=== PATIENT | male | born 1940 | race African-American/Black ===

== ENCOUNTER 2018-11-22 17:54 | Inpatient (IN) | payer OTHER ==
[2018-11-22] MEDS ORDERED: LACTATED RINGERS SOLUTION 1000 ML INFUS.BAG IV ONE ×2 (18:37→19:19)
[2018-11-22] MEDS ORDERED: ACETAMINOPHEN 1000 MG/100 ML VIAL (NON FORMULARY) IVPB ONE (18:37)
[2018-11-22] MEDS ORDERED: LACTATED RINGERS SOLUTION 500 ML IV ONE (18:45)
[2018-11-22 19:15] LABS: VENOUS PC02 63.7 mmHg (41-51); VENOUS PO2 40.7 mmHg (30-40)
[2018-11-22] MEDS ORDERED: ACETAMINOPHEN INJECTION 100 ML IVPB ONE (19:17)
[2018-11-22 19:19] LABS: VENOUS PH 7.11 (7.31-7.41)
[2018-11-22 19:31] LABS: BASO % 0.3 % (0-2.0); EOS % 0.3 % (0-4.5); HEMATOCRIT 26.6 % (35.4-49); HEMOGLOBIN 9.1 GM/dL (11.7-16.9); LYMPH % 14.7 % (8-40); MCH 31.3 pg (25.7-33.7); MCHC 34.1 g/dl (32.0-35.9); MEAN CELL VOLUME 91.8 fl (80-96); MEAN PLT VOLUME 8.6 fl (7.5-11.1); MONO % 10.9 % (3.8-10.2); NEUT % 73.8 % (42.8-82.8); PLATELET COUNT 206 K/MM3 (134-434); RDW 13.3 % (11.9-15.9); WHITE BLOOD COUNT 6.7 K/mm3 (4.0-10.0)
[2018-11-22] MEDS ORDERED: ALBUTEROL SO4 2.5/IPRATROPIUM 0.5 INH SOL 3 ML VIAL.NEB. NEB ONE ×3 (19:43→22:01)
--- NOTE | 2018-11-22 19:47 | PDOC ---
Documentation entered by En Horowitz SCRIBE, acting as scribe for Radha Land DO. Radha Land DO: This documentation has been prepared by the Lor baker Xhesika, SCRIBE, under my direction and personally reviewed by me in its entirety. I confirm that the documentation accurately reflects all work, treatment, procedures, and medical decision making performed by me. History of Present Illness - General Chief Complaint: SIRS, Suspected/Possible Stated Complaint: FALL Time Seen by Provider: 11/22/18 18:22 History Source: Patient, Family Exam Limitations: No Limitations - History of Present Illness Initial Comments: 11/22/18 18:54 The patient is an 78 year old male with a significant medical history of HTN, recurrent UTIS, High PSA, presumed Prostate cancer secondary to high PSA, and possible dementia who present to the ED with L paraspinal pain s/p 2 episodes of mechanical falls this morning. As per daughter, the patient has been endorsing back pain for awhile as well as dysuria, urinary retention and fever. As per daughter, the patient has been endorsing worsening mental status for 3 months. The patient is a poor historian and unable to provide history, however, he denies chest pain, shortness of breath, chills, nausea, vomit, diarrhea and constipation. Patient states he did not feel lightheaded before he feel this morning. Allergies: NKA, NKDA Social history: No tobacco use, Occasional alcohol use. PCP: Robert Morejon Past History - Past Medical History Allergies/Adverse Reactions: Allergies Allergy/AdvReac Type Severity Reaction Status Date / Time No Known Allergies Allergy Verified 11/22/18 18:38 Home Medications: Ambulatory Orders Unobtainable 11/22/18 Review of Systems - Review of Systems Able to Perform ROS?: Yes Comments:: 11/22/18 18:55 GENERAL/CONSTITUTIONAL: (+) fever. No chills. No weakness. HEAD, EYES, EARS, NOSE AND THROAT: No change in vision. No ear pain or discharge. No sore throat. CARDIOVASCULAR: No chest pain or shortness of breath. RESPIRATORY: No cough, wheezing, or hemoptysis. GASTROINTESTINAL: No nausea, vomiting, diarrhea or constipation. GENITOURINARY: (+) dysuria. No frequency, or change in urination. MUSCULOSKELETAL: (+) L paraspinal pain. No joint or muscle swelling. No neck or back pain. SKIN: No rash NEUROLOGIC: No headache, vertigo, loss of consciousness, or change in strength/ sensation. ENDOCRINE: No increased thirst. No abnormal weight change. HEMATOLOGIC/LYMPHATIC: No anemia, easy bleeding, or history of blood clots. ALLERGIC/IMMUNOLOGIC: No hives or skin allergy. *Physical Exam - Vital Signs Last Vital Signs Temp Pulse Resp BP Pulse Ox 101.1 F H 91 H 20 134/121 H 100 11/22/18 18:05 11/22/18 18:05 11/22/18 18:05 11/22/18 18:05 11/22/18 18:05 - Physical Exam Comments: 11/22/18 18:55 GENERAL: Awake, alert, and oriented x 2, in no acute distress HEAD: No signs of trauma EYES: PERRLA, EOMI, sclera anicteric, conjunctiva clear ENT: Auricles normal inspection, hearing grossly normal, nares patent, oropharynx clear without exudates. (+) dry mucosa. (+) tongue fasciculations. NECK: Normal ROM, supple, no lymphadenopathy, JVD, or masses LUNGS: Breath sounds equal, clear to auscultation bilaterally. No wheezes, and no crackles HEART: Regular rate and rhythm, normal S1 and S2, no murmurs, rubs or gallops ABDOMEN: Soft, nontender, normoactive bowel sounds. No guarding, no rebound. No masses EXTREMITIES:(+) asterixis. no edema. No clubbing or cyanosis. No cords, erythema, or tenderness NEUROLOGICAL: Cranial nerves II through XII grossly intact. Awake, alert, and oriented x 2 SKIN: Warm, Dry, normal turgor, no rashes or lesions noted. Heart Score/ECG Review - ECG Intrepretation Comment:: 11/22/18 18:53 sinus at 93, nl axis, lvh, t wave inversions lateral leads, no acute st changes ED Treatment Course - LABORATORY CBC & Chemistry Diagram: 11/22/18 19:00 11/22/18 19:00 - RADIOLOGY Radiology Studies Ordered: Category Date Time Status CERVICAL SPINE CT W/O CONTR [CT] Stat CT Scan 11/22/18 18:[address] WITHOUT CONTRAST [CT] Stat CT Scan 11/22/18 18:24 Ordered CHEST - PA [RAD] Stat Radiology 11/22/18 18:37 Ordered PELVIS [RAD] Stat Radiology 11/22/18 18:37 Ordered SPINE-LUMBAR SACRAL [RAD] Stat Radiology 11/22/18 18:37 Ordered Medical Decision Making - Critical Care Time Total Critical Care Time (minutes): 60 Critical Care Statement: The care of this patient involved high complexity decision making to prevent further life threatening deterioration of the patient 's condition and/or to evaluate & treat vital organ system(s) failure or risk of failure. - Medical Decision Making 11/22/18 18:39 a/p: 78yo male with hx of htn presents with 3-4m of worsening ms and then 2 falls in the last 2 days -daughter at the bedside states poss has prostate ca - saw dr. lujan once and never followed up -pt is a poor historian and cannot provide any hx -pt with htn, unsure what med or if he is taking it -pt arrives without focal neuro findings, but confused/delirious -per daughter worsening mental status x 3 months -case [facility]ero [facility] he will resume care in the am, pt with hx of elevated psa and htn, hx of freq uti -requests repeat psa and renal ultrasound, agrees with rest of plan -will send labs, cultures, head and c spine ct, xray of chest and back -will send ua and ucx -will monitor and reassess 11/22/18 19:47 pt with fever severe acidosis - both hypercapnic and metabolic will start nebs pt to ct will need admission 11/22/18 20:06 pt with renal failure hyperkalemia dr. kenny called to update on labs, will consult nephrology/urology will place vilchis catheter renal failure causing acidosis will treat hyperkalemia will place in ICU 11/22/18 20:15 case again discussed with Dr. Kenny who states pt took norvasc 5mg in the past hx of glaucoma will consult urology, nephrology - dr. lujan, dr. ly discussed with ICU resident who will see the patient. 11/22/18 20:[address] Ly - no HD at this time, will repeat labs q4 labs tonight. agrees with mame spence, recommends discussion with urology for nephrostomy tubes 11/22/18 21:[address] Schulte who accepts pt to service under dr. kenny 11/22/18 21:[address] Burnett who recommends MRI brain 11/22/18 21:34 case discussed with urology - dr. springer agrees with IR placing nephrostomy tubes tonight 11/22/18 21:51 attempting to get interventional radiology on the phone for nephrostomy tube placement 11/22/18 22:[address] Larios from IR who place PCN tubes in the AM. *DC/Admit/Observation/Transfer Diagnosis at time of Disposition: Systemic inflammatory response syndrome (SIRS), Hypercapnic acidosis, Metabolic acidemia, Renal failure, Hyperkalemia, Bilateral hydronephrosis - Discharge Dispostion Condition at time of disposition: Guarded Decision to Admit order: Yes - Referrals - Patient Instructions - Post Discharge Activity - Attestations Physician Attestion: 11/22/18 18:52 I, Dr. Radha Land, DO, attest that this document has been prepared under my direction and personally reviewed by me in its entirety. I further attest, that it accurately reflects all work, treatment, procedures and medical decision -making performed by me.
[2018-11-22 19:59] LABS: ALBUMIN 3.8 g/dl (3.4-5.0); BILIRUBIN,TOTAL 0.6 mg/dL (0.2-1); BLOOD UREA NITROGEN 95.4 mg/dL (7-18); CALCIUM 8.8 mg/dL (8.5-10.1); MAGNESIUM 2.1 mg/dL (1.8-2.4); TOT PROT 8.3 g/dl (6.4-8.2)
[2018-11-22 20:02] LABS: CREATININE 9.2 mg/dL (0.55-1.3)
[2018-11-22 20:03] LABS: POTASSIUM 6.2 mmol/L (3.5-5.1)
[2018-11-22] MEDS ORDERED: SODIUM POLYSTYRENE SULFONATE 15 GM/60 ML BOTTLE PO ONE (20:05)
[2018-11-22] MEDS ORDERED: CALCIUM GLUCONATE 10% - 1,000 MG/10 ML VIAL IVPUSH ONE (20:05)
[2018-11-22] MEDS ORDERED: DEXTROSE 50%-WATER - 25 GM/50 ML VIAL IVPUSH ONE (20:05)
[2018-11-22] MEDS ORDERED: INSULIN REGULAR HUMAN 100 UNITS/ML *VIAL IVPUSH ONE (20:05)
[2018-11-22] MEDS ORDERED: PIPERACILLIN/TAZOB 2.25 GM 2.25 GM in DEXTROSE 5%-WATER - 50 ML IVPB ONE (20:13)
[2018-11-22] MEDS ORDERED: VANCOMYCIN 1,000 MG in DEXTROSE 5%-WATER - 250 ML IVPB ONE (20:14)
[2018-11-22 20:18] LABS: INR 1.27 (0.83-1.09)
[2018-11-22 20:21] LABS: ACTIVATED PTT 33.9 SECONDS (25.2-36.5)
[2018-11-22] MEDS ORDERED: SODIUM CHLORIDE 0.9% 1000 ML INFUS.BAG IV ONE (20:24)
[2018-11-22] MEDS ORDERED: SODIUM BICARBONATE 8.4% 50 MEQ/50 ML DISP.SYRIN IVPUSH ONE (20:26)
[2018-11-22] MEDS ORDERED: SODIUM ZIRCONIUM CYCLOSILICATE (LOKELMA) 5 GM PACKET PO SCH (20:30)
[2018-11-22] MEDS ORDERED: ACETAMINOPHEN 650 MG SUPP.RECT PR PRN (21:23)
[2018-11-22] MEDS ORDERED: SODIUM CHLORIDE 1,000 ML IV SCH (21:30)
[2018-11-22] MEDS ORDERED: HEPARIN NA (PORCINE) 5,000 UNITS/ML 1ML VIAL ONE (22:01)
[2018-11-22] MEDS ORDERED: DEXTROSE 50%-WATER - 25 GM/50 ML VIAL ONE (22:01)
[2018-11-22] MEDS ORDERED: PIPERACILLIN/TAZOB 2.25 GM 2.25 GM/50 ML BAG IVPB ONE (22:01)
[2018-11-22] MEDS ORDERED: CALCIUM GLUCONATE 10% - 1,000 MG/10 ML VIAL ONE (22:01)
[2018-11-22] MEDS ORDERED: SODIUM BICARBONATE 8.4% 50 MEQ/50 ML VIAL ONE (22:01)
[2018-11-22] MEDS ORDERED: VANCOMYCIN 1 GRAM (PRE-DOCKED) 1,000 MG/250 ML BAG IVPB ONE (22:02)
[2018-11-22] MEDS ORDERED: INSULIN REGULAR HUMAN 100 UNITS/ML *VIAL ONE (22:42)
--- NOTE | 2018-11-22 22:50 | HP ---
Admitting History and Physical - Primary Care Physician PCP: Robert Kee - Admission Chief Complaint: falls History of Present Illness: 78 year old male with a PMHx HTN, recurrent UTI's, presumed prostate CA with a history of PSA over 200s presents after multiple falls, brought in by daughter. As per daughter, patient has had waxing and waning confusion disorientation, urinary incontinence and multiple falls for about 3 months. Patient is a poor historian, he is alert and oriented to person and place only. Daughter states he has had multiple falls and developed left lower back pain. Today he couldn't get up so he was brought to ED for further evaluation. Patient has a significant history of elevated PSA in the 200s years ago, saw urology, Dr. Buitrago once and did not follow-up. A prostate biopsy was recommended at that time. He was jagdish noted to have an enlarged prostate with a mass at that time. He is hypertensive, was on norvasc years ago and has not been taking any meds for quite some time. Patient denies cp, sob, palpitations, abdominal pain, nausea or vomiting. He also denies fever/chills. He does admit to dysuria at times. PCP: Robert Morejon History Source: Patient, Family Member (daughter) Limitations to Obtaining History: Poor Historian - Past Medical History Cardiovascular: Yes: HTN Renal/: Yes: BPH, Cancer (likely prostate CA) - Past Surgical History Past Surgical History: Yes: None - Smoking History Smoking history: Never smoked - Alcohol/Substance Use Hx Alcohol Use: No - Social History Usual Living Arrangement: Yes: Alone History of Recent Travel: No Home Medications - Allergies Allergies/Adverse Reactions: Allergies Allergy/AdvReac Type Severity Reaction Status Date / Time No Known Allergies Allergy Verified 11/22/18 18:38 - Home Medications Home Medications: Ambulatory Orders Unobtainable 11/22/18 Family Disease History - Family Disease History Family Disease History: Diabetes: Mother, CA: Sister (colon CA) Review of Systems - Review of Systems Constitutional: reports: No Symptoms Eyes: reports: No Symptoms HENT: reports: No Symptoms Neck: reports: No Symptoms Cardiovascular: reports: No Symptoms Respiratory: reports: No Symptoms Gastrointestinal: reports: No Symptoms Genitourinary: reports: Dysuria Breasts: reports: No Symptoms Reported Musculoskeletal: reports: Back Pain (left lower back pain) Integumentary: reports: No Symptoms Neurological: reports: No Symptoms (per patient) Endocrine: reports: No Symptoms Hematology/Lymphatic: reports: No Symptoms Psychiatric: reports: No Symptoms Physical Examination Vital Signs: Vital Signs Temperature 101.1 F H 11/22/18 18:05 Pulse Rate 97 H 11/22/18 21:00 Respiratory Rate 17 11/22/18 21:00 Blood Pressure 163/128 H 11/22/18 21:00 O2 Sat by Pulse Oximetry (%) 100 11/22/18 18:05 Constitutional: Yes: Well Nourished, No Distress, Calm, Other (laying in bed very comfortable) Eyes: Yes: Other (left eye ptosis) HENT: Yes: WNL, Atraumatic, Normocephalic Neck: Yes: WNL, Supple, Trachea Midline Cardiovascular: Yes: WNL, Regular Rate and Rhythm Respiratory: Yes: WNL, Regular, CTA Bilaterally Gastrointestinal: Yes: WNL, Normal Bowel Sounds, Soft, Distention (mild). No: Tenderness, Tenderness, Epigastrium, Tenderness, Rebound Renal/: Yes: Bladder Distention, Berrios Present Musculoskeletal: Yes: Back Pain (left lower back pain mild to deep palpation) Extremities: Yes: WNL Edema: No Peripheral Pulses WNL: Yes Neurological: Yes: Alert, Oriented (to person and place only), Confusion ( periods of confusion), Other (gait was not assessed). No: Aphasia, Asterixis, Dysarthria, Facial Droop, Lethargy, Loss of Sensation, Numbness, Tremors ...Motor Strength: WNL Labs: CBC, BMP 11/22/18 19:00 11/22/18 19:00 Imaging - Results Chest X-ray: Report Reviewed, Image Reviewed Cat Scan: Report Reviewed Ultrasound: Report Reviewed EKG: Report Reviewed Problem List - Problems (1) Sepsis Code(s): A41.9 - SEPSIS, UNSPECIFIED ORGANISM (2) Bilateral hydronephrosis Code(s): N13.30 - UNSPECIFIED HYDRONEPHROSIS (3) Hyperkalemia Code(s): E87.5 - HYPERKALEMIA (4) Metabolic acidemia Code(s): E87.2 - ACIDOSIS (5) Renal failure Code(s): N19 - UNSPECIFIED KIDNEY FAILURE Assessment/Plan 78 year old male presents with 3 month history of AMS, multiple falls found to be in renal failure and sepsis. Assessment: Sepsis Acute Renal Failure Severe B/L hydronephrosis Metabolic encephalopathy Hyperkalemia Obstructive nephropathy Probable Prostate CA HTN Glaucoma Plan: admit to ICU Hyperkalemia treated in ED, given cocktail, check [employer] Q4H Per nephro, no indication for HD at this time Berrios placed, urology consult to reevaluate for prostate CA IR for nephrostomy tube placement, will be done in AM per ED note HTN monitor for now and if continues to be elevated avoid nephrotoxic agents Multiple falls, left lower back pain, no acute pathology on c spine ct Follow up LS, hip/pelvic xrays sepsis, toxic metabolic encephalopathy, hypercapnia pancultured in ED, broad spectrum abx, consult ID, likely urinary source inhaled nebs IV fluids CT head with obstructive hydrocephalus and edema, brain MRI ordered, neurology consulted and aware ID eval Social work consult for possible placement and evaluation of home conditions discussed in length with daughter and patient, all questions answered
[2018-11-22 22:56] LABS: EPI CELLS 2.9 /HPF (0-5/HPF); HYALINE CASTS 1 /lpf (0-8); URINE APPEARANCE CLEAR; URINE BACTERIA 2.7 /hpf (NEGATIVE); URINE BILIRUBIN NEGATIVE (NEGATIVE); URINE COLOR YELLOW; URINE GLUCOSE (UA) NEGATIVE (NEGATIVE); URINE KETONE NEGATIVE (NEGATIVE); URINE LEUK ESTERASE NEGATIVE (NEGATIVE); URINE NITRITE NEGATIVE (NEGATIVE); URINE PROTEIN 2+ (NEGATIVE); URINE RBC 43 /hpf (0-4); URINE UROBILINOGEN 0.2 mg/dL (0.2-1.0); URINE WBC 4 /hpf (0-5)
[2018-11-23] MEDS ORDERED: amLODIPine BESYLATE 5 MG TABLET (FP) PO ONE ×2 (00:26→08:03)
[2018-11-23 00:38] LABS: ALBUMIN 2.9 g/dl (3.4-5.0); BILIRUBIN,TOTAL 0.6 mg/dL (0.2-1); BLOOD UREA NITROGEN 89.4 mg/dL (7-18); CALCIUM 7.8 mg/dL (8.5-10.1); MAGNESIUM 1.7 mg/dL (1.8-2.4); TOT PROT 6.4 g/dl (6.4-8.2)
[2018-11-23] MEDS ORDERED: PNEUMOC 13-VAL CONJ-DIP CRM/PF 0.5 ML DISP.SYRIN IM ONE (00:38)
[2018-11-23 00:42] LABS: CREATININE 8.4 mg/dL (0.55-1.3)
--- NOTE | 2018-11-23 00:46 | CONSULT ---
Consultation: REQUESTING PROVIDER: Dr. Land CONSULT REQUEST: We have been asked to medically evaluate this patient for renal failure and acidosis. HISTORY OF PRESENT ILLNESS: Sp Jo is an 78 year old male with a past medical history of HTN, frequent UTIS, possible prostate CA with high PSAs who presented to the hospital after sustaining a fall and could not get up. Patient has poor compliance with follow up and medications. Patient had been having increased confusion and unsteadiness over the last 3 months with increased amounts of falls, the most recent fall prior to yesterday was on Tuesday. He had been having dysuria, pain on urination, and urinary retention. On this current admission, the patient had fallen over onto his left side and unable to raise himself up. On presentation, the patient was pleasantly confused and only endorsing right sided pain in the parasternal region. Denied any lightheadedness , dizziness, palpitations, visual disturbances prior to fall. He denied fever, chills, chest pain, palpitations, shortness of breath, abd pain, n/v/c/d, dizziness, lightheadedness, weakness, numbness, tingling on presentation. The patient had previously seen by Dr. Cortez for potential prostate malignancy but had not followed up. ED Course notable for: 1) K 6.2 2) BUN/CRE 95/9.2 3) renal/bladder U/S--> mild to moderate bilateral hydronephrosis 4) Head Ct--> obstructive hydrocephalus REVIEW OF SYSTEMS: CONSTITUTIONAL: Absent: fever, chills, diaphoresis, generalized weakness, malaise, loss of appetite, weight change HEENT: photophobia Absent: rhinorrhea, nasal congestion, throat pain, throat swelling, difficulty swallowing, mouth swelling, ear pain, eye pain, visual changes CARDIOVASCULAR: Absent: chest pain, syncope, palpitations, irregular heart rate, lightheadedness , peripheral edema RESPIRATORY: Absent: cough, shortness of breath, dyspnea with exertion, orthopnea, wheezing, stridor, hemoptysis GASTROINTESTINAL: Absent: abdominal pain, abdominal distension, nausea, vomiting, diarrhea, constipation, melena, hematochezia GENITOURINARY: dysuria, retention Absent: frequency, urgency, hesitancy, hematuria, flank pain, genital pain MUSCULOSKELETAL: back pain L side parasternal Absent: myalgia, arthralgia, joint swelling, , neck pain SKIN: Absent: rash, itching, pallor HEMATOLOGIC/IMMUNOLOGIC: Absent: easy bleeding, easy bruising, lymphadenopathy, frequent infections ENDOCRINE: Absent: unexplained weight gain, unexplained weight loss, heat intolerance, cold intolerance NEUROLOGIC: Absent: headache, focal weakness or paresthesias, dizziness, unsteady gait, seizure, mental status changes, bladder or bowel incontinence PSYCHIATRIC: Absent: anxiety, depression, suicidal or homicidal ideation, hallucinations. PHYSICAL EXAMINATION Vital Signs - 24 hr 11/22/18 11/22/18 11/22/18 18:05 18:52 19:20 Temperature 101.1 F H 99.1 F Pulse Rate 91 H 96 H Pulse Rate [ 89 Left Radial] Respiratory 20 17 17 Rate Blood Pressure 134/121 H 173/93 H Blood Pressure 191/98 H [Left Arm] O2 Sat by Pulse 100 Oximetry (%) 11/22/18 11/22/18 21:00 23:23 Temperature 99.1 F Pulse Rate 96 H Pulse Rate [ 97 H Left Radial] Respiratory 17 17 Rate Blood Pressure 175/93 H Blood Pressure 163/128 H [Left Arm] O2 Sat by Pulse Oximetry (%) GENERAL: Awake, alert, and disoriented, no acute distress, asking for food. HEAD: Normal with no signs of trauma. EYES: Pupils equal, round and reactive to light, extraocular movements intact, sclera anicteric, conjunctiva clear. EARS, NOSE, THROAT: Oropharynx clear without exudates. Moist mucous membranes. NECK: Normal range of motion, supple without lymphadenopathy, JVD, or masses. No enlarged thyroid LUNGS: Breath sounds equal, clear to auscultation bilaterally. No wheezes, and no crackles. No accessory muscle use. HEART: Regular rate and rhythm, normal S1 and S2 without murmur, rub or gallop. ABDOMEN: Soft, nontender, not distended, normoactive bowel sounds, no guarding, no rebound, no masses. MUSCULOSKELETAL: Normal range of motion at all joints. No bony deformities or tenderness. No CVA tenderness. UPPER EXTREMITIES: 1+ pulses, warm, well-perfused. No cyanosis. No peripheral edema. LOWER EXTREMITIES: 1+ pulses, warm, well-perfused. No calf tenderness. No peripheral edema. NEUROLOGICAL: Cranial nerves II-XII intact. Normal speech. Muscle strength 5/5 bilaterally upper and lower extremities. No dysmetria. PSYCHIATRIC: Cooperative. Good eye contact. Appropriate mood and affect. SKIN: Warm, dry, normal turgor, no rashes or lesions noted. Laboratory Results - last 24 hr 11/22/18 11/22/18 11/22/18 19:00 19:00 19:00 WBC 6.7 RBC 2.90 L Hgb 9.1 L Hct 26.6 L MCV 91.8 MCH 31.3 MCHC 34.1 RDW 13.3 Plt Count 206 MPV 8.6 Absolute Neuts (auto) 5.0 Neutrophils % 73.8 Lymphocytes % 14.7 Monocytes % 10.9 H Eosinophils % 0.3 Basophils % 0.3 Nucleated RBC % 0 PT with INR INR PTT (Actin FS) VBG pH POC VBG pCO2 POC VBG pO2 VBG HCO3 VBG O2 Sat (Esdras) VBG Base Excess Sodium 129 L Potassium 6.2 H* Chloride 97 L Carbon Dioxide 24 Anion Gap 8 BUN 95.4 H Creatinine 9.2 H* Est GFR (CKD-EPI)AfAm 5.61 Est GFR (CKD-EPI)NonAf 4.84 Random Glucose 97 Lactic Acid Calcium 8.8 Magnesium 2.1 Total Bilirubin 0.6 AST 12 L ALT 13 Alkaline Phosphatase 125 H Ammonia Creatine Kinase 162 Creatine Kinase Index 0.6 CK-MB (CK-2) < 1.0 Troponin I < 0.02 Total Protein 8.3 H Albumin 3.8 Urine Color Urine Appearance Urine pH Ur Specific Downing Urine Protein Urine Glucose (UA) Urine Ketones Urine Blood Urine Nitrite Urine Bilirubin Urine Urobilinogen Ur Leukocyte Esterase Urine WBC (Auto) Urine RBC (Auto) Urine Casts (Auto) U Epithel Cells (Auto) Urine Bacteria (Auto) Blood Type Antibody Screen 11/22/18 11/22/18 11/22/18 19:00 19:00 19:00 WBC RBC Hgb Hct MCV MCH MCHC RDW Plt Count MPV Absolute Neuts (auto) Neutrophils % Lymphocytes % Monocytes % Eosinophils % Basophils % Nucleated RBC % PT with INR 15.00 H INR 1.27 H PTT (Actin FS) 33.9 VBG pH POC VBG pCO2 POC VBG pO2 VBG HCO3 VBG O2 Sat (Esdras) VBG Base Excess Sodium Potassium Chloride Carbon Dioxide Anion Gap BUN Creatinine Est GFR (CKD-EPI)AfAm Est GFR (CKD-EPI)NonAf Random Glucose Lactic Acid 2.1 H Calcium Magnesium Total Bilirubin AST ALT Alkaline Phosphatase Ammonia Creatine Kinase Creatine Kinase Index CK-MB (CK-2) Troponin I Total Protein Albumin Urine Color Urine Appearance Urine pH Ur Specific Downing Urine Protein Urine Glucose (UA) Urine Ketones Urine Blood Urine Nitrite Urine Bilirubin Urine Urobilinogen Ur Leukocyte Esterase Urine WBC (Auto) Urine RBC (Auto) Urine Casts (Auto) U Epithel Cells (Auto) Urine Bacteria (Auto) Blood Type A POSITIVE Antibody Screen Negative 11/22/18 11/22/18 11/22/18 19:00 19:00 22:35 WBC RBC Hgb Hct MCV MCH MCHC RDW Plt Count MPV Absolute Neuts (auto) Neutrophils % Lymphocytes % Monocytes % Eosinophils % Basophils % Nucleated RBC % PT with INR INR PTT (Actin FS) VBG pH 7.11 L* POC VBG pCO2 63.7 H POC VBG pO2 40.7 H VBG HCO3 19.1 L VBG O2 Sat (Esdras) 56.4 L VBG Base Excess -10.1 L Sodium Potassium Chloride Carbon Dioxide Anion Gap BUN Creatinine Est GFR (CKD-EPI)AfAm Est GFR (CKD-EPI)NonAf Random Glucose Lactic Acid Calcium Magnesium Total Bilirubin AST ALT Alkaline Phosphatase Ammonia 26.00 Creatine Kinase Creatine Kinase Index CK-MB (CK-2) Troponin I Total Protein Albumin Urine Color Yellow Urine Appearance Clear Urine pH 8.0 Ur Specific Downing 1.010 Urine Protein 2+ H Urine Glucose (UA) Negative Urine Ketones Negative Urine Blood 2+ H Urine Nitrite Negative Urine Bilirubin Negative Urine Urobilinogen 0.2 Ur Leukocyte Esterase Negative Urine WBC (Auto) 4 Urine RBC (Auto) 43 Urine Casts (Auto) 1 U Epithel Cells (Auto) 2.9 Urine Bacteria (Auto) 2.7 Blood Type Antibody Screen 11/22/18 11/22/18 23:30 23:30 WBC RBC Hgb Hct MCV MCH MCHC RDW Plt Count MPV Absolute Neuts (auto) Neutrophils % Lymphocytes % Monocytes % Eosinophils % Basophils % Nucleated RBC % PT with INR INR PTT (Actin FS) VBG pH POC VBG pCO2 POC VBG pO2 VBG HCO3 VBG O2 Sat (Esdras) VBG Base Excess Sodium 133 L Potassium 5.0 Chloride 99 Carbon Dioxide 23 Anion Gap 11 BUN 89.4 H Creatinine 8.4 H* Est GFR (CKD-EPI)AfAm 6.26 Est GFR (CKD-EPI)NonAf 5.40 Random Glucose 240 H Lactic Acid 1.7 Calcium 7.8 L Magnesium 1.7 L Total Bilirubin 0.6 AST 13 L ALT 11 L Alkaline Phosphatase 101 Ammonia Creatine Kinase Creatine Kinase Index CK-MB (CK-2) Troponin I Total Protein 6.4 Albumin 2.9 L Urine Color Urine Appearance Urine pH Ur Specific Downing Urine Protein Urine Glucose (UA) Urine Ketones Urine Blood Urine Nitrite Urine Bilirubin Urine Urobilinogen Ur Leukocyte Esterase Urine WBC (Auto) Urine RBC (Auto) Urine Casts (Auto) U Epithel Cells (Auto) Urine Bacteria (Auto) Blood Type Antibody Screen CBC, BMP 11/22/18 19:00 11/22/18 23:30 INR, PTT INR 1.27 (0.83-1.09) H 11/22/18 19:00 Active Medications Generic Name Dose Route Start Last Admin Trade Name Freq PRN Reason Stop Dose Admin Acetaminophen 650 mg 11/22/18 21:23 Tylenol Suppository - [place] Q4H PRN FEVER Chlorhexidine Gluconate 1 applic 11/22/18 22:00 Hibiclens For Decolonization - TP HS SINDY Heparin Sodium (Porcine) 5,000 unit 11/22/18 22:00 Heparin - SQ BID SINDY Sodium Chloride 1,000 mls @ 75 mls/hr 11/22/18 21:30 11/23/18 00:44 Normal Saline - IV 75 mls/hr ASDIR SINDY Administration Piperacillin Sod/Tazobactam 50 mls @ 100 mls/hr 11/23/18 23:00 Sod 2.25 gm/ Dextrose IVPB Q8H SINDY Protocol Piperacillin Sod/Tazobactam 50 mls @ 100 mls/hr 11/23/18 07:00 Sod 2.25 gm/ Dextrose IVPB 11/23/18 15:29 Q8H [facility] Protocol Mupirocin 1 applic 11/22/18 22:00 Bactroban Ointment (For Decolonization) - NS 11/27/18 21:59 BID SINDY Pneumococcal 13-Valent Conj Vacc 0.5 ml 11/23/18 00:38 Prevnar 13 Syringe - IM 11/23/18 00:39 .ONCE ONE ASSESSMENT/PLAN: Sp Jo is an 78 year old male with a past medical history of HTN, frequent UTIS, possible prostate CA with high PSAs admitted to the ICU for acute renal failure likely secondary to post-renal obstruction and hyperkalemia likely secondary to renal failure. WOJCIECH from Post-renal obstruction Hyperkalemia HTN Prostate CA Acidosis NEUROLOGIC - disoriented at times likely secondary to uremia vs obstructive hydrocephalus - likely with underlying dementia - CT showing obstructive hydrocephalus with dilated lateral, third, and fourth ventricles - Dr. Burnett consulted, recs appreciated - MRI w/o contrast ordered CARDIOLOGY - previously on Norvasc 5mg, however had not taken it in a long time - BP on arrival 191/98 - restart Norvasc 5mg - continue to monitor BP and HR RESPIRATORY - on cervical spine CT, two lesions noted in L upper lobe - evaluate for possible metastasis from prostate - preliminary read showing pulmonary nodules in bibasilar regions, f/u on official read RENAL - CRE 9.2 on admission, downtrended to 8.4 after vilchis insertion - no previous admissions, baseline uncertain - hyperkalemia 6.2 on admission, calcium gluconate, given insulin w/ D50, NS1L, Duonebs - repeat K 5.0 - continue to trend BMP and treat electrolytes as necessary - Dr. Ly consulted recs appreciated - no emergent need for HD - 1 amp of sodium bicarb given - If potassium rises, may need Lokelma GASTROINTESTINAL - no acute issues GENITOURINARY - vilchis inserted - Dr. Cortez consulted, recs appreciated - enlarged prostate with mass effect on the bladder as noted by imaging promotions assistant , f/u on official read - renal/bladder U/s showing mild to moderate bilateral hydronephrosis, bladder wall thickening - severe bilateral hydronephrosis as noted by imaging promotions assistant, f/u on official read - IR consulted, nephrostomy tubes to be inserted in AM to relieve obstruction INFECTIOUS DISEASE - hx of UTIs - urine cxs and blood cxs sent - one time dose of Vanco given - Zosyn ENDOCRINE - no acute issues HEMATOLOGY - no acute issues MUSCULOSKELETAL - head CT and cervical spine CT show no acute fx - f/u on hip and lumbar spine x-ray PSYCHIATRY - no acute issues F/E/N - Normal saline at 75cc/hr - hyperkalemia resolved, continue to monitor electrolytes and replete as necessary - NPO pending neprhostomy tube placement LINES - R AC inserted 11/22 - L forearm inserted 11/22 PROPHYLAXIS - heparin held prior to procedure CODE - full code DISPO We will continue to follow the patient. Thank you for this consultative opportunity. JOSH DAVIS DO - PGY-1 INTERNAL MEDICINE Problem List - Problems (1) Bilateral hydronephrosis Code(s): N13.30 - UNSPECIFIED HYDRONEPHROSIS (2) Hypercapnic acidosis Code(s): E87.2 - ACIDOSIS (3) Hyperkalemia Code(s): E87.5 - HYPERKALEMIA (4) Metabolic acidemia Code(s): E87.2 - ACIDOSIS (5) Renal failure Code(s): N19 - UNSPECIFIED KIDNEY FAILURE Visit type - Emergency Visit Emergency Visit: Yes ED Registration Date: 11/22/18 Care time: The patient presented to the Emergency Department on the above date and was hospitalized for further evaluation of their emergent condition. - New Patient This patient is new to me today: Yes Date on this admission: 11/23/18 - Critical Care Critical Care patient: Yes Total Critical Care Time (in minutes): 35 Critical Care Statement: The care of this patient involved high complexity decision making to prevent further life threatening deterioration of the patient 's condition and/or to evaluate & treat vital organ system(s) failure or risk of failure.
[2018-11-23] MEDS: CHLORHEXIDINE GLUCONATE 4% CLEANSER FOR DECOLONIZATION TP SCH ×2 (00:50→21:17)
[2018-11-23] MEDS: HEPARIN NA (PORCINE) 5,000 UNITS/ML 1ML VIAL SQ SCH (00:50)
[2018-11-23] MEDS: MUPIROCIN 2% TOPICAL OINTMENT FOR DECOLONIZATION NS SCH ×3 (00:53→21:18)
[2018-11-23 04:29] LABS: CALCIUM 7.8 mg/dL (8.5-10.1); POTASSIUM 5.1 mmol/L (3.5-5.1)
[2018-11-23 04:32] LABS: CREATININE 8.7 mg/dL (0.55-1.3)
[2018-11-23] MEDS ORDERED: PIPERACILLIN/TAZOBACTAM 2.25 GM VIAL IVPB ONE ×4 (06:14→21:41)
[2018-11-23] MEDS ORDERED: DEXTROSE 5%-WATER - 50 ML IVPB ONE ×4 (06:14→21:41)
[2018-11-23] MEDS: PIPERACILLIN/TAZOB 2.25 GM 2.25 GM in DEXTROSE 5%-WATER - 50 ML IVPB SCH ×3 (06:16→18:30)
--- NOTE | 2018-11-23 07:20 | PN ---
Progress Note, Physician Chief Complaint: 78 y.o M was BI by his doughter to the ER due to generalized weakness, falls, increased confusion, new urinary incontinence. In the ER hyperlalemia, ARF, acidosis, Fever 101.1-the patient was admitted to the ICU for further management.. History of Present Illness: Glaucoma HTN. History of elevated PSA 50 in 01/24 and 84 in 04/26. Seen by Dr Cortez and MRI prostate was done which showed suggestive for malignancy prostate mass growing through the capsule and multiple pelvic LN. The patient was scheduled for a biopsy of the prostate, preop eval was done, but the patient decided not to proceed with prostate biopsy, Cognitive impairment - Current Medication List Current Medications: Active Medications Acetaminophen (Tylenol Suppository -) 650 mg [place] Q4H PRN PRN Reason: FEVER Chlorhexidine Gluconate (Hibiclens For Decolonization -) 1 applic TP HS PENDING SALE TO [facility] Last Admin: 11/23/18 00:50 Dose: 1 applic Heparin Sodium (Porcine) (Heparin -) 5,000 unit SQ BID SINDY Last Admin: 11/23/18 00:50 Dose: Not Given Sodium Chloride (Normal Saline -) 1,000 mls @ 75 mls/hr IV ASDIR SINDY Last Admin: 11/23/18 00:44 Dose: 75 mls/hr Piperacillin Sod/Tazobactam (Sod 2.25 gm/ Dextrose) 50 mls @ 100 mls/hr IVPB Q8H PENDING SALE TO [facility]; Protocol Piperacillin Sod/Tazobactam (Sod 2.25 gm/ Dextrose) 50 mls @ 100 mls/hr IVPB Q8H SINDY; Protocol Stop: 11/23/18 15:29 Last Admin: 11/23/18 06:16 Dose: 100 mls/hr Mupirocin (Bactroban Ointment (For Decolonization) -) 1 applic NS BID PENDING SALE TO [facility] Stop: 11/27/18 21:59 Last Admin: 11/23/18 00:53 Dose: Not Given - Objective Vital Signs: Vital Signs Temperature 99 F 11/23/18 04:06 Pulse Rate 91 H 11/23/18 06:00 Respiratory Rate 16 11/23/18 06:00 Blood Pressure 152/79 11/23/18 06:00 O2 Sat by Pulse Oximetry (%) 100 11/22/18 18:05 Constitutional: Yes: Anxious, Mild Distress Eyes: Yes: Conjunctiva Clear, EOM Intact HENT: Yes: Atraumatic, Normocephalic Neck: Yes: Supple, Trachea Midline Cardiovascular: Yes: Regular Rate and Rhythm, S1, S2 Respiratory: Yes: Regular, CTA Bilaterally Gastrointestinal: Yes: Normal Bowel Sounds, Soft. No: Abdomen, Obese, Palpable Mass ...Rectal Exam: Yes: Deferred Genitourinary: Yes: Berrios Present (bloddy urine) Breast(s): Yes: WNL Musculoskeletal: Yes: WNL Extremities: Yes: WNL Edema: No Peripheral Pulses WNL: No Integumentary: Yes: WNL ...Motor Strength: WNL Psychiatric: Yes: Alert, Oriented. No: Agitated, Suicidal Ideation Labs: CBC, BMP 11/22/18 19:00 11/23/18 03:30 INR, PTT INR 1.27 (0.83-1.09) H 11/22/18 19:00 - ....Imaging Chest X-ray: Report Reviewed Ultrasound: Report Reviewed Problem List - Problems (1) Bilateral hydronephrosis Assessment/Plan: Urology consult Probably due to obstruction CT-P Code(s): N13.30 - UNSPECIFIED HYDRONEPHROSIS (2) Hyperkalemia Assessment/Plan: Improved, Elevated K due to acidosis, ARF Code(s): E87.5 - HYPERKALEMIA (3) Metabolic acidemia Code(s): E87.2 - ACIDOSIS (4) Renal failure Code(s): N19 - UNSPECIFIED KIDNEY FAILURE Qualifiers: Renal failure chronicity: acute (5) Sepsis Assessment/Plan: Zosyn IV Blood Cx Urine Cx Code(s): A41.9 - SEPSIS, UNSPECIFIED ORGANISM Qualifiers: Sepsis type: sepsis due to unspecified organism Qualified Code(s): A41.9 - Sepsis, unspecified organism (6) Systemic inflammatory response syndrome (SIRS) Code(s): R65.10 - SIRS OF NON-INFECTIOUS ORIGIN W/O ACUTE ORGAN DYSFUNCTION (7) HTN (hypertension) Code(s): I10 - ESSENTIAL (PRIMARY) HYPERTENSION Qualifiers: Hypertension type: essential hypertension Qualified Code(s): I10 - Essential (primary) hypertension
[2018-11-23 11:57] LABS: EOS % 0.2 % (0-4.5); RBC 2.77 M/mm3 (4.00-5.60); WHITE BLOOD COUNT 5.9 K/mm3 (4.0-10.0)
--- NOTE | 2018-11-23 11:58 | PN ---
Teaching Attending Note Name of Resident: Ivory Salter ATTENDING PHYSICIAN STATEMENT I saw and evaluated the patient. I reviewed the resident's note and discussed the case with the resident. I agree with the resident's findings and plan as documented. SUBJECTIVE: Patient seen and examined in the ICU. Awake and alert, mildly confused. Denies CP or SOB. Getting ready for repeat US to assess for hydronephrosis. Intake & Output 11/20/18 11/21/18 11/22/18 11/23/18 23:59 23:59 23:59 23:59 Intake Total 600 Output Total 1900 Balance -1300 Weight 161 lb 5 oz 161 lb 5 oz Last Vital Signs Temp Pulse Resp BP Pulse Ox 99 F 91 H 16 152/79 100 11/23/18 04:06 11/23/18 06:00 11/23/18 06:00 11/23/18 06:00 11/22/18 18:05 Active Medications Acetaminophen (Tylenol Suppository -) 650 mg HI Q4H PRN PRN Reason: FEVER Chlorhexidine Gluconate (Hibiclens For Decolonization -) 1 applic TP HS SINDY Last Admin: 11/23/18 00:50 Dose: 1 applic Heparin Sodium (Porcine) (Heparin -) 5,000 unit SQ BID SINDY Last Admin: 11/23/18 00:50 Dose: Not Given Sodium Chloride (Normal Saline -) 1,000 mls @ 75 mls/hr IV ASDIR SINDY Last Admin: 11/23/18 00:44 Dose: 75 mls/hr Piperacillin Sod/Tazobactam (Sod 2.25 gm/ Dextrose) 50 mls @ 100 mls/hr IVPB Q8H SINDY; Protocol Piperacillin Sod/Tazobactam (Sod 2.25 gm/ Dextrose) 50 mls @ 100 mls/hr IVPB Q8H SINDY; Protocol Stop: 11/23/18 15:29 Last Admin: 11/23/18 06:16 Dose: 100 mls/hr Mupirocin (Bactroban Ointment (For Decolonization) -) 1 applic NS BID SINDY Stop: 11/27/18 21:59 Last Admin: 11/23/18 00:53 Dose: Not Given GENERAL: Awake, alert, confused, no acute distress HEAD: Normal with no signs of trauma. EYES: Pupils equal, round and reactive to light, extraocular movements intact, sclera anicteric, conjunctiva clear. EARS, NOSE, THROAT: Oropharynx clear without exudates. Dry mucous membranes. NECK: Normal range of motion, supple without lymphadenopathy, JVD, or masses. No enlarged thyroid LUNGS: Breath sounds equal, clear to auscultation bilaterally. No wheezes, and no crackles. No accessory muscle use. HEART: Regular rate and rhythm, normal S1 and S2 without murmur, rub or gallop. ABDOMEN: Soft, nontender, not distended, normoactive bowel sounds, no guarding, no rebound, no masses. MUSCULOSKELETAL: Normal range of motion at all joints. No bony deformities or tenderness. No CVA tenderness. UPPER EXTREMITIES: 1+ pulses, warm, well-perfused. No cyanosis. No peripheral edema. LOWER EXTREMITIES: 1+ pulses, warm, well-perfused. No calf tenderness. No peripheral edema. NEUROLOGICAL: Non-focal, mildly confused PSYCHIATRIC: Cooperative. SKIN: Warm, dry, normal turgor, no rashes or lesions noted. Laboratory Results - last 24 hr 11/22/18 11/22/18 11/22/18 08:30 19:00 19:00 WBC 6.7 RBC 2.90 L Hgb 9.1 L Hct 26.6 L MCV 91.8 MCH 31.3 MCHC 34.1 RDW 13.3 Plt Count 206 MPV 8.6 Absolute Neuts (auto) 5.0 Neutrophils % 73.8 Lymphocytes % 14.7 Monocytes % 10.9 H Eosinophils % 0.3 Basophils % 0.3 Nucleated RBC % 0 PT with INR INR PTT (Actin FS) VBG pH POC VBG pCO2 POC VBG pO2 VBG HCO3 VBG O2 Sat (Esdras) VBG Base Excess Sodium Potassium Chloride Carbon Dioxide Anion Gap BUN Creatinine Est GFR (CKD-EPI)AfAm Est GFR (CKD-EPI)NonAf Random Glucose Lactic Acid Calcium Magnesium Total Bilirubin AST ALT Alkaline Phosphatase Ammonia Creatine Kinase 162 Creatine Kinase Index 0.6 CK-MB (CK-2) < 1.0 Troponin I < 0.02 Total Protein Albumin Urine Color Urine Appearance Urine pH Ur Specific [place] Urine Protein Urine Glucose (UA) Urine Ketones Urine Blood Urine Nitrite Urine Bilirubin Urine Urobilinogen Ur Leukocyte Esterase Urine WBC (Auto) Urine RBC (Auto) Urine Casts (Auto) U Epithel Cells (Auto) Urine Bacteria (Auto) Blood Type A POSITIVE Antibody Screen 11/22/18 11/22/18 11/22/18 19:00 19:00 19:00 WBC RBC Hgb Hct MCV MCH MCHC RDW Plt Count MPV Absolute Neuts (auto) Neutrophils % Lymphocytes % Monocytes % Eosinophils % Basophils % Nucleated RBC % PT with INR 15.00 H INR 1.27 H PTT (Actin FS) 33.9 VBG pH POC VBG pCO2 POC VBG pO2 VBG HCO3 VBG O2 Sat (Esdras) VBG Base Excess Sodium 129 L Potassium 6.2 H* Chloride 97 L Carbon Dioxide 24 Anion Gap 8 BUN 95.4 H Creatinine 9.2 H* Est GFR (CKD-EPI)AfAm 5.61 Est GFR (CKD-EPI)NonAf 4.84 Random Glucose 97 Lactic Acid 2.1 H Calcium 8.8 Magnesium 2.1 Total Bilirubin 0.6 AST 12 L ALT 13 Alkaline Phosphatase 125 H Ammonia Creatine Kinase Creatine Kinase Index CK-MB (CK-2) Troponin I Total Protein 8.3 H Albumin 3.8 Urine Color Urine Appearance Urine pH Ur Specific [place] Urine Protein Urine Glucose (UA) Urine Ketones Urine Blood Urine Nitrite Urine Bilirubin Urine Urobilinogen Ur Leukocyte Esterase Urine WBC (Auto) Urine RBC (Auto) Urine Casts (Auto) U Epithel Cells (Auto) Urine Bacteria (Auto) Blood Type Antibody Screen 11/22/18 11/22/18 11/22/18 19:00 19:00 19:00 WBC RBC Hgb Hct MCV MCH MCHC RDW Plt Count MPV Absolute Neuts (auto) Neutrophils % Lymphocytes % Monocytes % Eosinophils % Basophils % Nucleated RBC % PT with INR INR PTT (Actin FS) VBG pH 7.11 L* POC VBG pCO2 63.7 H POC VBG pO2 40.7 H VBG HCO3 19.1 L VBG O2 Sat (Esdras) 56.4 L VBG Base Excess -10.1 L Sodium Potassium Chloride Carbon Dioxide Anion Gap BUN Creatinine Est GFR (CKD-EPI)AfAm Est GFR (CKD-EPI)NonAf Random Glucose Lactic Acid Calcium Magnesium Total Bilirubin AST ALT Alkaline Phosphatase Ammonia 26.00 Creatine Kinase Creatine Kinase Index CK-MB (CK-2) Troponin I Total Protein Albumin Urine Color Urine Appearance Urine pH Ur Specific [place] Urine Protein Urine Glucose (UA) Urine Ketones Urine Blood Urine Nitrite Urine Bilirubin Urine Urobilinogen Ur Leukocyte Esterase Urine WBC (Auto) Urine RBC (Auto) Urine Casts (Auto) U Epithel Cells (Auto) Urine Bacteria (Auto) Blood Type A POSITIVE Antibody Screen Negative 11/22/18 11/22/18 11/22/18 22:35 23:30 23:30 WBC RBC Hgb Hct MCV MCH MCHC RDW Plt Count MPV Absolute Neuts (auto) Neutrophils % Lymphocytes % Monocytes % Eosinophils % Basophils % Nucleated RBC % PT with INR INR PTT (Actin FS) VBG pH POC VBG pCO2 POC VBG pO2 VBG HCO3 VBG O2 Sat (Esdras) VBG Base Excess Sodium 133 L Potassium 5.0 Chloride 99 Carbon Dioxide 23 Anion Gap 11 BUN 89.4 H Creatinine 8.4 H* Est GFR (CKD-EPI)AfAm 6.26 Est GFR (CKD-EPI)NonAf 5.40 Random Glucose 240 H Lactic Acid 1.7 Calcium 7.8 L Magnesium 1.7 L Total Bilirubin 0.6 AST 13 L ALT 11 L Alkaline Phosphatase 101 Ammonia Creatine Kinase Creatine Kinase Index CK-MB (CK-2) Troponin I Total Protein 6.4 Albumin 2.9 L Urine Color Yellow Urine Appearance Clear Urine pH 8.0 Ur Specific [place] 1.010 Urine Protein 2+ H Urine Glucose (UA) Negative Urine Ketones Negative Urine Blood 2+ H Urine Nitrite Negative Urine Bilirubin Negative Urine Urobilinogen 0.2 Ur Leukocyte Esterase Negative Urine WBC (Auto) 4 Urine RBC (Auto) 43 Urine Casts (Auto) 1 U Epithel Cells (Auto) 2.9 Urine Bacteria (Auto) 2.7 Blood Type Antibody Screen 11/23/18 03:30 WBC RBC Hgb Hct MCV MCH MCHC RDW Plt Count MPV Absolute Neuts (auto) Neutrophils % Lymphocytes % Monocytes % Eosinophils % Basophils % Nucleated RBC % PT with INR INR PTT (Actin FS) VBG pH POC VBG pCO2 POC VBG pO2 VBG HCO3 VBG O2 Sat (Esdras) VBG Base Excess Sodium 134 L Potassium 5.1 Chloride 102 Carbon Dioxide 22 Anion Gap 10 BUN 92.0 H Creatinine 8.7 H* Est GFR (CKD-EPI)AfAm 6.00 Est GFR (CKD-EPI)NonAf 5.18 Random Glucose 121 H Lactic Acid Calcium 7.8 L Magnesium Total Bilirubin AST ALT Alkaline Phosphatase Ammonia Creatine Kinase Creatine Kinase Index CK-MB (CK-2) Troponin I Total Protein Albumin Urine Color Urine Appearance Urine pH Ur Specific [place] Urine Protein Urine Glucose (UA) Urine Ketones Urine Blood Urine Nitrite Urine Bilirubin Urine Urobilinogen Ur Leukocyte Esterase Urine WBC (Auto) Urine RBC (Auto) Urine Casts (Auto) U Epithel Cells (Auto) Urine Bacteria (Auto) Blood Type Antibody Screen Problem List - Problems (1) Bilateral hydronephrosis Code(s): N13.30 - UNSPECIFIED HYDRONEPHROSIS (2) Hypercapnic acidosis Code(s): E87.2 - ACIDOSIS (3) Hyperkalemia Code(s): E87.5 - HYPERKALEMIA (4) Metabolic acidemia Code(s): E87.2 - ACIDOSIS (5) Renal failure Code(s): N19 - UNSPECIFIED KIDNEY FAILURE ASSESSMENT/PLAN: WOJCIECH due to post Renal obstruction Resolving Hyperkalemia HTN UTI R/O Prostate CA Encephalopathy: (?) Toxic metabolic encephalopathy (?) Uremia Obstructive Hydrocephalus (?) NPH Dementia Resolving Acidosis IVF Strict I & O BP control Renal evaluation Repeat US with possible need for Nephrostomy placement Empiric ABX Follow cultures Continued ICU monitoring for tenuous status Dr Olson Critical care time spent in reviewing chart, evaluating patient and formulating plan - 36 minutes.
[2018-11-23 12:05] LABS: BASO % 0.4 % (0-2.0); HEMATOCRIT 25.2 % (35.4-49); HEMOGLOBIN 8.6 GM/dL (11.7-16.9); LYMPH % 13.8 % (8-40); MCH 31.2 pg (25.7-33.7); MCHC 34.2 g/dl (32.0-35.9); MEAN CELL VOLUME 91.1 fl (80-96); MEAN PLT VOLUME 8.4 fl (7.5-11.1); MONO % 10.1 % (3.8-10.2); NEUT % 75.5 % (42.8-82.8); RDW 13.4 % (11.9-15.9)
[2018-11-23 12:06] LABS: PLATELET COUNT 178 K/MM3 (134-434)
[2018-11-23 12:14] LABS: ALBUMIN 3.2 g/dl (3.4-5.0); BILIRUBIN,TOTAL 0.7 mg/dL (0.2-1); BLOOD UREA NITROGEN 85.5 mg/dL (7-18); CALCIUM 8.1 mg/dL (8.5-10.1); MAGNESIUM 1.9 mg/dL (1.8-2.4); PHOSPHOROUS 4.9 mg/dL (2.5-4.9); POTASSIUM 5.6 mmol/L (3.5-5.1); TOT PROT 6.9 g/dl (6.4-8.2)
[2018-11-23 12:18] LABS: CREATININE 8.7 mg/dL (0.55-1.3)
--- NOTE | 2018-11-23 12:52 | CONSULT ---
Consult Consult Specialty:: Nephrology Reason for Consultation:: WOJCIECH - History of Present Illness Chief Complaint: left flang pain and multiple falls History of Present Illness: Pt is an 78 year old male with pmhx of htn, uti, high psa with presumed prostate cancer, and dementia who presents with left flank pain and multiple falls. He is a poor historian. He has had back pain and difficulty urinating for several months. His mental status has also been deteriorating. He was found to be in acute renal failure and I was called to evaluate him. He had hydronephrosis. Berrios was placed and he made about 2 liters of urine overnight. He denies chest pain or shortness of breath. He is awake and asking for food. He denies fevers or chills. - History Source History Provided By: Patient, Family Member - Past Medical History Cardio/Vascular: Yes: HTN Renal/: Yes: BPH, Cancer (likely prostate CA) - Past Surgical History Past Surgical History: Yes: None - Alcohol/Substance Use Hx Alcohol Use: No - Smoking History Smoking history: Never smoked - Social History History of Recent Travel: No Home Medications - Allergies Allergies/Adverse Reactions: Allergies Allergy/AdvReac Type Severity Reaction Status Date / Time No Known Allergies Allergy Verified 11/22/18 18:38 - Home Medications Home Medications: Ambulatory Orders Unobtainable 11/22/18 Family Disease History - Family Disease History Family Disease History: Diabetes: Mother, CA: Sister (colon CA) Review of Systems - Review of Systems Constitutional: reports: Malaise Eyes: reports: No Symptoms HENT: reports: No Symptoms Neck: reports: No Symptoms Cardiovascular: reports: No Symptoms Respiratory: reports: No Symptoms Gastrointestinal: reports: No Symptoms Genitourinary: reports: Dysuria, Flank Pain Musculoskeletal: reports: Back Pain Integumentary: reports: No Symptoms Neurological: reports: No Symptoms Endocrine: reports: No Symptoms Hematology/Lymphatic: reports: No Symptoms Psychiatric: reports: No Symptoms Physical Exam Vital Signs: Vital Signs Temperature 99 F 11/23/18 04:06 Pulse Rate 91 H 11/23/18 06:00 Respiratory Rate 16 11/23/18 06:00 Blood Pressure 152/79 11/23/18 06:00 O2 Sat by Pulse Oximetry (%) 100 11/22/18 18:05 Constitutional: Yes: Calm Eyes: Yes: Conjunctiva Clear HENT: Yes: Atraumatic Neck: Yes: Supple Cardiovascular: Yes: S1, S2 Respiratory: Yes: CTA Bilaterally Gastrointestinal: Yes: Soft Renal/: Yes: Berrios Present, Hematuria Musculoskeletal: Yes: Muscle Weakness Edema: No Integumentary: Yes: WNL Neurological: Yes: Confusion Labs: CBC, BMP 11/23/18 08:30 11/23/18 08:30 Laboratory Tests 11/22/18 11/22/18 11/22/18 19:00 19:00 22:35 WBC 6.7 Hgb 9.1 L Sodium Potassium 6.2 H* Urine Protein 2+ H Urine Blood 2+ H 11/22/18 11/23/18 11/23/18 23:30 03:30 08:30 WBC 5.9 Hgb 8.6 L Sodium 134 L Potassium 5.0 5.1 Urine Protein Urine Blood 11/23/18 08:30 WBC Hgb Sodium 134 L Potassium 5.6 H Urine Protein Urine Blood Imaging - Results Cat Scan: Report Reviewed Ultrasound: Report Reviewed Problem List - Problems (1) WOJCIECH (acute kidney injury) Code(s): N17.9 - ACUTE KIDNEY FAILURE, UNSPECIFIED (2) Urinary obstruction Code(s): N13.9 - OBSTRUCTIVE AND REFLUX UROPATHY, UNSPECIFIED (3) Bilateral hydronephrosis Code(s): N13.30 - UNSPECIFIED HYDRONEPHROSIS (4) HTN (hypertension) Code(s): I10 - ESSENTIAL (PRIMARY) HYPERTENSION Qualifiers: Hypertension type: essential hypertension Qualified Code(s): I10 - Essential (primary) hypertension (5) Hyperkalemia Code(s): E87.5 - HYPERKALEMIA (6) Renal failure Code(s): N19 - UNSPECIFIED KIDNEY FAILURE Qualifiers: Renal failure chronicity: acute Assessment/Plan Current Medications Generic Name Dose Route Start Last Admin Trade Name Freq PRN Reason Stop Dose Admin Acetaminophen 650 mg 11/22/18 21:23 Tylenol Suppository - DE Q4H PRN FEVER Chlorhexidine Gluconate 1 applic 11/22/18 22:00 11/23/18 00:50 Hibiclens For Decolonization - TP 1 applic HS SINDY Administration Heparin Sodium (Porcine) 5,000 unit 11/22/18 22:00 11/23/18 00:50 Heparin - SQ Not Given BID SINDY Sodium Chloride 1,000 mls @ 75 mls/hr 11/22/18 21:30 11/23/18 00:44 Normal Saline - IV 75 mls/hr ASDIR SIDNY Administration Piperacillin Sod/Tazobactam 50 mls @ 100 mls/hr 11/23/18 23:00 Sod 2.25 gm/ Dextrose IVPB Q8H SINDY Protocol Piperacillin Sod/Tazobactam 50 mls @ 100 mls/hr 11/23/18 07:00 11/23/18 06:16 Sod 2.25 gm/ Dextrose IVPB 11/23/18 15:29 100 mls/hr Q8H SINDY Administration Protocol Mupirocin 1 applic 11/22/18 22:00 11/23/18 00:53 Bactroban Ointment (For Decolonization) - NS 11/27/18 21:59 Not Given BID SINDY Impression 1. WOJCIECH 2. hyperkalemia 3. likely prostate cancer 4. dementia 5. htn 6. severe hydronephrosis 7. hematuria Plan - will treat potassium medically - pt is making urine - cont fluids and monitor urine output, monitor for post obstructive diuresis - urology and IR follow up - follow PSA - ct shows bone mets - consider onc eval - will monitor renal function closely - discussed with ICU team - discussed with ER team last night and with unit resident overnight - follow up repeat ultrasound
[2018-11-23] MEDS ORDERED: SODIUM ZIRCONIUM CYCLOSILICATE (LOKELMA) 5 GM PACKET PO SCH (13:00)
[2018-11-23 13:03] LABS: HEMATOCRIT 24.7 % (35.4-49); HEMOGLOBIN 8.5 GM/dL (11.7-16.9); MCH 31.2 pg (25.7-33.7); MCHC 34.2 g/dl (32.0-35.9); MEAN CELL VOLUME 91.2 fl (80-96); MEAN PLT VOLUME 7.8 fl (7.5-11.1); PLATELET COUNT 171 K/MM3 (134-434); RBC 2.71 M/mm3 (4.00-5.60); RDW 13.4 % (11.9-15.9); WHITE BLOOD COUNT 6.1 K/mm3 (4.0-10.0)
[2018-11-23 13:38] LABS: BLOOD UREA NITROGEN 84.2 mg/dL (7-18); CALCIUM 8.3 mg/dL (8.5-10.1); POTASSIUM 5.6 mmol/L (3.5-5.1)
[2018-11-23] MEDS: SODIUM ZIRCONIUM CYCLOSILICATE (LOKELMA) 5 GM PACKET PO SCH (14:00)
--- NOTE | 2018-11-23 14:26 | CONSULT ---
Consultation: CONSULT REQUEST: HEME/ONC HISTORY OF PRESENT ILLNESS: Patient is an 78 yo M, poor historian, with a PMHx of HTN, UTI's, dementia, and presumed Prostate Ca, with high PSA's in the 200's, who presented to the hospital s/p fall. Patient has poor compliance and poor follow up outpatient. Patient is confused and says he does not remember why he fell. It is documented that patient has had increased confusion and unsteadiness over the last 3 months with recurrent falls. Patient also complained of dysuria and urinary retention. Patient was seen by Dr. Cortez previously for potential prostate malignancy but never followed up. Patient denies lightheadedness, dizziness, palpitations, visual disturbances prior to fall. He denied fever, chills, chest pain, palpitations, shortness of breath, abd pain, n/v/c/d, dizziness, lightheadedness, weakness, numbness, hematuria, tingling on presentation. Patient was found to have hyperkalemia of 6.2, Cr. 9.2, BUN 95, mild to moderate hydronephrosis on US and a Head CT that showed obstructive hydrocephalus. CTAP without contrast revealed multiple vertebral bodies w/ diffuse metastatic disease. Lumbar xray: with T12 sclerotic lesion suggesting Mets. Family hx: mother with unknown cancer Social hx: never smoked, doesnt drink REVIEW OF SYSTEMS: CONSTITUTIONAL: Absent: fever, chills, diaphoresis, generalized weakness, malaise, loss of appetite, weight change HEENT: Absent: rhinorrhea, nasal congestion, throat pain, throat swelling, difficulty swallowing, mouth swelling, ear pain, eye pain, visual changes CARDIOVASCULAR: Absent: chest pain, syncope, palpitations, irregular heart rate, lightheadedness , peripheral edema RESPIRATORY: Absent: cough, shortness of breath, dyspnea with exertion, orthopnea, wheezing, stridor, hemoptysis GASTROINTESTINAL: Absent: abdominal pain, abdominal distension, nausea, vomiting, diarrhea, constipation, melena, hematochezia GENITOURINARY: Absent:,hesitancy, hematuria, flank pain, genital pain MUSCULOSKELETAL: Absent: myalgia, arthralgia, joint swelling, back pain, neck pain SKIN: Absent: rash, itching, pallor HEMATOLOGIC/IMMUNOLOGIC: Absent: easy bleeding, easy bruising, lymphadenopathy, frequent infections PHYSICAL EXAMINATION Vital Signs - 24 hr 11/22/18 11/22/18 11/22/18 18:05 18:52 19:20 Temperature 101.1 F H 99.1 F Pulse Rate 91 H 96 H Pulse Rate [ 89 Left Radial] Respiratory 20 17 17 Rate Blood Pressure 134/121 H 173/93 H Blood Pressure 191/98 H [Left Arm] O2 Sat by Pulse 100 Oximetry (%) GENERAL: Confused, a/o x 2 EYES: Pupils equal, round and reactive to light, No lid lag. EARS, NOSE, THROAT: oropharynx clear without exudates. Moist mucous membranes. NECK: supple without lymphadenopathy, JVD, or masses. LUNGS: CTA bl, no wheezing, rales, rhonchi HEART: RRR, no murmurs appreciated ABDOMEN: Soft, nontender, not distended, normoactive bowel sounds, no guarding, no rebound, no masses. No hepatomegaly or splenomegaly. LOWER EXTREMITIES: 2+ pulses, No peripheral edema. NEUROLOGICAL: Cranial nerves II-XII intact. PSYCHIATRIC: Cooperative. SKIN: Warm, dry, normal turgor, no rashes or lesions noted. TESTES: dry blood around vilchis, no palpable masses, no tenderness. +Bright red blood in vilchis bag. Laboratory Results - last 24 hr 11/22/18 11/22/18 11/22/18 08:30 19:00 19:00 WBC 6.7 RBC 2.90 L Hgb 9.1 L Hct 26.6 L MCV 91.8 MCH 31.3 MCHC 34.1 RDW 13.3 Plt Count 206 MPV 8.6 Absolute Neuts (auto) 5.0 Neutrophils % 73.8 Lymphocytes % 14.7 Monocytes % 10.9 H Eosinophils % 0.3 Basophils % 0.3 Nucleated RBC % 0 PT with INR INR PTT (Actin FS) VBG pH POC VBG pCO2 POC VBG pO2 VBG HCO3 VBG O2 Sat (Esdras) VBG Base Excess Sodium Potassium Chloride Carbon Dioxide Anion Gap BUN Creatinine Est GFR (CKD-EPI)AfAm Est GFR (CKD-EPI)NonAf Random Glucose Lactic Acid Calcium Phosphorus Magnesium Total Bilirubin AST ALT Alkaline Phosphatase Ammonia Creatine Kinase 162 Creatine Kinase Index 0.6 CK-MB (CK-2) < 1.0 Troponin I < 0.02 Total Protein Albumin Urine Color Urine Appearance Urine pH Ur Specific [place] Urine Protein Urine Glucose (UA) Urine Ketones Urine Blood Urine Nitrite Urine Bilirubin Urine Urobilinogen Ur Leukocyte Esterase Urine WBC (Auto) Urine RBC (Auto) Urine Casts (Auto) U Epithel Cells (Auto) Urine Bacteria (Auto) Blood Type A POSITIVE Antibody Screen ASSESSMENT/PLAN: #Metastatic Prostate Ca #WOJCIECH #Hydrocephalus #Hyperkalemia -Discuss plan with and Medicine. -Bilateral percutaneous nephrostomies planned. -Tissue diagnosis at time of cystoscopy -will need bone scan in future. Dispo: We will continue to follow the patient. Thank you for this consultative opportunity. Visit type - Emergency Visit Emergency Visit: Yes ED Registration Date: 11/22/18 Care time: The patient presented to the Emergency Department on the above date and was hospitalized for further evaluation of their emergent condition. - New Patient This patient is new to me today: Yes Date on this admission: 11/24/18 - Critical Care Critical Care patient: Yes Total Critical Care Time (in minutes): 35 Critical Care Statement: The care of this patient involved high complexity decision making to prevent further life threatening deterioration of the patient 's condition and/or to evaluate & treat vital organ system(s) failure or risk of failure. ATTENDING PHYSICIAN STATEMENT I saw and evaluated the patient. I reviewed the resident's note and discussed the case with the resident. I agree with the resident's findings and plan as documented. SUBJECTIVE: OBJECTIVE: ASSESSMENT AND PLAN:
--- NOTE | 2018-11-23 15:03 | CON.ID ---
Consult Consult Specialty:: infectious diseases Referred by:: Reason for Consultation:: sepsis,fever,uti - History of Present Illness Chief Complaint: fever,arf,uti History of Present Illness: 78 yo M, poor historian, with a PMHx of HTN, UTI's, dementia, and presumed Prostate Ca, with high PSA's in the 200's, who presented to the hospital s/p fall. Patient has poor compliance and poor follow up outpatient. patient was confused and does not remember why did he fall .Currently patient looks much better all his work up has been out of place .renal on case.patient now has foleys in place and is passing lot of urine denies any other issues patients potassium has been increasing - History Source History Provided By: Patient, Medical Record Limitations to Obtaining History: Poor Historian - Past Medical History Cardio/Vascular: Yes: HTN Renal/: Yes: BPH, Cancer (likely prostate CA) - Past Surgical History Past Surgical History: Yes: None - Alcohol/Substance Use Hx Alcohol Use: No - Smoking History Smoking history: Never smoked - Social History History of Recent Travel: No Home Medications - Allergies Allergies/Adverse Reactions: Allergies Allergy/AdvReac Type Severity Reaction Status Date / Time No Known Allergies Allergy Verified 11/22/18 18:38 - Home Medications Home Medications: Ambulatory Orders Unobtainable 11/22/18 Family Disease History - Family Disease History Family Disease History: Diabetes: Mother, CA: Sister (colon CA) Review of Systems - Review of Systems Constitutional: reports: No Symptoms Eyes: reports: No Symptoms HENT: reports: No Symptoms Neck: reports: No Symptoms Cardiovascular: reports: No Symptoms Respiratory: reports: No Symptoms Gastrointestinal: reports: No Symptoms Genitourinary: reports: No Symptoms Musculoskeletal: reports: No Symptoms Integumentary: reports: No Symptoms Neurological: reports: Change in LOC, Other (fall) Endocrine: reports: No Symptoms Hematology/Lymphatic: reports: No Symptoms Psychiatric: reports: No Symptoms Physical Exam Vital Signs: Vital Signs Temperature 99 F 11/23/18 04:06 Pulse Rate 91 H 11/23/18 06:00 Respiratory Rate 16 11/23/18 06:00 Blood Pressure 152/79 11/23/18 06:00 O2 Sat by Pulse Oximetry (%) 100 11/22/18 18:05 Constitutional: Yes: Well Nourished, No Distress, Calm Cardiovascular: Yes: Regular Rate and Rhythm Respiratory: Yes: Regular, CTA Bilaterally Gastrointestinal: Yes: Normal Bowel Sounds, Soft Renal/: Yes: Berrios Present Musculoskeletal: Yes: WNL Extremities: Yes: WNL Neurological: Yes: Alert, Oriented Psychiatric: Yes: Alert, Oriented Labs: CBC, BMP 11/23/18 12:45 11/23/18 12:45 Imaging - Results Chest X-ray: Report Reviewed, Image Reviewed X-ray: Report Reviewed, Image Reviewed Cat Scan: Report Reviewed, Image Reviewed Assessment/Plan Problem List - Problems (1) Bilateral hydronephrosis Code(s): N13.30 - UNSPECIFIED HYDRONEPHROSIS (2) Hyperkalemia Code(s): E87.5 - HYPERKALEMIA (3) Metabolic acidemia Code(s): E87.2 - ACIDOSIS (4) Renal failure Code(s): N19 - UNSPECIFIED KIDNEY FAILURE Qualifiers: Renal failure chronicity: acute (5) Sepsis Code(s): A41.9 - SEPSIS, UNSPECIFIED ORGANISM Qualifiers: Sepsis type: sepsis due to unspecified organism Qualified Code(s): A41.9 - Sepsis, unspecified organism (6) Systemic inflammatory response syndrome (SIRS) Code(s): R65.10 - SIRS OF NON-INFECTIOUS ORIGIN W/O ACUTE ORGAN DYSFUNCTION (7) HTN (hypertension) Code(s): I10 - ESSENTIAL (PRIMARY) HYPERTENSION Qualifiers: Hypertension type: essential hypertension Qualified Code(s): I10 - Essential (primary) hypertension r/o uti patients picture proibably due to obstruction close watch on potassium plan will start empiric abx work up monitor labs rest as per nephro icu mgmgt cc 40 min
--- NOTE | 2018-11-23 15:07 | CONSULT ---
Consult - text type - Consultation Consultation Note: NEUROSURGERY CONSULTATION Sp Jo is an 78 year old male who has a history of Prostate CA which has not been treated. He presented to the [facility] ER on November 22, 2018 with a history of a fall. By report, he has had 2 recent falls as well as some gait difficulties, although he currently states that the most recent fall happened while he was standing and suddenly fell. He also has had increased confusion and mental state deterioration and urinary incontinence among his other medical concerns. After his recent fall, CT of the head demonstrates significant hydrocephalus. Although his cognitive dysfunction, urinary difficulties and gait problems may well be ascribed to other diagnoses, their concurrent progression in the setting of ventriculomegally disproportionate to his atrophy raises the possibility of Normal Pressure Hydrocephalus. Given his medical comorbidities, CSF diversion with TISSUE REWINDER shunting is not mandatory, however, may represent a potentially important treatment consideration. I discussed the case with the ICU residents and we spoke about the role of CSF withdrawl with Lumbar Puncture to halve the opening pressure as a reasonable attempt to simulate lower CSF pressures to guage potential benefit from shunting. I described this to the patient who agrees. - Will await trial of CSF withdrawl - GI/DVT prophylaxis
--- NOTE | 2018-11-23 15:21 | EKG ---
Test Reason : Blood Pressure : / mmHG Vent. Rate : 093 BPM Atrial Rate : 093 BPM P-R Int : 160 ms QRS Dur : 084 ms QT Int : 344 ms P-R-T Axes : 067 016 093 degrees QTc Int : 427 ms NORMAL SINUS RHYTHM ABNORMAL QRS-T ANGLE, CONSIDER PRIMARY T WAVE ABNORMALITY ABNORMAL ECG NO PREVIOUS ECGS AVAILABLE Confirmed by MURTAZA MONAHAN MD ([id number]) on 11/23/2018 3:21:21 PM Referred By: Confirmed By:MURTAZA MONAHAN MD
[2018-11-23] MEDS ORDERED: SODIUM CHLORIDE 500 ML IV STA (15:24)
--- NOTE | 2018-11-23 15:25 | PN ---
Physical Exam: SUBJECTIVE: Patient seen and examined at bedside. No acute events overnight. Patient found to have bilateral hydronephrosis and hydrocephalus on admission. Patient still hyperkalemic however potassium has come down to 5.1 from 6.7 on admission. OBJECTIVE: Vital Signs Period Temp Pulse Resp BP Sys/Reyez Pulse Ox Last 24 Hr 99 F-101.1 F 89-106 16-20 134-191/76-128 100-100 GENERAL: The patient is awake, alert, somewhat confused. Patient was only oriented to self and location, stated the year was 1999 and could not name the what month or season it was. HEAD: Normal with no signs of trauma. EYES: PERRL, extraocular movements intact, sclera anicteric, conjunctiva clear. L eye ptosis. ENT: Ears normal, nares patent, oropharynx clear without exudates, moist mucous membranes. NECK: Trachea midline, full range of motion, supple. LUNGS: Breath sounds equal, clear to auscultation bilaterally, no wheezes, no crackles, no accessory muscle use. HEART: Regular rate and rhythm, S1, S2 without murmur, rub or gallop. ABDOMEN: Soft, nondistended, mild tenderness to palpation near L kidney. : Vilchis> grossly bloody urine (pink color in bag) EXTREMITIES: 2+ pulses, warm, well-perfused, no edema. NEUROLOGICAL: Cranial nerves II through XII grossly intact. Normal speech, unsteady gait. PSYCH: Normal mood, normal affect. SKIN: Warm, dry, normal turgor, no rashes or lesions noted Laboratory Results - last 24 hr 11/22/18 11/22/18 11/22/18 08:30 19:00 19:00 WBC 6.7 RBC 2.90 L Hgb 9.1 L Hct 26.6 L MCV 91.8 MCH 31.3 MCHC 34.1 RDW 13.3 Plt Count 206 MPV 8.6 Absolute Neuts (auto) 5.0 Neutrophils % 73.8 Lymphocytes % 14.7 Monocytes % 10.9 H Eosinophils % 0.3 Basophils % 0.3 Nucleated RBC % 0 PT with INR INR PTT (Actin FS) VBG pH POC VBG pCO2 POC VBG pO2 VBG HCO3 VBG O2 Sat (Esdras) VBG Base Excess Sodium Potassium Chloride Carbon Dioxide Anion Gap BUN Creatinine Est GFR (CKD-EPI)AfAm Est GFR (CKD-EPI)NonAf Random Glucose Lactic Acid Calcium Phosphorus Magnesium Total Bilirubin AST ALT Alkaline Phosphatase Ammonia Creatine Kinase 162 Creatine Kinase Index 0.6 CK-MB (CK-2) < 1.0 Troponin I < 0.02 Total Protein Albumin Urine Color Urine Appearance Urine pH Ur Specific [place] Urine Protein Urine Glucose (UA) Urine Ketones Urine Blood Urine Nitrite Urine Bilirubin Urine Urobilinogen Ur Leukocyte Esterase Urine WBC (Auto) Urine RBC (Auto) Urine Casts (Auto) U Epithel Cells (Auto) Urine Bacteria (Auto) Blood Type A POSITIVE Antibody Screen 11/22/18 11/22/18 11/22/18 19:00 19:00 19:00 WBC RBC Hgb Hct MCV MCH MCHC RDW Plt Count MPV Absolute Neuts (auto) Neutrophils % Lymphocytes % Monocytes % Eosinophils % Basophils % Nucleated RBC % PT with INR 15.00 H INR 1.27 H PTT (Actin FS) 33.9 VBG pH POC VBG pCO2 POC VBG pO2 VBG HCO3 VBG O2 Sat (Esdras) VBG Base Excess Sodium 129 L Potassium 6.2 H* Chloride 97 L Carbon Dioxide 24 Anion Gap 8 BUN 95.4 H Creatinine 9.2 H* Est GFR (CKD-EPI)AfAm 5.61 Est GFR (CKD-EPI)NonAf 4.84 Random Glucose 97 Lactic Acid 2.1 H Calcium 8.8 Phosphorus Magnesium 2.1 Total Bilirubin 0.6 AST 12 L ALT 13 Alkaline Phosphatase 125 H Ammonia Creatine Kinase Creatine Kinase Index CK-MB (CK-2) Troponin I Total Protein 8.3 H Albumin 3.8 Urine Color Urine Appearance Urine pH Ur Specific [place] Urine Protein Urine Glucose (UA) Urine Ketones Urine Blood Urine Nitrite Urine Bilirubin Urine Urobilinogen Ur Leukocyte Esterase Urine WBC (Auto) Urine RBC (Auto) Urine Casts (Auto) U Epithel Cells (Auto) Urine Bacteria (Auto) Blood Type Antibody Screen 11/22/18 11/22/18 11/22/18 19:00 19:00 19:00 WBC RBC Hgb Hct MCV MCH MCHC RDW Plt Count MPV Absolute Neuts (auto) Neutrophils % Lymphocytes % Monocytes % Eosinophils % Basophils % Nucleated RBC % PT with INR INR PTT (Actin FS) VBG pH 7.11 L* POC VBG pCO2 63.7 H POC VBG pO2 40.7 H VBG HCO3 19.1 L VBG O2 Sat (Esdras) 56.4 L VBG Base Excess -10.1 L Sodium Potassium Chloride Carbon Dioxide Anion Gap BUN Creatinine Est GFR (CKD-EPI)AfAm Est GFR (CKD-EPI)NonAf Random Glucose Lactic Acid Calcium Phosphorus Magnesium Total Bilirubin AST ALT Alkaline Phosphatase Ammonia 26.00 Creatine Kinase Creatine Kinase Index CK-MB (CK-2) Troponin I Total Protein Albumin Urine Color Urine Appearance Urine pH Ur Specific [place] Urine Protein Urine Glucose (UA) Urine Ketones Urine Blood Urine Nitrite Urine Bilirubin Urine Urobilinogen Ur Leukocyte Esterase Urine WBC (Auto) Urine RBC (Auto) Urine Casts (Auto) U Epithel Cells (Auto) Urine Bacteria (Auto) Blood Type A POSITIVE Antibody Screen Negative 11/22/18 11/22/18 11/22/18 22:35 23:30 23:30 WBC RBC Hgb Hct MCV MCH MCHC RDW Plt Count MPV Absolute Neuts (auto) Neutrophils % Lymphocytes % Monocytes % Eosinophils % Basophils % Nucleated RBC % PT with INR INR PTT (Actin FS) VBG pH POC VBG pCO2 POC VBG pO2 VBG HCO3 VBG O2 Sat (Esdras) VBG Base Excess Sodium 133 L Potassium 5.0 Chloride 99 Carbon Dioxide 23 Anion Gap 11 BUN 89.4 H Creatinine 8.4 H* Est GFR (CKD-EPI)AfAm 6.26 Est GFR (CKD-EPI)NonAf 5.40 Random Glucose 240 H Lactic Acid 1.7 Calcium 7.8 L Phosphorus Magnesium 1.7 L Total Bilirubin 0.6 AST 13 L ALT 11 L Alkaline Phosphatase 101 Ammonia Creatine Kinase Creatine Kinase Index CK-MB (CK-2) Troponin I Total Protein 6.4 Albumin 2.9 L Urine Color Yellow Urine Appearance Clear Urine pH 8.0 Ur Specific [place] 1.010 Urine Protein 2+ H Urine Glucose (UA) Negative Urine Ketones Negative Urine Blood 2+ H Urine Nitrite Negative Urine Bilirubin Negative Urine Urobilinogen 0.2 Ur Leukocyte Esterase Negative Urine WBC (Auto) 4 Urine RBC (Auto) 43 Urine Casts (Auto) 1 U Epithel Cells (Auto) 2.9 Urine Bacteria (Auto) 2.7 Blood Type Antibody Screen 11/23/18 11/23/18 11/23/18 03:30 08:30 08:30 WBC 5.9 RBC 2.77 L Hgb 8.6 L Hct 25.2 L MCV 91.1 MCH 31.2 MCHC 34.2 RDW 13.4 Plt Count 178 MPV 8.4 Absolute Neuts (auto) 4.5 Neutrophils % 75.5 Lymphocytes % 13.8 Monocytes % 10.1 Eosinophils % 0.2 Basophils % 0.4 Nucleated RBC % 0 PT with INR INR PTT (Actin FS) VBG pH POC VBG pCO2 POC VBG pO2 VBG HCO3 VBG O2 Sat (Esdras) VBG Base Excess Sodium 134 L 134 L Potassium 5.1 5.6 H Chloride 102 101 Carbon Dioxide 22 26 Anion Gap 10 8 BUN 92.0 H 85.5 H Creatinine 8.7 H* 8.7 H* Est GFR (CKD-EPI)AfAm 6.00 6.00 Est GFR (CKD-EPI)NonAf 5.18 5.18 Random Glucose 121 H 99 Lactic Acid Calcium 7.8 L 8.1 L Phosphorus 4.9 Magnesium 1.9 Total Bilirubin 0.7 AST 17 ALT 13 Alkaline Phosphatase 103 Ammonia Creatine Kinase Creatine Kinase Index CK-MB (CK-2) Troponin I Total Protein 6.9 Albumin 3.2 L Urine Color Urine Appearance Urine pH Ur Specific [place] Urine Protein Urine Glucose (UA) Urine Ketones Urine Blood Urine Nitrite Urine Bilirubin Urine Urobilinogen Ur Leukocyte Esterase Urine WBC (Auto) Urine RBC (Auto) Urine Casts (Auto) U Epithel Cells (Auto) Urine Bacteria (Auto) Blood Type Antibody Screen 11/23/18 11/23/18 12:45 12:45 WBC 6.1 RBC 2.71 L Hgb 8.5 L Hct 24.7 L MCV 91.2 MCH 31.2 MCHC 34.2 RDW 13.4 Plt Count 171 MPV 7.8 Absolute Neuts (auto) Neutrophils % Lymphocytes % Monocytes % Eosinophils % Basophils % Nucleated RBC % PT with INR INR PTT (Actin FS) VBG pH POC VBG pCO2 POC VBG pO2 VBG HCO3 VBG O2 Sat (Esdras) VBG Base Excess Sodium 134 L Potassium 5.6 H Chloride 102 Carbon Dioxide 26 Anion Gap 7 L BUN 84.2 H Creatinine 9.0 H* Est GFR (CKD-EPI)AfAm 5.76 Est GFR (CKD-EPI)NonAf 4.97 Random Glucose 101 Lactic Acid Calcium 8.3 L Phosphorus Magnesium Total Bilirubin AST ALT Alkaline Phosphatase Ammonia Creatine Kinase Creatine Kinase Index CK-MB (CK-2) Troponin I Total Protein Albumin Urine Color Urine Appearance Urine pH Ur Specific [place] Urine Protein Urine Glucose (UA) Urine Ketones Urine Blood Urine Nitrite Urine Bilirubin Urine Urobilinogen Ur Leukocyte Esterase Urine WBC (Auto) Urine RBC (Auto) Urine Casts (Auto) U Epithel Cells (Auto) Urine Bacteria (Auto) Blood Type Antibody Screen Active Medications Generic Name Dose Route Start Last Admin Trade Name Freq PRN Reason Stop Dose Admin Acetaminophen 650 mg 11/22/18 21:23 Tylenol Suppository - ME Q4H PRN FEVER Chlorhexidine Gluconate 1 applic 11/22/18 22:00 11/23/18 00:50 Hibiclens For Decolonization - TP 1 applic HS SINDY Administration Heparin Sodium (Porcine) 5,000 unit 11/22/18 22:00 11/23/18 00:50 Heparin - SQ Not Given BID SINDY Piperacillin Sod/Tazobactam 50 mls @ 100 mls/hr 11/23/18 23:00 Sod 2.25 gm/ Dextrose IVPB Q8H SINDY Protocol Piperacillin Sod/Tazobactam 50 mls @ 100 mls/hr 11/23/18 07:00 11/23/18 06:16 Sod 2.25 gm/ Dextrose IVPB 11/23/18 15:29 100 mls/hr Q8H SINDY Administration Protocol Sodium Chloride 1,000 mls @ 100 mls/hr 11/23/18 13:00 Normal Saline - IV ASDIR SINDY Piperacillin Sod/Tazobactam 50 mls @ 100 mls/hr 11/23/18 18:00 Sod 2.25 gm/ Dextrose IVPB Q8H-IV SINDY Protocol Sodium Chloride 500 mls @ 500 mls/hr 11/23/18 15:24 Normal Saline - IV 11/23/18 16:23 ASDIR STA Mupirocin 1 applic 11/22/18 22:00 11/23/18 10:30 Bactroban Ointment (For Decolonization) - NS 11/27/18 21:59 1 applic BID SINDY Administration Sodium Zirconium Cyclosilicate 10 gm 11/23/18 14:00 Lokelma PO DAILY SINDY ASSESSMENT/PLAN: Sp Jo is an 78 year old male with a past medical history of HTN, frequent UTIS, possible prostate CA with high PSAs admitted to the ICU for acute renal failure likely secondary to post-renal obstruction and hyperkalemia likely secondary to renal failure. On admission he was also found to have mild dimentia, and hydrocephalus. Differential includes normal pressure hydrocephalus. Neuro and Nephrology following. NEUROLOGIC - disoriented at times likely secondary to uremia vs obstructive hydrocephalus - likely with underlying dementia - CT showing obstructive hydrocephalus with dilated lateral, third, and fourth ventricles - Dr. Burnett consulted, recs appreciated - MRI w/o contrast ordered - LP recommended to relieve pressure and to assess whether this improves neurological symptoms (unsteadiness) CARDIOLOGY - previously on Norvasc 5mg, however had not taken it in a long time - BP on arrival 191 - restart Norvasc 5mg - continue to monitor BP and HR RESPIRATORY - on cervical spine CT, two lesions noted in L upper lobe - evaluate for possible metastasis from prostate - preliminary read showing pulmonary nodules in bibasilar regions, f/u on official read RENAL - CRE 9.2 on admission, downtrended to 8.4 after vilchis insertion - no previous admissions, baseline uncertain - hyperkalemia 6.2 on admission, calcium gluconate, given insulin w/ D50, NS1L, Duonebs - K+ 5.1 on 11/24/2018 - continue to trend BMP and treat electrolytes as necessary - Dr. Ly consulted recs appreciated - no emergent need for HD - 1 amp of sodium bicarb given - Will administer Lokelma, per nephrology, as the patient is still hyperkalemic despite intervention as above GASTROINTESTINAL - no acute issues GENITOURINARY - vilchis inserted - Dr. Cortez consulted, recs appreciated - enlarged prostate with mass effect on the bladder as noted by imaging education supervisor , f/u on official read - renal/bladder U/s showing mild to moderate bilateral hydronephrosis, bladder wall thickening - severe bilateral hydronephrosis as noted by imaging education supervisor, f/u on official read - IR consulted - No immediate need to place bilateral nephrostomy tubes at this time as the patient is putting out good urine via his Vilchis (1900mL today) and he is hemodynamically stable. - Will continue to follow creatinine/ urine output. INFECTIOUS DISEASE - hx of UTIs - urine cxs and blood cxs sent - one time dose of Vanco given - Zosyn ENDOCRINE - no acute issues HEMATOLOGY - no acute issues MUSCULOSKELETAL - head CT and cervical spine CT show no acute fx - f/u on hip and lumbar spine x-ray PSYCHIATRY - no acute issues F/E/N -Patient can take fluids PO - continue to monitor electrolytes and replete as necessary - Renal diet LINES - R AC inserted 11/22 - L forearm inserted 11/22 PROPHYLAXIS - heparin CODE - full code DISPO We will continue to follow the patient. Thank you for this consultative opportunity. Visit type - Emergency Visit Emergency Visit: Yes ED Registration Date: 11/22/18 Care time: The patient presented to the Emergency Department on the above date and was hospitalized for further evaluation of their emergent condition. - New Patient This patient is new to me today: Yes Date on this admission: 11/23/18 - Critical Care Critical Care patient: Yes Total Critical Care Time (in minutes): 40 Critical Care Statement: The care of this patient involved high complexity decision making to prevent further life threatening deterioration of the patient 's condition and/or to evaluate & treat vital organ system(s) failure or risk of failure. ATTENDING PHYSICIAN STATEMENT I saw and evaluated the patient. I reviewed the resident's note and discussed the case with the resident. I agree with the resident's findings and plan as documented. SUBJECTIVE: OBJECTIVE: ASSESSMENT AND PLAN:
--- NOTE | 2018-11-23 16:09 | CON.NEURO ---
Consult - Past Medical History Cardio/Vascular: Yes: HTN Renal/: Yes: BPH, Cancer (likely prostate CA) - Past Surgical History Past Surgical History: Yes: None - Alcohol/Substance Use Hx Alcohol Use: No - Smoking History Smoking history: Never smoked - Social History History of Recent Travel: No Home Medications - Allergies Allergies/Adverse Reactions: Allergies Allergy/AdvReac Type Severity Reaction Status Date / Time No Known Allergies Allergy Verified 11/22/18 18:38 - Home Medications Home Medications: Ambulatory Orders Unobtainable 11/22/18 Family Disease History - Family Disease History Family Disease History: Diabetes: Mother, CA: Sister (colon CA) Physical Exam-Neuro Vital Signs: Vital Signs Temperature 99 F 11/23/18 04:06 Pulse Rate 91 H 11/23/18 06:00 Respiratory Rate 16 11/23/18 06:00 Blood Pressure 152/79 11/23/18 06:00 O2 Sat by Pulse Oximetry (%) 100 11/22/18 18:05 Labs: CBC, BMP 11/23/18 12:45 11/23/18 12:45 INR, PTT INR 1.27 (0.83-1.09) H 11/22/18 19:00 Assessment/Plan cc NPH HPI 78 year old male history of htn, prostate cancer. Patient has psa of 200. He came to hospital for falls and found to have large ventricle. Patietn has hydrocephalus, and high K. Patient is being monitored in icu and being treated for hyperkalemia. Patient He was seen by neurosurgery and was suggested to have spinal tap for csf fluid withdrawal and see if his symptoms improved. So far patient has refused. I spent 35 minute doing critical care . PMH , htn, prostate cancer NKDA Sx Lives alone , retired FH,ROS, SH reviewed in chart NEUROLOGICAL EXAMIANTION Alert oriented x 1, no neck stiffness EOMI, pupils reactive, no face asymmetry moving all extremity sensation is intact ct head showed there is large ventricles Assessment/Plan 78 year old male, history of HTN, Prostate cancer, hydrocephalus with hyperkalemia. Patietn is ICU . 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 ct was reported as ? obstructive hydrocephalus Plan: spoke to family at bed side and house staff. Diagnosis and prognosis of disease of NPH was discussed. At this time patient is icu and have other critical issue and family and patient is refusing to get spinal tap. - Suggest to get mri of brain - will continue to follow Thanking you so much Irvin Burnett MD
[2018-11-23] MEDS: SODIUM CHLORIDE 1,000 ML IV SCH (16:21)
[2018-11-23] MEDS ORDERED: PIPERACILLIN/TAZOB 2.25 GM 2.25 GM in DEXTROSE 5%-WATER - 50 ML IVPB SCH (23:00)
[2018-11-24] MEDS: PIPERACILLIN/TAZOB 2.25 GM 2.25 GM in DEXTROSE 5%-WATER - 50 ML IVPB SCH ×3 (01:50→17:14)
[2018-11-24] MEDS ORDERED: LABETALOL HCL 5 MG/1 ML (100MG/20 ML VIAL) IVPUSH ONE (04:47)
[2018-11-24] MEDS ORDERED: LABETALOL HCL 5 MG/1 ML (100MG/20 ML VIAL) ONE (04:52)
[2018-11-24] MEDS ORDERED: HALOPERIDOL LACTATE 5 MG/ML IM ONE (04:56)
[2018-11-24] MEDS ORDERED: HALOPERIDOL LACTATE 5 MG/ML ONE (05:02)
[2018-11-24] MEDS ORDERED: PIPERACILLIN/TAZOBACTAM 2.25 GM VIAL IVPB ONE ×2 (06:47→17:12)
[2018-11-24] MEDS ORDERED: DEXTROSE 5%-WATER - 100 ML IVPB ONE (06:49)
[2018-11-24 08:32] LABS: HEMATOCRIT 26.6 % (35.4-49); HEMOGLOBIN 9.2 GM/dL (11.7-16.9); MCH 31.4 pg (25.7-33.7); MCHC 34.4 g/dl (32.0-35.9); MEAN CELL VOLUME 91.3 fl (80-96); MEAN PLT VOLUME 7.9 fl (7.5-11.1); PLATELET COUNT 199 K/MM3 (134-434); RBC 2.92 M/mm3 (4.00-5.60); RDW 13.2 % (11.9-15.9); WHITE BLOOD COUNT 6.8 K/mm3 (4.0-10.0)
--- NOTE | 2018-11-24 08:42 | PN ---
Progress Note, Physician Chief Complaint: Remains in the ICU, intermittently confused. Daughter at the bedside. Aggressive versus palliative care discussed. History of Present Illness: Glaucoma HTN. History of elevated PSA 50 in 01/24 and 84 in 04/26. Seen by Dr Cortez and MRI prostate was done which showed suggestive for malignancy prostate mass growing through the capsule and multiple pelvic LN. The patient was scheduled for a biopsy of the prostate, preop eval was done, but the patient decided not to proceed with prostate biopsy, Cognitive impairment - Current Medication List Current Medications: Active Medications Acetaminophen (Tylenol Suppository -) 650 mg OR Q4H PRN PRN Reason: FEVER Chlorhexidine Gluconate (Hibiclens For Decolonization -) 1 applic TP HS [facility] [place] Last Admin: 11/23/18 21:17 Dose: 1 applic Heparin Sodium (Porcine) (Heparin -) 5,000 unit SQ BID [facility] [place] Last Admin: 11/23/18 00:50 Dose: Not Given Sodium Chloride (Normal Saline -) 1,000 mls @ 100 mls/hr IV ASDIR SINDY Last Admin: 11/23/18 16:21 Dose: 100 mls/hr Piperacillin Sod/Tazobactam (Sod 2.25 gm/ Dextrose) 50 mls @ 100 mls/hr IVPB Q8H-IV SINDY; Protocol Last Admin: 11/24/18 01:50 Dose: 100 mls/hr Mupirocin (Bactroban Ointment (For Decolonization) -) 1 applic NS BID [facility] [place] Stop: 11/27/18 21:59 Last Admin: 11/23/18 21:18 Dose: 1 applic Sodium Zirconium Cyclosilicate (Lokelma) 10 gm PO DAILY [facility] [place] Last Admin: 11/23/18 14:00 Dose: 10 gm - Objective Vital Signs: Vital Signs Temperature 99.2 F 11/24/18 02:00 Pulse Rate 98 H 11/24/18 04:00 Respiratory Rate 15 11/24/18 04:00 Blood Pressure 172/88 H 11/24/18 04:00 O2 Sat by Pulse Oximetry (%) 100 11/22/18 18:05 Constitutional: Yes: Anxious, Mild Distress Eyes: Yes: Conjunctiva Clear, EOM Intact HENT: Yes: Atraumatic, Normocephalic Neck: Yes: Supple, Trachea Midline Cardiovascular: Yes: Regular Rate and Rhythm, S1, S2 Respiratory: Yes: Regular, CTA Bilaterally Gastrointestinal: Yes: Normal Bowel Sounds, Soft. No: Abdomen, Obese ...Rectal Exam: Yes: Deferred Genitourinary: Yes: Berrios Present. No: Anuria Breast(s): Yes: WNL Musculoskeletal: No: Joint Stiffness, Muscle Pain Extremities: No: Calf Tenderness, Cold, Cyanosis Edema: No Peripheral Pulses WNL: Yes Integumentary: Yes: WNL Neurological: Yes: Alert, Oriented. No: Aphasia, Dysarthria, Seizure ...Motor Strength: WNL Psychiatric: Yes: WNL Labs: CBC, BMP 11/24/18 07:54 INR, PTT INR 1.27 (0.83-1.09) H 11/22/18 19:00 Laboratory Results - last 24 hr 11/22/18 11/23/18 11/23/18 08:30 08:30 08:30 WBC 5.9 RBC 2.77 L Hgb 8.6 L Hct 25.2 L MCV 91.1 MCH 31.2 MCHC 34.2 RDW 13.4 Plt Count 178 MPV 8.4 Absolute Neuts (auto) 4.5 Neutrophils % 75.5 Lymphocytes % 13.8 Monocytes % 10.1 Eosinophils % 0.2 Basophils % 0.4 Nucleated RBC % 0 Sodium 134 L Potassium 5.6 H Chloride 101 Carbon Dioxide 26 Anion Gap 8 BUN 85.5 H Creatinine 8.7 H* Est GFR (CKD-EPI)AfAm 6.00 Est GFR (CKD-EPI)NonAf 5.18 Random Glucose 99 Calcium 8.1 L Phosphorus 4.9 Magnesium 1.9 Total Bilirubin 0.7 AST 17 ALT 13 Alkaline Phosphatase 103 Total Protein 6.9 Albumin 3.2 L Blood Type A POSITIVE 11/23/18 11/23/18 11/24/18 12:45 12:45 07:54 WBC 6.1 6.8 RBC 2.71 L 2.92 L Hgb 8.5 L 9.2 L Hct 24.7 L 26.6 L MCV 91.2 91.3 MCH 31.2 31.4 MCHC 34.2 34.4 RDW 13.4 13.2 Plt Count 171 199 MPV 7.8 7.9 Absolute Neuts (auto) Neutrophils % Lymphocytes % Monocytes % Eosinophils % Basophils % Nucleated RBC % Sodium 134 L Potassium 5.6 H Chloride 102 Carbon Dioxide 26 Anion Gap 7 L BUN 84.2 H Creatinine 9.0 H* Est GFR (CKD-EPI)AfAm 5.76 Est GFR (CKD-EPI)NonAf 4.97 Random Glucose 101 Calcium 8.3 L Phosphorus Magnesium Total Bilirubin AST ALT Alkaline Phosphatase Total Protein Albumin Blood Type Problem List - Problems (1) Bilateral hydronephrosis Assessment/Plan: Patient will need IR to place uretrostomy if pt agrees. Urology consult Code(s): N13.30 - UNSPECIFIED HYDRONEPHROSIS (2) Hyperkalemia Assessment/Plan: Improved, Elevated K due to acidosis, ARF Code(s): E87.5 - HYPERKALEMIA (3) Metabolic acidemia Assessment/Plan: Follow the labs Nephrology. Code(s): E87.2 - ACIDOSIS (4) Renal failure Assessment/Plan: Consider uretrostomy Follow BUN/Creat Code(s): N19 - UNSPECIFIED KIDNEY FAILURE Qualifiers: Renal failure chronicity: acute (5) Sepsis Assessment/Plan: Zosyn IV Blood Cx-neg Urine Cx-neg Code(s): A41.9 - SEPSIS, UNSPECIFIED ORGANISM Qualifiers: Sepsis type: sepsis due to unspecified organism Qualified Code(s): A41.9 - Sepsis, unspecified organism (6) Systemic inflammatory response syndrome (SIRS) Code(s): R65.10 - SIRS OF NON-INFECTIOUS ORIGIN W/O ACUTE ORGAN DYSFUNCTION (7) HTN (hypertension) Assessment/Plan: Amlodipine 10 mg Qd Code(s): I10 - ESSENTIAL (PRIMARY) HYPERTENSION Qualifiers: Hypertension type: essential hypertension Qualified Code(s): I10 - Essential (primary) hypertension (8) Hydrocephalus Assessment/Plan: Neuro consult appreciated. Definitive management is postponed due to patient condition. Code(s): G91.9 - HYDROCEPHALUS, UNSPECIFIED Qualifiers: Hydrocephalus type: unspecified Qualified Code(s): G91.9 - Hydrocephalus, unspecified
[2018-11-24 09:02] LABS: ALBUMIN 3.4 g/dl (3.4-5.0); BILIRUBIN,TOTAL 0.7 mg/dL (0.2-1); BLOOD UREA NITROGEN 89.2 mg/dL (7-18); CALCIUM 8.7 mg/dL (8.5-10.1); MAGNESIUM 1.8 mg/dL (1.8-2.4); PHOSPHOROUS 4.6 mg/dL (2.5-4.9); TOT PROT 7.8 g/dl (6.4-8.2)
[2018-11-24 09:11] LABS: CREATININE 9.1 mg/dL (0.55-1.3)
--- NOTE | 2018-11-24 09:17 | CON.GU ---
Consult Consult Specialty:: Referred by:: ICU Reason for Consultation:: metastatic prostate cancer. bilateral renal obstruction - History of Present Illness Chief Complaint: metastatic prostate cancer. bilateral renal obstruction History of Present Illness: This is an 78 year old male with a history an elevated PSA. MRI in Apr 2018 was highly suspicious of prostate cancer. MRI fusion biopsy was scheduled but patient cancelled and refused. He now presents with renal failure and bilateral hydronephrosis and metastatic prostate cancer. PSA is pending - History Source History Provided By: Patient, Family Member, Medical Record - Past Medical History Cardio/Vascular: Yes: HTN Renal/: Yes: BPH, Cancer (likely prostate CA) - Past Surgical History Past Surgical History: Yes: None - Alcohol/Substance Use Hx Alcohol Use: No - Smoking History Smoking history: Never smoked - Social History History of Recent Travel: No Home Medications - Allergies Allergies/Adverse Reactions: Allergies Allergy/AdvReac Type Severity Reaction Status Date / Time No Known Allergies Allergy Verified 11/22/18 18:38 - Home Medications Home Medications: Ambulatory Orders Unobtainable 11/22/18 Family Disease History - Family Disease History Family Disease History: Diabetes: Mother, CA: Sister (colon CA) Review of Systems - Review of Systems Genitourinary: reports: Frequency Physical Exam- Vital Signs: Vital Signs Temperature 98.7 F 11/24/18 08:00 Pulse Rate 87 11/24/18 08:00 Respiratory Rate 16 11/24/18 08:00 Blood Pressure 168/85 11/24/18 08:00 O2 Sat by Pulse Oximetry (%) 100 11/22/18 18:05 Renal/: No: Bladder Distention, CVA Tenderness - Left, CVA Tenderness - Right Labs: CBC, BMP 11/24/18 07:54 11/24/18 07:54 Imaging - Results Cat Scan: Report Reviewed Problem List - Problems (1) Bilateral hydronephrosis Assessment/Plan: recommend BILATERAL nephrostomies placed urgently. I spoke with IR to confirm the same. This will be the most efficient way to correct his renal failure. Plan for early next week cystoscopy and prostate biopsy. awaiting PSA. Code(s): N13.30 - UNSPECIFIED HYDRONEPHROSIS
[2018-11-24] MEDS ORDERED: PT OWN MED DRAWER 7, Y5N ONE (09:26)
--- NOTE | 2018-11-24 09:32 | PN ---
Progress Note (short form) - Note Progress Note: Patient Seen and examined Consult dictated 78 year old with elevated PSA, presumed prostate ca presents with ARF, hyperkalemia , fever, incontinence, and history of multiple falls. Found to have bilateral hydronephrosis and hydroureter with enlarged prostate and thickened bladder wall. Has RPN lymphadenopathy, pulmonary nodules, blastic mets all compatible with metastatic prostate ca. Has head CT compatible with obstructive hydrocephalus. Plan as discussed with /medicine Bilateral percutaneous nephrostomies Defer LP until improvement in uremia and improvement in presumed thrombocytopathy Tissue diagnosis at time of cystoscopy and attempt at internalization of stents Bone scan in future. Have discussed above with patient and daughter at bedside.
--- NOTE | 2018-11-24 09:33 | PN ---
Teaching Attending Note Name of Resident: Vishal Burt ATTENDING PHYSICIAN STATEMENT I saw and evaluated the patient. I reviewed the resident's note and discussed the case with the resident. I agree with the resident's findings and plan as documented. SUBJECTIVE: See dictated note and progress note for details. OBJECTIVE: ASSESSMENT AND PLAN:
[2018-11-24] MEDS: SODIUM ZIRCONIUM CYCLOSILICATE (LOKELMA) 5 GM PACKET PO SCH (09:36)
[2018-11-24] MEDS: amLODIPine BESYLATE 10 MG TABLET (FP) PO SCH (09:36)
[2018-11-24] MEDS: HEPARIN NA (PORCINE) 5,000 UNITS/ML 1ML VIAL SQ SCH ×2 (09:36→22:30)
[2018-11-24] MEDS: MUPIROCIN 2% TOPICAL OINTMENT FOR DECOLONIZATION NS SCH ×2 (09:44→22:29)
--- NOTE | 2018-11-24 09:54 | PN ---
Progress Note (short form) - Note Progress Note: BUN/Creatinine returned and is still elevated, worse than yesterday. Will need b/l nephrostomy tubes to alleviate obstruction. D/W IR, urology and heme onc. For full progress note, see document by Dr. Salter.
--- NOTE | 2018-11-24 10:24 | CONS ---
DATE OF CONSULTATION: 11/24/2018 HISTORY: This is an 78-year-old male who was brought to the hospital after multiple falls. He was confused and incontinent. He was in acute renal failure. He was febrile to 101.1. He was acidotic. Past history includes the fact that the patient has a history of an elevation of PSA in the past. Biopsy was contemplated, but the patient was lost to follow up. The patient now is found to have on CT scanning bilateral hydronephrosis with enlarged prostate likely the source of his bilateral hydronephrosis with blastic lesions on CT scan of the spine as well as multiple pulmonary nodules. No tissue diagnosis has ever been obtained despite elevation of PSA. SOCIAL HISTORY: The patient is . The patient works for [employer]. He was a nonsmoker, nondrinker. No significant industrial exposures or intoxicants. FAMILY HISTORY: Includes a sister with thyoid cancer and another sister with colon cancer. MEDICINES: Have included Tylenol, Zosyn, heparin, Norvasc. ALLERGIES: No known allergies. PAST MEDICAL HISTORY: No history of OH, diabetes, heart attack, stroke, hepatitis, thyroid disease, gout. History of hypertension. No history of hypercholesterolemia. There is a history of glaucoma and decreased vision in the left eye. REVIEW OF SYSTEMS: The patient has had multiple falls. Denies headaches. CT scanning shows hydrocephalus. Decreased vision left eye. No epistaxis, no dysphagia, no shortness of breath. Febrile on admission. No nausea, vomiting, diarrhea, constipation, dysuria, incontinence. No back pain. Left flank pain. No paresthesias. CURRENT PHYSICAL EXAMINATION: Vital Signs: BP 168/85, pulse 87, respiratory rate 16, afebrile. HEENT: TYRA. EOM intact. Oropharynx unremarkable. Lungs: No nodes, rales at the bases. Cardiac: RSR. Breasts: No gynecomastia. Abdomen: Soft abdomen. No organomegaly. Genitourinary: Testes descended. Uncircumcised male. Extremities: No significant edema. LABORATORY: WBC 6.8, hematocrit 26, platelets 199,000, polys 74. INR 1.27. Chemistries: Sodium 135, K 5.0, chloride 102, CO2 is 23, BUN 89, creatinine 9.1, calcium 8.7, phosphorous 4.6, magnesium 1.8. AST 26, ALT 25, alkaline phosphatase 111, protein 7.8, albumin 3.4. PSA pending. CT imaging: Right base with pulmonary nodules, bilateral severe hydronephrosis and hydroureter. Thick-walled urinary bladder. Retroperitoneal and pelvic lymphadenopathy, enlarged prostate. Pelvic fluid and bony metastasis. Head CT: Probable obstructive hydrocephalus. IMPRESSION: Likely metastatic prostate carcinoma, rule out bladder carcinoma. PLAN: Patient will need stenting. Discussed with about bilateral nephrostomy tubes and thereafter stenting from below. Tissue diagnosis. Subsequent therapy thereafter. Once tissue is obtained, further recommendations. Bone scans need to be obtained in the future. LP to be deferred in view of likely uremic thrombocytopathy. First procedure is bilateral nephrostomy tube, 2nd tissue diagnosis, 3rd bone scan, 4th LP once uremic thrombocytopathy improves. EDGAR RETANA M.D. [id number]
[2018-11-24] MEDS: SODIUM CHLORIDE 1,000 ML IV SCH (11:30)
--- NOTE | 2018-11-24 11:37 | PN ---
Teaching Attending Note Name of Resident: Ivory Salter ATTENDING PHYSICIAN STATEMENT I saw and evaluated the patient. I reviewed the resident's note and discussed the case with the resident. I agree with the resident's findings and plan as documented. SUBJECTIVE: Patient seen and examined in the ICU. Awake and alert, mildly confused. Denies CP or SOB. Getting ready to go to IR for bilateral nephrostomies. Intake & Output 11/21/18 11/22/18 11/23/18 11/24/18 23:59 23:59 23:59 23:59 Intake Total 2330 1380 Output Total 4750 1800 Balance -2420 -420 Weight 161 lb 5 oz 161 lb 5 oz Last Vital Signs Temp Pulse Resp BP Pulse Ox 98.7 F 97 H 18 178/104 H 100 11/24/18 08:00 11/24/18 11:14 11/24/18 11:14 11/24/18 11:14 11/24/18 11:14 Active Medications Acetaminophen (Tylenol Suppository -) 650 mg [place] Q4H PRN PRN Reason: FEVER Amlodipine Besylate (Norvasc -) 10 mg PO DAILY [facility] Last Admin: 11/24/18 09:36 Dose: 10 mg Chlorhexidine Gluconate (Hibiclens For Decolonization -) 1 applic TP HS [facility] Last Admin: 11/23/18 21:17 Dose: 1 applic Heparin Sodium (Porcine) (Heparin -) 5,000 unit SQ BID [facility] Last Admin: 11/24/18 09:36 Dose: 5,000 unit Sodium Chloride (Normal Saline -) 1,000 mls @ 100 mls/hr IV ASDIR [facility] Last Admin: 11/23/18 16:21 Dose: 100 mls/hr Piperacillin Sod/Tazobactam (Sod 2.25 gm/ Dextrose) 50 mls @ 100 mls/hr IVPB Q8H-IV SINDY; Protocol Last Admin: 11/24/18 09:39 Dose: 100 mls/hr Mupirocin (Bactroban Ointment (For Decolonization) -) 1 applic NS BID [facility] Stop: 11/27/18 21:59 Last Admin: 11/24/18 09:44 Dose: 1 applic Sodium Zirconium Cyclosilicate (Lokelma) 10 gm PO DAILY [facility] Last Admin: 11/24/18 09:36 Dose: 10 gm GENERAL: Awake, alert, confused, no acute distress HEAD: Normal with no signs of trauma. EYES: Pupils equal, round and reactive to light, extraocular movements intact, sclera anicteric, conjunctiva clear. EARS, NOSE, THROAT: Oropharynx clear without exudates. Dry mucous membranes. NECK: Normal range of motion, supple without lymphadenopathy, JVD, or masses. No enlarged thyroid LUNGS: Breath sounds equal, clear to auscultation bilaterally. No wheezes, and no crackles. No accessory muscle use. HEART: Regular rate and rhythm, normal S1 and S2 without murmur, rub or gallop. ABDOMEN: Soft, nontender, not distended, normoactive bowel sounds, no guarding, no rebound, no masses. MUSCULOSKELETAL: Normal range of motion at all joints. No bony deformities or tenderness. No CVA tenderness. UPPER EXTREMITIES: 1+ pulses, warm, well-perfused. No cyanosis. No peripheral edema. LOWER EXTREMITIES: 1+ pulses, warm, well-perfused. No calf tenderness. No peripheral edema. NEUROLOGICAL: Non-focal, mildly confused PSYCHIATRIC: Cooperative. SKIN: Warm, dry, normal turgor, no rashes or lesions noted. Laboratory Results - last 24 hr 11/23/18 11/23/18 11/23/18 08:30 08:30 12:45 WBC 5.9 6.1 RBC 2.77 L 2.71 L Hgb 8.6 L 8.5 L Hct 25.2 L 24.7 L MCV 91.1 91.2 MCH 31.2 31.2 MCHC 34.2 34.2 RDW 13.4 13.4 Plt Count 178 171 MPV 8.4 7.8 Absolute Neuts (auto) 4.5 Neutrophils % 75.5 Lymphocytes % 13.8 Monocytes % 10.1 Eosinophils % 0.2 Basophils % 0.4 Nucleated RBC % 0 Sodium 134 L Potassium 5.6 H Chloride 101 Carbon Dioxide 26 Anion Gap 8 BUN 85.5 H Creatinine 8.7 H* Est GFR (CKD-EPI)AfAm 6.00 Est GFR (CKD-EPI)NonAf 5.18 Random Glucose 99 Calcium 8.1 L Phosphorus 4.9 Magnesium 1.9 Total Bilirubin 0.7 AST 17 ALT 13 Alkaline Phosphatase 103 Total Protein 6.9 Albumin 3.2 L 11/23/18 11/24/18 11/24/18 12:45 07:54 07:54 WBC 6.8 RBC 2.92 L Hgb 9.2 L Hct 26.6 L MCV 91.3 MCH 31.4 MCHC 34.4 RDW 13.2 Plt Count 199 MPV 7.9 Absolute Neuts (auto) Neutrophils % Lymphocytes % Monocytes % Eosinophils % Basophils % Nucleated RBC % Sodium 134 L 135 L Potassium 5.6 H 5.0 Chloride 102 102 Carbon Dioxide 26 23 Anion Gap 7 L 10 BUN 84.2 H 89.2 H Creatinine 9.0 H* 9.1 H* Est GFR (CKD-EPI)AfAm 5.76 5.68 Est GFR (CKD-EPI)NonAf 4.97 4.90 Random Glucose 101 96 Calcium 8.3 L 8.7 Phosphorus 4.6 Magnesium 1.8 Total Bilirubin 0.7 AST 26 ALT 25 Alkaline Phosphatase 111 Total Protein 7.8 Albumin 3.4 Problem List - Problems (1) Bilateral hydronephrosis Code(s): N13.30 - UNSPECIFIED HYDRONEPHROSIS (2) Hypercapnic acidosis Code(s): E87.2 - ACIDOSIS (3) Hyperkalemia Code(s): E87.5 - HYPERKALEMIA (4) Metabolic acidemia Code(s): E87.2 - ACIDOSIS (5) Renal failure Code(s): N19 - UNSPECIFIED KIDNEY FAILURE ASSESSMENT/PLAN: WOJCIECH due to post Renal obstruction Resolving Hyperkalemia HTN UTI R/O Prostate CA Encephalopathy: (?) Toxic metabolic encephalopathy (?) Uremia Obstructive Hydrocephalus (?) NPH Dementia Resolving Acidosis For bilateral Nephrostomy placement by IR IVF Strict I & O BP control ABX coverage per ID Follow final cultures Continued ICU monitoring for tenuous status Dr Olson Critical care time spent in reviewing chart, evaluating patient and formulating plan - 36 minutes.
--- NOTE | 2018-11-24 11:47 | PN ---
Physical Exam: SUBJECTIVE: Patient seen and examined at bedside, patient's daughter also present this morning. Patient refused AM labs before daughter arrived, but is more amenable to cooperating with treatment plans when she is around. Labs were re-drawn after her arrival. This morning patient agreed to have the first of two nephrostomy tubes placed. The patient was counseled about his treatment options for the prostate cancer and is still considering whether he would like to pursue a more aggressive treatment plan or instead opt for palliative/ comfort care. OBJECTIVE: Vital Signs Period Temp Pulse Resp BP Sys/Reyez Pulse Ox Last 24 Hr 98.6 F-99.5 F 84-101 14-18 138-178/69-108 100-100 GENERAL: The patient is awake, alert, somewhat confused. Patient was only oriented to self and location, appears to have some understanding of his diagnosis and proposed treatment plans but occasionally has trouble recalling what was discussed. HEAD: Normal with no signs of trauma. EYES: PERRL, extraocular movements intact, sclera anicteric, conjunctiva clear. L eye ptosis. ENT: Ears normal, nares patent, oropharynx clear without exudates, moist mucous membranes. NECK: Trachea midline, full range of motion, supple. LUNGS: Breath sounds equal, clear to auscultation bilaterally, no wheezes, no crackles, no accessory muscle use. HEART: Regular rate and rhythm, S1, S2 without murmur, rub or gallop. ABDOMEN: Soft, nondistended, tenderness to palpation near L kidney. : Vilchis> grossly bloody urine (pink color in bag) EXTREMITIES: 2+ pulses, warm, well-perfused, no edema. NEUROLOGICAL: Cranial nerves II through XII grossly intact. Normal speech. PSYCH: Normal mood, normal affect. SKIN: Warm, dry, normal turgor, no rashes or lesions noted Laboratory Results - last 24 hr 11/23/18 11/23/18 11/23/18 08:30 08:30 12:45 WBC 5.9 6.1 RBC 2.77 L 2.71 L Hgb 8.6 L 8.5 L Hct 25.2 L 24.7 L MCV 91.1 91.2 MCH 31.2 31.2 MCHC 34.2 34.2 RDW 13.4 13.4 Plt Count 178 171 MPV 8.4 7.8 Absolute Neuts (auto) 4.5 Neutrophils % 75.5 Lymphocytes % 13.8 Monocytes % 10.1 Eosinophils % 0.2 Basophils % 0.4 Nucleated RBC % 0 Sodium 134 L Potassium 5.6 H Chloride 101 Carbon Dioxide 26 Anion Gap 8 BUN 85.5 H Creatinine 8.7 H* Est GFR (CKD-EPI)AfAm 6.00 Est GFR (CKD-EPI)NonAf 5.18 Random Glucose 99 Calcium 8.1 L Phosphorus 4.9 Magnesium 1.9 Total Bilirubin 0.7 AST 17 ALT 13 Alkaline Phosphatase 103 Total Protein 6.9 Albumin 3.2 L 11/23/18 11/24/18 11/24/18 12:45 07:54 07:54 WBC 6.8 RBC 2.92 L Hgb 9.2 L Hct 26.6 L MCV 91.3 MCH 31.4 MCHC 34.4 RDW 13.2 Plt Count 199 MPV 7.9 Absolute Neuts (auto) Neutrophils % Lymphocytes % Monocytes % Eosinophils % Basophils % Nucleated RBC % Sodium 134 L 135 L Potassium 5.6 H 5.0 Chloride 102 102 Carbon Dioxide 26 23 Anion Gap 7 L 10 BUN 84.2 H 89.2 H Creatinine 9.0 H* 9.1 H* Est GFR (CKD-EPI)AfAm 5.76 5.68 Est GFR (CKD-EPI)NonAf 4.97 4.90 Random Glucose 101 96 Calcium 8.3 L 8.7 Phosphorus 4.6 Magnesium 1.8 Total Bilirubin 0.7 AST 26 ALT 25 Alkaline Phosphatase 111 Total Protein 7.8 Albumin 3.4 Active Medications Generic Name Dose Route Start Last Admin Trade Name Freq PRN Reason Stop Dose Admin Acetaminophen 650 mg 11/22/18 21:23 Tylenol Suppository - [place] Q4H PRN FEVER Amlodipine Besylate 10 mg 11/24/18 10:00 11/24/18 09:36 Norvasc - PO 10 mg DAILY SINDY Administration Chlorhexidine Gluconate 1 applic 11/22/18 22:00 11/23/18 21:17 Hibiclens For Decolonization - TP 1 applic HS SINDY Administration Heparin Sodium (Porcine) 5,000 unit 11/22/18 22:00 11/24/18 09:36 Heparin - SQ 5,000 unit BID SINDY Administration Sodium Chloride 1,000 mls @ 100 mls/hr 11/23/18 13:00 11/23/18 16:21 Normal Saline - IV 100 mls/hr ASDIR SINDY Administration Piperacillin Sod/Tazobactam 50 mls @ 100 mls/hr 11/23/18 18:00 11/24/18 09:39 Sod 2.25 gm/ Dextrose IVPB 100 mls/hr Q8H-IV SINDY Administration Protocol Mupirocin 1 applic 11/22/18 22:00 11/24/18 09:44 Bactroban Ointment (For Decolonization) - NS 11/27/18 21:59 1 applic BID SINDY Administration Sodium Zirconium Cyclosilicate 10 gm 11/23/18 14:00 11/24/18 09:36 Lokelma PO 10 gm DAILY [facility]Y Administration ASSESSMENT/PLAN: Sp Jo is an 78 year old male with a past medical history of HTN, frequent UTIS, possible prostate CA with high PSAs admitted to the ICU for acute renal failure likely secondary to post-renal obstruction and hyperkalemia likely secondary to renal failure. On admission he was also found to have mild dimentia, and hydrocephalus. Differential includes normal pressure hydrocephalus. Neuro and Nephrology following. NEUROLOGIC - disoriented at times likely secondary to uremia vs obstructive hydrocephalus - likely with underlying dementia - CT showing obstructive hydrocephalus with dilated lateral, third, and fourth ventricles - Dr. Burnett consulted, recs appreciated - MRI w/o contrast ordered - LP recommended to relieve pressure and to assess whether this improves neurological symptoms (unsteadiness) - yesterday patient refused LP and said he wanted to "think about it for a little bit", will continue discussing goals of care with patient and family members and revisit the need for this procedure. CARDIOLOGY - Increased Norvasc to 10mg as patient was still hypertensive on previous dose - continue to monitor BP and HR RESPIRATORY - on cervical spine CT, two lesions noted in L upper lobe - evaluate for possible metastasis from prostate - preliminary read showing pulmonary nodules in bibasilar regions, f/u on official read RENAL - CRE 9.2 on admission, downtrended to 8.4 after vilchis insertion, back up to 9.1 today - recommend bilateral nephrostomy tubes as creatinine is worsening, patient agreed to procedure - will recheck creatinine after tube placement - no previous admissions, baseline uncertain - hyperkalemia 6.2 on admission, calcium gluconate, given insulin w/ D50, NS1L, Duonebs - yesterday received Lokelma as he remained hyperkalemic - today K+ is high normal at 5, will continue to follow - continue to trend BMP and treat electrolytes as necessary - Dr. Ly consulted recs appreciated - no emergent need for HD - 1 amp of sodium bicarb given GASTROINTESTINAL - no acute issues GENITOURINARY - vilchis inserted - Dr. Cortez consulted, recs appreciated - enlarged prostate with mass effect on the bladder as noted by imaging production expediter , f/u on official read - renal/bladder U/s showing mild to moderate bilateral hydronephrosis, bladder wall thickening - severe bilateral hydronephrosis as noted by imaging production expediter, f/u on official read - IR consulted - Placed bilateral nephrostomy tubes today - Will continue to follow creatinine/ urine output. INFECTIOUS DISEASE - hx of UTIs - urine cxs and blood cxs sent - one time dose of Vanco given - Zosyn ENDOCRINE - no acute issues HEMATOLOGY - no acute issues MUSCULOSKELETAL - head CT and cervical spine CT show no acute fx - f/u on hip and lumbar spine x-ray PSYCHIATRY - no acute issues F/E/N -Patient can take fluids PO - continue to monitor electrolytes and replete as necessary - Renal diet LINES - R AC inserted 11/22 - L forearm inserted 11/22 PROPHYLAXIS - heparin CODE - full code DISPO We will continue to follow the patient. Thank you for this consultative opportunity. Visit type - Emergency Visit Emergency Visit: Yes ED Registration Date: 11/22/18 Care time: The patient presented to the Emergency Department on the above date and was hospitalized for further evaluation of their emergent condition. - New Patient This patient is new to me today: No - Critical Care Critical Care patient: Yes Total Critical Care Time (in minutes): 40 Critical Care Statement: The care of this patient involved high complexity decision making to prevent further life threatening deterioration of the patient 's condition and/or to evaluate & treat vital organ system(s) failure or risk of failure. ATTENDING PHYSICIAN STATEMENT I saw and evaluated the patient. I reviewed the resident's note and discussed the case with the resident. I agree with the resident's findings and plan as documented. SUBJECTIVE: OBJECTIVE: ASSESSMENT AND PLAN:
--- NOTE | 2018-11-24 15:31 | PN ---
Progress Note, Physician History of Present Illness: Pt seen and examined at bedside. He was taken for bilateral nephrostomy tubes today. He feels more comfortable than he did yesterday. Daughter is at bedside and care was discussed with her. He denies shortness of breath or chest pain. He has appetite and is asking for food. - Current Medication List Current Medications: Active Medications Acetaminophen (Tylenol Suppository -) 650 mg MO Q4H PRN PRN Reason: FEVER Amlodipine Besylate (Norvasc -) 10 mg PO DAILY [facility] Last Admin: 11/24/18 09:36 Dose: 10 mg Chlorhexidine Gluconate (Hibiclens For Decolonization -) 1 applic TP HS [facility] Last Admin: 11/23/18 21:17 Dose: 1 applic Heparin Sodium (Porcine) (Heparin -) 5,000 unit SQ BID [facility] Last Admin: 11/24/18 09:36 Dose: 5,000 unit Sodium Chloride (Normal Saline -) 1,000 mls @ 100 mls/hr IV ASDIR [facility] Last Admin: 11/23/18 16:21 Dose: 100 mls/hr Piperacillin Sod/Tazobactam (Sod 2.25 gm/ Dextrose) 50 mls @ 100 mls/hr IVPB Q8H-IV SINDY; Protocol Last Admin: 11/24/18 09:39 Dose: 100 mls/hr Mupirocin (Bactroban Ointment (For Decolonization) -) 1 applic NS BID [facility] Stop: 11/27/18 21:59 Last Admin: 11/24/18 09:44 Dose: 1 applic Sodium Zirconium Cyclosilicate (Lokelma) 10 gm PO DAILY [facility] Last Admin: 11/24/18 09:36 Dose: 10 gm - Objective Vital Signs: Vital Signs Temperature 98.7 F 11/24/18 08:00 Pulse Rate 94 H 11/24/18 12:02 Respiratory Rate 15 11/24/18 12:02 Blood Pressure 183/111 H 11/24/18 12:02 O2 Sat by Pulse Oximetry (%) 100 11/24/18 12:02 Constitutional: Yes: Calm Eyes: Yes: Conjunctiva Clear HENT: Yes: Atraumatic Neck: Yes: Supple Cardiovascular: Yes: S1, S2 Respiratory: Yes: CTA Bilaterally Gastrointestinal: Yes: Normal Bowel Sounds, Soft Genitourinary: Yes: Berrios Present, Other (bilateral nephrostomy tubes) Musculoskeletal: Yes: Muscle Weakness Edema: No Integumentary: Yes: WNL Neurological: Yes: Confusion Labs: CBC, BMP 11/24/18 07:54 11/24/18 07:54 INR, PTT INR 1.27 (0.83-1.09) H 11/22/18 19:00 Problem List - Problems (1) WOJCIECH (acute kidney injury) Code(s): N17.9 - ACUTE KIDNEY FAILURE, UNSPECIFIED (2) Urinary obstruction Code(s): N13.9 - OBSTRUCTIVE AND REFLUX UROPATHY, UNSPECIFIED (3) Bilateral hydronephrosis Code(s): N13.30 - UNSPECIFIED HYDRONEPHROSIS (4) HTN (hypertension) Code(s): I10 - ESSENTIAL (PRIMARY) HYPERTENSION Qualifiers: Hypertension type: essential hypertension Qualified Code(s): I10 - Essential (primary) hypertension (5) Hyperkalemia Code(s): E87.5 - HYPERKALEMIA (6) Renal failure Code(s): N19 - UNSPECIFIED KIDNEY FAILURE Qualifiers: Renal failure chronicity: acute Assessment/Plan Current Medications Generic Name Dose Route Start Last Admin Trade Name Freq PRN Reason Stop Dose Admin Acetaminophen 650 mg 11/22/18 21:23 Tylenol Suppository - MO Q4H PRN FEVER Amlodipine Besylate 10 mg 11/24/18 10:00 11/24/18 09:36 Norvasc - PO 10 mg DAILY SINDY Administration Chlorhexidine Gluconate 1 applic 11/22/18 22:00 11/23/18 21:17 Hibiclens For Decolonization - TP 1 applic HS SINDY Administration Heparin Sodium (Porcine) 5,000 unit 11/22/18 22:00 11/24/18 09:36 Heparin - SQ 5,000 unit BID SINDY Administration Sodium Chloride 1,000 mls @ 100 mls/hr 11/23/18 13:00 11/23/18 16:21 Normal Saline - IV 100 mls/hr ASDIR SINDY Administration Piperacillin Sod/Tazobactam 50 mls @ 100 mls/hr 11/23/18 18:00 11/24/18 09:39 Sod 2.25 gm/ Dextrose IVPB 100 mls/hr Q8H-IV SINDY Administration Protocol Mupirocin 1 applic 11/22/18 22:00 11/24/18 09:44 Bactroban Ointment (For Decolonization) - NS 11/27/18 21:59 1 applic BID SINDY Administration Sodium Zirconium Cyclosilicate 10 gm 11/23/18 14:00 11/24/18 09:36 Lokelma PO 10 gm DAILY SINDY Administration Impression 1. WOJCIECH 2. hyperkalemia 3. likely prostate cancer 4. dementia 5. htn 6. severe hydronephrosis 7. hematuria 8. likely bone mets Plan - monitor urine output - monitor for post obstructive diuresis - cont with fluids - discussed case with daughter including possibility of requiring HD - hopefully renal function improved tomorrow, cont to monitor pipeline inspector - discussed possibility of HD if no improvement - follow psa - urology follow up - discussed with ICU - potassium improved
[2018-11-24] MEDS ORDERED: DEXTROSE 5%-WATER - 50 ML IVPB ONE (17:12)
[2018-11-24 19:53] LABS: BLOOD UREA NITROGEN 87.8 mg/dL (7-18); CALCIUM 8.4 mg/dL (8.5-10.1)
[2018-11-24 19:57] LABS: CREATININE 8.7 mg/dL (0.55-1.3)
--- NOTE | 2018-11-24 20:44 | PN ---
Progress Note, Physician History of Present Illness: Pt seen and examined. Events noted. Labs/imaging results reviewed. Pt is s/p b/ l nephrostomy placement, states he feels much more comfortable. Has no specific complaints at this time. Tmax 99.5F - Current Medication List Current Medications: Active Medications Acetaminophen (Tylenol Suppository -) 650 mg SD Q4H PRN PRN Reason: FEVER Amlodipine Besylate (Norvasc -) 10 mg PO DAILY [facility] Last Admin: 11/24/18 09:36 Dose: 10 mg Chlorhexidine Gluconate (Hibiclens For Decolonization -) 1 applic TP HS [facility] Last Admin: 11/23/18 21:17 Dose: 1 applic Heparin Sodium (Porcine) (Heparin -) 5,000 unit SQ BID [facility] Last Admin: 11/24/18 09:36 Dose: 5,000 unit Sodium Chloride (Normal Saline -) 1,000 mls @ 100 mls/hr IV ASDIR [facility] Last Admin: 11/24/18 11:30 Dose: 100 mls/hr Piperacillin Sod/Tazobactam (Sod 2.25 gm/ Dextrose) 50 mls @ 100 mls/hr IVPB Q8H-IV SINDY; Protocol Last Admin: 11/24/18 17:14 Dose: 100 mls/hr Mupirocin (Bactroban Ointment (For Decolonization) -) 1 applic NS BID [facility] Stop: 11/27/18 21:59 Last Admin: 11/24/18 09:44 Dose: 1 applic - Objective Vital Signs: Vital Signs Temperature 98.4 F 11/24/18 18:00 Pulse Rate 94 H 11/24/18 18:00 Respiratory Rate 15 11/24/18 18:00 Blood Pressure 150/84 11/24/18 18:00 O2 Sat by Pulse Oximetry (%) 100 11/24/18 12:02 Constitutional: Yes: No Distress, Calm Cardiovascular: Yes: Regular Rate and Rhythm Respiratory: Yes: Regular Gastrointestinal: Yes: Normal Bowel Sounds, Soft Genitourinary: Yes: Berrios Present, Other (b/l nephrostomy with sanguinous fluid draining) Extremities: Yes: WNL Integumentary: Yes: WNL Neurological: Yes: Alert Labs: CBC, BMP 11/24/18 07:54 11/24/18 18:30 INR, PTT INR 1.27 (0.83-1.09) H 11/22/18 19:00 Microbiology 11/22/18 19:00 Blood - Peripheral Venous Blood Culture - Preliminary NO GROWTH OBTAINED AFTER 48 HOURS, INCUBATION TO CONTINUE FOR 3 DAYS. 11/22/18 16:30 Blood - Peripheral Venous Blood Culture - Preliminary NO GROWTH OBTAINED AFTER 48 HOURS, INCUBATION TO CONTINUE FOR 3 DAYS. 11/22/18 22:35 Urine - Urine Clean Catch Urine Culture - Final NO GROWTH OBTAINED - ....Imaging Cat Scan: Report Reviewed Problem List - Problems (1) WOJCIECH (acute kidney injury) Code(s): N17.9 - ACUTE KIDNEY FAILURE, UNSPECIFIED (2) Bilateral hydronephrosis Code(s): N13.30 - UNSPECIFIED HYDRONEPHROSIS (3) HTN (hypertension) Code(s): I10 - ESSENTIAL (PRIMARY) HYPERTENSION Qualifiers: Hypertension type: essential hypertension Qualified Code(s): I10 - Essential (primary) hypertension (4) Hydrocephalus Code(s): G91.9 - HYDROCEPHALUS, UNSPECIFIED Qualifiers: Hydrocephalus type: unspecified Qualified Code(s): G91.9 - Hydrocephalus, unspecified (5) Hyperkalemia Code(s): E87.5 - HYPERKALEMIA (6) Renal failure Code(s): N19 - UNSPECIFIED KIDNEY FAILURE Qualifiers: Renal failure chronicity: acute (7) Sepsis Code(s): A41.9 - SEPSIS, UNSPECIFIED ORGANISM Qualifiers: Sepsis type: sepsis due to unspecified organism Qualified Code(s): A41.9 - Sepsis, unspecified organism (8) Urinary obstruction Code(s): N13.9 - OBSTRUCTIVE AND REFLUX UROPATHY, UNSPECIFIED Assessment/Plan WOJCIECH Urinary obstruction b/l hydronephrosis s/p nephrostomy r/o UTI/sepsis Presumed prostate CA hydrocephalus -- all events noted/labs/imaging results reviewed --- continue antibiotics empirically for now -- f/u urine culture results pending -- monitor for improvement of renal function -- wbc normal, pt afebrile -- Nephrology//Onc/neurology following continue monitor cc: 40 min
[2018-11-24] MEDS: CHLORHEXIDINE GLUCONATE 4% CLEANSER FOR DECOLONIZATION TP SCH (22:30)
[2018-11-24] MEDS ORDERED: HALOPERIDOL LACTATE 5 MG/ML IM PRN (23:04)
[2018-11-25] MEDS: PIPERACILLIN/TAZOB 2.25 GM 2.25 GM in DEXTROSE 5%-WATER - 50 ML IVPB SCH ×4 (02:00→18:53)
[2018-11-25] MEDS ORDERED: DEXTROSE 5%-WATER - 50 ML IVPB ONE ×3 (03:57→18:45)
[2018-11-25] MEDS ORDERED: PIPERACILLIN/TAZOBACTAM 2.25 GM VIAL IVPB ONE ×3 (03:57→18:44)
--- NOTE | 2018-11-25 09:38 | PN ---
Physical Exam: SUBJECTIVE: Patient seen and examined in ICU POD #1 b/l nephrostomy tubes Encephalopathy as previously described; doesn't appear vastly better than prior admits Cr and BUN slightly improved 97.4F with 90s HR and stable BP No growth on cultures He was agitated overnight and required haldol. ICU plans to XF to floor. Care will be taken to ensure he doesn't interfere with nephrostomy tubes. Neuro checks, psych consult ordered. OBJECTIVE: Vital Signs Period Temp Pulse Resp BP Sys/Reyez Pulse Ox Last 24 Hr 97.2 F-98.4 F 82-98 13-18 139-183/70-111 100-100 GENERAL: The patient is awake, alert, in no acute distress. HEAD: Normal with no signs of trauma. EYES: PERRL, extraocular movements intact, sclera anicteric, conjunctiva clear. No ptosis. ENT: Ears normal, nares patent, oropharynx clear without exudates NECK: Trachea midline, full range of motion, supple. LUNGS: Breath sounds equal, clear to auscultation bilaterally HEART: Regular rate and rhythm, S1, S2 without murmur, rub or gallop. ABDOMEN: Soft, nontender, nondistended, normoactive bowel sounds : s/p b/l nephrostomy no s/s infection EXTREMITIES: 2+ pulses, warm, well-perfused, no edema. NEUROLOGICAL: Cranial nerves II through XII grossly intact. gait not observed. PSYCH: Normal mood, normal affect. SKIN: Warm, dry, normal turgor, no rashes or lesions noted Laboratory Results - last 24 hr 11/24/18 18:30 Sodium 135 L Potassium 5.0 Chloride 102 Carbon Dioxide 20 L Anion Gap 12 BUN 87.8 H Creatinine 8.7 H* Est GFR (CKD-EPI)AfAm 6.00 Est GFR (CKD-EPI)NonAf 5.18 Random Glucose 95 Calcium 8.4 L Active Medications Generic Name Dose Route Start Last Admin Trade Name Freq PRN Reason Stop Dose Admin Acetaminophen 650 mg 11/22/18 21:23 Tylenol Suppository - [place] Q4H PRN FEVER Amlodipine Besylate 10 mg 11/24/18 10:00 11/24/18 09:36 Norvasc - PO 10 mg DAILY SINDY Administration Chlorhexidine Gluconate 1 applic 11/22/18 22:00 11/24/18 22:30 Hibiclens For Decolonization - TP 1 applic HS SINDY Administration Haloperidol 2 mg 11/24/18 23:04 11/25/18 06:00 Haldol Injection (Fast Acting) - IM 2 mg Q4H PRN Administration AGITATION Heparin Sodium (Porcine) 5,000 unit 11/22/18 22:00 11/24/18 22:30 Heparin - SQ 5,000 unit BID SINDY Administration Sodium Chloride 1,000 mls @ 100 mls/hr 11/23/18 13:00 11/24/18 11:30 Normal Saline - IV 100 mls/hr ASDIR SINDY Administration Piperacillin Sod/Tazobactam 50 mls @ 100 mls/hr 11/23/18 18:00 11/25/18 02:00 Sod 2.25 gm/ Dextrose IVPB 100 mls/hr Q8H-IV SINDY Administration Protocol Mupirocin 1 applic 11/22/18 22:00 11/24/18 22:29 Bactroban Ointment (For Decolonization) - NS 11/27/18 21:59 1 applic BID SINDY Administration ASSESSMENT/PLAN: Patient presents with multiple severe medical problems; he remains in the ICU POD#1 s/p b/l nephrostomy tubes. # Obstructive uropathy s/p b/l nephrostomy POD1 # Severe metabolic acidosis 2/2 above # Hyperkalemia, resolving # Likely metastatic prostate CA (RPN, pulmonary nodules, elevates PSA, blastic lesions in bone) # Likely obstructive hydrocephalus # Dementia # Altered mental status # Severe uremia # Hx HTN # Falls at home Continue to monitor for improvement in the renal function which is only slightly better today; nephrology following. Continue NaCl @100 and monitor strict Is and Os. Continue empiric abx per ID; no culture growth to date. Will need oncologic workup when acute issues resolve, as well as will need discussion of the obstructive hydrocephalus (needs MRI and CSF withdrawal trial ; please see nsgy note for discussion of INSTRUCTIONAL FACILITATOR shunt). Due to issues with coagulation discussed with heme 2/2 uremia and non-urgent nature of this, electing to wait for CSF-WD. Will discuss with ICU team when these interventions are being planned. Hemodynamically stable and afebrile today. -AM Labs -Consulting psych -Neuro checks -Transfer to floor Continue to monitor in ICU until on floor, appreciate subspecialist input Consultants: IR, Nephrology, Oncology, ID, Neurology, Neurosurgery, Critical Care Code Status unchanged Visit type - Emergency Visit Emergency Visit: No - New Patient This patient is new to me today: Yes Date on this admission: 12/17/18 - Critical Care Critical Care patient: Yes Total Critical Care Time (in minutes): 30 Critical Care Statement: The care of this patient involved high complexity decision making to prevent further life threatening deterioration of the patient 's condition and/or to evaluate & treat vital organ system(s) failure or risk of failure.
--- NOTE | 2018-11-25 10:04 | PN ---
Physical Exam: SUBJECTIVE: Patient seen and examined at beds side , alert and awake with some confusion , refusing labs and treatment B/l nephrostomy placed yesterday denies any n/v/D /C OBJECTIVE: Vital Signs Period Temp Pulse Resp BP Sys/Reyez Pulse Ox Last 24 Hr 97.2 F-98.4 F 82-98 13-18 139-183/70-111 100-100 GENERAL: The patient is awake, alert,with some confusion HEAD: Normal with no signs of trauma. EYES: PERRL, extraocular movements intact, sclera anicteric, NECK: Trachea midline, full range of motion, supple. LUNGS: Breath sounds equal, clear to auscultation bilaterally, no wheezes, no crackles, no accessory muscle use. HEART: Regular rate and rhythm, S1, S2 without murmur, rub or gallop. ABDOMEN: Soft, nontender, nondistended, normoactive bowel sounds, B/L nepostomy with bloody drainage EXTREMITIES: 2+ pulses, warm, well-perfused, no edema. NEUROLOGICAL: no focal deficit . Normal speech, gait not observed. PSYCH: calm as of now , was agitated over night SKIN: Warm, dry, normal turgor, Laboratory Results - last 24 hr 11/24/18 18:30 Sodium 135 L Potassium 5.0 Chloride 102 Carbon Dioxide 20 L Anion Gap 12 BUN 87.8 H Creatinine 8.7 H* Est GFR (CKD-EPI)AfAm 6.00 Est GFR (CKD-EPI)NonAf 5.18 Random Glucose 95 Calcium 8.4 L Active Medications Generic Name Dose Route Start Last Admin Trade Name Sevenq PRN Reason Stop Dose Admin Acetaminophen 650 mg 11/22/18 21:23 Tylenol Suppository - [place] Q4H PRN FEVER Amlodipine Besylate 10 mg 11/24/18 10:00 11/24/18 09:36 Norvasc - PO 10 mg DAILY SINDY Administration Chlorhexidine Gluconate 1 applic 11/22/18 22:00 11/24/18 22:30 Hibiclens For Decolonization - TP 1 applic HS SINDY Administration Haloperidol 2 mg 11/24/18 23:04 11/25/18 06:00 Haldol Injection (Fast Acting) - IM 2 mg Q4H PRN Administration AGITATION Heparin Sodium (Porcine) 5,000 unit 11/22/18 22:00 11/24/18 22:30 Heparin - SQ 5,000 unit BID SINDY Administration Sodium Chloride 1,000 mls @ 100 mls/hr 11/23/18 13:00 11/24/18 11:30 Normal Saline - IV 100 mls/hr ASDIR SINDY Administration Piperacillin Sod/Tazobactam 50 mls @ 100 mls/hr 11/23/18 18:00 11/25/18 02:00 Sod 2.25 gm/ Dextrose IVPB 100 mls/hr Q8H-IV SINDY Administration Protocol Mupirocin 1 applic 11/22/18 22:00 11/24/18 22:29 Bactroban Ointment (For Decolonization) - NS 11/27/18 21:59 1 applic BID SINDY Administration CBC, BMP 11/24/18 07:54 11/24/18 18:30 ASSESSMENT/PLAN: Sp Jo is an 78 year old male with a past medical history of HTN, frequent UTIS, possible prostate CA with high PSAs admitted to the ICU for acute renal failure likely secondary to post-renal obstruction and hyperkalemia likely secondary to renal failure. On admission he was also found to have mild dimentia, and hydrocephalus. Differential includes normal pressure hydrocephalus. Neuro and Nephrology following. NEUROLOGIC - disoriented at times likely secondary to uremia vs obstructive hydrocephalus - likely with underlying dementia - CT showing obstructive hydrocephalus with dilated lateral, third, and fourth ventricles - Dr. Burnett consulted, recs appreciated - MRI w/o contrast ordered - LP recommended to relieve pressure and to assess whether this improves neurological symptoms (unsteadiness) will hold for now to due to PLt dysfunction CARDIOLOGY - Increased Norvasc to 10mg as patient was still hypertensive on previous dose - continue to monitor BP and HR RESPIRATORY - on cervical spine CT, two lesions noted in L upper lobe - evaluate for possible metastasis from prostate - preliminary read showing pulmonary nodules in bibasilar regions, f/u on official read RENAL - Cr 8.7 today - bilateral nephrostomy tubes in place - no previous admissions, baseline uncertain - hyperkalemia, resoleved cont to monitor BMP Q 12 Hr - Nephrology on Board - no emergent need for HD - 1 amp of sodium bicarb given GASTROINTESTINAL - no acute issues -colace and miralax for constipation GENITOURINARY - vilchis in place - Dr. Cortez consulted, recs appreciated - enlarged prostate with mass effect on the bladder as noted by imaging cheese production supervisor , f/u on official read - renal/bladder U/s showing mild to moderate bilateral hydronephrosis, bladder wall thickening - severe bilateral hydronephrosis as noted by imaging cheese production supervisor, f/u on official read - Placed bilateral nephrostomy tubes 11/24/2018 draining 200 CC on left side and 600 CC on right side - Will continue to follow creatinine/ urine output. INFECTIOUS DISEASE - hx of UTIs - urine cxs and blood cxs sent - one time dose of Vanco given - Zosyn ENDOCRINE - no acute issues HEMATOLOGY - no acute issues MUSCULOSKELETAL - head CT and cervical spine CT show no acute fx - f/u on hip and lumbar spine x-ray PSYCHIATRY - dementia - agitated over night , reusing lab and treatment , psych consult placed F/E/N -Patient can take fluids PO - continue to monitor electrolytes and replete as necessary - Renal diet LINES - R AC inserted 11/22 - L forearm inserted 11/22 PROPHYLAXIS - heparin CODE - full code DISPO -transfer to tele Visit type - Emergency Visit Emergency Visit: Yes ED Registration Date: 11/22/18 Care time: The patient presented to the Emergency Department on the above date and was hospitalized for further evaluation of their emergent condition. - New Patient This patient is new to me today: Yes Date on this admission: 11/25/18 - Critical Care Critical Care patient: Yes Total Critical Care Time (in minutes): 45 Critical Care Statement: The care of this patient involved high complexity decision making to prevent further life threatening deterioration of the patient 's condition and/or to evaluate & treat vital organ system(s) failure or risk of failure. ATTENDING PHYSICIAN STATEMENT I saw and evaluated the patient. I reviewed the resident's note and discussed the case with the resident. I agree with the resident's findings and plan as documented. SUBJECTIVE: OBJECTIVE: ASSESSMENT AND PLAN:
--- NOTE | 2018-11-25 10:34 | PN ---
Progress Note (short form) - Note Progress Note: Renal follow up for WOJCIECH Coverage for Dr. Ly Pt seen and examined in the ICU awake and alert, no acute complaints making urine via nephrostomy and vilchis catheters Vital Signs Temperature 97.4 F L 11/25/18 06:00 Pulse Rate 94 H 11/25/18 08:50 Respiratory Rate 13 11/25/18 08:50 Blood Pressure 139/87 11/25/18 08:50 O2 Sat by Pulse Oximetry (%) 100 11/25/18 08:53 Intake & Output 11/22/18 11/23/18 11/24/18 11/25/18 23:59 23:59 23:59 23:59 Intake Total 2330 2820 550 Output Total 4750 4920 1800 Balance -2420 -2100 -1250 Weight 73.17 kg 73.17 kg 73.028 kg 73.028 kg NAD awake and alert RRR CTA bilateral nephrostomy tubes in place vilchis in place no LE edema CBC, BMP 11/24/18 07:54 11/24/18 18:30 Current Medications Acetaminophen (Tylenol Suppository -) 650 mg DC Q4H PRN PRN Reason: FEVER Amlodipine Besylate (Norvasc -) 10 mg PO DAILY [facility] Last Admin: 11/24/18 09:36 Dose: 10 mg Chlorhexidine Gluconate (Hibiclens For Decolonization -) 1 applic TP HS [facility] Last Admin: 11/24/18 22:30 Dose: 1 applic Haloperidol (Haldol Injection (Fast Acting) -) 2 mg IM Q4H PRN PRN Reason: AGITATION Last Admin: 11/25/18 06:00 Dose: 2 mg Heparin Sodium (Porcine) (Heparin -) 5,000 unit SQ BID [facility] Last Admin: 11/24/18 22:30 Dose: 5,000 unit Sodium Chloride (Normal Saline -) 1,000 mls @ 100 mls/hr IV ASDIR [facility] Last Admin: 11/24/18 11:30 Dose: 100 mls/hr Piperacillin Sod/Tazobactam (Sod 2.25 gm/ Dextrose) 50 mls @ 100 mls/hr IVPB Q8H-IV SINDY; Protocol Last Admin: 11/25/18 02:00 Dose: 100 mls/hr Mupirocin (Bactroban Ointment (For Decolonization) -) 1 applic NS BID SINDY Stop: 11/27/18 21:59 Last Admin: 11/24/18 22:29 Dose: 1 applic Impression 1. WOJCIECH 2. hyperkalemia 3. likely prostate cancer 4. dementia 5. htn 6. severe hydronephrosis 7. hematuria 8. likely bone mets Plan Renal function slightly improved, pt is non-oliguric and making urine via nephrostomy tubes and vilchis Continue isotonic saline for now Monitor BMP Q12h to monitor serum na, k no acute need for dialysis at this time Urology follow up Sandro Tejeda DO
[2018-11-25] MEDS: MUPIROCIN 2% TOPICAL OINTMENT FOR DECOLONIZATION NS SCH (10:49)
[2018-11-25] MEDS: HEPARIN NA (PORCINE) 5,000 UNITS/ML 1ML VIAL SQ SCH ×2 (10:49→22:02)
[2018-11-25] MEDS: amLODIPine BESYLATE 10 MG TABLET (FP) PO SCH ×2 (10:49→14:07)
--- NOTE | 2018-11-25 10:56 | PN ---
Teaching Attending Note Name of Resident: Cristian Jeter ATTENDING PHYSICIAN STATEMENT I saw and evaluated the patient. I reviewed the resident's note and discussed the case with the resident. I agree with the resident's findings and plan as documented. SUBJECTIVE: Patient seen and examined in the ICU. Awake and alert but remains confused. Agitated and refused labs this AM. Denies CP or SOB. Bilateral nephrostomies draining. Intake & Output 11/22/18 11/23/18 11/24/18 11/25/18 23:59 23:59 23:59 23:59 Intake Total 2330 2820 550 Output Total 4750 4920 1800 Balance -9236 -6543 -7130 Weight 161 lb 5 oz 161 lb 5 oz 161 lb 161 lb Last Vital Signs Temp Pulse Resp BP Pulse Ox 97.4 F L 94 H 13 139/87 100 11/25/18 06:00 11/25/18 08:50 11/25/18 08:50 11/25/18 08:50 11/25/18 08:53 Active Medications Acetaminophen (Tylenol Suppository -) 650 mg [place] Q4H PRN PRN Reason: FEVER Amlodipine Besylate (Norvasc -) 10 mg PO DAILY [facility] Last Admin: 11/25/18 10:49 Dose: Not Given Chlorhexidine Gluconate (Hibiclens For Decolonization -) 1 applic TP HS SINDY Last Admin: 11/24/18 22:30 Dose: 1 applic Haloperidol (Haldol Injection (Fast Acting) -) 2 mg IM Q4H PRN PRN Reason: AGITATION Last Admin: 11/25/18 06:00 Dose: 2 mg Heparin Sodium (Porcine) (Heparin -) 5,000 unit SQ BID [facility] Last Admin: 11/25/18 10:49 Dose: Not Given Sodium Chloride (Normal Saline -) 1,000 mls @ 100 mls/hr IV ASDIR [facility] Last Admin: 11/24/18 11:30 Dose: 100 mls/hr Piperacillin Sod/Tazobactam (Sod 2.25 gm/ Dextrose) 50 mls @ 100 mls/hr IVPB Q8H-IV SINDY; Protocol Last Admin: 11/25/18 10:50 Dose: Not Given Mupirocin (Bactroban Ointment (For Decolonization) -) 1 applic NS BID [facility] Stop: 11/27/18 21:59 Last Admin: 11/25/18 10:49 Dose: Not Given GENERAL: Awake, alert, confused, agitated HEAD: Normal with no signs of trauma. EYES: Pupils equal, round and reactive to light, extraocular movements intact, sclera anicteric, conjunctiva clear. EARS, NOSE, THROAT: Oropharynx clear without exudates. Dry mucous membranes. NECK: Normal range of motion, supple without lymphadenopathy, JVD, or masses. No enlarged thyroid LUNGS: Breath sounds equal, clear to auscultation bilaterally. No wheezes, and no crackles. No accessory muscle use. HEART: Regular rate and rhythm, normal S1 and S2 without murmur, rub or gallop. ABDOMEN: Soft, nontender, not distended, normoactive bowel sounds, (+) bilateral draining nephrostomies MUSCULOSKELETAL: Normal range of motion at all joints. No bony deformities or tenderness. No CVA tenderness. UPPER EXTREMITIES: 1+ pulses, warm, well-perfused. No cyanosis. No peripheral edema. LOWER EXTREMITIES: 1+ pulses, warm, well-perfused. No calf tenderness. No peripheral edema. NEUROLOGICAL: Non-focal, mildly confused PSYCHIATRIC: Cooperative. SKIN: Warm, dry, normal turgor, no rashes or lesions noted. Laboratory Results - last 24 hr 11/24/18 18:30 Sodium 135 L Potassium 5.0 Chloride 102 Carbon Dioxide 20 L Anion Gap 12 BUN 87.8 H Creatinine 8.7 H* Est GFR (CKD-EPI)AfAm 6.00 Est GFR (CKD-EPI)NonAf 5.18 Random Glucose 95 Calcium 8.4 L Problem List - Problems (1) Bilateral hydronephrosis Code(s): N13.30 - UNSPECIFIED HYDRONEPHROSIS (2) Hypercapnic acidosis Code(s): E87.2 - ACIDOSIS (3) Hyperkalemia Code(s): E87.5 - HYPERKALEMIA (4) Metabolic acidemia Code(s): E87.2 - ACIDOSIS (5) Renal failure Code(s): N19 - UNSPECIFIED KIDNEY FAILURE ASSESSMENT/PLAN: WOJCIECH due to post Renal obstruction Resolving Hyperkalemia HTN UTI R/O Prostate CA Encephalopathy: (?) Toxic metabolic encephalopathy (?) Uremia Obstructive Hydrocephalus (?) NPH Dementia Resolving Acidosis Monitor Nephrostomy outputs IVF Strict I & O BP control ABX coverage per ID Follow final cultures 4W / 4S monitoring Dr Olson
[2018-11-25] MEDS ORDERED: HALOPERIDOL LACTATE 5 MG/ML IM PRN (11:27)
[2018-11-25] MEDS ORDERED: ACETAMINOPHEN 650 MG SUPP.RECT PR PRN (11:27)
[2018-11-25] MEDS ORDERED: SODIUM CHLORIDE 1,000 ML IV SCH (11:27)
[2018-11-25] MEDS ORDERED: ACETAMINOPHEN 325 MG TABLET (FP) PO ONE (13:52)
[2018-11-25 16:27] LABS: HEMATOCRIT 26.4 % (35.4-49); HEMOGLOBIN 8.9 GM/dL (11.7-16.9); MCH 31.1 pg (25.7-33.7); MCHC 33.9 g/dl (32.0-35.9); MEAN CELL VOLUME 91.9 fl (80-96); MEAN PLT VOLUME 7.7 fl (7.5-11.1); PLATELET COUNT 235 K/MM3 (134-434); RBC 2.87 M/mm3 (4.00-5.60); RDW 13.4 % (11.9-15.9); WHITE BLOOD COUNT 6.3 K/mm3 (4.0-10.0)
[2018-11-25 16:48] LABS: ALBUMIN 3.2 g/dl (3.4-5.0); BILIRUBIN,TOTAL 0.4 mg/dL (0.2-1); BLOOD UREA NITROGEN 80.2 mg/dL (7-18); CALCIUM 8.1 mg/dL (8.5-10.1); MAGNESIUM 1.9 mg/dL (1.8-2.4); PHOSPHOROUS 5.2 mg/dL (2.5-4.9); POTASSIUM 4.5 mmol/L (3.5-5.1); TOT PROT 7.7 g/dl (6.4-8.2)
[2018-11-25 16:51] LABS: CREATININE 8.2 mg/dL (0.55-1.3)
--- NOTE | 2018-11-25 17:01 | PN ---
Progress Note, Physician History of Present Illness: Pt is alert, fully responsive. Fever resolved. No acute distress. States he feels well. - Current Medication List Current Medications: Active Medications Acetaminophen (Tylenol Suppository -) 650 mg [place] Q4H PRN PRN Reason: FEVER Amlodipine Besylate (Norvasc -) 10 mg PO DAILY [facility] Last Admin: 11/25/18 14:07 Dose: 10 mg Haloperidol (Haldol Injection (Fast Acting) -) 2 mg IM Q4H PRN PRN Reason: AGITATION Heparin Sodium (Porcine) (Heparin -) 5,000 unit SQ BID SINDY Sodium Chloride (Normal Saline -) 1,000 mls @ 100 mls/hr IV ASDIR SINDY Last Admin: 11/25/18 12:13 Dose: Not Given Piperacillin Sod/Tazobactam (Sod 2.25 gm/ Dextrose) 50 mls @ 100 mls/hr IVPB Q8H-IV SINDY; Protocol - Objective Vital Signs: Vital Signs Temperature 98.0 F 11/25/18 14:00 Pulse Rate 100 H 11/25/18 14:00 Respiratory Rate 16 11/25/18 14:00 Blood Pressure 135/75 11/25/18 14:00 O2 Sat by Pulse Oximetry (%) 100 11/25/18 08:53 Constitutional: Yes: No Distress, Calm Cardiovascular: Yes: Regular Rate and Rhythm Respiratory: Yes: Regular Gastrointestinal: Yes: Normal Bowel Sounds, Soft Genitourinary: Yes: Other (vilchis/bilateral nephrostomies) Extremities: Yes: WNL Neurological: Yes: Alert Labs: CBC, BMP 11/25/18 16:10 11/25/18 16:10 INR, PTT INR 1.27 (0.83-1.09) H 11/22/18 19:00 Microbiology 11/24/18 11:55 Urine - Urine Nephrostomy Tube Right Urine Culture - Final NO GROWTH OBTAINED 11/24/18 11:45 Urine - Urine Nephrostomy Tube Left Urine Culture - Final NO GROWTH OBTAINED 11/22/18 19:00 Blood - Peripheral Venous Blood Culture - Preliminary NO GROWTH OBTAINED AFTER 48 HOURS, INCUBATION TO CONTINUE FOR 3 DAYS. 11/22/18 16:30 Blood - Peripheral Venous Blood Culture - Preliminary NO GROWTH OBTAINED AFTER 48 HOURS, INCUBATION TO CONTINUE FOR 3 DAYS. 11/22/18 22:35 Urine - Urine Clean Catch Urine Culture - Final NO GROWTH OBTAINED Problem List - Problems (1) WOJCIECH (acute kidney injury) Code(s): N17.9 - ACUTE KIDNEY FAILURE, UNSPECIFIED (2) Bilateral hydronephrosis Code(s): N13.30 - UNSPECIFIED HYDRONEPHROSIS (3) HTN (hypertension) Code(s): I10 - ESSENTIAL (PRIMARY) HYPERTENSION Qualifiers: Hypertension type: essential hypertension Qualified Code(s): I10 - Essential (primary) hypertension (4) Hydrocephalus Code(s): G91.9 - HYDROCEPHALUS, UNSPECIFIED Qualifiers: Hydrocephalus type: unspecified Qualified Code(s): G91.9 - Hydrocephalus, unspecified (5) Hyperkalemia Code(s): E87.5 - HYPERKALEMIA (6) Renal failure Code(s): N19 - UNSPECIFIED KIDNEY FAILURE Qualifiers: Renal failure chronicity: acute (7) Sepsis Code(s): A41.9 - SEPSIS, UNSPECIFIED ORGANISM Qualifiers: Sepsis type: sepsis due to unspecified organism Qualified Code(s): A41.9 - Sepsis, unspecified organism (8) Urinary obstruction Code(s): N13.9 - OBSTRUCTIVE AND REFLUX UROPATHY, UNSPECIFIED Assessment/Plan WOJCIECH Urinary obstruction b/l hydronephrosis s/p nephrostomy Fever AMS Presumed prostate CA/bone mets hydrocephalus AMS -- pt febrile on admission, fevers resolved -- blood and urine cultures from vilchis/nephrostomies no growth -- monitor for improvement of renal function -- wbc normal -- will consider d/c antibiotics tomorrow if remains stable -- Nephrology//Onc/neurology following continue monitor
--- NOTE | 2018-11-25 19:11 | PN ---
Progress Note (short form) - Note Progress Note: Progress Note (short form) - Note Progress Note: Patient Seen and examined. Feeling much better this AM after nephrostomy tube placement. Family member in room. 78 year old gentleman with elevated PSA, presumed prostate ca presents with ARF , hyperkalemia , fever, incontinence, and history of multiple falls. Found to have bilateral hydronephrosis and hydroureter with enlarged prostate and thickened bladder wall. Has RPN lymphadenopathy, pulmonary nodules, blastic mets all compatible with metastatic prostate ca. Has head CT compatible with obstructive hydrocephalus. Plan: 1) Bilateral percutaneous nephrostomies placed. Creatinine slowly improving. Potassium normalized 2) Tissue diagnosis at time of cystoscopy and attempt at internalization of stents 3) Bone scan in future. 4) Defer LP until improvement in uremia and improvement in presumed thrombocytopathy
[2018-11-25 20:48] LABS: BLOOD UREA NITROGEN 79.5 mg/dL (7-18); CALCIUM 8.2 mg/dL (8.5-10.1); POTASSIUM 4.5 mmol/L (3.5-5.1)
[2018-11-26] MEDS: PIPERACILLIN/TAZOB 2.25 GM 2.25 GM in DEXTROSE 5%-WATER - 50 ML IVPB SCH ×3 (01:18→17:20)
[2018-11-26] MEDS: HEPARIN NA (PORCINE) 5,000 UNITS/ML 1ML VIAL SQ SCH ×2 (10:16→22:01)
[2018-11-26] MEDS: amLODIPine BESYLATE 10 MG TABLET (FP) PO SCH (10:18)
--- NOTE | 2018-11-26 11:40 | PN ---
Progress Note, Physician Chief Complaint: no new complaint, stable, refusing abx, IV Hydration, sister at bed side. - Current Medication List Current Medications: Active Medications Acetaminophen (Tylenol Suppository -) 650 mg [place] Q4H PRN PRN Reason: FEVER Amlodipine Besylate (Norvasc -) 10 mg PO DAILY [facility] Last Admin: 11/26/18 10:18 Dose: 10 mg Haloperidol (Haldol Injection (Fast Acting) -) 2 mg IM Q4H PRN PRN Reason: AGITATION Heparin Sodium (Porcine) (Heparin -) 5,000 unit SQ BID [facility] Last Admin: 11/26/18 10:16 Dose: Not Given Sodium Chloride (Normal Saline -) 1,000 mls @ 100 mls/hr IV ASDIR [facility] Last Admin: 11/25/18 12:13 Dose: Not Given Piperacillin Sod/Tazobactam (Sod 2.25 gm/ Dextrose) 50 mls @ 100 mls/hr IVPB Q8H-IV [facility]INDY; Protocol Last Admin: 11/26/18 10:16 Dose: Not Given - Objective Vital Signs: Vital Signs Temperature 98.6 F 11/26/18 05:56 Pulse Rate 95 H 11/26/18 05:56 Respiratory Rate 18 11/26/18 05:56 Blood Pressure 140/88 11/26/18 05:56 O2 Sat by Pulse Oximetry (%) 98 11/25/18 21:00 No new complaints, not in distress HEENT: Mm moist, no anemia NECK: No JVd No Bruit CHEST: CTA B/L CVS: S1S2 R no m/g/r ABD: no distention non tender BS+ EXT: B/L Nephrostomy tube Rt with Hemorrhagic urine No LE Swelling [employer] WORK[employer]; AOX3 non foal Labs: CBC, BMP 11/25/18 16:10 11/25/18 19:45 INR, PTT INR 1.27 (0.83-1.09) H 11/22/18 19:00 Problem List - Problems (1) Bilateral hydronephrosis Assessment/Plan: Due to enlarge prostate most likely CA prostate s/p B/L Nephrostomy f/u recommendation Code(s): N13.30 - UNSPECIFIED HYDRONEPHROSIS (2) WOJCIECH (acute kidney injury) Assessment/Plan: Due to obstructive uropathy slow improvement after Nephrostoy tube F/U renal recommendation. Code(s): N17.9 - ACUTE KIDNEY FAILURE, UNSPECIFIED (3) HTN (hypertension) Code(s): I10 - ESSENTIAL (PRIMARY) HYPERTENSION Qualifiers: Hypertension type: essential hypertension Qualified Code(s): I10 - Essential (primary) hypertension (4) Metabolic acidemia Assessment/Plan: Due to wojciech and dehydration improving Code(s): E87.2 - ACIDOSIS (5) Sepsis Assessment/Plan: On IV abx so far cultures are -ve Code(s): A41.9 - SEPSIS, UNSPECIFIED ORGANISM Qualifiers: Sepsis type: sepsis due to unspecified organism Qualified Code(s): A41.9 - Sepsis, unspecified organism
--- NOTE | 2018-11-26 12:23 | PN ---
Progress Note, Physician History of Present Illness: Pt is alert and responsive. His sister is at bedside states he is at his baseline mental status. He states he is feeling fine and has no complaints but has been refusing meds including antibiotics since yesterday morning. Tmax 99.2 , in no distress. Lt nephrostomy appears to have less urine output than Rt side. - Current Medication List Current Medications: Active Medications Acetaminophen (Tylenol Suppository -) 650 mg [place] Q4H PRN PRN Reason: FEVER Amlodipine Besylate (Norvasc -) 10 mg PO DAILY [facility] Last Admin: 11/26/18 10:18 Dose: 10 mg Haloperidol (Haldol Injection (Fast Acting) -) 2 mg IM Q4H PRN PRN Reason: AGITATION Heparin Sodium (Porcine) (Heparin -) 5,000 unit SQ BID [facility] Last Admin: 11/26/18 10:16 Dose: Not Given Sodium Chloride (Normal Saline -) 1,000 mls @ 100 mls/hr IV ASDIR [facility] Last Admin: 11/25/18 12:13 Dose: Not Given Piperacillin Sod/Tazobactam (Sod 2.25 gm/ Dextrose) 50 mls @ 100 mls/hr IVPB Q8H-IV [facility]INDY; Protocol Last Admin: 11/26/18 10:16 Dose: Not Given - Objective Vital Signs: Vital Signs Temperature 98.6 F 11/26/18 05:56 Pulse Rate 95 H 11/26/18 05:56 Respiratory Rate 18 11/26/18 05:56 Blood Pressure 140/88 11/26/18 05:56 O2 Sat by Pulse Oximetry (%) 98 11/25/18 21:00 Constitutional: Yes: No Distress, Calm Cardiovascular: Yes: Regular Rate and Rhythm Respiratory: Yes: Regular Gastrointestinal: Yes: Normal Bowel Sounds, Soft Genitourinary: Yes: Beriros Present, Other (b/l nephrostomy - semisanguinous urine ) Extremities: Yes: WNL Edema: No Integumentary: Yes: WNL Neurological: Yes: Alert Labs: CBC, BMP 11/25/18 16:10 11/25/18 19:45 INR, PTT INR 1.27 (0.83-1.09) H 11/22/18 19:00 Laboratory Results - last 24 hr 11/22/18 11/25/18 11/25/18 08:30 16:10 16:10 WBC 6.3 RBC 2.87 L Hgb 8.9 L Hct 26.4 L MCV 91.9 MCH 31.1 MCHC 33.9 RDW 13.4 Plt Count 235 MPV 7.7 Sodium 133 L Potassium 4.5 Chloride 98 Carbon Dioxide 22 Anion Gap 13 BUN 80.2 H Creatinine 8.2 H* Est GFR (CKD-EPI)AfAm 6.44 Est GFR (CKD-EPI)NonAf 5.56 Random Glucose 183 H Calcium 8.1 L Phosphorus 5.2 H Magnesium 1.9 Total Bilirubin 0.4 AST 17 ALT 22 Alkaline Phosphatase 103 Total Protein 7.7 Albumin 3.2 L Prostate Specific Ag 272.00 H 11/25/18 19:45 WBC RBC Hgb Hct MCV MCH MCHC RDW Plt Count MPV Sodium 132 L Potassium 4.5 Chloride 97 L Carbon Dioxide 23 Anion Gap 12 BUN 79.5 H Creatinine 8.0 H* Est GFR (CKD-EPI)AfAm 6.64 Est GFR (CKD-EPI)NonAf 5.73 Random Glucose 144 H Calcium 8.2 L Phosphorus Magnesium Total Bilirubin AST ALT Alkaline Phosphatase Total Protein Albumin Prostate Specific Ag Problem List - Problems (1) WOJCIECH (acute kidney injury) Code(s): N17.9 - ACUTE KIDNEY FAILURE, UNSPECIFIED (2) Bilateral hydronephrosis Code(s): N13.30 - UNSPECIFIED HYDRONEPHROSIS (3) HTN (hypertension) Code(s): I10 - ESSENTIAL (PRIMARY) HYPERTENSION Qualifiers: Hypertension type: essential hypertension Qualified Code(s): I10 - Essential (primary) hypertension (4) Hydrocephalus Code(s): G91.9 - HYDROCEPHALUS, UNSPECIFIED Qualifiers: Hydrocephalus type: unspecified Qualified Code(s): G91.9 - Hydrocephalus, unspecified (5) Hyperkalemia Code(s): E87.5 - HYPERKALEMIA (6) Renal failure Code(s): N19 - UNSPECIFIED KIDNEY FAILURE Qualifiers: Renal failure chronicity: acute (7) Sepsis Code(s): A41.9 - SEPSIS, UNSPECIFIED ORGANISM Qualifiers: Sepsis type: sepsis due to unspecified organism Qualified Code(s): A41.9 - Sepsis, unspecified organism (8) Urinary obstruction Code(s): N13.9 - OBSTRUCTIVE AND REFLUX UROPATHY, UNSPECIFIED Assessment/Plan WOJCIECH Urinary obstruction b/l hydronephrosis s/p nephrostomy Fever AMS Presumed prostate CA/bone mets hydrocephalus -- pt febrile on admission, Temp of 99.2F in early am, currently afebrile -- continue to monitor -- pt has been refusing all medications since yesterday -- renal function slowly improving -- wbc normal -- continue current management -- Nephrology//Onc/neurology following continue monitor
--- NOTE | 2018-11-26 13:37 | PN ---
Progress Note (short form) - Note Progress Note: Awake and alert but remains mildly confused. Denies CP or SOB. Bilateral nephrostomies draining. Intake & Output 11/23/18 11/24/18 11/25/18 11/26/18 23:59 23:59 23:59 23:59 Intake Total 2330 2820 1050 Output Total 4750 4920 3025 300 Balance -2420 -2100 -1975 -300 Weight 161 lb 5 oz 161 lb 161 lb 157 lb 3.2 oz Last Vital Signs Temp Pulse Resp BP Pulse Ox 98.6 F 95 H 18 140/88 98 11/26/18 05:56 11/26/18 05:56 11/26/18 05:56 11/26/18 05:56 11/25/18 21:00 Active Medications Acetaminophen (Tylenol Suppository -) 650 mg [place] Q4H PRN PRN Reason: FEVER Amlodipine Besylate (Norvasc -) 10 mg PO DAILY [facility] Last Admin: 11/26/18 10:18 Dose: 10 mg Haloperidol (Haldol Injection (Fast Acting) -) 2 mg IM Q4H PRN PRN Reason: AGITATION Heparin Sodium (Porcine) (Heparin -) 5,000 unit SQ BID [facility] Last Admin: 11/26/18 10:16 Dose: Not Given Sodium Chloride (Normal Saline -) 1,000 mls @ 100 mls/hr IV ASDIR [facility] Last Admin: 11/25/18 12:13 Dose: Not Given Piperacillin Sod/Tazobactam (Sod 2.25 gm/ Dextrose) 50 mls @ 100 mls/hr IVPB Q8H-IV SINDY; Protocol Last Admin: 11/26/18 10:16 Dose: Not Given GENERAL: Awake, alert, confused HEAD: Normal with no signs of trauma. EYES: Pupils equal, round and reactive to light, extraocular movements intact, sclera anicteric, conjunctiva clear. EARS, NOSE, THROAT: Oropharynx clear without exudates. Dry mucous membranes. NECK: Normal range of motion, supple without lymphadenopathy, JVD, or masses. No enlarged thyroid LUNGS: Breath sounds equal, clear to auscultation bilaterally. No wheezes, and no crackles. No accessory muscle use. HEART: Regular rate and rhythm, normal S1 and S2 without murmur, rub or gallop. ABDOMEN: Soft, nontender, not distended, normoactive bowel sounds, (+) bilateral draining nephrostomies MUSCULOSKELETAL: Normal range of motion at all joints. No bony deformities or tenderness. No CVA tenderness. UPPER EXTREMITIES: 1+ pulses, warm, well-perfused. No cyanosis. No peripheral edema. LOWER EXTREMITIES: 1+ pulses, warm, well-perfused. No calf tenderness. No peripheral edema. NEUROLOGICAL: Non-focal, mildly confused PSYCHIATRIC: Cooperative. SKIN: Warm, dry, normal turgor, no rashes or lesions noted. Laboratory Results - last 24 hr 11/22/18 11/25/18 11/25/18 08:30 16:10 16:10 WBC 6.3 RBC 2.87 L Hgb 8.9 L Hct 26.4 L MCV 91.9 MCH 31.1 MCHC 33.9 RDW 13.4 Plt Count 235 MPV 7.7 Sodium 133 L Potassium 4.5 Chloride 98 Carbon Dioxide 22 Anion Gap 13 BUN 80.2 H Creatinine 8.2 H* Est GFR (CKD-EPI)AfAm 6.44 Est GFR (CKD-EPI)NonAf 5.56 Random Glucose 183 H Calcium 8.1 L Phosphorus 5.2 H Magnesium 1.9 Total Bilirubin 0.4 AST 17 ALT 22 Alkaline Phosphatase 103 Total Protein 7.7 Albumin 3.2 L Prostate Specific Ag 272.00 H 11/25/18 19:45 WBC RBC Hgb Hct MCV MCH MCHC RDW Plt Count MPV Sodium 132 L Potassium 4.5 Chloride 97 L Carbon Dioxide 23 Anion Gap 12 BUN 79.5 H Creatinine 8.0 H* Est GFR (CKD-EPI)AfAm 6.64 Est GFR (CKD-EPI)NonAf 5.73 Random Glucose 144 H Calcium 8.2 L Phosphorus Magnesium Total Bilirubin AST ALT Alkaline Phosphatase Total Protein Albumin Prostate Specific Ag Problem List - Problems (1) Bilateral hydronephrosis Code(s): N13.30 - UNSPECIFIED HYDRONEPHROSIS (2) Hypercapnic acidosis Code(s): E87.2 - ACIDOSIS (3) Hyperkalemia Code(s): E87.5 - HYPERKALEMIA (4) Metabolic acidemia Code(s): E87.2 - ACIDOSIS (5) Renal failure Code(s): N19 - UNSPECIFIED KIDNEY FAILURE ASSESSMENT/PLAN: WOJCIECH due to post Renal obstruction Resolving Hyperkalemia HTN UTI R/O Prostate CA Encephalopathy: (?) Toxic metabolic encephalopathy (?) Uremia Obstructive Hydrocephalus (?) NPH Dementia Resolving Acidosis Monitor Nephrostomy outputs IVF Strict I & O BP control ABX coverage per ID Follow final cultures Dr Olson
--- NOTE | 2018-11-26 13:47 | CON.PSY ---
Psychiatry Consult Chief Complaint: 78 Malena old Male with DEmentia and many chronic medical conditions seen for Psych eval for acute agitation. On Haldol PRn . Symptoms: reports: Memory Impairment - Previous Psychiatric Treatment Outpatient: None Inpatient: None - Previous Substance Abuse Treatment Outpatient: None Inpatient: None - Current Medications Current Medications: Active Medications Acetaminophen (Tylenol Suppository -) 650 mg [place] Q4H PRN PRN Reason: FEVER Amlodipine Besylate (Norvasc -) 10 mg PO DAILY [facility] BEDS AT [facility] Last Admin: 11/26/18 10:18 Dose: 10 mg Haloperidol (Haldol Injection (Fast Acting) -) 2 mg IM Q4H PRN PRN Reason: AGITATION Heparin Sodium (Porcine) (Heparin -) 5,000 unit SQ BID [facility] Last Admin: 11/26/18 10:16 Dose: Not Given Sodium Chloride (Normal Saline -) 1,000 mls @ 100 mls/hr IV ASDIR [facility] Last Admin: 11/25/18 12:13 Dose: Not Given Piperacillin Sod/Tazobactam (Sod 2.25 gm/ Dextrose) 50 mls @ 100 mls/hr IVPB Q8H-IV SINDY; Protocol Last Admin: 11/26/18 10:16 Dose: Not Given - Allergies Allergies: Allergies Allergy/AdvReac Type Severity Reaction Status Date / Time No Known Allergies Allergy Verified 11/22/18 18:38 - Current Living Status Usual Living Arrangement: Alone - Current Mental Status Evaluation Appearance: Disheveled Attitude: Cooperative - Affect Affect: Constrictive Appropriateness: Appropriate to Content - Mood Mood: Euthymic - Speech/Language Expressive: Coherent - Psychomotor Activity Psychomotor Activity: Normal - Thought Process Thought Process: Intact - Thought Content Hallucinations: Absent Delusions: Absent - Self Perception Self Perception: No Impairment - Cognition Attention: Alert Orientation: Time Memory, Short Term: 2/3 Memory, Remote with Promptin/3 - Concentration Serial Sevens Intact: No Simple Calculations Intact: No - Abstraction Proverb Interpretation: Intact Judgement: Intact - Insight Insight: Intact - Impulse Control Impulse Control: Minimally Impaired - Suicidal Ideation Suicidal Ideation: No - Homicidal Ideation Homicidal Ideation: No Assessment/Plan 1) No need for standing meds for agitation at this time. 2) use Haldol Prn as ordered.
--- NOTE | 2018-11-26 14:52 | PN ---
Progress Note (short form) - Note Progress Note: Renal follow up for WOJCIECH Coverage for Dr. Ly Pt seen and examined at the bedside awake and alert no acute complaints making urine via vilchis and nephrostomy made about 2L yesterday no sob, cp, abd pain Vital Signs Temperature 98.2 F 11/26/18 10:00 Pulse Rate 90 11/26/18 10:00 Respiratory Rate 18 11/26/18 10:00 Blood Pressure 152/84 11/26/18 10:00 O2 Sat by Pulse Oximetry (%) 98 11/26/18 10:00 Intake & Output 11/23/18 11/24/18 11/25/18 11/26/18 23:59 23:59 23:59 23:59 Intake Total 2330 2820 1050 Output Total 4750 4920 3025 300 Balance -2419 -2099 -1974 Weight 73.17 kg 73.028 kg 73.028 kg 71.305 kg NAD RRR CTA bilateral nephrostomy tubes in place vilchis in place no LE edema CBC, BMP 11/25/18 16:10 11/25/18 19:45 Current Medications Acetaminophen (Tylenol Suppository -) 650 mg [place] Q4H PRN PRN Reason: FEVER Amlodipine Besylate (Norvasc -) 10 mg PO DAILY [facility] Last Admin: 11/26/18 10:18 Dose: 10 mg Haloperidol (Haldol Injection (Fast Acting) -) 2 mg [place] Q4H PRN PRN Reason: AGITATION Heparin Sodium (Porcine) (Heparin -) 5,000 unit SQ BID [facility] Last Admin: 11/26/18 10:16 Dose: Not Given Sodium Chloride (Normal Saline -) 1,000 mls @ 100 mls/hr IV ASDIR [facility] Last Admin: 11/25/18 12:13 Dose: Not Given Piperacillin Sod/Tazobactam (Sod 2.25 gm/ Dextrose) 50 mls @ 100 mls/hr IVPB Q8H-IV [facility]IND[facility]; Protocol Last Admin: 11/26/18 10:16 Dose: Not Given Impression 1. WOJCIECH 2. hyperkalemia 3. likely prostate cancer 4. dementia 5. htn 6. severe hydronephrosis 7. hematuria 8. likely bone mets Plan Renal function with gradual improvement, has good urine output no indication for EXERCISE PHYSIOLOGIST CERTIFIED Continue isotonic saline for now, will decrease rate Trend labs daily Urology follow up Sandro Tejeda DO
--- NOTE | 2018-11-26 17:02 | PN ---
Progress Note (short form) - Note Progress Note: Progress Note (short form) - Note Progress Note: 11/26: Patient Seen and examined. Resting in [place]. No complaints ROS: 14 point elicited and negative. Last Vital Signs Temp Pulse Resp BP Pulse Ox 98.4 F 92 H 16 145/82 98 11/26/18 14:15 11/26/18 14:15 11/26/18 14:15 11/26/18 14:15 11/26/18 10:00 Physical Exam: General: NAD HEENT: Supple neck CVS: S1, S2 Lungs: CTAB Abd: Soft, NT, ND Ext: no edema Integumentary: No overt rash Psych: Alert. Conversant and appropriate Neuro: Moves all extremities 11/25/18 16:10 11/25/18 19:45 Current Medications Generic Name Dose Route Start Last Admin Trade Name Freq PRN Reason Stop Dose Admin Acetaminophen 650 mg 11/25/18 11:27 Tylenol Suppository - DC Q4H PRN FEVER Amlodipine Besylate 10 mg 11/26/18 10:00 11/26/18 10:18 Norvasc - PO 10 mg DAILY SINDY Administration Haloperidol 2 mg 11/25/18 11:27 Haldol Injection (Fast Acting) - IM Q4H PRN AGITATION Heparin Sodium (Porcine) 5,000 unit 11/25/18 22:00 11/26/18 10:16 Heparin - SQ Not Given BID SINDY Piperacillin Sod/Tazobactam 50 mls @ 100 mls/hr 11/25/18 18:00 11/26/18 10:16 Sod 2.25 gm/ Dextrose IVPB Not Given Q8H-IV SINDY Protocol Sodium Chloride 1,000 mls @ 83 mls/hr 11/26/18 14:52 Normal Saline - IV ASDIR [facility] Assessment: 78 year old gentleman with elevated PSA, presumed prostate ca presents with ARF , hyperkalemia , fever, incontinence, and history of multiple falls. Found to have bilateral hydronephrosis and hydroureter with enlarged prostate and thickened bladder wall. Has RPN lymphadenopathy, pulmonary nodules, blastic mets all compatible with metastatic prostate ca. Has head CT compatible with obstructive hydrocephalus. Plan: 1) Bilateral percutaneous nephrostomies placed. Creatinine slowly improving. Potassium normalized 2) Tissue diagnosis at time of cystoscopy and attempt at internalization of stents 3) Bone scan in future. 4) Defer LP until improvement in uremia and improvement in presumed thrombocytopathy
[2018-11-26] MEDS: SODIUM CHLORIDE 1,000 ML IV SCH (17:14)
[2018-11-27] MEDS: PIPERACILLIN/TAZOB 2.25 GM 2.25 GM in DEXTROSE 5%-WATER - 50 ML IVPB SCH ×3 (03:33→17:42)
[2018-11-27 06:59] LABS: BASO % 0.3 % (0-2.0); HEMATOCRIT 27.6 % (35.4-49); HEMOGLOBIN 9.5 GM/dL (11.7-16.9); LYMPH % 23.6 % (8-40); MCH 31.7 pg (25.7-33.7); MCHC 34.6 g/dl (32.0-35.9); MEAN CELL VOLUME 91.5 fl (80-96); MEAN PLT VOLUME 8.1 fl (7.5-11.1); MONO % 8.7 % (3.8-10.2); NEUT % 66.4 % (42.8-82.8); PLATELET COUNT 293 K/MM3 (134-434); RBC 3.01 M/mm3 (4.00-5.60); RDW 13.6 % (11.9-15.9); WHITE BLOOD COUNT 8.1 K/mm3 (4.0-10.0)
[2018-11-27 07:05] LABS: BLOOD UREA NITROGEN 78.4 mg/dL (7-18); CALCIUM 9.2 mg/dL (8.5-10.1); CREATININE 7.3 mg/dL (0.55-1.3); MAGNESIUM 2.2 mg/dL (1.8-2.4); PHOSPHOROUS 4.9 mg/dL (2.5-4.9); POTASSIUM 4.4 mmol/L (3.5-5.1)
--- NOTE | 2018-11-27 08:33 | PN ---
Progress Note (short form) - Note Progress Note: B/L nephrostomy tubes placed. Berrios in place Improvement of creatinine noted. Awake, alert Tolerates PO Vital Signs (72 hours) 11/24/18 11/24/18 11/24/18 09:00 10:00 11:14 Temperature Pulse Rate 98 H 97 H Pulse Rate [ Right Upper Arm ] Respiratory 17 17 18 Rate Respiratory Rate [Right Upper Arm] Blood Pressure 147/86 178/104 H Blood Pressure [Right Upper Arm] O2 Sat by Pulse 100 Oximetry (%) O2 Sat by Pulse Oximetry (%) [ Right Upper Arm ] 11/24/18 11/24/18 11/24/18 11:42 11:52 11:56 Temperature Pulse Rate Pulse Rate [ 84 88 87 Right Upper Arm ] Respiratory Rate Respiratory 14 14 14 Rate [Right Upper Arm] Blood Pressure Blood Pressure 176/108 H 178/110 H 182/102 H [Right Upper Arm] O2 Sat by Pulse Oximetry (%) O2 Sat by Pulse 100 100 100 Oximetry (%) [ Right Upper Arm ] 11/24/18 11/24/18 11/24/18 12:02 12:45 14:00 Temperature 98.3 F Pulse Rate 94 H 86 90 Pulse Rate [ Right Upper Arm ] Respiratory 15 16 15 Rate Respiratory Rate [Right Upper Arm] Blood Pressure 183/111 H 182/91 H 161/84 Blood Pressure [Right Upper Arm] O2 Sat by Pulse 100 Oximetry (%) O2 Sat by Pulse Oximetry (%) [ Right Upper Arm ] 11/24/18 11/24/18 11/24/18 16:00 18:00 20:00 Temperature 98.4 F Pulse Rate 82 94 H 94 H Pulse Rate [ Right Upper Arm ] Respiratory 14 15 15 Rate Respiratory Rate [Right Upper Arm] Blood Pressure 151/88 150/84 149/80 Blood Pressure [Right Upper Arm] O2 Sat by Pulse 100 Oximetry (%) O2 Sat by Pulse Oximetry (%) [ Right Upper Arm ] 11/24/18 11/25/18 11/25/18 22:00 00:00 02:00 Temperature 97.2 F L 97.6 F Pulse Rate 90 98 H 96 H Pulse Rate [ Right Upper Arm ] Respiratory 16 16 14 Rate Respiratory Rate [Right Upper Arm] Blood Pressure 156/96 155/80 166/94 Blood Pressure [Right Upper Arm] O2 Sat by Pulse Oximetry (%) O2 Sat by Pulse Oximetry (%) [ Right Upper Arm ] 11/25/18 11/25/18 11/25/18 04:00 06:00 08:50 Temperature 97.4 F L Pulse Rate 90 98 H 94 H Pulse Rate [ Right Upper Arm ] Respiratory 18 18 13 Rate Respiratory Rate [Right Upper Arm] Blood Pressure 160/70 139/87 Blood Pressure [Right Upper Arm] O2 Sat by Pulse Oximetry (%) O2 Sat by Pulse Oximetry (%) [ Right Upper Arm ] 11/25/18 11/25/18 11/25/18 08:53 12:00 14:00 Temperature 98.0 F Pulse Rate 99 H 100 H Pulse Rate [ Right Upper Arm ] Respiratory 18 16 Rate Respiratory Rate [Right Upper Arm] Blood Pressure 131/77 135/75 Blood Pressure [Right Upper Arm] O2 Sat by Pulse 100 Oximetry (%) O2 Sat by Pulse Oximetry (%) [ Right Upper Arm ] 11/25/18 11/25/18 11/25/18 17:00 20:30 21:00 Temperature 98.7 F Pulse Rate 100 H 102 H Pulse Rate [ Right Upper Arm ] Respiratory 18 18 Rate Respiratory Rate [Right Upper Arm] Blood Pressure 145/92 116/75 Blood Pressure [Right Upper Arm] O2 Sat by Pulse 98 Oximetry (%) O2 Sat by Pulse Oximetry (%) [ Right Upper Arm ] 11/26/18 11/26/18 11/26/18 02:00 05:56 10:00 Temperature 99.2 F 98.6 F 98.2 F Pulse Rate 107 H 95 H 90 Pulse Rate [ Right Upper Arm ] Respiratory 18 18 18 Rate Respiratory Rate [Right Upper Arm] Blood Pressure 145/91 140/88 152/84 Blood Pressure [Right Upper Arm] O2 Sat by Pulse 98 Oximetry (%) O2 Sat by Pulse Oximetry (%) [ Right Upper Arm ] 11/26/18 11/26/18 11/26/18 14:15 21:00 22:00 Temperature 98.4 F 98.1 F Pulse Rate 92 H 102 H Pulse Rate [ Right Upper Arm ] Respiratory 16 20 Rate Respiratory Rate [Right Upper Arm] Blood Pressure 145/82 100/74 Blood Pressure [Right Upper Arm] O2 Sat by Pulse 97 Oximetry (%) O2 Sat by Pulse Oximetry (%) [ Right Upper Arm ] 11/27/18 06:00 Temperature 97.1 F L Pulse Rate 87 Pulse Rate [ Right Upper Arm ] Respiratory 20 Rate Respiratory Rate [Right Upper Arm] Blood Pressure 151/84 Blood Pressure [Right Upper Arm] O2 Sat by Pulse Oximetry (%) O2 Sat by Pulse Oximetry (%) [ Right Upper Arm ] Lungs are Clear Heart S1S2 regular Abdomen soft, NT Ext no CCE Laboratory Results - last 24 hr 11/22/18 11/27/18 11/27/18 08:30 05:25 05:25 WBC 8.1 RBC 3.01 L Hgb 9.5 L Hct 27.6 L MCV 91.5 MCH 31.7 MCHC 34.6 RDW 13.6 Plt Count 293 D MPV 8.1 Absolute Neuts (auto) 5.4 Neutrophils % 66.4 Lymphocytes % 23.6 D Monocytes % 8.7 Eosinophils % 1.0 D Basophils % 0.3 Nucleated RBC % 0 Sodium 133 L Potassium 4.4 Chloride 98 Carbon Dioxide 22 Anion Gap 13 BUN 78.4 H Creatinine 7.3 H Est GFR (CKD-EPI)AfAm 7.42 Est GFR (CKD-EPI)NonAf 6.40 Random Glucose 115 H Calcium 9.2 Phosphorus 4.9 Magnesium 2.2 Prostate Specific Ag 272.00 H Current Active Problems Problem Status Onset WOJCIECH (acute kidney injury) Acute Bilateral hydronephrosis Acute HTN (hypertension) Acute Hydrocephalus Acute Hypercapnic acidosis Acute Hyperkalemia Acute Metabolic acidemia Acute Renal failure Acute Sepsis Acute Systemic inflammatory response syndrome (SIRS) Acute Urinary obstruction Acute Plan D/C Telemetry Continue Nephrostomies management. Confusion-Mild dementia, delirium Seen by Dr Eliot Santa PRN Oncology F/u. Biopsy pelvic LN when stable Problem List - Problems (1) Bilateral hydronephrosis Code(s): N13.30 - UNSPECIFIED HYDRONEPHROSIS (2) Hyperkalemia Code(s): E87.5 - HYPERKALEMIA (3) Metabolic acidemia Code(s): E87.2 - ACIDOSIS (4) Renal failure Code(s): N19 - UNSPECIFIED KIDNEY FAILURE Qualifiers: Renal failure chronicity: acute (5) Sepsis Code(s): A41.9 - SEPSIS, UNSPECIFIED ORGANISM Qualifiers: Sepsis type: sepsis due to unspecified organism Qualified Code(s): A41.9 - Sepsis, unspecified organism (6) Systemic inflammatory response syndrome (SIRS) Code(s): R65.10 - SIRS OF NON-INFECTIOUS ORIGIN W/O ACUTE ORGAN DYSFUNCTION (7) HTN (hypertension) Code(s): I10 - ESSENTIAL (PRIMARY) HYPERTENSION Qualifiers: Hypertension type: essential hypertension Qualified Code(s): I10 - Essential (primary) hypertension (8) Hydrocephalus Code(s): G91.9 - HYDROCEPHALUS, UNSPECIFIED Qualifiers: Hydrocephalus type: unspecified Qualified Code(s): G91.9 - Hydrocephalus, unspecified
[2018-11-27] MEDS ORDERED: PIPERACILLIN/TAZOBACTAM 2.25 GM VIAL IVPB ONE (09:09)
[2018-11-27] MEDS ORDERED: DEXTROSE 5%-WATER - 50 ML IVPB ONE (09:09)
[2018-11-27] MEDS: HEPARIN NA (PORCINE) 5,000 UNITS/ML 1ML VIAL SQ SCH ×2 (09:12→21:49)
[2018-11-27] MEDS: amLODIPine BESYLATE 10 MG TABLET (FP) PO SCH (09:12)
--- NOTE | 2018-11-27 12:24 | PN ---
Progress Note, Physician - Current Medication List Current Medications: Active Medications Acetaminophen (Tylenol Suppository -) 650 mg SD Q4H PRN PRN Reason: FEVER Amlodipine Besylate (Norvasc -) 10 mg PO DAILY [facility] Last Admin: 11/27/18 09:12 Dose: 10 mg Haloperidol (Haldol Injection (Fast Acting) -) 2 mg IM Q4H PRN PRN Reason: AGITATION Heparin Sodium (Porcine) (Heparin -) 5,000 unit SQ BID [facility] Last Admin: 11/27/18 09:12 Dose: 5,000 unit Piperacillin Sod/Tazobactam (Sod 2.25 gm/ Dextrose) 50 mls @ 100 mls/hr IVPB Q8H-IV SINDY; Protocol Last Admin: 11/27/18 09:11 Dose: Not Given Sodium Chloride (Normal Saline -) 1,000 mls @ 83 mls/hr IV ASDIR SINDY Last Admin: 11/26/18 17:14 Dose: Not Given - Objective Vital Signs: Vital Signs Temperature 98.6 F 11/27/18 09:44 Pulse Rate 103 H 11/27/18 09:44 Respiratory Rate 18 11/27/18 09:44 Blood Pressure 136/78 11/27/18 09:44 O2 Sat by Pulse Oximetry (%) 96 11/27/18 09:00 Labs: CBC, BMP 11/27/18 05:25 11/27/18 05:25 INR, PTT INR 1.27 (0.83-1.09) H 11/22/18 19:00
[2018-11-27] MEDS ORDERED: SODIUM PHOSPHATE/NA BIPHOS 133 ML ENEMA RC ONE (13:15)
[2018-11-27] MEDS ORDERED: SODIUM POLYSTYRENE SULFONATE 15 GM/60 ML BOTTLE PO ONE (13:15)
--- NOTE | 2018-11-27 14:20 | PN ---
Progress Note, Physician History of Present Illness: Pt seen and examined at bedside. He is awake and alert. He is making urine. - Current Medication List Current Medications: Active Medications Acetaminophen (Tylenol Suppository -) 650 mg [place] Q4H PRN PRN Reason: FEVER Amlodipine Besylate (Norvasc -) 10 mg PO DAILY [facility] Last Admin: 11/27/18 09:12 Dose: 10 mg Haloperidol (Haldol Injection (Fast Acting) -) 2 mg IM Q4H PRN PRN Reason: AGITATION Heparin Sodium (Porcine) (Heparin -) 5,000 unit SQ BID SINDY Last Admin: 11/27/18 09:12 Dose: 5,000 unit Piperacillin Sod/Tazobactam (Sod 2.25 gm/ Dextrose) 50 mls @ 100 mls/hr IVPB Q8H-IV SINDY; Protocol Last Admin: 11/27/18 09:11 Dose: Not Given Sodium Chloride (Normal Saline -) 1,000 mls @ 83 mls/hr IV ASDIR [facility] Last Admin: 11/26/18 17:14 Dose: Not Given - Objective Vital Signs: Vital Signs Temperature 98.6 F 11/27/18 09:44 Pulse Rate 103 H 11/27/18 09:44 Respiratory Rate 18 11/27/18 09:44 Blood Pressure 136/78 11/27/18 09:44 O2 Sat by Pulse Oximetry (%) 96 11/27/18 09:00 Constitutional: Yes: Calm Eyes: Yes: Conjunctiva Clear HENT: Yes: Atraumatic Cardiovascular: Yes: S1, S2 Respiratory: Yes: CTA Bilaterally Gastrointestinal: Yes: WNL Genitourinary: Yes: Berrios Present, Other (bilateral nephrostomy tubes) Musculoskeletal: Yes: WNL Edema: No Neurological: Yes: Confusion Labs: CBC, BMP 11/27/18 05:25 11/27/18 05:25 INR, PTT INR 1.27 (0.83-1.09) H 11/22/18 19:00 Problem List - Problems (1) WOJCIECH (acute kidney injury) Code(s): N17.9 - ACUTE KIDNEY FAILURE, UNSPECIFIED (2) Urinary obstruction Code(s): N13.9 - OBSTRUCTIVE AND REFLUX UROPATHY, UNSPECIFIED (3) Bilateral hydronephrosis Code(s): N13.30 - UNSPECIFIED HYDRONEPHROSIS (4) HTN (hypertension) Code(s): I10 - ESSENTIAL (PRIMARY) HYPERTENSION Qualifiers: Hypertension type: essential hypertension Qualified Code(s): I10 - Essential (primary) hypertension (5) Hyperkalemia Code(s): E87.5 - HYPERKALEMIA (6) Renal failure Code(s): N19 - UNSPECIFIED KIDNEY FAILURE Qualifiers: Renal failure chronicity: acute Assessment/Plan Current Medications Generic Name Dose Route Start Last Admin Trade Name Freq PRN Reason Stop Dose Admin Acetaminophen 650 mg 11/25/18 11:27 Tylenol Suppository - [place] Q4H PRN FEVER Amlodipine Besylate 10 mg 11/26/18 10:00 11/27/18 09:12 Norvasc - PO 10 mg DAILY SINDY Administration Haloperidol 2 mg 11/25/18 11:27 Haldol Injection (Fast Acting) - IM Q4H PRN AGITATION Heparin Sodium (Porcine) 5,000 unit 11/25/18 22:00 11/27/18 09:12 Heparin - SQ 5,000 unit BID SIDNY Administration Piperacillin Sod/Tazobactam 50 mls @ 100 mls/hr 11/25/18 18:00 11/27/18 09:11 Sod 2.25 gm/ Dextrose IVPB Not Given Q8H-IV [facility] Protocol Sodium Chloride 1,000 mls @ 83 mls/hr 11/26/18 14:52 11/26/18 17:14 Normal Saline - IV Not Given ASDIR [facility] Laboratory Tests 11/22/18 08:30 Prostate Specific Ag 272.00 H Impression 1. WOJCIECH 2. hyperkalemia 3. likely prostate cancer 4. dementia 5. htn 6. severe hydronephrosis 7. hematuria 8. likely bone mets Plan - cont saline - renal function is improving - cont to monitor - urology follow up - psa elevated
[2018-11-27] MEDS: SODIUM CHLORIDE 1,000 ML IV SCH (17:42)
--- NOTE | 2018-11-27 19:50 | PN ---
Progress Note (short form) - Note Progress Note: Patient see and examined Offers no specific complaints S/p bilateral nephrostomy tube. Slow improvement in kidney function Last Vital Signs Temp Pulse Resp BP Pulse Ox 98.7 F 104 H 18 133/74 96 11/27/18 14:00 11/27/18 14:00 11/27/18 14:00 11/27/18 14:00 11/27/18 09:00 HEENT: TYRA, EOM Intact Cor: RSR, No murmurs, No gallops Lungs: Clear to P&A Abd: Soft, Normal bowel sounds, No organomegaly Ext:No significant edema Skin: No rashes, Integument intact Bilateral nephrostomy tubes CBC, BMP 11/27/18 05:25 11/27/18 05:25 Current Medications Generic Name Dose Route Start Last Admin Trade Name Freq PRN Reason Stop Dose Admin Acetaminophen 650 mg 11/25/18 11:27 Tylenol Suppository - DC Q4H PRN FEVER Amlodipine Besylate 10 mg 11/26/18 10:00 11/27/18 09:12 Norvasc - PO 10 mg DAILY SINDY Administration Haloperidol 2 mg 11/25/18 11:27 Haldol Injection (Fast Acting) - IM Q4H PRN AGITATION Heparin Sodium (Porcine) 5,000 unit 11/25/18 22:00 11/27/18 09:12 Heparin - SQ 5,000 unit BID SINDY Administration Piperacillin Sod/Tazobactam 50 mls @ 100 mls/hr 11/25/18 18:00 11/27/18 17:42 Sod 2.25 gm/ Dextrose IVPB Not Given Q8H-IV SINDY Protocol Sodium Chloride 1,000 mls @ 83 mls/hr 11/26/18 14:52 11/27/18 17:42 Normal Saline - IV Not Given ASDIR SINDY Impression: WOJCIECH Likely metastatic prostate ca S/P bilateral nephrostomy tubes Anemia Dementia Plan Cysto with attempt at internalization of stents and tissue procurement.
[2018-11-28] MEDS: PIPERACILLIN/TAZOB 2.25 GM 2.25 GM in DEXTROSE 5%-WATER - 50 ML IVPB SCH ×2 (01:54→10:10)
[2018-11-28 07:04] LABS: BLOOD UREA NITROGEN 76.8 mg/dL (7-18); CALCIUM 8.7 mg/dL (8.5-10.1); CREATININE 6.4 mg/dL (0.55-1.3); POTASSIUM 3.8 mmol/L (3.5-5.1)
[2018-11-28] MEDS ORDERED: PIPERACILLIN/TAZOBACTAM 2.25 GM VIAL IVPB ONE (10:07)
[2018-11-28] MEDS ORDERED: DEXTROSE 5%-WATER - 50 ML IVPB ONE (10:07)
[2018-11-28] MEDS: HEPARIN NA (PORCINE) 5,000 UNITS/ML 1ML VIAL SQ SCH (10:10)
[2018-11-28] MEDS: amLODIPine BESYLATE 10 MG TABLET (FP) PO SCH (10:10)
--- NOTE | 2018-11-28 12:22 | PN ---
Progress Note, Physician History of Present Illness: patient stable no new issues - Current Medication List Current Medications: Active Medications Acetaminophen (Tylenol Suppository -) 650 mg SD Q4H PRN PRN Reason: FEVER Amlodipine Besylate (Norvasc -) 10 mg PO DAILY [facility] Last Admin: 11/28/18 10:10 Dose: 10 mg Haloperidol (Haldol Injection (Fast Acting) -) 2 mg IM Q4H PRN PRN Reason: AGITATION Heparin Sodium (Porcine) (Heparin -) 5,000 unit SQ BID [facility] Last Admin: 11/28/18 10:10 Dose: Not Given Sodium Chloride (Normal Saline -) 1,000 mls @ 83 mls/hr IV ASDIR [facility] Last Admin: 11/27/18 17:42 Dose: Not Given - Objective Vital Signs: Vital Signs Temperature 98.3 F 11/28/18 05:37 Pulse Rate 111 H 11/28/18 05:37 Respiratory Rate 18 11/28/18 05:37 Blood Pressure 129/83 11/28/18 05:37 O2 Sat by Pulse Oximetry (%) 95 11/27/18 21:00 Constitutional: Yes: No Distress, Calm Respiratory: Yes: CTA Bilaterally Gastrointestinal: Yes: Normal Bowel Sounds, Soft Musculoskeletal: Yes: WNL Extremities: Yes: Other Neurological: Yes: Alert, Oriented Psychiatric: Yes: Alert, Oriented Labs: CBC, BMP 11/27/18 05:25 11/28/18 06:23 INR, PTT INR 1.27 (0.83-1.09) H 11/22/18 19:00 Assessment/Plan Problem List - Problems (1) Bilateral hydronephrosis Code(s): N13.30 - UNSPECIFIED HYDRONEPHROSIS (2) Hyperkalemia Code(s): E87.5 - HYPERKALEMIA (3) Metabolic acidemia Code(s): E87.2 - ACIDOSIS (4) Renal failure Code(s): N19 - UNSPECIFIED KIDNEY FAILURE Qualifiers: Renal failure chronicity: acute (5) Sepsis Code(s): A41.9 - SEPSIS, UNSPECIFIED ORGANISM Qualifiers: Sepsis type: sepsis due to unspecified organism Qualified Code(s): A41.9 - Sepsis, unspecified organism (6) Systemic inflammatory response syndrome (SIRS) Code(s): R65.10 - SIRS OF NON-INFECTIOUS ORIGIN W/O ACUTE ORGAN DYSFUNCTION (7) HTN (hypertension) Code(s): I10 - ESSENTIAL (PRIMARY) HYPERTENSION Qualifiers: Hypertension type: essential hypertension Qualified Code(s): I10 - Essential (primary) hypertension r/o uti patients picture proibably due to obstruction close watch on potassium plan all cx reports noted will stop abx and monitor
[2018-11-28] MEDS: SODIUM CHLORIDE 1,000 ML IV SCH ×2 (13:49→19:51)
--- NOTE | 2018-11-28 13:51 | PN ---
Progress Note, Physician History of Present Illness: Pt seen and examined at bedside. He is awake and alert. He agrees to keep the IV in. - Current Medication List Current Medications: Active Medications Acetaminophen (Tylenol Suppository -) 650 mg [place] Q4H PRN PRN Reason: FEVER Amlodipine Besylate (Norvasc -) 10 mg PO DAILY [facility] Last Admin: 11/28/18 10:10 Dose: 10 mg Haloperidol (Haldol Injection (Fast Acting) -) 2 mg IM Q4H PRN PRN Reason: AGITATION Heparin Sodium (Porcine) (Heparin -) 5,000 unit SQ BID [facility] Last Admin: 11/28/18 10:10 Dose: Not Given Sodium Chloride (Normal Saline -) 1,000 mls @ 83 mls/hr IV ASDIR [facility] Last Admin: 11/27/18 17:42 Dose: Not Given - Objective Vital Signs: Vital Signs Temperature 100.2 F H 11/28/18 10:00 Pulse Rate 110 H 11/28/18 10:00 Respiratory Rate 16 11/28/18 10:00 Blood Pressure 123/88 11/28/18 10:00 O2 Sat by Pulse Oximetry (%) 96 11/28/18 09:00 Constitutional: Yes: Calm Eyes: Yes: Conjunctiva Clear HENT: Yes: Atraumatic Neck: Yes: Supple Cardiovascular: Yes: S1, S2 Respiratory: Yes: CTA Bilaterally Gastrointestinal: Yes: Soft Genitourinary: Yes: Berrios Present, Other (bilateral nephrostomy) Musculoskeletal: Yes: WNL Edema: No Integumentary: Yes: WNL Neurological: Yes: Oriented Psychiatric: Yes: Oriented Labs: CBC, BMP 11/27/18 05:25 11/28/18 06:23 INR, PTT INR 1.27 (0.83-1.09) H 11/22/18 19:00 Problem List - Problems (1) WOJCIECH (acute kidney injury) Code(s): N17.9 - ACUTE KIDNEY FAILURE, UNSPECIFIED (2) Urinary obstruction Code(s): N13.9 - OBSTRUCTIVE AND REFLUX UROPATHY, UNSPECIFIED (3) Bilateral hydronephrosis Code(s): N13.30 - UNSPECIFIED HYDRONEPHROSIS (4) HTN (hypertension) Code(s): I10 - ESSENTIAL (PRIMARY) HYPERTENSION Qualifiers: Hypertension type: essential hypertension Qualified Code(s): I10 - Essential (primary) hypertension (5) Hyperkalemia Code(s): E87.5 - HYPERKALEMIA (6) Renal failure Code(s): N19 - UNSPECIFIED KIDNEY FAILURE Qualifiers: Renal failure chronicity: acute Assessment/Plan Current Medications Generic Name Dose Route Start Last Admin Trade Name Freq PRN Reason Stop Dose Admin Acetaminophen 650 mg 11/25/18 11:27 Tylenol Suppository - [place] Q4H PRN FEVER Amlodipine Besylate 10 mg 11/26/18 10:00 11/28/18 10:10 Norvasc - PO 10 mg DAILY [facility]Y Administration Haloperidol 2 mg 11/25/18 11:27 Haldol Injection (Fast Acting) - IM Q4H PRN AGITATION Heparin Sodium (Porcine) 5,000 unit 11/25/18 22:00 11/28/18 10:10 Heparin - SQ Not Given BID SINDY Sodium Chloride 1,000 mls @ 83 mls/hr 11/26/18 14:52 11/27/18 17:42 Normal Saline - IV Not Given ASDIR SINDY Impression 1. WOJCIECH 2. hyperkalemia 3. likely prostate cancer 4. dementia 5. htn 6. severe hydronephrosis 7. hematuria 8. likely bone mets Plan - restart fluids once he has IV placed - renal function is improving - repeat labs in am - urology follow up - psa elevated
--- NOTE | 2018-11-28 14:00 | PN ---
Progress Note, Physician Chief Complaint: Renal function slowly improving. Feels better. History of Present Illness: Glaucoma HTN. History of elevated PSA 50 in 01/24 and 84 in 04/26. Seen by Dr Cortez and MRI prostate was done which showed suggestive for malignancy prostate mass growing through the capsule and multiple pelvic LN. The patient was scheduled for a biopsy of the prostate, preop eval was done, but the patient decided not to proceed with prostate biopsy, Cognitive impairment - Current Medication List Current Medications: Active Medications Acetaminophen (Tylenol Suppository -) 650 mg [place] Q4H PRN PRN Reason: FEVER Amlodipine Besylate (Norvasc -) 10 mg PO DAILY [facility] Last Admin: 11/28/18 10:10 Dose: 10 mg Haloperidol (Haldol Injection (Fast Acting) -) 2 mg IM Q4H PRN PRN Reason: AGITATION Heparin Sodium (Porcine) (Heparin -) 5,000 unit SQ BID [facility] Last Admin: 11/28/18 10:10 Dose: Not Given Sodium Chloride (Normal Saline -) 1,000 mls @ 83 mls/hr IV ASDIR [facility] Last Admin: 11/28/18 13:49 Dose: 83 mls/hr - Objective Vital Signs: Vital Signs Temperature 100.2 F H 11/28/18 10:00 Pulse Rate 110 H 11/28/18 10:00 Respiratory Rate 16 11/28/18 10:00 Blood Pressure 123/88 11/28/18 10:00 O2 Sat by Pulse Oximetry (%) 96 11/28/18 09:00 Constitutional: Yes: No Distress Eyes: Yes: Conjunctiva Clear, EOM Intact HENT: Yes: Atraumatic, Normocephalic Neck: Yes: Supple, Trachea Midline Cardiovascular: Yes: Regular Rate and Rhythm Respiratory: Yes: Regular, CTA Bilaterally Gastrointestinal: Yes: Normal Bowel Sounds, Soft ...Rectal Exam: Yes: Deferred Genitourinary: Yes: Berrios Present, Other (B/L nephrostomies) Breast(s): Yes: WNL Musculoskeletal: Yes: WNL Integumentary: Yes: WNL Neurological: Yes: Alert, Oriented. No: Aphasia ...Motor Strength: WNL Psychiatric: Yes: WNL Labs: CBC, BMP 11/27/18 05:25 11/28/18 06:23 INR, PTT INR 1.27 (0.83-1.09) H 11/22/18 19:00 Current Active Problems Problem Status Onset WOJCIECH (acute kidney injury) Acute Bilateral hydronephrosis Acute HTN (hypertension) Acute Hydrocephalus Acute Hypercapnic acidosis Acute Hyperkalemia Acute Metabolic acidemia Acute Renal failure Acute Sepsis Acute Systemic inflammatory response syndrome (SIRS) Acute Urinary obstruction Acute Laboratory Results - last 24 hr 11/28/18 06:23 Sodium 134 L Potassium 3.8 Chloride 100 Carbon Dioxide 22 Anion Gap 12 BUN 76.8 H Creatinine 6.4 H Est GFR (CKD-EPI)AfAm 8.69 Est GFR (CKD-EPI)NonAf 7.50 Random Glucose 138 H Calcium 8.7 Problem List - Problems (1) Bilateral hydronephrosis Assessment/Plan: Patient S/P IR plecement nephrostomies. Urology consult Code(s): N13.30 - UNSPECIFIED HYDRONEPHROSIS (2) Hyperkalemia Assessment/Plan: Improved, Elevated K due to acidosis, ARF Code(s): E87.5 - HYPERKALEMIA (3) Metabolic acidemia Assessment/Plan: Follow the labs Nephrology. Code(s): E87.2 - ACIDOSIS (4) Renal failure Assessment/Plan: Improving creatinine Follow BUN/Creat Code(s): N19 - UNSPECIFIED KIDNEY FAILURE Qualifiers: Renal failure chronicity: acute (5) Systemic inflammatory response syndrome (SIRS) Code(s): R65.10 - SIRS OF NON-INFECTIOUS ORIGIN W/O ACUTE ORGAN DYSFUNCTION (6) HTN (hypertension) Assessment/Plan: Amlodipine 10 mg Qd Code(s): I10 - ESSENTIAL (PRIMARY) HYPERTENSION Qualifiers: Hypertension type: essential hypertension Qualified Code(s): I10 - Essential (primary) hypertension (7) Hydrocephalus Assessment/Plan: Neuro consult appreciated. Definitive management is postponed due to patient condition. Code(s): G91.9 - HYDROCEPHALUS, UNSPECIFIED Qualifiers: Hydrocephalus type: unspecified Qualified Code(s): G91.9 - Hydrocephalus, unspecified (8) Prostate cancer Assessment/Plan: Will send the patient for IR biopsy of the retroperitoneal LN. D/C Heparin Code(s): C61 - MALIGNANT NEOPLASM OF PROSTATE
--- NOTE | 2018-11-28 17:26 | PN ---
Progress Note (short form) - Note Progress Note: Patient seen and examined Improvement in renal function Left catheter with bloody drainage ; right catheter clear Last Vital Signs Temp Pulse Resp BP Pulse Ox 98.2 F 108 H 18 123/60 96 11/28/18 14:27 11/28/18 14:27 11/28/18 14:27 11/28/18 14:27 11/28/18 09:00 Cor: RSR, No murmurs, No gallops Lungs: Clear to P&A Abd: Soft, Normal bowel sounds, No organomegaly Ext:No significant edema Skin: No rashes, Integument intact bilateral nephrostomy tubes CBC, BMP 11/27/18 05:25 11/28/18 06:23 Current Medications Generic Name Dose Route Start Last Admin Trade Name Freq PRN Reason Stop Dose Admin Acetaminophen 650 mg 11/25/18 11:27 Tylenol Suppository - [place] Q4H PRN FEVER Amlodipine Besylate 10 mg 11/26/18 10:00 11/28/18 10:10 Norvasc - PO 10 mg DAILY SINDY Administration Haloperidol 2 mg 11/25/18 11:27 Haldol Injection (Fast Acting) - IM Q4H PRN AGITATION Sodium Chloride 1,000 mls @ 83 mls/hr 11/26/18 14:52 11/28/18 13:49 Normal Saline - IV 83 mls/hr ASDIR SINDY Administration Impression: Likely metastatic prostate ca Obstructive uropathy -s/p bilateral nephrostomy tubes Anemia WOJCIECH HBP Hydrocephalus Awaiting cysto in future for attempt at internalization of stents and biopsy for tissue.
--- NOTE | 2018-11-28 17:50 | PN ---
Progress Note (short form) - Note Progress Note: patient with brisk UO from R PCN and some from L PCN. However his creatinine remains elevated at 6, implying a large degree of ATN/intrinsic renal disease present. plan for cystoscopy/biopsy later this week. Problem List - Problems (1) Bilateral hydronephrosis Code(s): N13.30 - UNSPECIFIED HYDRONEPHROSIS
[2018-11-29] MEDS: SODIUM CHLORIDE 1,000 ML IV SCH ×3 (03:47→23:31)
[2018-11-29] MEDS ORDERED: SODIUM PHOSPHATE/NA BIPHOS 133 ML ENEMA PR ONE (08:09)
--- NOTE | 2018-11-29 08:15 | PN ---
Progress Note, Physician Chief Complaint: C/o constipation, no bone pain. History of Present Illness: Glaucoma HTN. History of elevated PSA 50 in 01/24 and 84 in 04/26. Seen by Dr Cortez and MRI prostate was done which showed suggestive for malignancy prostate mass growing through the capsule and multiple pelvic LN. The patient was scheduled for a biopsy of the prostate, preop eval was done, but the patient decided not to proceed with prostate biopsy, Cognitive impairment - Current Medication List Current Medications: Active Medications Acetaminophen (Tylenol Suppository -) 650 mg [place] Q4H PRN PRN Reason: FEVER Amlodipine Besylate (Norvasc -) 10 mg PO DAILY [facility] Last Admin: 11/28/18 10:10 Dose: 10 mg Bisacodyl (Dulcolax -) 5 mg PO DAILY PRN PRN Reason: CONSTIPATION Haloperidol (Haldol Injection (Fast Acting) -) 2 mg IM Q4H PRN PRN Reason: AGITATION Sodium Chloride (Normal Saline -) 1,000 mls @ 83 mls/hr IV ASDIR [facility] Last Admin: 11/29/18 03:47 Dose: 83 mls/hr Lactulose (Cephulac (Oral Use)) 20 gm PO Q6H PRN PRN Reason: CONSTIPATION - Objective Vital Signs: Vital Signs Temperature 98.3 F 11/29/18 05:00 Pulse Rate 105 H 11/29/18 05:00 Respiratory Rate 18 11/29/18 05:00 Blood Pressure 141/85 11/29/18 05:00 O2 Sat by Pulse Oximetry (%) 97 11/28/18 21:00 Constitutional: Yes: Calm Eyes: Yes: Conjunctiva Clear, EOM Intact HENT: Yes: Atraumatic, Normocephalic Neck: Yes: Supple, Trachea Midline. No: Tenderness Cardiovascular: Yes: Regular Rate and Rhythm, S1, S2 Respiratory: Yes: Regular, CTA Bilaterally Gastrointestinal: Yes: Normal Bowel Sounds, Soft. No: Palpable Mass, Tenderness , Vomiting ...Rectal Exam: Yes: Deferred Genitourinary: Yes: Other (Left nephrostomy-minimal bloody output More outup right nephrostomy tube.). No: Bladder Distention Extremities: No: Calf Tenderness, Cold, Cyanosis Edema: No Neurological: Yes: Alert, Oriented (X2), Confusion (occasionally). No: Dysarthria, Seizure ...Motor Strength: WNL Psychiatric: Yes: Alert, Oriented (X2). No: Agitated Labs: INR, PTT INR 1.27 (0.83-1.09) H 11/22/18 19:00 Problem List - Problems (1) Bilateral hydronephrosis Assessment/Plan: Patient S/P IR placement nephrostomies. Urology consult-F/U. Cysto planned later this week Code(s): N13.30 - UNSPECIFIED HYDRONEPHROSIS (2) Hyperkalemia Assessment/Plan: Resolved Code(s): E87.5 - HYPERKALEMIA (3) Metabolic acidemia Assessment/Plan: Follow the labs- CO2 22, AG 12 Nephrology f/u. Code(s): E87.2 - ACIDOSIS (4) Renal failure Assessment/Plan: Improving creatinine Follow BUN/Creat Code(s): N19 - UNSPECIFIED KIDNEY FAILURE Qualifiers: Renal failure chronicity: acute (5) HTN (hypertension) Assessment/Plan: Amlodipine 10 mg Qd Code(s): I10 - ESSENTIAL (PRIMARY) HYPERTENSION Qualifiers: Hypertension type: essential hypertension Qualified Code(s): I10 - Essential (primary) hypertension (6) Hydrocephalus Assessment/Plan: Neuro consult appreciated. Definitive management is postponed due to patient condition. Code(s): G91.9 - HYDROCEPHALUS, UNSPECIFIED Qualifiers: Hydrocephalus type: unspecified Qualified Code(s): G91.9 - Hydrocephalus, unspecified (7) Prostate cancer Assessment/Plan: Planned IR biopsy of the retroperitoneal LN. Discussed with daughter Ann Jo Code(s): C61 - MALIGNANT NEOPLASM OF PROSTATE (8) Constipation by delayed colonic transit Assessment/Plan: PO Lactulose, Fleets, Dulcolax Code(s): K59.01 - SLOW TRANSIT CONSTIPATION
[2018-11-29 08:48] LABS: ALBUMIN 2.8 g/dl (3.4-5.0); BILIRUBIN,TOTAL 0.5 mg/dL (0.2-1); BLOOD UREA NITROGEN 66.8 mg/dL (7-18); CALCIUM 8.4 mg/dL (8.5-10.1); CREATININE 5.4 mg/dL (0.55-1.3); POTASSIUM 3.8 mmol/L (3.5-5.1)
--- NOTE | 2018-11-29 09:44 | PN ---
Progress Note, Physician History of Present Illness: stable for biopsy today - Current Medication List Current Medications: Active Medications Acetaminophen (Tylenol Suppository -) 650 mg [place] Q4H PRN PRN Reason: FEVER Amlodipine Besylate (Norvasc -) 10 mg PO DAILY [facility] [place] Last Admin: 11/28/18 10:10 Dose: 10 mg Bisacodyl (Dulcolax -) 5 mg PO DAILY PRN PRN Reason: CONSTIPATION Haloperidol (Haldol Injection (Fast Acting) -) 2 mg IM Q4H PRN PRN Reason: AGITATION Sodium Chloride (Normal Saline -) 1,000 mls @ 83 mls/hr IV ASDIR [facility] Last Admin: 11/29/18 03:47 Dose: 83 mls/hr Lactulose (Cephulac (Oral Use)) 20 gm PO Q6H PRN PRN Reason: CONSTIPATION - Objective Vital Signs: Vital Signs Temperature 98.3 F 11/29/18 05:00 Pulse Rate 105 H 11/29/18 05:00 Respiratory Rate 18 11/29/18 05:00 Blood Pressure 141/85 11/29/18 05:00 O2 Sat by Pulse Oximetry (%) 97 11/28/18 21:00 Constitutional: Yes: No Distress, Calm Cardiovascular: Yes: S1, S2 Respiratory: Yes: Regular, CTA Bilaterally Gastrointestinal: Yes: Normal Bowel Sounds, Soft Musculoskeletal: Yes: WNL Extremities: Yes: WNL Neurological: Yes: Alert Psychiatric: Yes: Alert Labs: CBC, BMP 11/29/18 07:26 INR, PTT INR 1.27 (0.83-1.09) H 11/22/18 19:00 Assessment/Plan Problem List - Problems (1) Bilateral hydronephrosis Code(s): N13.30 - UNSPECIFIED HYDRONEPHROSIS (2) Hyperkalemia Code(s): E87.5 - HYPERKALEMIA (3) Metabolic acidemia Code(s): E87.2 - ACIDOSIS (4) Renal failure Code(s): N19 - UNSPECIFIED KIDNEY FAILURE Qualifiers: Renal failure chronicity: acute (5) Sepsis Code(s): A41.9 - SEPSIS, UNSPECIFIED ORGANISM Qualifiers: Sepsis type: sepsis due to unspecified organism Qualified Code(s): A41.9 - Sepsis, unspecified organism (6) Systemic inflammatory response syndrome (SIRS) Code(s): R65.10 - SIRS OF NON-INFECTIOUS ORIGIN W/O ACUTE ORGAN DYSFUNCTION (7) HTN (hypertension) Code(s): I10 - ESSENTIAL (PRIMARY) HYPERTENSION Qualifiers: Hypertension type: essential hypertension Qualified Code(s): I10 - Essential (primary) hypertension r/o uti patients picture proibably due to obstruction close watch on potassium plan all cx reports noted for biopsy today
[2018-11-29 09:45] LABS: BASO % 0.8 % (0-2.0); EOS % 2.1 % (0-4.5); HEMATOCRIT 24.3 % (35.4-49); HEMOGLOBIN 8.4 GM/dL (11.7-16.9); LYMPH % 16.5 % (8-40); MCH 31.7 pg (25.7-33.7); MCHC 34.5 g/dl (32.0-35.9); MEAN CELL VOLUME 91.8 fl (80-96); MEAN PLT VOLUME 7.7 fl (7.5-11.1); MONO % 9.9 % (3.8-10.2); NEUT % 70.7 % (42.8-82.8); PLATELET COUNT 308 K/MM3 (134-434); RBC 2.65 M/mm3 (4.00-5.60); WHITE BLOOD COUNT 6.1 K/mm3 (4.0-10.0)
[2018-11-29] MEDS: amLODIPine BESYLATE 10 MG TABLET (FP) PO SCH (11:04)
[2018-11-29] MEDS: BISACODYL 5 MG TABLET.DR (FP) PO PRN (11:04)
--- NOTE | 2018-11-29 13:13 | PN ---
Progress Note, Physician History of Present Illness: Pt seen and examined at bedside. He appears comfortable. - Current Medication List Current Medications: Active Medications Acetaminophen (Tylenol Suppository -) 650 mg [place] Q4H PRN PRN Reason: FEVER Amlodipine Besylate (Norvasc -) 10 mg PO DAILY [facility] Last Admin: 11/29/18 11:04 Dose: 10 mg Bisacodyl (Dulcolax -) 5 mg PO DAILY PRN PRN Reason: CONSTIPATION Last Admin: 11/29/18 11:04 Dose: 5 mg Haloperidol (Haldol Injection (Fast Acting) -) 2 mg IM Q4H PRN PRN Reason: AGITATION Sodium Chloride (Normal Saline -) 1,000 mls @ 83 mls/hr IV ASDIR [facility] Last Admin: 11/29/18 03:47 Dose: 83 mls/hr Lactulose (Cephulac (Oral Use)) 20 gm PO Q6H PRN PRN Reason: CONSTIPATION - Objective Vital Signs: Vital Signs Temperature 98.3 F 11/29/18 05:00 Pulse Rate 105 H 11/29/18 05:00 Respiratory Rate 18 11/29/18 05:00 Blood Pressure 141/85 11/29/18 05:00 O2 Sat by Pulse Oximetry (%) 97 11/28/18 21:00 Constitutional: Yes: Calm Eyes: Yes: Conjunctiva Clear HENT: Yes: Atraumatic Neck: Yes: Supple Cardiovascular: Yes: S1, S2 Respiratory: Yes: CTA Bilaterally Gastrointestinal: Yes: Soft Genitourinary: Yes: Berrios Present, Other (bilateral nephrostomy tubes) Musculoskeletal: Yes: WNL Edema: No Neurological: Yes: Oriented Psychiatric: Yes: Oriented Labs: CBC, BMP 11/29/18 07:26 11/29/18 07:26 INR, PTT INR 1.27 (0.83-1.09) H 11/22/18 19:00 Problem List - Problems (1) WOJCIECH (acute kidney injury) Code(s): N17.9 - ACUTE KIDNEY FAILURE, UNSPECIFIED (2) Urinary obstruction Code(s): N13.9 - OBSTRUCTIVE AND REFLUX UROPATHY, UNSPECIFIED (3) Bilateral hydronephrosis Code(s): N13.30 - UNSPECIFIED HYDRONEPHROSIS (4) HTN (hypertension) Code(s): I10 - ESSENTIAL (PRIMARY) HYPERTENSION Qualifiers: Hypertension type: essential hypertension Qualified Code(s): I10 - Essential (primary) hypertension (5) Hyperkalemia Code(s): E87.5 - HYPERKALEMIA (6) Renal failure Code(s): N19 - UNSPECIFIED KIDNEY FAILURE Qualifiers: Renal failure chronicity: acute Assessment/Plan Current Medications Generic Name Dose Route Start Last Admin Trade Name Freq PRN Reason Stop Dose Admin Acetaminophen 650 mg 11/25/18 11:27 Tylenol Suppository - [place] Q4H PRN FEVER Amlodipine Besylate 10 mg 11/26/18 10:00 11/29/18 11:04 Norvasc - PO 10 mg DAILY SINDY Administration Bisacodyl 5 mg 11/29/18 08:08 11/29/18 11:04 Dulcolax - PO 5 mg DAILY PRN Administration CONSTIPATION Haloperidol 2 mg 11/25/18 11:27 Haldol Injection (Fast Acting) - IM Q4H PRN AGITATION Sodium Chloride 1,000 mls @ 83 mls/hr 11/26/18 14:52 11/29/18 03:47 Normal Saline - IV 83 mls/hr ASDIR SINDY Administration Lactulose 20 gm 11/29/18 08:08 Cephulac (Oral Use) PO Q6H PRN CONSTIPATION Impression 1. WOJCIECH 2. hyperkalemia 3. likely prostate cancer 4. dementia 5. htn 6. severe hydronephrosis 7. hematuria 8. likely bone mets Plan - cont fluids - renal function improving - discussed with family - repeat labs in am - urology follow up - psa elevated
[2018-11-29] MEDS ORDERED: ACETAMINOPHEN 325 MG TABLET (FP) ONE (16:52)
[2018-11-29] MEDS: LACTULOSE 20 GM/30 ML UDC (FOR ORAL USE ONLY) PO PRN (16:58)
[2018-11-29] MEDS: ACETAMINOPHEN 325 MG TABLET (FP) PO PRN (17:04)
--- NOTE | 2018-11-29 18:06 | PN ---
Progress Note (short form) - Note Progress Note: Patient seen and examined Offers no specific complaints S/P retroperitoneal node biopsy Tolerated well Last Vital Signs Temp Pulse Resp BP Pulse Ox 98.2 F 107 H 17 136/91 97 11/29/18 09:00 11/29/18 14:12 11/29/18 14:12 11/29/18 14:12 11/29/18 14:12 Cor: RSR, No murmurs, No gallops Lungs: Clear to P&A Abd: Soft, Normal bowel sounds, No organomegaly Ext:No significant edema Skin: No rashes, Integument intact CBC, BMP 11/29/18 07:26 11/29/18 07:26 Current Medications Generic Name Dose Route Start Last Admin Trade Name Freq PRN Reason Stop Dose Admin Acetaminophen 650 mg 11/25/18 11:27 Tylenol Suppository - [place] Q4H PRN FEVER Acetaminophen 650 mg 11/29/18 16:57 11/29/18 17:04 Tylenol - PO 650 mg Q6H PRN Administration PAIN Amlodipine Besylate 10 mg 11/26/18 10:00 11/29/18 11:04 Norvasc - PO 10 mg DAILY SINDY Administration Bisacodyl 5 mg 11/29/18 08:08 11/29/18 11:04 Dulcolax - PO 5 mg DAILY PRN Administration CONSTIPATION Haloperidol 2 mg 11/25/18 11:27 Haldol Injection (Fast Acting) - IM Q4H PRN AGITATION Sodium Chloride 1,000 mls @ 83 mls/hr 11/26/18 14:52 11/29/18 17:05 Normal Saline - IV Not Given ASDIR SINDY Lactulose 20 gm 11/29/18 08:08 11/29/18 16:58 Cephulac (Oral Use) PO 20 gm Q6H PRN Administration CONSTIPATION Impression: S/P retroperitoneal node biopsy Likely metastatic prostate ca Obstructive uropathy WOJCIECH Anemia Await results of RPN biopsy Discussed with Dr. Kee-- conservative approach to hydrocephalus
[2018-11-30 07:59] LABS: BASO % 0.7 % (0-2.0); EOS % 1.5 % (0-4.5); HEMATOCRIT 23.3 % (35.4-49); LYMPH % 13.6 % (8-40); MCH 31.5 pg (25.7-33.7); MCHC 34.3 g/dl (32.0-35.9); MEAN CELL VOLUME 91.8 fl (80-96); MEAN PLT VOLUME 7.5 fl (7.5-11.1); MONO % 9.2 % (3.8-10.2); PLATELET COUNT 320 K/MM3 (134-434); RBC 2.54 M/mm3 (4.00-5.60); RDW 12.9 % (11.9-15.9); WHITE BLOOD COUNT 6.7 K/mm3 (4.0-10.0)
[2018-11-30 08:30] LABS: ALBUMIN 2.7 g/dl (3.4-5.0); BILIRUBIN,TOTAL 0.6 mg/dL (0.2-1); BLOOD UREA NITROGEN 60.5 mg/dL (7-18); CALCIUM 8.4 mg/dL (8.5-10.1); CREATININE 4.9 mg/dL (0.55-1.3); POTASSIUM 3.8 mmol/L (3.5-5.1)
--- NOTE | 2018-11-30 08:34 | PN ---
Progress Note, Physician History of Present Illness: stable no new issues - Current Medication List Current Medications: Active Medications Acetaminophen (Tylenol Suppository -) 650 mg [place] Q4H PRN PRN Reason: FEVER Acetaminophen (Tylenol -) 650 mg PO Q6H PRN PRN Reason: PAIN Last Admin: 11/29/18 17:04 Dose: 650 mg Amlodipine Besylate (Norvasc -) 10 mg PO DAILY SINDY Last Admin: 11/29/18 11:04 Dose: 10 mg Bisacodyl (Dulcolax -) 5 mg PO DAILY PRN PRN Reason: CONSTIPATION Last Admin: 11/29/18 11:04 Dose: 5 mg Haloperidol (Haldol Injection (Fast Acting) -) 2 mg IM Q4H PRN PRN Reason: AGITATION Sodium Chloride (Normal Saline -) 1,000 mls @ 83 mls/hr IV ASDIR SINDY Last Admin: 11/29/18 23:31 Dose: 83 mls/hr Lactulose (Cephulac (Oral Use)) 20 gm PO Q6H PRN PRN Reason: CONSTIPATION Last Admin: 11/29/18 16:58 Dose: 20 gm - Objective Vital Signs: Vital Signs Temperature 98.6 F 11/30/18 06:00 Pulse Rate 93 H 11/30/18 06:00 Respiratory Rate 18 11/30/18 06:00 Blood Pressure 137/63 11/30/18 06:00 O2 Sat by Pulse Oximetry (%) 98 11/29/18 21:00 Constitutional: Yes: No Distress, Calm Cardiovascular: Yes: S1, S2 Respiratory: Yes: Regular, CTA Bilaterally Gastrointestinal: Yes: Normal Bowel Sounds, Soft Musculoskeletal: Yes: WNL Extremities: Yes: WNL Neurological: Yes: Alert, Oriented Psychiatric: Yes: Alert, Oriented Labs: CBC, BMP 11/30/18 06:56 INR, PTT INR 1.27 (0.83-1.09) H 11/22/18 19:00 Assessment/Plan Problem List - Problems (1) Bilateral hydronephrosis Code(s): N13.30 - UNSPECIFIED HYDRONEPHROSIS (2) Hyperkalemia Code(s): E87.5 - HYPERKALEMIA (3) Metabolic acidemia Code(s): E87.2 - ACIDOSIS (4) Renal failure Code(s): N19 - UNSPECIFIED KIDNEY FAILURE Qualifiers: Renal failure chronicity: acute (5) Sepsis Code(s): A41.9 - SEPSIS, UNSPECIFIED ORGANISM Qualifiers: Sepsis type: sepsis due to unspecified organism Qualified Code(s): A41.9 - Sepsis, unspecified organism (6) Systemic inflammatory response syndrome (SIRS) Code(s): R65.10 - SIRS OF NON-INFECTIOUS ORIGIN W/O ACUTE ORGAN DYSFUNCTION (7) HTN (hypertension) Code(s): I10 - ESSENTIAL (PRIMARY) HYPERTENSION Qualifiers: Hypertension type: essential hypertension Qualified Code(s): I10 - Essential (primary) hypertension r/o uti plan all cx reports noted s/p biopsy continue current mgmt rest as per the team
--- NOTE | 2018-11-30 08:45 | PN ---
Progress Note, Physician Chief Complaint: Underwent CT guided retroperitoneal LN biopsy by IR yesterday. Results are pending Creatinine improving . Still constipated History of Present Illness: Glaucoma HTN. History of elevated PSA 50 in 01/24 and 84 in 04/26. Seen by Dr Cortez and MRI prostate was done which showed suggestive for malignancy prostate mass growing through the capsule and multiple pelvic LN. The patient was scheduled for a biopsy of the prostate, preop eval was done, but the patient decided not to proceed with prostate biopsy, Cognitive impairment - Current Medication List Current Medications: Active Medications Acetaminophen (Tylenol Suppository -) 650 mg [place] Q4H PRN PRN Reason: FEVER Acetaminophen (Tylenol -) 650 mg PO Q6H PRN PRN Reason: PAIN Last Admin: 11/29/18 17:04 Dose: 650 mg Amlodipine Besylate (Norvasc -) 10 mg PO DAILY [facility] Last Admin: 11/29/18 11:04 Dose: 10 mg Bisacodyl (Dulcolax -) 5 mg PO DAILY PRN PRN Reason: CONSTIPATION Last Admin: 11/29/18 11:04 Dose: 5 mg Haloperidol (Haldol Injection (Fast Acting) -) 2 mg IM Q4H PRN PRN Reason: AGITATION Sodium Chloride (Normal Saline -) 1,000 mls @ 83 mls/hr IV ASDIR [facility] Last Admin: 11/29/18 23:31 Dose: 83 mls/hr Lactulose (Cephulac (Oral Use)) 20 gm PO Q6H PRN PRN Reason: CONSTIPATION Last Admin: 11/29/18 16:58 Dose: 20 gm - Objective Vital Signs: Vital Signs Temperature 98.6 F 11/30/18 06:00 Pulse Rate 93 H 11/30/18 06:00 Respiratory Rate 18 11/30/18 06:00 Blood Pressure 137/63 11/30/18 06:00 O2 Sat by Pulse Oximetry (%) 98 11/29/18 21:00 Constitutional: Yes: Calm, Mild Distress Eyes: Yes: Conjunctiva Clear, EOM Intact HENT: Yes: Atraumatic, Normocephalic Neck: Yes: Supple, Trachea Midline Cardiovascular: Yes: Regular Rate and Rhythm, S1, S2. No: Tachycardia, JVD Respiratory: Yes: Regular, CTA Bilaterally Gastrointestinal: Yes: Normal Bowel Sounds, Soft. No: Abdomen, Obese, Ascites ...Rectal Exam: Yes: Deferred Genitourinary: Yes: Other (Nephrostomies). No: Anuria Breast(s): Yes: WNL Musculoskeletal: Yes: WNL Extremities: No: Amputation, Calf Tenderness, Cyanosis Edema: No Peripheral Pulses WNL: No Wound/Incision: Yes: Clean/Dry Neurological: Yes: Alert, Oriented (X2) ...Motor Strength: WNL Psychiatric: Yes: Alert, Oriented (x1-2) Labs: CBC, BMP 11/30/18 06:56 INR, PTT INR 1.27 (0.83-1.09) H 11/22/18 19:00 Problem List - Problems (1) Bilateral hydronephrosis Assessment/Plan: Patient S/P IR placement nephrostomies. Urology consult-F/U. Cysto planned later this week Code(s): N13.30 - UNSPECIFIED HYDRONEPHROSIS (2) Renal failure Assessment/Plan: Improving creatinine Follow BUN/Creat Code(s): N19 - UNSPECIFIED KIDNEY FAILURE Qualifiers: Renal failure chronicity: acute (3) HTN (hypertension) Assessment/Plan: Amlodipine 10 mg Qd Code(s): I10 - ESSENTIAL (PRIMARY) HYPERTENSION Qualifiers: Hypertension type: essential hypertension Qualified Code(s): I10 - Essential (primary) hypertension (4) Hydrocephalus Assessment/Plan: Neuro consult appreciated. Definitive management is postponed due to patient condition. Code(s): G91.9 - HYDROCEPHALUS, UNSPECIFIED Qualifiers: Hydrocephalus type: unspecified Qualified Code(s): G91.9 - Hydrocephalus, unspecified (5) Prostate cancer Assessment/Plan: Awaiting IR biopsy of the retroperitoneal LN. After biopsy results - consider endocrinology/ chemo treatment for prostate CA Code(s): C61 - MALIGNANT NEOPLASM OF PROSTATE (6) Constipation by delayed colonic transit Assessment/Plan: PO Lactulose, Fleets, Dulcolax Code(s): K59.01 - SLOW TRANSIT CONSTIPATION
[2018-11-30] MEDS: BISACODYL 5 MG TABLET.DR (FP) PO PRN (10:09)
[2018-11-30] MEDS: amLODIPine BESYLATE 10 MG TABLET (FP) PO SCH (10:09)
[2018-11-30] MEDS: SODIUM CHLORIDE 1,000 ML IV SCH ×2 (12:58→22:24)
--- NOTE | 2018-11-30 15:41 | PN ---
Progress Note, Physician History of Present Illness: Pt seen and examined at bedside. He is awake and alert. He denies shortness of breath. - Current Medication List Current Medications: Active Medications Acetaminophen (Tylenol Suppository -) 650 mg [place] Q4H PRN PRN Reason: FEVER Acetaminophen (Tylenol -) 650 mg PO Q6H PRN PRN Reason: PAIN Last Admin: 11/29/18 17:04 Dose: 650 mg Amlodipine Besylate (Norvasc -) 10 mg PO DAILY [facility] Last Admin: 11/30/18 10:09 Dose: 10 mg Bisacodyl (Dulcolax -) 5 mg PO DAILY PRN PRN Reason: CONSTIPATION Last Admin: 11/30/18 10:09 Dose: 5 mg Haloperidol (Haldol Injection (Fast Acting) -) 2 mg IM Q4H PRN PRN Reason: AGITATION Sodium Chloride (Normal Saline -) 1,000 mls @ 83 mls/hr IV ASDIR [facility] Last Admin: 11/30/18 12:58 Dose: 83 mls/hr Lactulose (Cephulac (Oral Use)) 20 gm PO Q6H PRN PRN Reason: CONSTIPATION Last Admin: 11/29/18 16:58 Dose: 20 gm - Objective Vital Signs: Vital Signs Temperature 98.9 F 11/30/18 14:40 Pulse Rate 98 H 11/30/18 14:40 Respiratory Rate 20 11/30/18 14:40 Blood Pressure 147/83 11/30/18 14:40 O2 Sat by Pulse Oximetry (%) 98 11/30/18 09:00 Constitutional: Yes: Calm Eyes: Yes: Conjunctiva Clear HENT: Yes: Atraumatic Neck: Yes: Supple Cardiovascular: Yes: S1, S2 Respiratory: Yes: CTA Bilaterally Gastrointestinal: Yes: Soft Genitourinary: Yes: Berrios Present, Other (bilateral nephrostomy tubes) Extremities: Yes: WNL Edema: No Integumentary: Yes: WNL Neurological: Yes: Oriented Psychiatric: Yes: Oriented Labs: CBC, BMP 11/30/18 06:56 11/30/18 06:56 INR, PTT INR 1.27 (0.83-1.09) H 11/22/18 19:00 Problem List - Problems (1) WOJCIECH (acute kidney injury) Code(s): N17.9 - ACUTE KIDNEY FAILURE, UNSPECIFIED (2) Urinary obstruction Code(s): N13.9 - OBSTRUCTIVE AND REFLUX UROPATHY, UNSPECIFIED (3) Bilateral hydronephrosis Code(s): N13.30 - UNSPECIFIED HYDRONEPHROSIS (4) HTN (hypertension) Code(s): I10 - ESSENTIAL (PRIMARY) HYPERTENSION Qualifiers: Hypertension type: essential hypertension Qualified Code(s): I10 - Essential (primary) hypertension (5) Hyperkalemia Code(s): E87.5 - HYPERKALEMIA (6) Renal failure Code(s): N19 - UNSPECIFIED KIDNEY FAILURE Qualifiers: Renal failure chronicity: acute Assessment/Plan Current Medications Generic Name Dose Route Start Last Admin Trade Name Freq PRN Reason Stop Dose Admin Acetaminophen 650 mg 11/25/18 11:27 Tylenol Suppository - [place] Q4H PRN FEVER Acetaminophen 650 mg 11/29/18 16:57 11/29/18 17:04 Tylenol - PO 650 mg Q6H PRN Administration PAIN Amlodipine Besylate 10 mg 11/26/18 10:00 11/30/18 10:09 Norvasc - PO 10 mg DAILY SINDY Administration Bisacodyl 5 mg 11/29/18 08:08 11/30/18 10:09 Dulcolax - PO 5 mg DAILY PRN Administration CONSTIPATION Haloperidol 2 mg 11/25/18 11:27 Haldol Injection (Fast Acting) - IM Q4H PRN AGITATION Sodium Chloride 1,000 mls @ 83 mls/hr 11/26/18 14:52 11/30/18 12:58 Normal Saline - IV 83 mls/hr ASDIR SINDY Administration Lactulose 20 gm 11/29/18 08:08 11/29/18 16:58 Cephulac (Oral Use) PO 20 gm Q6H PRN Administration CONSTIPATION Impression 1. WOJCIECH 2. hyperkalemia 3. likely prostate cancer 4. dementia 5. htn 6. severe hydronephrosis 7. hematuria 8. likely bone mets Plan - cont with fluids - repeat labs in am - renal function is improving - discussed with family - repeat labs in am - urology follow up
--- NOTE | 2018-11-30 18:25 | PN ---
Progress Note (short form) - Note Progress Note: Patient seen and examined No complaints Last Vital Signs Temp Pulse Resp BP Pulse Ox 98.9 F 98 H 20 147/83 98 11/30/18 14:40 11/30/18 14:40 11/30/18 14:40 11/30/18 14:40 11/30/18 09:00 Cor: RSR, No murmurs, No gallops Lungs: Clear to P&A Abd: Soft, Normal bowel sounds, No organomegaly Ext:No significant edema Skin: No rashes, Integument intact Bilateral nephrostomy tube drainage CBC, BMP 11/30/18 06:56 11/30/18 06:56 Current Medications Generic Name Dose Route Start Last Admin Trade Name Freq PRN Reason Stop Dose Admin Acetaminophen 650 mg 11/25/18 11:27 Tylenol Suppository - [place] Q4H PRN FEVER Acetaminophen 650 mg 11/29/18 16:57 11/29/18 17:04 Tylenol - PO 650 mg Q6H PRN Administration PAIN Amlodipine Besylate 10 mg 11/26/18 10:00 11/30/18 10:09 Norvasc - PO 10 mg DAILY SINDY Administration Bisacodyl 5 mg 11/29/18 08:08 11/30/18 10:09 Dulcolax - PO 5 mg DAILY PRN Administration CONSTIPATION Haloperidol 2 mg 11/25/18 11:27 Haldol Injection (Fast Acting) - IM Q4H PRN AGITATION Sodium Chloride 1,000 mls @ 83 mls/hr 11/26/18 14:52 11/30/18 12:58 Normal Saline - IV 83 mls/hr ASDIR SINDY Administration Lactulose 20 gm 11/29/18 08:08 11/29/18 16:58 Cephulac (Oral Use) PO 20 gm Q6H PRN Administration CONSTIPATION Impression: Likely metastatic prostate Obstructive Uropathy WOJCIECH s/p bilateral nephrostomy tubes Anemia Plan: Continue to monitor lytes,CBC Transfuse for further fall in HB Await prostate biopsy.
--- NOTE | 2018-12-01 09:13 | PN ---
Progress Note, Physician History of Present Illness: stable no new issues - Current Medication List Current Medications: Active Medications Acetaminophen (Tylenol Suppository -) 650 mg [place] Q4H PRN PRN Reason: FEVER Acetaminophen (Tylenol -) 650 mg PO Q6H PRN PRN Reason: PAIN Last Admin: 11/29/18 17:04 Dose: 650 mg Amlodipine Besylate (Norvasc -) 10 mg PO DAILY SINDY Last Admin: 11/30/18 10:09 Dose: 10 mg Bisacodyl (Dulcolax -) 5 mg PO DAILY PRN PRN Reason: CONSTIPATION Last Admin: 11/30/18 10:09 Dose: 5 mg Haloperidol (Haldol Injection (Fast Acting) -) 2 mg IM Q4H PRN PRN Reason: AGITATION Sodium Chloride (Normal Saline -) 1,000 mls @ 83 mls/hr IV ASDIR SINDY Last Admin: 11/30/18 22:24 Dose: 83 mls/hr Lactulose (Cephulac (Oral Use)) 20 gm PO Q6H PRN PRN Reason: CONSTIPATION Last Admin: 11/29/18 16:58 Dose: 20 gm - Objective Vital Signs: Vital Signs Temperature 98.7 F 12/01/18 06:00 Pulse Rate 97 H 12/01/18 06:00 Respiratory Rate 20 12/01/18 06:00 Blood Pressure 127/59 L 12/01/18 06:00 O2 Sat by Pulse Oximetry (%) 98 11/30/18 09:00 Constitutional: Yes: No Distress, Calm Cardiovascular: Yes: S1, S2 Respiratory: Yes: Regular, CTA Bilaterally Gastrointestinal: Yes: Normal Bowel Sounds, Soft Genitourinary: Yes: Other (b/l nephrostomy tube) Musculoskeletal: Yes: WNL Extremities: Yes: WNL Neurological: Yes: Alert, Oriented Psychiatric: Yes: Alert, Oriented Labs: CBC, BMP 11/30/18 06:56 INR, PTT INR 1.27 (0.83-1.09) H 11/22/18 19:00 Assessment/Plan Problem List - Problems (1) Bilateral hydronephrosis Code(s): N13.30 - UNSPECIFIED HYDRONEPHROSIS (2) Hyperkalemia Code(s): E87.5 - HYPERKALEMIA (3) Metabolic acidemia Code(s): E87.2 - ACIDOSIS (4) Renal failure Code(s): N19 - UNSPECIFIED KIDNEY FAILURE Qualifiers: Renal failure chronicity: acute (5) Sepsis Code(s): A41.9 - SEPSIS, UNSPECIFIED ORGANISM Qualifiers: Sepsis type: sepsis due to unspecified organism Qualified Code(s): A41.9 - Sepsis, unspecified organism (6) Systemic inflammatory response syndrome (SIRS) Code(s): R65.10 - SIRS OF NON-INFECTIOUS ORIGIN W/O ACUTE ORGAN DYSFUNCTION (7) HTN (hypertension) Code(s): I10 - ESSENTIAL (PRIMARY) HYPERTENSION Qualifiers: Hypertension type: essential hypertension Qualified Code(s): I10 - Essential (primary) hypertension r/o uti plan all cx reports noted s/p biopsy continue current mgmt rest as per the team
--- NOTE | 2018-12-01 09:38 | PN ---
Progress Note, Physician Chief Complaint: Sitting in a chair, feels better. Left nephrostomy bloody urine Right-clear urinary output History of Present Illness: Glaucoma HTN. History of elevated PSA 50 in 01/24 and 84 in 04/26. Seen by Dr Cortez and MRI prostate was done which showed suggestive for malignancy prostate mass growing through the capsule and multiple pelvic LN. The patient was scheduled for a biopsy of the prostate, preop eval was done, but the patient decided not to proceed with prostate biopsy, Cognitive impairment - Current Medication List Current Medications: Active Medications Acetaminophen (Tylenol Suppository -) 650 mg [place] Q4H PRN PRN Reason: FEVER Acetaminophen (Tylenol -) 650 mg PO Q6H PRN PRN Reason: PAIN Last Admin: 11/29/18 17:04 Dose: 650 mg Amlodipine Besylate (Norvasc -) 10 mg PO DAILY [facility] Last Admin: 11/30/18 10:09 Dose: 10 mg Bisacodyl (Dulcolax -) 5 mg PO DAILY PRN PRN Reason: CONSTIPATION Last Admin: 11/30/18 10:09 Dose: 5 mg Haloperidol (Haldol Injection (Fast Acting) -) 2 mg IM Q4H PRN PRN Reason: AGITATION Sodium Chloride (Normal Saline -) 1,000 mls @ 83 mls/hr IV ASDIR [facility] Last Admin: 11/30/18 22:24 Dose: 83 mls/hr Lactulose (Cephulac (Oral Use)) 20 gm PO Q6H PRN PRN Reason: CONSTIPATION Last Admin: 11/29/18 16:58 Dose: 20 gm - Objective Vital Signs: Vital Signs Temperature 98.7 F 12/01/18 06:00 Pulse Rate 97 H 12/01/18 06:00 Respiratory Rate 20 12/01/18 06:00 Blood Pressure 127/59 L 12/01/18 06:00 O2 Sat by Pulse Oximetry (%) 98 11/30/18 09:00 Constitutional: Yes: No Distress Eyes: Yes: Conjunctiva Clear, EOM Intact HENT: Yes: Atraumatic, Normocephalic Neck: Yes: Supple, Trachea Midline Cardiovascular: Yes: Regular Rate and Rhythm Respiratory: Yes: Regular, CTA Bilaterally Gastrointestinal: Yes: Normal Bowel Sounds, Soft ...Rectal Exam: Yes: Deferred Genitourinary: Yes: Berrios Present, Other (Nephrostomies). No: Anuria Breast(s): Yes: WNL Musculoskeletal: Yes: WNL Extremities: Yes: WNL Peripheral Pulses WNL: No Neurological: Yes: Alert, Oriented. No: Aphasia, Seizure ...Motor Strength: WNL Labs: CBC, BMP 11/30/18 06:56 INR, PTT INR 1.27 (0.83-1.09) H 11/22/18 19:00 Problem List - Problems (1) Bilateral hydronephrosis Assessment/Plan: Patient S/P IR placement nephrostomies. Urology consult-F/U. Cysto planned later this week Code(s): N13.30 - UNSPECIFIED HYDRONEPHROSIS (2) Renal failure Assessment/Plan: Improving creatinine Follow BUN/Creat Code(s): N19 - UNSPECIFIED KIDNEY FAILURE Qualifiers: Renal failure chronicity: acute (3) HTN (hypertension) Assessment/Plan: Amlodipine 10 mg Qd Code(s): I10 - ESSENTIAL (PRIMARY) HYPERTENSION Qualifiers: Hypertension type: essential hypertension Qualified Code(s): I10 - Essential (primary) hypertension (4) Hydrocephalus Assessment/Plan: Neuro consult appreciated. Definitive management is postponed due to patient condition. Code(s): G91.9 - HYDROCEPHALUS, UNSPECIFIED Qualifiers: Hydrocephalus type: unspecified Qualified Code(s): G91.9 - Hydrocephalus, unspecified (5) Prostate cancer Assessment/Plan: Awaiting IR biopsy of the retroperitoneal LN. After biopsy results - consider endocrinology/ chemo treatment for prostate CA Code(s): C61 - MALIGNANT NEOPLASM OF PROSTATE (6) Constipation by delayed colonic transit Assessment/Plan: PO Lactulose, Fleets, Dulcolax Code(s): K59.01 - SLOW TRANSIT CONSTIPATION
[2018-12-01 10:11] LABS: ALBUMIN 2.9 g/dl (3.4-5.0); BILIRUBIN,TOTAL 0.5 mg/dL (0.2-1); BLOOD UREA NITROGEN 55.3 mg/dL (7-18); CALCIUM 8.5 mg/dL (8.5-10.1); CREATININE 4.2 mg/dL (0.55-1.3); POTASSIUM 4.1 mmol/L (3.5-5.1); TOT PROT 7.3 g/dl (6.4-8.2)
[2018-12-01] MEDS: amLODIPine BESYLATE 10 MG TABLET (FP) PO SCH (10:32)
[2018-12-01] MEDS: SODIUM CHLORIDE 1,000 ML IV SCH (14:09)
--- NOTE | 2018-12-01 16:26 | PN ---
Progress Note, Physician History of Present Illness: Pt seen and examined at bedside. He is awake and alert. He denies shortness of breath. - Current Medication List Current Medications: Active Medications Acetaminophen (Tylenol Suppository -) 650 mg [place] Q4H PRN PRN Reason: FEVER Acetaminophen (Tylenol -) 650 mg PO Q6H PRN PRN Reason: PAIN Last Admin: 11/29/18 17:04 Dose: 650 mg Amlodipine Besylate (Norvasc -) 10 mg PO DAILY [facility] Last Admin: 12/01/18 10:32 Dose: 10 mg Bisacodyl (Dulcolax -) 5 mg PO DAILY PRN PRN Reason: CONSTIPATION Last Admin: 11/30/18 10:09 Dose: 5 mg Haloperidol (Haldol Injection (Fast Acting) -) 2 mg IM Q4H PRN PRN Reason: AGITATION Sodium Chloride (Normal Saline -) 1,000 mls @ 83 mls/hr IV ASDIR [facility] Last Admin: 12/01/18 14:09 Dose: 83 mls/hr Lactulose (Cephulac (Oral Use)) 20 gm PO Q6H PRN PRN Reason: CONSTIPATION Last Admin: 11/29/18 16:58 Dose: 20 gm - Objective Vital Signs: Vital Signs Temperature 98.1 F 12/01/18 13:57 Pulse Rate 99 H 12/01/18 13:57 Respiratory Rate 20 12/01/18 13:57 Blood Pressure 130/81 12/01/18 13:57 O2 Sat by Pulse Oximetry (%) 98 12/01/18 09:00 Constitutional: Yes: Calm Eyes: Yes: Conjunctiva Clear HENT: Yes: Atraumatic Neck: Yes: Supple Cardiovascular: Yes: S1, S2 Respiratory: Yes: CTA Bilaterally Gastrointestinal: Yes: Soft Genitourinary: Yes: Berrios Present, Other (bilateral nephrostomy) Musculoskeletal: Yes: WNL Edema: No Neurological: Yes: Oriented Psychiatric: Yes: Oriented Labs: CBC, BMP 11/30/18 06:56 12/01/18 07:38 INR, PTT INR 1.27 (0.83-1.09) H 11/22/18 19:00 Problem List - Problems (1) WOJCIECH (acute kidney injury) Code(s): N17.9 - ACUTE KIDNEY FAILURE, UNSPECIFIED (2) Urinary obstruction Code(s): N13.9 - OBSTRUCTIVE AND REFLUX UROPATHY, UNSPECIFIED (3) Bilateral hydronephrosis Code(s): N13.30 - UNSPECIFIED HYDRONEPHROSIS (4) HTN (hypertension) Code(s): I10 - ESSENTIAL (PRIMARY) HYPERTENSION Qualifiers: Hypertension type: essential hypertension Qualified Code(s): I10 - Essential (primary) hypertension (5) Hyperkalemia Code(s): E87.5 - HYPERKALEMIA (6) Renal failure Code(s): N19 - UNSPECIFIED KIDNEY FAILURE Qualifiers: Renal failure chronicity: acute Assessment/Plan Current Medications Generic Name Dose Route Start Last Admin Trade Name Freq PRN Reason Stop Dose Admin Acetaminophen 650 mg 11/25/18 11:27 Tylenol Suppository - [place] Q4H PRN FEVER Acetaminophen 650 mg 11/29/18 16:57 11/29/18 17:04 Tylenol - PO 650 mg Q6H PRN Administration PAIN Amlodipine Besylate 10 mg 11/26/18 10:00 12/01/18 10:32 Norvasc - PO 10 mg DAILY SINDY Administration Bisacodyl 5 mg 11/29/18 08:08 11/30/18 10:09 Dulcolax - PO 5 mg DAILY PRN Administration CONSTIPATION Haloperidol 2 mg 11/25/18 11:27 Haldol Injection (Fast Acting) - IM Q4H PRN AGITATION Sodium Chloride 1,000 mls @ 83 mls/hr 11/26/18 14:52 12/01/18 14:09 Normal Saline - IV 83 mls/hr ASDIR SINDY Administration Lactulose 20 gm 11/29/18 08:08 11/29/18 16:58 Cephulac (Oral Use) PO 20 gm Q6H PRN Administration CONSTIPATION Impression 1. WOJCIECH 2. hyperkalemia 3. likely prostate cancer 4. dementia 5. htn 6. severe hydronephrosis 7. hematuria 8. likely bone mets Plan - renal function is improving - repeat labs in am - monitor lytes - discussed with medical team - urology follow up
[2018-12-02] MEDS: SODIUM CHLORIDE 1,000 ML IV SCH ×2 (04:38→19:31)
[2018-12-02 07:28] LABS: BASO % 0.5 % (0-2.0); EOS % 1.4 % (0-4.5); HEMATOCRIT 22.1 % (35.4-49); HEMOGLOBIN 7.7 GM/dL (11.7-16.9); LYMPH % 14.6 % (8-40); MCH 32.1 pg (25.7-33.7); MEAN CELL VOLUME 91.7 fl (80-96); MEAN PLT VOLUME 7.2 fl (7.5-11.1); MONO % 9.8 % (3.8-10.2); NEUT % 73.7 % (42.8-82.8); PLATELET COUNT 327 K/MM3 (134-434); RBC 2.41 M/mm3 (4.00-5.60); RDW 12.9 % (11.9-15.9)
[2018-12-02 07:41] LABS: ALBUMIN 2.8 g/dl (3.4-5.0); BILIRUBIN,TOTAL 0.3 mg/dL (0.2-1); BLOOD UREA NITROGEN 53.9 mg/dL (7-18); CALCIUM 8.4 mg/dL (8.5-10.1); POTASSIUM 4.6 mmol/L (3.5-5.1)
[2018-12-02] MEDS: amLODIPine BESYLATE 10 MG TABLET (FP) PO SCH (10:14)
--- NOTE | 2018-12-02 10:37 | PN ---
Progress Note, Physician Chief Complaint: low back pain Sitting in a chair, feels well Left nephrostomy bloody urine - scant Right-clear urinary output History of Present Illness: [facility] coverage for Dr. Kee Patient is a 78 year old male with a significant past medical history of hypertension, recurrent UTIs, presumed prostate CA with a history of PSA over 200s presents after multiple falls and admitted to [facility] on 11/22/2018. Patient was reported to be confused with urinary incontinence and multiple falls at home. he fell at home, could not get up and was bought into the ED for further evaluation. Per ED report/admission note, patient has been non compliant with follow up and hypertensive medications at home. Patient was found to have hyperkalemia of 6.2, Cr. 9.2, BUN 95, mild to moderate hydronephrosis on US and a Head CT that showed obstructive hydrocephalus. CTAP without contrast revealed multiple vertebral bodies w/ diffuse metastatic disease. Lumbar xray: with T12 sclerotic lesion suggesting mets. On 11/24/2018 patient underwent bilateral nephrostomy placement for bilateral hydronephrosis. - Current Medication List Current Medications: Active Medications Acetaminophen (Tylenol Suppository -) 650 mg [place] Q4H PRN PRN Reason: FEVER Acetaminophen (Tylenol -) 650 mg PO Q6H PRN PRN Reason: PAIN Last Admin: 11/29/18 17:04 Dose: 650 mg Amlodipine Besylate (Norvasc -) 10 mg PO DAILY [facility] Last Admin: 12/02/18 10:14 Dose: 10 mg Bisacodyl (Dulcolax -) 5 mg PO DAILY PRN PRN Reason: CONSTIPATION Last Admin: 11/30/18 10:09 Dose: 5 mg Haloperidol (Haldol Injection (Fast Acting) -) 2 mg IM Q4H PRN PRN Reason: AGITATION Sodium Chloride (Normal Saline -) 1,000 mls @ 70 mls/hr IV ASDIR SINDY Last Admin: 12/02/18 04:38 Dose: 70 mls/hr Lactulose (Cephulac (Oral Use)) 20 gm PO Q6H PRN PRN Reason: CONSTIPATION Last Admin: 11/29/18 16:58 Dose: 20 gm - Objective Vital Signs: Vital Signs Temperature 100 F H 12/02/18 10:00 Pulse Rate 98 H 12/02/18 10:00 Respiratory Rate 20 12/02/18 10:00 Blood Pressure 123/77 12/02/18 10:00 O2 Sat by Pulse Oximetry (%) 96 12/02/18 09:00 Constitutional: Yes: No Distress, Calm Eyes: Yes: WNL HENT: Yes: WNL, Atraumatic Neck: Yes: WNL Cardiovascular: Yes: Regular Rate and Rhythm Respiratory: Yes: WNL, Regular, CTA Bilaterally Gastrointestinal: Yes: WNL, Soft ...Rectal Exam: Yes: Deferred Genitourinary: Yes: WNL Musculoskeletal: Yes: WNL Extremities: Yes: WNL Edema: Yes Edema: LLE: Trace, RLE: Trace Integumentary: Yes: WNL Wound/Incision: Yes: Clean/Dry, Dressing Dry and Intact Neurological: Yes: WNL, Alert, Oriented Psychiatric: Yes: Alert, Oriented Labs: CBC, BMP 12/02/18 05:30 12/02/18 05:30 INR, PTT INR 1.27 (0.83-1.09) H 11/22/18 19:00 Problem List - Problems (1) WOJCIECH (acute kidney injury) Assessment/Plan: Improving creatinine Follow BUN/Creat s/p bilateral nephrostomy tubes placed 11/24/18 monitor intake and output Code(s): N17.9 - ACUTE KIDNEY FAILURE, UNSPECIFIED (2) Bilateral hydronephrosis Assessment/Plan: Patient is s/p IR placement of bliaeral nephrostomy tubes 11/24/18 Urology consulted and following. Cysto planned Code(s): N13.30 - UNSPECIFIED HYDRONEPHROSIS (3) HTN (hypertension) Assessment/Plan: controlled on amlodopine Code(s): I10 - ESSENTIAL (PRIMARY) HYPERTENSION Qualifiers: Hypertension type: essential hypertension Qualified Code(s): I10 - Essential (primary) hypertension (4) Hydrocephalus Assessment/Plan: Neuro consulted monitor mental status Code(s): G91.9 - HYDROCEPHALUS, UNSPECIFIED Qualifiers: Hydrocephalus type: unspecified Qualified Code(s): G91.9 - Hydrocephalus, unspecified (5) Prostate cancer Assessment/Plan: Awaiting IR biopsy of the retroperitoneal LN. Code(s): C61 - MALIGNANT NEOPLASM OF PROSTATE (6) Renal failure Code(s): N19 - UNSPECIFIED KIDNEY FAILURE Qualifiers: Renal failure chronicity: acute (7) Constipation by delayed colonic transit Assessment/Plan: on PO Lactulose, Dulce Maria, Dulcolax Code(s): K59.01 - SLOW TRANSIT CONSTIPATION (8) Prophylactic measure Assessment/Plan: FEN tolerating PO monitor electrolytes low salt diet prophy no a/c 2/2 to hematuria on left nephrostomy OOB to chair SCDs physical therapy full code Code(s): Z29.9 - ENCOUNTER FOR PROPHYLACTIC MEASURES, UNSPECIFIED Visit type - Emergency Visit Emergency Visit: Yes ED Registration Date: 11/22/18 Care time: The patient presented to the Emergency Department on the above date and was hospitalized for further evaluation of their emergent condition. - New Patient This patient is new to me today: Yes Date on this admission: 12/02/18 - Critical Care Critical Care patient: No - Discharge Referral Referred to [facility] Med P.C.: No
[2018-12-02] MEDS: ACETAMINOPHEN 325 MG TABLET (FP) PO PRN (12:35)
[2018-12-02] MEDS: LIDOCAINE 5% TOPICAL PATCH TP SCH (12:37)
--- NOTE | 2018-12-02 12:48 | PN ---
Progress Note, Physician - Current Medication List Current Medications: Active Medications Acetaminophen (Tylenol Suppository -) 650 mg [place] Q4H PRN PRN Reason: FEVER Acetaminophen (Tylenol -) 650 mg PO Q6H PRN PRN Reason: PAIN Last Admin: 12/02/18 12:35 Dose: 650 mg Amlodipine Besylate (Norvasc -) 10 mg PO DAILY [facility] Last Admin: 12/02/18 10:14 Dose: 10 mg Bisacodyl (Dulcolax -) 5 mg PO DAILY PRN PRN Reason: CONSTIPATION Last Admin: 11/30/18 10:09 Dose: 5 mg Haloperidol (Haldol Injection (Fast Acting) -) 2 mg IM Q4H PRN PRN Reason: AGITATION Sodium Chloride (Normal Saline -) 1,000 mls @ 70 mls/hr IV ASDIR [facility] Last Admin: 12/02/18 04:38 Dose: 70 mls/hr Lactulose (Cephulac (Oral Use)) 20 gm PO Q6H PRN PRN Reason: CONSTIPATION Last Admin: 11/29/18 16:58 Dose: 20 gm Lidocaine (Lidoderm Patch -) 1 patch TP DAILY [facility] Last Admin: 12/02/18 12:37 Dose: 1 patch Miscellaneous (Lidoderm Patch Removal) 1 each MC DAILY@2200 [facility] - Objective Vital Signs: Vital Signs Temperature 100 F H 12/02/18 10:00 Pulse Rate 98 H 12/02/18 10:00 Respiratory Rate 20 12/02/18 10:00 Blood Pressure 123/77 12/02/18 10:00 O2 Sat by Pulse Oximetry (%) 96 12/02/18 09:00 Labs: CBC, BMP 12/02/18 05:30 12/02/18 05:30 INR, PTT INR 1.27 (0.83-1.09) H 11/22/18 19:00
--- NOTE | 2018-12-02 15:06 | PN ---
Progress Note, Physician History of Present Illness: Pt seen and examined at bedside. He is awake and appears comfortable. - Current Medication List Current Medications: Active Medications Acetaminophen (Tylenol Suppository -) 650 mg [place] Q4H PRN PRN Reason: FEVER Acetaminophen (Tylenol -) 650 mg PO Q6H PRN PRN Reason: PAIN Last Admin: 12/02/18 12:35 Dose: 650 mg Amlodipine Besylate (Norvasc -) 10 mg PO DAILY [facility] Last Admin: 12/02/18 10:14 Dose: 10 mg Bisacodyl (Dulcolax -) 5 mg PO DAILY PRN PRN Reason: CONSTIPATION Last Admin: 11/30/18 10:09 Dose: 5 mg Haloperidol (Haldol Injection (Fast Acting) -) 2 mg IM Q4H PRN PRN Reason: AGITATION Sodium Chloride (Normal Saline -) 1,000 mls @ 70 mls/hr IV ASDIR [facility] Last Admin: 12/02/18 04:38 Dose: 70 mls/hr Lactulose (Cephulac (Oral Use)) 20 gm PO Q6H PRN PRN Reason: CONSTIPATION Last Admin: 11/29/18 16:58 Dose: 20 gm Lidocaine (Lidoderm Patch -) 1 patch TP DAILY [facility] Last Admin: 12/02/18 12:37 Dose: 1 patch Miscellaneous (Lidoderm Patch Removal) 1 each MC DAILY@2200 [facility] - Objective Vital Signs: Vital Signs Temperature 98.1 F 12/02/18 13:54 Pulse Rate 93 H 12/02/18 13:54 Respiratory Rate 20 12/02/18 13:54 Blood Pressure 116/66 12/02/18 13:54 O2 Sat by Pulse Oximetry (%) 96 12/02/18 09:00 Constitutional: Yes: Calm Eyes: Yes: Conjunctiva Clear HENT: Yes: Atraumatic Neck: Yes: Supple Cardiovascular: Yes: S1, S2 Respiratory: Yes: CTA Bilaterally Gastrointestinal: Yes: Normal Bowel Sounds, Soft Genitourinary: Yes: Berrios Present, Other (bilateral nephrostomy tubes) Extremities: Yes: WNL Edema: No Neurological: Yes: Oriented Psychiatric: Yes: Oriented Labs: CBC, BMP 12/02/18 05:30 12/02/18 05:30 INR, PTT INR 1.27 (0.83-1.09) H 11/22/18 19:00 Problem List - Problems (1) WOJCIECH (acute kidney injury) Code(s): N17.9 - ACUTE KIDNEY FAILURE, UNSPECIFIED (2) Urinary obstruction Code(s): N13.9 - OBSTRUCTIVE AND REFLUX UROPATHY, UNSPECIFIED (3) Bilateral hydronephrosis Code(s): N13.30 - UNSPECIFIED HYDRONEPHROSIS (4) HTN (hypertension) Code(s): I10 - ESSENTIAL (PRIMARY) HYPERTENSION Qualifiers: Hypertension type: essential hypertension Qualified Code(s): I10 - Essential (primary) hypertension (5) Hyperkalemia Code(s): E87.5 - HYPERKALEMIA (6) Renal failure Code(s): N19 - UNSPECIFIED KIDNEY FAILURE Qualifiers: Renal failure chronicity: acute Assessment/Plan Current Medications Generic Name Dose Route Start Last Admin Trade Name Freq PRN Reason Stop Dose Admin Acetaminophen 650 mg 11/25/18 11:27 Tylenol Suppository - [place] Q4H PRN FEVER Acetaminophen 650 mg 11/29/18 16:57 12/02/18 12:35 Tylenol - PO 650 mg Q6H PRN Administration PAIN Amlodipine Besylate 10 mg 11/26/18 10:00 12/02/18 10:14 Norvasc - PO 10 mg DAILY SINDY Administration Bisacodyl 5 mg 11/29/18 08:08 11/30/18 10:09 Dulcolax - PO 5 mg DAILY PRN Administration CONSTIPATION Haloperidol 2 mg 11/25/18 11:27 Haldol Injection (Fast Acting) - IM Q4H PRN AGITATION Sodium Chloride 1,000 mls @ 70 mls/hr 12/01/18 16:26 12/02/18 04:38 Normal Saline - IV 70 mls/hr ASDIR SINDY Administration Lactulose 20 gm 11/29/18 08:08 11/29/18 16:58 Cephulac (Oral Use) PO 20 gm Q6H PRN Administration CONSTIPATION Lidocaine 1 patch 12/02/18 11:00 12/02/18 12:37 Lidoderm Patch - TP 1 patch DAILY SINDY Administration Miscellaneous 1 each 12/02/18 22:00 Lidoderm Patch Removal MC DAILY@2200 SINDY Impression 1. WOJCIECH 2. hyperkalemia 3. likely prostate cancer 4. dementia 5. htn 6. severe hydronephrosis 7. hematuria 8. likely bone mets Plan - cont to monitor renal function - nephrostomy tube care - urology follow up - cont fluids - discussed with family
[2018-12-02 16:10] LABS: BASO % 0.7 % (0-2.0); EOS % 2.1 % (0-4.5); HEMATOCRIT 19.7 % (35.4-49); LYMPH % 16.1 % (8-40); MCH 31.6 pg (25.7-33.7); MCHC 34.5 g/dl (32.0-35.9); MEAN CELL VOLUME 91.7 fl (80-96); MEAN PLT VOLUME 6.7 fl (7.5-11.1); MONO % 10.4 % (3.8-10.2); NEUT % 70.7 % (42.8-82.8); PLATELET COUNT 263 K/MM3 (134-434); RBC 2.15 M/mm3 (4.00-5.60); RDW 13.2 % (11.9-15.9)
[2018-12-02 16:21] LABS: HEMOGLOBIN 6.8 GM/dL (11.7-16.9)
[2018-12-02] MEDS: LIDOCAINE PATCH REMOVAL MC SCH (22:51)
[2018-12-03 08:58] LABS: BASO % 0.5 % (0-2.0); EOS % 1.8 % (0-4.5); HEMOGLOBIN 8.7 GM/dL (11.7-16.9); MCH 31.4 pg (25.7-33.7); MCHC 34.7 g/dl (32.0-35.9); MEAN CELL VOLUME 90.4 fl (80-96); MEAN PLT VOLUME 6.7 fl (7.5-11.1); MONO % 9.9 % (3.8-10.2); NEUT % 71.8 % (42.8-82.8); PLATELET COUNT 298 K/MM3 (134-434); RBC 2.76 M/mm3 (4.00-5.60); RDW 13.7 % (11.9-15.9); WHITE BLOOD COUNT 6.1 K/mm3 (4.0-10.0)
[2018-12-03 09:23] LABS: ALBUMIN 2.8 g/dl (3.4-5.0); BILIRUBIN,TOTAL 0.8 mg/dL (0.2-1); BLOOD UREA NITROGEN 46.8 mg/dL (7-18); CALCIUM 8.4 mg/dL (8.5-10.1); CREATININE 3.6 mg/dL (0.55-1.3); MAGNESIUM 1.8 mg/dL (1.8-2.4); TOT PROT 6.9 g/dl (6.4-8.2)
[2018-12-03] MEDS: amLODIPine BESYLATE 10 MG TABLET (FP) PO SCH (09:40)
[2018-12-03] MEDS: LIDOCAINE 5% TOPICAL PATCH TP SCH (09:41)
--- NOTE | 2018-12-03 10:26 | PN ---
Progress Note (short form) - Note Progress Note: creatinine is improving. the majority of the urine output is coming from one nephrostomy tube. discussed with patient recommended cystoscopy, attempt of retrograde ureteral stent placements and prostate biopsy on 12/04/18. He is refusing. He has been refusing prostate biopsy and intervention over the last year despite explanation as to why this important Problem List - Problems (1) Bilateral hydronephrosis Code(s): N13.30 - UNSPECIFIED HYDRONEPHROSIS
--- NOTE | 2018-12-03 10:32 | PN ---
Progress Note, Physician - Current Medication List Current Medications: Active Medications Acetaminophen (Tylenol Suppository -) 650 mg [place] Q4H PRN PRN Reason: FEVER Acetaminophen (Tylenol -) 650 mg PO Q6H PRN PRN Reason: PAIN Last Admin: 12/02/18 12:35 Dose: 650 mg Amlodipine Besylate (Norvasc -) 10 mg PO DAILY [facility] Last Admin: 12/03/18 09:40 Dose: 10 mg Bisacodyl (Dulcolax -) 5 mg PO DAILY PRN PRN Reason: CONSTIPATION Last Admin: 11/30/18 10:09 Dose: 5 mg Haloperidol (Haldol Injection (Fast Acting) -) 2 mg IM Q4H PRN PRN Reason: AGITATION Sodium Chloride (Normal Saline -) 1,000 mls @ 70 mls/hr IV ASDIR [facility] Last Admin: 12/02/18 19:31 Dose: Not Given Lactulose (Cephulac (Oral Use)) 20 gm PO Q6H PRN PRN Reason: CONSTIPATION Last Admin: 11/29/18 16:58 Dose: 20 gm Lidocaine (Lidoderm Patch -) 1 patch TP DAILY [facility] Last Admin: 12/03/18 09:41 Dose: Not Given Miscellaneous (Lidoderm Patch Removal) 1 each [facility] DAILY@2200 [facility] Last Admin: 12/02/18 22:51 Dose: 1 each - Objective Vital Signs: Vital Signs Temperature 98.9 F 12/03/18 06:13 Pulse Rate 96 H 12/03/18 06:13 Respiratory Rate 18 12/03/18 06:13 Blood Pressure 138/78 12/03/18 06:13 O2 Sat by Pulse Oximetry (%) 96 12/02/18 21:00 Labs: CBC, BMP 12/03/18 08:51 12/03/18 08:51 INR, PTT INR 1.27 (0.83-1.09) H 11/22/18 19:00
--- NOTE | 2018-12-03 14:34 | PN ---
Progress Note, Physician History of Present Illness: Pt seen and examined at bedside. he is awake and alert. he denies shortness of breath. - Current Medication List Current Medications: Active Medications Acetaminophen (Tylenol Suppository -) 650 mg ID Q4H PRN PRN Reason: FEVER Acetaminophen (Tylenol -) 650 mg PO Q6H PRN PRN Reason: PAIN Last Admin: 12/02/18 12:35 Dose: 650 mg Amlodipine Besylate (Norvasc -) 10 mg PO DAILY [facility] Last Admin: 12/03/18 09:40 Dose: 10 mg Bisacodyl (Dulcolax -) 5 mg PO DAILY PRN PRN Reason: CONSTIPATION Last Admin: 11/30/18 10:09 Dose: 5 mg Haloperidol (Haldol Injection (Fast Acting) -) 2 mg IM Q4H PRN PRN Reason: AGITATION Sodium Chloride (Normal Saline -) 1,000 mls @ 70 mls/hr IV ASDIR [facility] Last Admin: 12/02/18 19:31 Dose: Not Given Lactulose (Cephulac (Oral Use)) 20 gm PO Q6H PRN PRN Reason: CONSTIPATION Last Admin: 11/29/18 16:58 Dose: 20 gm Lidocaine (Lidoderm Patch -) 1 patch TP DAILY [facility] Last Admin: 12/03/18 09:41 Dose: Not Given Miscellaneous (Lidoderm Patch Removal) 1 each MC DAILY@2200 [facility] Last Admin: 12/02/18 22:51 Dose: 1 each - Objective Vital Signs: Vital Signs Temperature 97.4 F L 12/03/18 13:17 Pulse Rate 100 H 12/03/18 13:17 Respiratory Rate 20 12/03/18 13:17 Blood Pressure 107/66 12/03/18 13:17 O2 Sat by Pulse Oximetry (%) 98 12/03/18 09:00 Constitutional: Yes: Calm Eyes: Yes: Conjunctiva Clear HENT: Yes: Atraumatic Neck: Yes: Supple Cardiovascular: Yes: S1, S2 Respiratory: Yes: CTA Bilaterally Gastrointestinal: Yes: Soft Genitourinary: Yes: Berrios Present, Other (bilateranal nephrostomy tubes) Musculoskeletal: Yes: WNL Edema: No Neurological: Yes: Oriented Psychiatric: Yes: Oriented Labs: CBC, BMP 12/03/18 08:51 12/03/18 08:51 INR, PTT INR 1.27 (0.83-1.09) H 11/22/18 19:00 Problem List - Problems (1) WOJCIECH (acute kidney injury) Code(s): N17.9 - ACUTE KIDNEY FAILURE, UNSPECIFIED (2) Urinary obstruction Code(s): N13.9 - OBSTRUCTIVE AND REFLUX UROPATHY, UNSPECIFIED (3) Bilateral hydronephrosis Code(s): N13.30 - UNSPECIFIED HYDRONEPHROSIS (4) HTN (hypertension) Code(s): I10 - ESSENTIAL (PRIMARY) HYPERTENSION Qualifiers: Hypertension type: essential hypertension Qualified Code(s): I10 - Essential (primary) hypertension (5) Hyperkalemia Code(s): E87.5 - HYPERKALEMIA (6) Renal failure Code(s): N19 - UNSPECIFIED KIDNEY FAILURE Qualifiers: Renal failure chronicity: acute Assessment/Plan Current Medications Generic Name Dose Route Start Last Admin Trade Name Freq PRN Reason Stop Dose Admin Acetaminophen 650 mg 11/25/18 11:27 Tylenol Suppository - ID Q4H PRN FEVER Acetaminophen 650 mg 11/29/18 16:57 12/02/18 12:35 Tylenol - PO 650 mg Q6H PRN Administration PAIN Amlodipine Besylate 10 mg 11/26/18 10:00 12/03/18 09:40 Norvasc - PO 10 mg DAILY SINDY Administration Bisacodyl 5 mg 11/29/18 08:08 11/30/18 10:09 Dulcolax - PO 5 mg DAILY PRN Administration CONSTIPATION Haloperidol 2 mg 11/25/18 11:27 Haldol Injection (Fast Acting) - IM Q4H PRN AGITATION Sodium Chloride 1,000 mls @ 70 mls/hr 12/01/18 16:26 12/02/18 19:31 Normal Saline - IV Not Given ASDIR SINDY Lactulose 20 gm 11/29/18 08:08 11/29/18 16:58 Cephulac (Oral Use) PO 20 gm Q6H PRN Administration CONSTIPATION Lidocaine 1 patch 12/02/18 11:00 12/03/18 09:41 Lidoderm Patch - TP Not Given DAILY SINDY Miscellaneous 1 each 12/02/18 22:00 12/02/18 22:51 Lidoderm Patch Removal MC 1 each DAILY@2200 SINDY Administration Impression 1. WOJCIECH 2. hyperkalemia 3. likely prostate cancer 4. dementia 5. htn 6. severe hydronephrosis 7. hematuria 8. likely bone mets Plan - renal function is improving - urology follow up for nephrostomy tube leak - cont fluids - prostate cancer workup in progress
--- NOTE | 2018-12-03 14:47 | PN ---
Progress Note, Physician Chief Complaint: Sitting in a chair, feels ok. wants to speak to his PCP before deciding on nephrostomy tube exchange or any other urological workup. Left nephrostomy bloody urine - scant amt Right-clear urinary output, however tube is leaking around port. bilateral tubes to be changed by IR tomorrow. patient is s/p 1 unit of PRBC on 12/02/2018 History of Present Illness: [facility] coverage for Dr. Kee Patient is a 78 year old male with a significant past medical history of hypertension, recurrent UTIs, presumed prostate CA with a history of PSA over 200s presents after multiple falls and admitted to [facility] on 11/22/2018. Patient was reported to be confused with urinary incontinence and multiple falls at home. he fell at home, could not get up and was bought into the ED for further evaluation. Per ED report/admission note, patient has been non compliant with follow up and hypertensive medications at home. Patient was found to have hyperkalemia of 6.2, Cr. 9.2, BUN 95, mild to moderate hydronephrosis on US and a Head CT that showed obstructive hydrocephalus. CTAP without contrast revealed multiple vertebral bodies w/ diffuse metastatic disease. Lumbar xray: with T12 sclerotic lesion suggesting mets. On 11/24/2018 patient underwent bilateral nephrostomy placement for bilateral hydronephrosis. On 12/02/2018 is s/p 1 unit of prbc for anemia with appropriate response - Current Medication List Current Medications: Active Medications Acetaminophen (Tylenol Suppository -) 650 mg PA Q4H PRN PRN Reason: FEVER Acetaminophen (Tylenol -) 650 mg PO Q6H PRN PRN Reason: PAIN Last Admin: 12/02/18 12:35 Dose: 650 mg Amlodipine Besylate (Norvasc -) 10 mg PO DAILY [facility] Last Admin: 12/03/18 09:40 Dose: 10 mg Bisacodyl (Dulcolax -) 5 mg PO DAILY PRN PRN Reason: CONSTIPATION Last Admin: 11/30/18 10:09 Dose: 5 mg Haloperidol (Haldol Injection (Fast Acting) -) 2 mg IM Q4H PRN PRN Reason: AGITATION Sodium Chloride (Normal Saline -) 1,000 mls @ 70 mls/hr IV ASDIR [facility] Last Admin: 12/02/18 19:31 Dose: Not Given Lactulose (Cephulac (Oral Use)) 20 gm PO Q6H PRN PRN Reason: CONSTIPATION Last Admin: 11/29/18 16:58 Dose: 20 gm Lidocaine (Lidoderm Patch -) 1 patch TP DAILY [facility] Last Admin: 12/03/18 09:41 Dose: Not Given Miscellaneous (Lidoderm Patch Removal) 1 each MC DAILY@2200 [facility] Last Admin: 12/02/18 22:51 Dose: 1 each - Objective Vital Signs: Vital Signs Temperature 97.4 F L 12/03/18 13:17 Pulse Rate 100 H 12/03/18 13:17 Respiratory Rate 20 12/03/18 13:17 Blood Pressure 107/66 12/03/18 13:17 O2 Sat by Pulse Oximetry (%) 98 12/03/18 09:00 Constitutional: Yes: Well Nourished, Calm Eyes: Yes: WNL HENT: Yes: WNL, Atraumatic Neck: Yes: WNL, Supple Cardiovascular: Yes: WNL, Regular Rate and Rhythm Respiratory: Yes: WNL Gastrointestinal: Yes: WNL, Normal Bowel Sounds ...Rectal Exam: Yes: WNL Genitourinary: Yes: WNL Musculoskeletal: Yes: WNL Extremities: Yes: WNL Wound/Incision: Yes: Other (left nephrostomy insertion site with scant amt of blood.) Neurological: Yes: Alert, Oriented ...Motor Strength: WNL Psychiatric: Yes: Alert, Oriented Labs: CBC, BMP 12/03/18 08:51 12/03/18 08:51 INR, PTT INR 1.27 (0.83-1.09) H 11/22/18 19:00 Problem List - Problems (1) WOJCIECH (acute kidney injury) Assessment/Plan: Improving creatinine Follow BUN/Creat s/p bilateral nephrostomy tubes placed 11/24/18, right nephrostomy tube draining , but leaking on port site. RN to clamp it. left nephrostomy tube with scant amt of bleeding, but no urine output. Bilateral neprhrostomy tubed to be changed tomorrow by IR (as ordered by urologist). monitor intake and output Code(s): N17.9 - ACUTE KIDNEY FAILURE, UNSPECIFIED (2) Bilateral hydronephrosis Assessment/Plan: Patient is s/p IR placement of bilateral nephrostomy tubes 11/24/18 Urology consulted and following. Cysto planned, however pt refusing at this time Code(s): N13.30 - UNSPECIFIED HYDRONEPHROSIS (3) HTN (hypertension) Assessment/Plan: controlled on amlodopine Code(s): I10 - ESSENTIAL (PRIMARY) HYPERTENSION Qualifiers: Hypertension type: essential hypertension Qualified Code(s): I10 - Essential (primary) hypertension (4) Hydrocephalus Assessment/Plan: Neuro consulted monitor mental status Code(s): G91.9 - HYDROCEPHALUS, UNSPECIFIED Qualifiers: Hydrocephalus type: unspecified Qualified Code(s): G91.9 - Hydrocephalus, unspecified (5) Prostate cancer Assessment/Plan: Awaiting IR biopsy of the retroperitoneal LN. Code(s): C61 - MALIGNANT NEOPLASM OF PROSTATE (6) Renal failure Assessment/Plan: monitor creatinine with daily labs. renal following. Code(s): N19 - UNSPECIFIED KIDNEY FAILURE Qualifiers: Renal failure chronicity: acute (7) Constipation by delayed colonic transit Assessment/Plan: on PO Lactulose, Fleets, Dulcolax Code(s): K59.01 - SLOW TRANSIT CONSTIPATION (8) Anemia Assessment/Plan: s/p 1 unit of prbc on 12/02/2018. hmg/hct stable. Code(s): D64.9 - ANEMIA, UNSPECIFIED (9) Prophylactic measure Assessment/Plan: FEN tolerating PO monitor electrolytes low salt diet prophy no a/c 2/2 to hematuria on left nephrostomy OOB to chair SCDs physical therapy full code Code(s): Z29.9 - ENCOUNTER FOR PROPHYLACTIC MEASURES, UNSPECIFIED Visit type - Emergency Visit Emergency Visit: Yes ED Registration Date: 11/22/18 Care time: The patient presented to the Emergency Department on the above date and was hospitalized for further evaluation of their emergent condition. - New Patient This patient is new to me today: No - Critical Care Critical Care patient: No - Discharge Referral Referred to [facility] Med P.C.: No
[2018-12-03] MEDS: SODIUM CHLORIDE 1,000 ML IV SCH (21:01)
[2018-12-03] MEDS: LIDOCAINE PATCH REMOVAL MC SCH (21:01)
--- NOTE | 2018-12-04 06:49 | PN ---
Progress Note, Physician Chief Complaint: Refused again cystoscopy. Right nephrostomy tube is leaking. For IR today PRBC Tx done Creat 3.6 History of Present Illness: Glaucoma HTN. History of elevated PSA 50 in 01/24 and 84 in 04/26. Seen by Dr Cortez and MRI prostate was done which showed suggestive for malignancy prostate mass growing through the capsule and multiple pelvic LN. The patient was scheduled for a biopsy of the prostate, preop eval was done, but the patient decided not to proceed with prostate biopsy, Cognitive impairment - Current Medication List Current Medications: Active Medications Acetaminophen (Tylenol Suppository -) 650 mg MD Q4H PRN PRN Reason: FEVER Acetaminophen (Tylenol -) 650 mg PO Q6H PRN PRN Reason: PAIN Last Admin: 12/02/18 12:35 Dose: 650 mg Amlodipine Besylate (Norvasc -) 10 mg PO DAILY [facility] Last Admin: 12/03/18 09:40 Dose: 10 mg Bisacodyl (Dulcolax -) 5 mg PO DAILY PRN PRN Reason: CONSTIPATION Last Admin: 11/30/18 10:09 Dose: 5 mg Haloperidol (Haldol Injection (Fast Acting) -) 2 mg IM Q4H PRN PRN Reason: AGITATION Sodium Chloride (Normal Saline -) 1,000 mls @ 70 mls/hr IV ASDIR [facility] Last Admin: 12/03/18 21:01 Dose: 70 mls/hr Lactulose (Cephulac (Oral Use)) 20 gm PO Q6H PRN PRN Reason: CONSTIPATION Last Admin: 11/29/18 16:58 Dose: 20 gm Lidocaine (Lidoderm Patch -) 1 patch TP DAILY [facility] Last Admin: 12/03/18 09:41 Dose: Not Given Miscellaneous (Lidoderm Patch Removal) 1 each MC DAILY@2200 [facility] Last Admin: 12/03/18 21:01 Dose: 1 each - Objective Vital Signs: Vital Signs Temperature 98.8 F 12/04/18 05:00 Pulse Rate 94 H 12/04/18 05:00 Respiratory Rate 20 12/04/18 05:00 Blood Pressure 136/79 12/04/18 05:00 O2 Sat by Pulse Oximetry (%) 96 12/03/18 21:00 Constitutional: Yes: No Distress, Calm Eyes: Yes: Conjunctiva Clear, EOM Intact HENT: Yes: Atraumatic, Normocephalic Neck: Yes: Supple, Trachea Midline Cardiovascular: Yes: Regular Rate and Rhythm Respiratory: Yes: Regular, CTA Bilaterally Gastrointestinal: Yes: Normal Bowel Sounds ...Rectal Exam: Yes: Deferred Genitourinary: Yes: Berrios Present, Other (B/L nephrostomies.) Musculoskeletal: Yes: WNL Extremities: Yes: WNL Edema: No Integumentary: Yes: WNL Neurological: Yes: Alert. No: Aphasia, Seizure ...Motor Strength: WNL Psychiatric: Yes: WNL Labs: CBC, BMP 12/03/18 08:51 12/03/18 08:51 INR, PTT INR 1.27 (0.83-1.09) H 11/22/18 19:00 Problem List - Problems (1) Bilateral hydronephrosis Assessment/Plan: Replacement of IR placement nephrostomies. Urology consult-appreciated. Patient refused cystoscopy Code(s): N13.30 - UNSPECIFIED HYDRONEPHROSIS (2) Renal failure Assessment/Plan: Improving creatinine- now 3.6 Follow BUN/Creat Code(s): N19 - UNSPECIFIED KIDNEY FAILURE Qualifiers: Renal failure chronicity: acute (3) HTN (hypertension) Assessment/Plan: Amlodipine 10 mg Qd Code(s): I10 - ESSENTIAL (PRIMARY) HYPERTENSION Qualifiers: Hypertension type: essential hypertension Qualified Code(s): I10 - Essential (primary) hypertension (4) Hydrocephalus Assessment/Plan: Neuro consult appreciated. Definitive management is postponed due to patient condition. Code(s): G91.9 - HYDROCEPHALUS, UNSPECIFIED Qualifiers: Hydrocephalus type: unspecified Qualified Code(s): G91.9 - Hydrocephalus, unspecified (5) Prostate cancer Assessment/Plan: Awaiting IR biopsy of the retroperitoneal LN. After biopsy results - consider endocrinology/ chemo treatment for prostate CA Code(s): C61 - MALIGNANT NEOPLASM OF PROSTATE (6) Constipation by delayed colonic transit Assessment/Plan: PO Lactulose, Fleets, Dulcolax-PRN Now had BM Code(s): K59.01 - SLOW TRANSIT CONSTIPATION
[2018-12-04 08:10] LABS: BLOOD UREA NITROGEN 49.6 mg/dL (7-18); CALCIUM 8.9 mg/dL (8.5-10.1); CREATININE 3.6 mg/dL (0.55-1.3); POTASSIUM 4.7 mmol/L (3.5-5.1)
--- NOTE | 2018-12-04 09:15 | PN ---
Progress Note, Physician History of Present Illness: stable for ir today' refused cystoscopy - Current Medication List Current Medications: Active Medications Acetaminophen (Tylenol Suppository -) 650 mg [place] Q4H PRN PRN Reason: FEVER Acetaminophen (Tylenol -) 650 mg PO Q6H PRN PRN Reason: PAIN Last Admin: 12/02/18 12:35 Dose: 650 mg Amlodipine Besylate (Norvasc -) 10 mg PO DAILY [facility] Last Admin: 12/03/18 09:40 Dose: 10 mg Bisacodyl (Dulcolax -) 5 mg PO DAILY PRN PRN Reason: CONSTIPATION Last Admin: 11/30/18 10:09 Dose: 5 mg Haloperidol (Haldol Injection (Fast Acting) -) 2 mg IM Q4H PRN PRN Reason: AGITATION Sodium Chloride (Normal Saline -) 1,000 mls @ 70 mls/hr IV ASDIR [facility] Last Admin: 12/03/18 21:01 Dose: 70 mls/hr Lactulose (Cephulac (Oral Use)) 20 gm PO Q6H PRN PRN Reason: CONSTIPATION Last Admin: 11/29/18 16:58 Dose: 20 gm Lidocaine (Lidoderm Patch -) 1 patch TP DAILY [facility] Last Admin: 12/03/18 09:41 Dose: Not Given Miscellaneous (Lidoderm Patch Removal) 1 each MC DAILY@2200 [facility] Last Admin: 12/03/18 21:01 Dose: 1 each - Objective Vital Signs: Vital Signs Temperature 98.3 F 12/04/18 08:38 Pulse Rate 87 12/04/18 08:38 Respiratory Rate 16 12/04/18 08:38 Blood Pressure 153/84 12/04/18 08:38 O2 Sat by Pulse Oximetry (%) 96 12/03/18 21:00 Constitutional: Yes: No Distress, Calm Cardiovascular: Yes: S1, S2 Respiratory: Yes: Regular, CTA Bilaterally Gastrointestinal: Yes: Normal Bowel Sounds, Soft Genitourinary: Yes: Other (nephrostomy tubes in place) Musculoskeletal: Yes: WNL Extremities: Yes: WNL Neurological: Yes: Alert, Oriented Psychiatric: Yes: Alert, Oriented Labs: CBC, BMP 12/03/18 08:51 12/04/18 07:15 INR, PTT INR 1.27 (0.83-1.09) H 11/22/18 19:00 Assessment/Plan Problem List - Problems (1) Bilateral hydronephrosis Code(s): N13.30 - UNSPECIFIED HYDRONEPHROSIS (2) Hyperkalemia Code(s): E87.5 - HYPERKALEMIA (3) Metabolic acidemia Code(s): E87.2 - ACIDOSIS (4) Renal failure Code(s): N19 - UNSPECIFIED KIDNEY FAILURE Qualifiers: Renal failure chronicity: acute (5) Sepsis Code(s): A41.9 - SEPSIS, UNSPECIFIED ORGANISM Qualifiers: Sepsis type: sepsis due to unspecified organism Qualified Code(s): A41.9 - Sepsis, unspecified organism (6) Systemic inflammatory response syndrome (SIRS) Code(s): R65.10 - SIRS OF NON-INFECTIOUS ORIGIN W/O ACUTE ORGAN DYSFUNCTION (7) HTN (hypertension) Code(s): I10 - ESSENTIAL (PRIMARY) HYPERTENSION Qualifiers: Hypertension type: essential hypertension Qualified Code(s): I10 - Essential (primary) hypertension r/o uti plan for Ir today continue current mgmt
[2018-12-04] MEDS: amLODIPine BESYLATE 10 MG TABLET (FP) PO SCH (09:25)
[2018-12-04] MEDS: LIDOCAINE 5% TOPICAL PATCH TP SCH (09:25)
[2018-12-04 11:05] LABS: BASO % 0.7 % (0-2.0); HEMATOCRIT 25.4 % (35.4-49); HEMOGLOBIN 8.9 GM/dL (11.7-16.9); LYMPH % 18.7 % (8-40); MCH 31.5 pg (25.7-33.7); MCHC 34.9 g/dl (32.0-35.9); MEAN CELL VOLUME 90.2 fl (80-96); MEAN PLT VOLUME 6.9 fl (7.5-11.1); MONO % 8.5 % (3.8-10.2); NEUT % 70.1 % (42.8-82.8); PLATELET COUNT 386 K/MM3 (134-434); RBC 2.81 M/mm3 (4.00-5.60); RDW 13.6 % (11.9-15.9)
[2018-12-04 11:16] LABS: INR 1.28 (0.83-1.09); PROTHROMBIN TIME (PATIENT) 15.2 SEC (9.7-13.0)
[2018-12-04 11:35] LABS: BILIRUBIN,TOTAL 0.5 mg/dL (0.2-1); BLOOD UREA NITROGEN 49.5 mg/dL (7-18); CALCIUM 9.2 mg/dL (8.5-10.1); CREATININE 3.6 mg/dL (0.55-1.3); MAGNESIUM 2.3 mg/dL (1.8-2.4); TOT PROT 7.7 g/dl (6.4-8.2)
--- NOTE | 2018-12-04 15:39 | PN ---
Progress Note, Physician History of Present Illness: Pt seen and examined at bedside. He is awake and alert. He denies shortness of breath. - Current Medication List Current Medications: Active Medications Acetaminophen (Tylenol Suppository -) 650 mg DC Q4H PRN PRN Reason: FEVER Acetaminophen (Tylenol -) 650 mg PO Q6H PRN PRN Reason: PAIN Last Admin: 12/02/18 12:35 Dose: 650 mg Amlodipine Besylate (Norvasc -) 10 mg PO DAILY [facility] Last Admin: 12/04/18 09:25 Dose: 10 mg Bisacodyl (Dulcolax -) 5 mg PO DAILY PRN PRN Reason: CONSTIPATION Last Admin: 11/30/18 10:09 Dose: 5 mg Haloperidol (Haldol Injection (Fast Acting) -) 2 mg IM Q4H PRN PRN Reason: AGITATION Sodium Chloride (Normal Saline -) 1,000 mls @ 70 mls/hr IV ASDIR [facility] Last Admin: 12/03/18 21:01 Dose: 70 mls/hr Lactulose (Cephulac (Oral Use)) 20 gm PO Q6H PRN PRN Reason: CONSTIPATION Last Admin: 11/29/18 16:58 Dose: 20 gm Lidocaine (Lidoderm Patch -) 1 patch TP DAILY [facility] Last Admin: 12/04/18 09:25 Dose: 1 patch Miscellaneous (Lidoderm Patch Removal) 1 each MC DAILY@2200 [facility] Last Admin: 12/03/18 21:01 Dose: 1 each - Objective Vital Signs: Vital Signs Temperature 98.8 F 12/04/18 14:43 Pulse Rate 90 12/04/18 14:43 Respiratory Rate 20 12/04/18 14:43 Blood Pressure 121/89 12/04/18 14:43 O2 Sat by Pulse Oximetry (%) 96 12/03/18 21:00 Constitutional: Yes: Calm Eyes: Yes: Conjunctiva Clear HENT: Yes: Atraumatic Neck: Yes: Supple Cardiovascular: Yes: S1, S2 Respiratory: Yes: CTA Bilaterally Genitourinary: Yes: Berrios Present, Other (bilateral nephrostomy) Extremities: Yes: WNL Edema: No Neurological: Yes: Oriented Psychiatric: Yes: Oriented Labs: CBC, BMP 12/04/18 10:42 12/04/18 10:42 INR, PTT INR 1.28 (0.83-1.09) H 12/04/18 10:42 Problem List - Problems (1) WOJCIECH (acute kidney injury) Code(s): N17.9 - ACUTE KIDNEY FAILURE, UNSPECIFIED (2) Urinary obstruction Code(s): N13.9 - OBSTRUCTIVE AND REFLUX UROPATHY, UNSPECIFIED (3) Bilateral hydronephrosis Code(s): N13.30 - UNSPECIFIED HYDRONEPHROSIS (4) HTN (hypertension) Code(s): I10 - ESSENTIAL (PRIMARY) HYPERTENSION Qualifiers: Hypertension type: essential hypertension Qualified Code(s): I10 - Essential (primary) hypertension (5) Hyperkalemia Code(s): E87.5 - HYPERKALEMIA (6) Renal failure Code(s): N19 - UNSPECIFIED KIDNEY FAILURE Qualifiers: Renal failure chronicity: acute Assessment/Plan Current Medications Generic Name Dose Route Start Last Admin Trade Name Freq PRN Reason Stop Dose Admin Acetaminophen 650 mg 11/25/18 11:27 Tylenol Suppository - DC Q4H PRN FEVER Acetaminophen 650 mg 11/29/18 16:57 12/02/18 12:35 Tylenol - PO 650 mg Q6H PRN Administration PAIN Amlodipine Besylate 10 mg 11/26/18 10:00 12/04/18 09:25 Norvasc - PO 10 mg DAILY SINDY Administration Bisacodyl 5 mg 11/29/18 08:08 11/30/18 10:09 Dulcolax - PO 5 mg DAILY PRN Administration CONSTIPATION Haloperidol 2 mg 11/25/18 11:27 Haldol Injection (Fast Acting) - IM Q4H PRN AGITATION Sodium Chloride 1,000 mls @ 70 mls/hr 12/01/18 16:26 12/03/18 21:01 Normal Saline - IV 70 mls/hr ASDIR SINDY Administration Lactulose 20 gm 11/29/18 08:08 11/29/18 16:58 Cephulac (Oral Use) PO 20 gm Q6H PRN Administration CONSTIPATION Lidocaine 1 patch 12/02/18 11:00 12/04/18 09:25 Lidoderm Patch - TP 1 patch DAILY SINDY Administration Miscellaneous 1 each 12/02/18 22:00 12/03/18 21:01 Lidoderm Patch Removal MC 1 each DAILY@2200 SINDY Administration Impression 1. WOJCIECH 2. hyperkalemia 3. likely prostate cancer 4. dementia 5. htn 6. severe hydronephrosis 7. hematuria 8. likely bone mets Plan - nephrostomy tubes repaired - cont to monitor renal function - urology follow up - discussed with family - prostate cancer workup in progress
--- NOTE | 2018-12-04 16:20 | PATH ---
Surgical Pathology Report Patient Name: DANIEL WRIGHT Med. Rec. #: [id number] /Age/Gender: 1940 (Age: 78) / M Account: [id number] Location: [facility] MED/SURG Taken: 11/29/2018 Received: 11/29/2018 Reported: 12/04/2018 Physicians: Byron Irizarry M.D. Specimen(s) Received PERIAORTIC LYMPH NODE Clinical History 78-year-old male with pelvic adenopathy, enlarged prostate gland, thickened bladder Final Diagnosis PERIAORTIC LYMPH NODE, CORE BIOPSY: ADENOCARCINOMA, MODERATELY DIFFERENTIATED, CONSISTENT WITH PROSTATE ORIGIN. SEE COMMENT. Comment: Immunohistochemical stains performed and interpreted at [facility] show the tumor is negative for CK7 and CK20. P63 shows patchy staining. Additional immunohistochemical stains performed at [place], [place] ([id number]) and interpreted at [facility] show the tumor is positive for AE1/3, PSA, PSAP, and NKX3.1; while negative for JEFFERY-3. This immunophenotype is consistent with prostate origin. Suggest clinical and radiologic correlation. Findings discussed with Dr. Castillo. Positive and negative controls (internal if applicable) show appropriate results. Electronically Signed Praveena Sierra M.D. Gross Description Received in formalin labeled "periaortic lymph node" are 6 lowery-yellow, cylindrical portions of soft tissue ranging from 0.8-1.2 cm in length and averaging 0.1 cm in diameter. The specimens are submitted in toto in one cassette. 11/29/201811/29/2018
[2018-12-04] MEDS: SODIUM CHLORIDE 1,000 ML IV SCH (17:25)
--- NOTE | 2018-12-04 18:18 | PN ---
Progress Note (short form) - Note Progress Note: Patient seen and examined Sitting comfortably in bed Nephrostomy tube draining blood tinged urine Last Vital Signs Temp Pulse Resp BP Pulse Ox 98.8 F 90 20 121/89 96 12/04/18 14:43 12/04/18 14:43 12/04/18 14:43 12/04/18 14:43 12/03/18 21:00 Lungs - clear Cor - RSR Abd- distended Ext- no significant edema CBC, BMP 12/04/18 10:42 12/04/18 10:42 Current Medications Generic Name Dose Route Start Last Admin Trade Name Freq PRN Reason Stop Dose Admin Acetaminophen 650 mg 11/25/18 11:27 Tylenol Suppository - [place] Q4H PRN FEVER Acetaminophen 650 mg 11/29/18 16:57 12/02/18 12:35 Tylenol - PO 650 mg Q6H PRN Administration PAIN Amlodipine Besylate 10 mg 11/26/18 10:00 12/04/18 09:25 Norvasc - PO 10 mg DAILY SINDY Administration Bisacodyl 5 mg 11/29/18 08:08 11/30/18 10:09 Dulcolax - PO 5 mg DAILY PRN Administration CONSTIPATION Haloperidol 2 mg 11/25/18 11:27 Haldol Injection (Fast Acting) - IM Q4H PRN AGITATION Sodium Chloride 1,000 mls @ 70 mls/hr 12/01/18 16:26 12/04/18 17:25 Normal Saline - IV 70 mls/hr ASDIR SINDY Administration Lactulose 20 gm 11/29/18 08:08 11/29/18 16:58 Cephulac (Oral Use) PO 20 gm Q6H PRN Administration CONSTIPATION Lidocaine 1 patch 12/02/18 11:00 12/04/18 09:25 Lidoderm Patch - TP 1 patch DAILY [facility] Administration Miscellaneous 1 each 12/02/18 22:00 12/03/18 21:01 Lidoderm Patch Removal MC 1 each DAILY@2200 SINDY Administration Impression: Obstructive uropathy S/P Bilateral nephrostomy tubes S/P I.R. directed biopsy of retroperitoneal node - Positive for adenoca consistent with prostate origin Plan: Begin casodex Lupron upon discharge.
[2018-12-04] MEDS: BICALUTAMIDE 50 MG TABLET (FP) PO SCH (20:10)
[2018-12-04] MEDS: LIDOCAINE PATCH REMOVAL MC SCH (21:05)
[2018-12-05] MEDS ORDERED: PT OWN MED DRAWER 7, Y5N ONE (08:18)
[2018-12-05] MEDS: SODIUM CHLORIDE 1,000 ML IV SCH ×3 (08:50→22:31)
[2018-12-05] MEDS: LIDOCAINE 5% TOPICAL PATCH TP SCH (09:42)
[2018-12-05] MEDS: BICALUTAMIDE 50 MG TABLET (FP) PO SCH (09:42)
[2018-12-05] MEDS: amLODIPine BESYLATE 10 MG TABLET (FP) PO SCH (09:42)
[2018-12-05 10:24] LABS: BASO % 0.6 % (0-2.0); EOS % 2.1 % (0-4.5); HEMATOCRIT 25.6 % (35.4-49); HEMOGLOBIN 8.8 GM/dL (11.7-16.9); LYMPH % 20.6 % (8-40); MCHC 34.2 g/dl (32.0-35.9); MEAN CELL VOLUME 90.4 fl (80-96); MEAN PLT VOLUME 6.9 fl (7.5-11.1); MONO % 7.4 % (3.8-10.2); NEUT % 69.3 % (42.8-82.8); PLATELET COUNT 356 K/MM3 (134-434); RBC 2.83 M/mm3 (4.00-5.60); RDW 13.5 % (11.9-15.9); WHITE BLOOD COUNT 6.1 K/mm3 (4.0-10.0)
[2018-12-05 10:56] LABS: ALBUMIN 2.9 g/dl (3.4-5.0); BILIRUBIN,TOTAL 0.4 mg/dL (0.2-1); BLOOD UREA NITROGEN 52.1 mg/dL (7-18); CALCIUM 8.8 mg/dL (8.5-10.1); CREATININE 3.7 mg/dL (0.55-1.3); MAGNESIUM 2.1 mg/dL (1.8-2.4); POTASSIUM 4.8 mmol/L (3.5-5.1); TOT PROT 7.4 g/dl (6.4-8.2)
--- NOTE | 2018-12-05 11:25 | PN ---
Progress Note, Physician History of Present Illness: stable no new issues - Current Medication List Current Medications: Active Medications Acetaminophen (Tylenol Suppository -) 650 mg [place] Q4H PRN PRN Reason: FEVER Acetaminophen (Tylenol -) 650 mg PO Q6H PRN PRN Reason: PAIN Last Admin: 12/02/18 12:35 Dose: 650 mg Amlodipine Besylate (Norvasc -) 10 mg PO DAILY [facility] Last Admin: 12/05/18 09:42 Dose: 10 mg Bicalutamide (Casodex -) 50 mg PO DAILY [facility] Last Admin: 12/05/18 09:42 Dose: 50 mg Bisacodyl (Dulcolax -) 5 mg PO DAILY PRN PRN Reason: CONSTIPATION Last Admin: 11/30/18 10:09 Dose: 5 mg Haloperidol (Haldol Injection (Fast Acting) -) 2 mg IM Q4H PRN PRN Reason: AGITATION Sodium Chloride (Normal Saline -) 1,000 mls @ 70 mls/hr IV ASDIR [facility] Last Admin: 12/05/18 08:50 Dose: 70 mls/hr Lactulose (Cephulac (Oral Use)) 20 gm PO Q6H PRN PRN Reason: CONSTIPATION Last Admin: 11/29/18 16:58 Dose: 20 gm Lidocaine (Lidoderm Patch -) 1 patch TP DAILY [facility] Last Admin: 12/05/18 09:42 Dose: 1 patch Miscellaneous (Lidoderm Patch Removal) 1 each MC DAILY@2200 [facility] Last Admin: 12/04/18 21:05 Dose: 1 each - Objective Vital Signs: Vital Signs Temperature 98.3 F 12/05/18 10:00 Pulse Rate 83 12/05/18 10:00 Respiratory Rate 20 12/05/18 10:00 Blood Pressure 144/90 12/05/18 10:00 O2 Sat by Pulse Oximetry (%) 100 12/05/18 09:00 Constitutional: Yes: No Distress, Calm Cardiovascular: Yes: S1, S2 Respiratory: Yes: Regular, CTA Bilaterally Gastrointestinal: Yes: Normal Bowel Sounds, Soft Genitourinary: Yes: Other (nephrostomy tube in place) Musculoskeletal: Yes: WNL Extremities: Yes: WNL Neurological: Yes: Alert Psychiatric: Yes: Alert Labs: CBC, BMP 12/05/18 09:30 INR, PTT INR 1.28 (0.83-1.09) H 12/04/18 10:42 Assessment/Plan Problem List - Problems (1) Bilateral hydronephrosis Code(s): N13.30 - UNSPECIFIED HYDRONEPHROSIS (2) Hyperkalemia Code(s): E87.5 - HYPERKALEMIA (3) Metabolic acidemia Code(s): E87.2 - ACIDOSIS (4) Renal failure Code(s): N19 - UNSPECIFIED KIDNEY FAILURE Qualifiers: Renal failure chronicity: acute (5) Sepsis Code(s): A41.9 - SEPSIS, UNSPECIFIED ORGANISM Qualifiers: Sepsis type: sepsis due to unspecified organism Qualified Code(s): A41.9 - Sepsis, unspecified organism (6) Systemic inflammatory response syndrome (SIRS) Code(s): R65.10 - SIRS OF NON-INFECTIOUS ORIGIN W/O ACUTE ORGAN DYSFUNCTION (7) HTN (hypertension) Code(s): I10 - ESSENTIAL (PRIMARY) HYPERTENSION Qualifiers: Hypertension type: essential hypertension Qualified Code(s): I10 - Essential (primary) hypertension r/o uti plan as per the team continue current mgmt
--- NOTE | 2018-12-05 13:11 | PN ---
Progress Note (short form) - Note Progress Note: Pathology report is c/w adenoca-prostate cancer. Dr Castillo f/u appreciated. Pt was started on Casadex PO. Lupron upon D/C. Potentionally Abiraterone (Zytiga) with prednisone Vital Signs (72 hours) 12/02/18 12/02/18 12/02/18 13:54 17:29 21:00 Temperature 98.1 F 98.3 F Pulse Rate 93 H 88 Respiratory 20 18 20 Rate Blood Pressure 116/66 127/68 O2 Sat by Pulse 96 Oximetry (%) 12/02/18 12/02/18 12/03/18 22:54 23:20 01:22 Temperature 99.2 F 99.9 F H 98.5 F Pulse Rate 90 87 95 H Respiratory 16 20 18 Rate Blood Pressure 140/74 137/78 140/79 O2 Sat by Pulse Oximetry (%) 12/03/18 12/03/18 12/03/18 06:13 09:00 13:17 Temperature 98.9 F 97.4 F L Pulse Rate 96 H 100 H Respiratory 18 20 Rate Blood Pressure 138/78 107/66 O2 Sat by Pulse 98 Oximetry (%) 12/03/18 12/03/18 12/04/18 17:02 21:00 01:00 Temperature 99.4 F 97.7 F Pulse Rate 96 H 98 H 64 Respiratory 18 20 20 Rate Blood Pressure 126/79 122/61 144/80 O2 Sat by Pulse 96 Oximetry (%) 12/04/18 12/04/18 12/04/18 05:00 08:38 14:43 Temperature 98.8 F 98.3 F 98.8 F Pulse Rate 94 H 87 90 Respiratory 20 16 20 Rate Blood Pressure 136/79 153/84 121/89 O2 Sat by Pulse Oximetry (%) 12/04/18 12/04/18 12/04/18 18:00 21:00 22:00 Temperature 98.2 F 98.9 F Pulse Rate 101 H 89 Respiratory 18 18 18 Rate Blood Pressure 95/51 L 116/89 O2 Sat by Pulse Oximetry (%) 12/05/18 12/05/18 12/05/18 01:25 06:00 09:00 Temperature 98 F 98.4 F Pulse Rate 90 83 Respiratory 18 18 Rate Blood Pressure 120/82 139/79 O2 Sat by Pulse 100 Oximetry (%) 12/05/18 10:00 Temperature 98.3 F Pulse Rate 83 Respiratory 20 Rate Blood Pressure 144/90 O2 Sat by Pulse Oximetry (%) Awake, alert Neck supple Lungs are Clear Heart S1S2 regular Abdomen soft, NT Posterior nephrostomies Berrios cath Current Active Problems Problem Status Onset WOJCIECH (acute kidney injury) Acute Anemia Acute Bilateral hydronephrosis Acute Constipation by delayed colonic transit Acute HTN (hypertension) Acute Hydrocephalus Acute Hypercapnic acidosis Acute Prophylactic measure Acute Prostate cancer Acute Renal failure Acute Urinary obstruction Acute Plan SNF F/U with Dr Castillo as outpt. Problem List - Problems (1) Bilateral hydronephrosis Code(s): N13.30 - UNSPECIFIED HYDRONEPHROSIS (2) Renal failure Code(s): N19 - UNSPECIFIED KIDNEY FAILURE Qualifiers: Renal failure chronicity: acute (3) HTN (hypertension) Code(s): I10 - ESSENTIAL (PRIMARY) HYPERTENSION Qualifiers: Hypertension type: essential hypertension Qualified Code(s): I10 - Essential (primary) hypertension (4) Hydrocephalus Code(s): G91.9 - HYDROCEPHALUS, UNSPECIFIED Qualifiers: Hydrocephalus type: unspecified Qualified Code(s): G91.9 - Hydrocephalus, unspecified (5) Prostate cancer Code(s): C61 - MALIGNANT NEOPLASM OF PROSTATE (6) Constipation by delayed colonic transit Code(s): K59.01 - SLOW TRANSIT CONSTIPATION
--- NOTE | 2018-12-05 13:22 | DS ---
Physical Examination Vital Signs: Vital Signs Temperature 98.3 F 12/05/18 10:00 Pulse Rate 83 12/05/18 10:00 Respiratory Rate 20 12/05/18 10:00 Blood Pressure 144/90 12/05/18 10:00 O2 Sat by Pulse Oximetry (%) 100 12/05/18 09:00 Constitutional: Yes: No Distress, Anxious Eyes: Yes: Conjunctiva Clear, EOM Intact HENT: Yes: Atraumatic, Normocephalic Neck: Yes: Supple, Trachea Midline Cardiovascular: Yes: Regular Rate and Rhythm Respiratory: Yes: Regular, CTA Bilaterally Gastrointestinal: Yes: Normal Bowel Sounds, Soft ...Rectal Exam: Yes: Deferred Renal/: Yes: Berrios Present, Other (nephrostomies.) Extremities: No: Calf Tenderness, Cold Edema: No Peripheral Pulses WNL: Yes Labs: CBC, BMP 12/05/18 09:30 12/05/18 09:30 Discharge Summary Reason For Visit: Acute renal failure, methastatic prostate cancer Current Active Problems WOJCIECH (acute kidney injury) (Acute) Anemia (Acute) Bilateral hydronephrosis (Acute) Constipation by delayed colonic transit (Acute) HTN (hypertension) (Acute) Hydrocephalus (Acute) Hypercapnic acidosis (Acute) Prophylactic measure (Acute) Prostate cancer (Acute) Renal failure (Acute) Urinary obstruction (Acute) Condition: Guarded - Instructions Referrals: Robert Kee MD [Primary Care Provider] - Disposition: [facility]FWAY FACILITY - Home Medications Comprehensive Discharge Medication List: Ambulatory Orders Acetaminophen [Tylenol .Regular Strength -] 650 mg PO Q6H PRN tablet 12/05/18 Amlodipine Besylate [Norvasc -] 10 mg PO DAILY tablet 12/05/18 Bicalutamide [Casodex -] 50 mg PO DAILY tablet 12/05/18 Bisacodyl [Bisacodyl -] 5 mg PO DAILY PRN tablet. 12/05/18 Lactulose (Oral Use) [Cephulac -] 20 gm PO Q6H PRN udc 12/05/18 Leuprolide Acetate [Lupron Depot] 22.5 mg IM ONCE #1 dis 12/05/18 Lidocaine Patch Removal [Lidoderm Patch Removal] 1 each MC DAILY@2200 each
--- NOTE | 2018-12-05 15:20 | PN ---
Progress Note, Physician History of Present Illness: Pt seen and examined at bedside. He is awake and appears comfortable. - Current Medication List Current Medications: Active Medications Acetaminophen (Tylenol Suppository -) 650 mg NM Q4H PRN PRN Reason: FEVER Acetaminophen (Tylenol -) 650 mg PO Q6H PRN PRN Reason: PAIN Last Admin: 12/02/18 12:35 Dose: 650 mg Amlodipine Besylate (Norvasc -) 10 mg PO DAILY [facility] Last Admin: 12/05/18 09:42 Dose: 10 mg Bicalutamide (Casodex -) 50 mg PO DAILY [facility] Last Admin: 12/05/18 09:42 Dose: 50 mg Bisacodyl (Dulcolax -) 5 mg PO DAILY PRN PRN Reason: CONSTIPATION Last Admin: 11/30/18 10:09 Dose: 5 mg Haloperidol (Haldol Injection (Fast Acting) -) 2 mg IM Q4H PRN PRN Reason: AGITATION Sodium Chloride (Normal Saline -) 1,000 mls @ 70 mls/hr IV ASDIR [facility] Last Admin: 12/05/18 08:50 Dose: 70 mls/hr Lactulose (Cephulac (Oral Use)) 20 gm PO Q6H PRN PRN Reason: CONSTIPATION Last Admin: 11/29/18 16:58 Dose: 20 gm Lidocaine (Lidoderm Patch -) 1 patch TP DAILY [facility] Last Admin: 12/05/18 09:42 Dose: 1 patch Miscellaneous (Lidoderm Patch Removal) 1 each MC DAILY@2200 [facility] Last Admin: 12/04/18 21:05 Dose: 1 each - Objective Vital Signs: Vital Signs Temperature 98.3 F 12/05/18 14:45 Pulse Rate 92 H 12/05/18 14:45 Respiratory Rate 20 12/05/18 14:45 Blood Pressure 115/63 12/05/18 14:45 O2 Sat by Pulse Oximetry (%) 100 12/05/18 09:00 Constitutional: Yes: Calm Eyes: Yes: Conjunctiva Clear Cardiovascular: Yes: S1, S2 Respiratory: Yes: CTA Bilaterally Gastrointestinal: Yes: Soft Genitourinary: Yes: Berrios Present, Other (bilateral nephrostomy tubes) Musculoskeletal: Yes: WNL Edema: No Neurological: Yes: Oriented Psychiatric: Yes: Oriented Labs: CBC, BMP 12/05/18 09:30 12/05/18 09:30 INR, PTT INR 1.28 (0.83-1.09) H 12/04/18 10:42 Problem List - Problems (1) WOJCIECH (acute kidney injury) Code(s): N17.9 - ACUTE KIDNEY FAILURE, UNSPECIFIED (2) Urinary obstruction Code(s): N13.9 - OBSTRUCTIVE AND REFLUX UROPATHY, UNSPECIFIED (3) Bilateral hydronephrosis Code(s): N13.30 - UNSPECIFIED HYDRONEPHROSIS (4) HTN (hypertension) Code(s): I10 - ESSENTIAL (PRIMARY) HYPERTENSION Qualifiers: Hypertension type: essential hypertension Qualified Code(s): I10 - Essential (primary) hypertension (5) Hyperkalemia Code(s): E87.5 - HYPERKALEMIA (6) Renal failure Code(s): N19 - UNSPECIFIED KIDNEY FAILURE Qualifiers: Renal failure chronicity: acute Assessment/Plan Current Medications Generic Name Dose Route Start Last Admin Trade Name Freq PRN Reason Stop Dose Admin Acetaminophen 650 mg 11/25/18 11:27 Tylenol Suppository - NM Q4H PRN FEVER Acetaminophen 650 mg 11/29/18 16:57 12/02/18 12:35 Tylenol - PO 650 mg Q6H PRN Administration PAIN Amlodipine Besylate 10 mg 11/26/18 10:00 12/05/18 09:42 Norvasc - PO 10 mg DAILY SINDY Administration Bicalutamide 50 mg 12/04/18 18:30 12/05/18 09:42 Casodex - PO 50 mg DAILY SINDY Administration Bisacodyl 5 mg 11/29/18 08:08 11/30/18 10:09 Dulcolax - PO 5 mg DAILY PRN Administration CONSTIPATION Haloperidol 2 mg 11/25/18 11:27 Haldol Injection (Fast Acting) - IM Q4H PRN AGITATION Sodium Chloride 1,000 mls @ 70 mls/hr 12/01/18 16:26 12/05/18 08:50 Normal Saline - IV 70 mls/hr ASDIR SINDY Administration Lactulose 20 gm 11/29/18 08:08 11/29/18 16:58 Cephulac (Oral Use) PO 20 gm Q6H PRN Administration CONSTIPATION Lidocaine 1 patch 12/02/18 11:00 12/05/18 09:42 Lidoderm Patch - TP 1 patch DAILY SINDY Administration Miscellaneous 1 each 12/02/18 22:00 12/04/18 21:05 Lidoderm Patch Removal MC 1 each DAILY@2200 SINDY Administration Impression 1. WOJCIECH 2. hyperkalemia 3. likely prostate cancer 4. dementia 5. htn 6. severe hydronephrosis 7. hematuria 8. likely bone mets Plan - cont to monitor renal function - will need outpt follow up - oncology and urology follow up needed - avoid nsaids - avoid nephrotoxins - prostate cancer workup in progress
[2018-12-05 15:45] VITALS: BMI 24.1
--- NOTE | 2018-12-05 17:21 | PN ---
Progress Note (short form) - Note Progress Note: Patient seen and examined No complaints Clear urine via right nephrostomy Bloody urine via left nephrostomy Last Vital Signs Temp Pulse Resp BP Pulse Ox 98.3 F 92 H 20 115/63 100 12/05/18 14:45 12/05/18 14:45 12/05/18 14:45 12/05/18 14:45 12/05/18 09:00 Cor: RSR, No murmurs, No gallops Lungs: Clear to P&A Abd: Soft, Normal bowel sounds, No organomegaly Ext:No significant edema Skin: No rashes, Integument intact bilateral nephrostomy tubes CBC, BMP 12/05/18 09:30 12/05/18 09:30 Current Medications Generic Name Dose Route Start Last Admin Trade Name Freq PRN Reason Stop Dose Admin Acetaminophen 650 mg 11/25/18 11:27 Tylenol Suppository - [place] Q4H PRN FEVER Acetaminophen 650 mg 11/29/18 16:57 12/02/18 12:35 Tylenol - PO 650 mg Q6H PRN Administration PAIN Amlodipine Besylate 10 mg 11/26/18 10:00 12/05/18 09:42 Norvasc - PO 10 mg DAILY SINDY Administration Bicalutamide 50 mg 12/04/18 18:30 12/05/18 09:42 Casodex - PO 50 mg DAILY SINDY Administration Bisacodyl 5 mg 11/29/18 08:08 11/30/18 10:09 Dulcolax - PO 5 mg DAILY PRN Administration CONSTIPATION Haloperidol 2 mg 11/25/18 11:27 Haldol Injection (Fast Acting) - IM Q4H PRN AGITATION Sodium Chloride 1,000 mls @ 70 mls/hr 12/01/18 16:26 12/05/18 16:31 Normal Saline - IV Not Given ASDIR SINDY Lactulose 20 gm 11/29/18 08:08 11/29/18 16:58 Cephulac (Oral Use) PO 20 gm Q6H PRN Administration CONSTIPATION Lidocaine 1 patch 12/02/18 11:00 12/05/18 09:42 Lidoderm Patch - TP 1 patch DAILY SINDY Administration Miscellaneous 1 each 12/02/18 22:00 12/04/18 21:05 Lidoderm Patch Removal MC 1 each DAILY@2200 SINDY Administration Impression: Metastatic prostate ca Obstructive uropathy S/P bilateral nephrostomy tubes WOJCIECH Anemia Hematuria Begun on casodex Hopefully lupron upon discharge check Hct Monitoring chemistries
[2018-12-05] MEDS: LIDOCAINE PATCH REMOVAL MC SCH (21:52)
[2018-12-06] MEDS: ACETAMINOPHEN 325 MG TABLET (FP) PO PRN ×2 (05:42→21:43)
--- NOTE | 2018-12-06 08:39 | PN ---
Progress Note (short form) - Note Progress Note: Awake, alert Spoke to daughter. Vital Signs - 24 hr 12/05/18 12/05/18 12/05/18 09:00 10:00 14:45 Temperature 98.3 F 98.3 F Pulse Rate 83 92 H Respiratory 20 20 Rate Blood Pressure 144/90 115/63 O2 Sat by Pulse 100 Oximetry (%) 12/05/18 12/05/18 12/05/18 18:00 21:00 22:00 Temperature 99.3 F 98.9 F Pulse Rate 95 H 89 Respiratory 20 19 Rate Blood Pressure 128/92 122/76 O2 Sat by Pulse 99 Oximetry (%) 12/06/18 12/06/18 02:00 06:00 Temperature 98.6 F 98.7 F Pulse Rate 85 93 H Respiratory 19 18 Rate Blood Pressure 125/77 111/67 O2 Sat by Pulse Oximetry (%) Laboratory Results - last 24 hr 12/02/18 12/05/18 12/05/18 16:50 09:30 09:30 WBC 6.1 RBC 2.83 L Hgb 8.8 L Hct 25.6 L MCV 90.4 MCH 31.0 MCHC 34.2 RDW 13.5 Plt Count 356 MPV 6.9 L Absolute Neuts (auto) 4.2 Neutrophils % 69.3 Lymphocytes % 20.6 Monocytes % 7.4 Eosinophils % 2.1 Basophils % 0.6 Nucleated RBC % 0 Sodium 134 L Potassium 4.8 Chloride 103 Carbon Dioxide 22 Anion Gap 9 BUN 52.1 H Creatinine 3.7 H Est GFR (CKD-EPI)AfAm 16.86 Est GFR (CKD-EPI)NonAf 14.55 Random Glucose 98 Calcium 8.8 Magnesium 2.1 Total Bilirubin 0.4 AST 14 L ALT 21 Alkaline Phosphatase 120 H Total Protein 7.4 Albumin 2.9 L Blood Type A POSITIVE Antibody Screen Negative Crossmatch See Detail Lungs Clear Heart s1S2 regular Abdomen soft, NT Ext-no CCE Berrios, nephrostomies in place Current Active Problems Problem Status Onset WOJCIECH (acute kidney injury) Acute Anemia Acute Bilateral hydronephrosis Acute Constipation by delayed colonic transit Acute HTN (hypertension) Acute Hydrocephalus Acute Hypercapnic acidosis Acute Prophylactic measure Acute Prostate cancer Acute Renal failure Acute Urinary obstruction Acute PLAN [facility]PR[facility]/Casadex SNF rehab Consider oncology f/u as outpt and urology f/u Problem List - Problems (1) Bilateral hydronephrosis Code(s): N13.30 - UNSPECIFIED HYDRONEPHROSIS (2) Renal failure Code(s): N19 - UNSPECIFIED KIDNEY FAILURE Qualifiers: Renal failure chronicity: acute (3) HTN (hypertension) Code(s): I10 - ESSENTIAL (PRIMARY) HYPERTENSION Qualifiers: Hypertension type: essential hypertension Qualified Code(s): I10 - Essential (primary) hypertension (4) Hydrocephalus Code(s): G91.9 - HYDROCEPHALUS, UNSPECIFIED Qualifiers: Hydrocephalus type: unspecified Qualified Code(s): G91.9 - Hydrocephalus, unspecified (5) Prostate cancer Code(s): C61 - MALIGNANT NEOPLASM OF PROSTATE (6) Constipation by delayed colonic transit Code(s): K59.01 - SLOW TRANSIT CONSTIPATION
[2018-12-06] MEDS: amLODIPine BESYLATE 10 MG TABLET (FP) PO SCH (09:30)
[2018-12-06] MEDS: LIDOCAINE 5% TOPICAL PATCH TP SCH (09:30)
[2018-12-06] MEDS: BICALUTAMIDE 50 MG TABLET (FP) PO SCH (09:30)
--- NOTE | 2018-12-06 10:39 | PN ---
Progress Note, Physician History of Present Illness: stable no new issues - Current Medication List Current Medications: Active Medications Acetaminophen (Tylenol Suppository -) 650 mg [place] Q4H PRN PRN Reason: FEVER Acetaminophen (Tylenol -) 650 mg PO Q6H PRN PRN Reason: PAIN Last Admin: 12/06/18 05:42 Dose: 650 mg Amlodipine Besylate (Norvasc -) 10 mg PO DAILY [facility] Last Admin: 12/06/18 09:30 Dose: 10 mg Bicalutamide (Casodex -) 50 mg PO DAILY [facility] Last Admin: 12/06/18 09:30 Dose: 50 mg Bisacodyl (Dulcolax -) 5 mg PO DAILY PRN PRN Reason: CONSTIPATION Last Admin: 11/30/18 10:09 Dose: 5 mg Haloperidol (Haldol Injection (Fast Acting) -) 2 mg IM Q4H PRN PRN Reason: AGITATION Sodium Chloride (Normal Saline -) 1,000 mls @ 70 mls/hr IV ASDIR [facility] Last Admin: 12/05/18 22:31 Dose: 70 mls/hr Lactulose (Cephulac (Oral Use)) 20 gm PO Q6H PRN PRN Reason: CONSTIPATION Last Admin: 11/29/18 16:58 Dose: 20 gm Lidocaine (Lidoderm Patch -) 1 patch TP DAILY [facility] Last Admin: 12/06/18 09:30 Dose: 1 patch Miscellaneous (Lidoderm Patch Removal) 1 each MC DAILY@2200 [facility] Last Admin: 12/05/18 21:52 Dose: 1 each - Objective Vital Signs: Vital Signs Temperature 98.5 F 12/06/18 09:33 Pulse Rate 98 H 12/06/18 09:33 Respiratory Rate 18 12/06/18 09:33 Blood Pressure 125/48 L 12/06/18 09:33 O2 Sat by Pulse Oximetry (%) 99 12/05/18 21:00 Constitutional: Yes: No Distress, Calm Respiratory: Yes: Regular, CTA Bilaterally Gastrointestinal: Yes: Normal Bowel Sounds, Soft Genitourinary: Yes: Other (nephrostomy tube) Musculoskeletal: Yes: WNL Extremities: Yes: WNL Neurological: Yes: Alert Psychiatric: Yes: Alert Labs: CBC, BMP 12/05/18 09:30 12/05/18 09:30 INR, PTT INR 1.28 (0.83-1.09) H 12/04/18 10:42 Assessment/Plan Problem List - Problems (1) Bilateral hydronephrosis Code(s): N13.30 - UNSPECIFIED HYDRONEPHROSIS (2) Hyperkalemia Code(s): E87.5 - HYPERKALEMIA (3) Metabolic acidemia Code(s): E87.2 - ACIDOSIS (4) Renal failure Code(s): N19 - UNSPECIFIED KIDNEY FAILURE Qualifiers: Renal failure chronicity: acute (5) Sepsis Code(s): A41.9 - SEPSIS, UNSPECIFIED ORGANISM Qualifiers: Sepsis type: sepsis due to unspecified organism Qualified Code(s): A41.9 - Sepsis, unspecified organism (6) Systemic inflammatory response syndrome (SIRS) Code(s): R65.10 - SIRS OF NON-INFECTIOUS ORIGIN W/O ACUTE ORGAN DYSFUNCTION (7) HTN (hypertension) Code(s): I10 - ESSENTIAL (PRIMARY) HYPERTENSION Qualifiers: Hypertension type: essential hypertension Qualified Code(s): I10 - Essential (primary) hypertension r/o uti plan as per the team continue current mgmt
--- NOTE | 2018-12-06 12:42 | PN ---
Progress Note, Physician History of Present Illness: Pt seen and examined at bedside. Daughters at bedside and care was discussed with them. - Current Medication List Current Medications: Active Medications Acetaminophen (Tylenol Suppository -) 650 mg [place] Q4H PRN PRN Reason: FEVER Acetaminophen (Tylenol -) 650 mg PO Q6H PRN PRN Reason: PAIN Last Admin: 12/06/18 05:42 Dose: 650 mg Amlodipine Besylate (Norvasc -) 10 mg PO DAILY [facility] Last Admin: 12/06/18 09:30 Dose: 10 mg Bicalutamide (Casodex -) 50 mg PO DAILY [facility] Last Admin: 12/06/18 09:30 Dose: 50 mg Bisacodyl (Dulcolax -) 5 mg PO DAILY PRN PRN Reason: CONSTIPATION Last Admin: 11/30/18 10:09 Dose: 5 mg Haloperidol (Haldol Injection (Fast Acting) -) 2 mg IM Q4H PRN PRN Reason: AGITATION Sodium Chloride (Normal Saline -) 1,000 mls @ 70 mls/hr IV ASDIR [facility] Last Admin: 12/05/18 22:31 Dose: 70 mls/hr Lactulose (Cephulac (Oral Use)) 20 gm PO Q6H PRN PRN Reason: CONSTIPATION Last Admin: 11/29/18 16:58 Dose: 20 gm Lidocaine (Lidoderm Patch -) 1 patch TP DAILY [facility] Last Admin: 12/06/18 09:30 Dose: 1 patch Miscellaneous (Lidoderm Patch Removal) 1 each MC DAILY@2200 [facility] Last Admin: 12/05/18 21:52 Dose: 1 each - Objective Vital Signs: Vital Signs Temperature 98.5 F 12/06/18 09:33 Pulse Rate 98 H 12/06/18 09:33 Respiratory Rate 18 12/06/18 09:33 Blood Pressure 125/48 L 12/06/18 09:33 O2 Sat by Pulse Oximetry (%) 99 12/05/18 21:00 Constitutional: Yes: Calm Eyes: Yes: Conjunctiva Clear HENT: Yes: Atraumatic Neck: Yes: Supple Cardiovascular: Yes: S1, S2 Gastrointestinal: Yes: Soft Genitourinary: Yes: Berrios Present, Other (bilateral nephrostomy tubes) Musculoskeletal: Yes: WNL Edema: No Neurological: Yes: Oriented Psychiatric: Yes: Oriented Labs: CBC, BMP 12/05/18 09:30 12/05/18 09:30 INR, PTT INR 1.28 (0.83-1.09) H 12/04/18 10:42 Problem List - Problems (1) WOJCIECH (acute kidney injury) Code(s): N17.9 - ACUTE KIDNEY FAILURE, UNSPECIFIED (2) Urinary obstruction Code(s): N13.9 - OBSTRUCTIVE AND REFLUX UROPATHY, UNSPECIFIED (3) Bilateral hydronephrosis Code(s): N13.30 - UNSPECIFIED HYDRONEPHROSIS (4) HTN (hypertension) Code(s): I10 - ESSENTIAL (PRIMARY) HYPERTENSION Qualifiers: Hypertension type: essential hypertension Qualified Code(s): I10 - Essential (primary) hypertension (5) Hyperkalemia Code(s): E87.5 - HYPERKALEMIA (6) Renal failure Code(s): N19 - UNSPECIFIED KIDNEY FAILURE Qualifiers: Renal failure chronicity: acute Assessment/Plan Current Medications Generic Name Dose Route Start Last Admin Trade Name Freq PRN Reason Stop Dose Admin Acetaminophen 650 mg 11/25/18 11:27 Tylenol Suppository - MD Q4H PRN FEVER Acetaminophen 650 mg 11/29/18 16:57 12/06/18 05:42 Tylenol - PO 650 mg Q6H PRN Administration PAIN Amlodipine Besylate 10 mg 11/26/18 10:00 12/06/18 09:30 Norvasc - PO 10 mg DAILY SINDY Administration Bicalutamide 50 mg 12/04/18 18:30 12/06/18 09:30 Casodex - PO 50 mg DAILY SINDY Administration Bisacodyl 5 mg 11/29/18 08:08 11/30/18 10:09 Dulcolax - PO 5 mg DAILY PRN Administration CONSTIPATION Haloperidol 2 mg 11/25/18 11:27 Haldol Injection (Fast Acting) - IM Q4H PRN AGITATION Sodium Chloride 1,000 mls @ 70 mls/hr 12/01/18 16:26 12/05/18 22:31 Normal Saline - IV 70 mls/hr ASDIR SINDY Administration Lactulose 20 gm 11/29/18 08:08 11/29/18 16:58 Cephulac (Oral Use) PO 20 gm Q6H PRN Administration CONSTIPATION Lidocaine 1 patch 12/02/18 11:00 12/06/18 09:30 Lidoderm Patch - TP 1 patch DAILY SINDY Administration Miscellaneous 1 each 12/02/18 22:00 12/05/18 21:52 Lidoderm Patch Removal MC 1 each DAILY@2200 SINDY Administration Impression 1. WOJCIECH 2. hyperkalemia 3. likely prostate cancer 4. dementia 5. htn 6. severe hydronephrosis 7. hematuria 8. 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
[2018-12-06] MEDS: SODIUM CHLORIDE 1,000 ML IV SCH (16:11)
--- NOTE | 2018-12-06 17:24 | PN ---
Progress Note (short form) - Note Progress Note: Patient seen and examined Remains confused Bilateral blood tinged nephrostmy drainage. Continuing on casodex Last Vital Signs Temp Pulse Resp BP Pulse Ox 98.7 F 100 H 18 131/54 L 99 12/06/18 15:19 12/06/18 15:19 12/06/18 15:19 12/06/18 15:19 12/06/18 09:00 Lungs clear Cor-RSR Ext- negative edema,calf tenderness Bilateral nephrostomy CBC, BMP 12/05/18 09:30 12/05/18 09:30 Current Medications Generic Name Dose Route Start Last Admin Trade Name Freq PRN Reason Stop Dose Admin Acetaminophen 650 mg 11/25/18 11:27 Tylenol Suppository - MD Q4H PRN FEVER Acetaminophen 650 mg 11/29/18 16:57 12/06/18 05:42 Tylenol - PO 650 mg Q6H PRN Administration PAIN Amlodipine Besylate 10 mg 11/26/18 10:00 12/06/18 09:30 Norvasc - PO 10 mg DAILY SINDY Administration Bicalutamide 50 mg 12/04/18 18:30 12/06/18 09:30 Casodex - PO 50 mg DAILY SINDY Administration Bisacodyl 5 mg 11/29/18 08:08 11/30/18 10:09 Dulcolax - PO 5 mg DAILY PRN Administration CONSTIPATION Haloperidol 2 mg 11/25/18 11:27 Haldol Injection (Fast Acting) - IM Q4H PRN AGITATION Sodium Chloride 1,000 mls @ 70 mls/hr 12/01/18 16:26 12/06/18 16:11 Normal Saline - IV 70 mls/hr ASDIR SINDY Administration Lactulose 20 gm 11/29/18 08:08 11/29/18 16:58 Cephulac (Oral Use) PO 20 gm Q6H PRN Administration CONSTIPATION Lidocaine 1 patch 12/02/18 11:00 12/06/18 09:30 Lidoderm Patch - TP 1 patch DAILY SINDY Administration Miscellaneous 1 each 12/02/18 22:00 12/05/18 21:52 Lidoderm Patch Removal MC 1 each DAILY@2200 SINDY Administration Impression: Metastatic prostate ca Anti- androgen therapy Anemia Obstructive uropathy Creatinine flat at 3.6-3.7 x 4 days Bilateral nephrostomy tubes Plan Lupron as outpatient Continue casodex or change to more potent anti- androgen as outpatient.
[2018-12-06] MEDS: LIDOCAINE PATCH REMOVAL MC SCH (21:44)
[2018-12-07] MEDS: SODIUM CHLORIDE 1,000 ML IV SCH (02:15)
--- NOTE | 2018-12-07 08:46 | PN ---
Progress Note (short form) - Note Progress Note: No nbew complaints, VSS Vital Signs Temp 99.0 F 12/07/18 06:00 Pulse 84 12/07/18 06:00 Resp 17 12/07/18 06:00 BP 126/74 12/07/18 06:00 Pulse Ox 99 12/06/18 21:00 Intake & Output 12/06/18 12/06/18 12/07/18 11:59 23:59 11:59 Intake Total 840 840 Output Total 1000 2250 650 Balance -160 -2250 190 Intake: IV 840 840 Normal Saline - 1,000 ml 840 840 @ 70 mls/hr IV ASDIR SINDY Rx#:[id number] Output: Urine 1000 2250 650 Berrios 100 120 Left Nephrostomy 280 150 Right Nephrostomy 900 1850 500 Other: Voiding Method Indwelling Catheter Indwelling Catheter Bowel Movement No Lungs are clear Heart S1S2 regular Abdomen soft, NT Ext-no CCE 2 nephrostomies, Berrios Current Medications Generic Name Dose Route Start Last Admin Trade Name Freq PRN Reason Stop Dose Admin Acetaminophen 650 mg 11/25/18 11:27 Tylenol Suppository - [place] Q4H PRN FEVER Acetaminophen 650 mg 11/29/18 16:57 12/06/18 21:43 Tylenol - PO 650 mg Q6H PRN Administration PAIN Amlodipine Besylate 10 mg 11/26/18 10:00 12/06/18 09:30 Norvasc - PO 10 mg DAILY SINDY Administration Bicalutamide 50 mg 12/04/18 18:30 12/06/18 09:30 Casodex - PO 50 mg DAILY SINDY Administration Bisacodyl 5 mg 11/29/18 08:08 11/30/18 10:09 Dulcolax - PO 5 mg DAILY PRN Administration CONSTIPATION Haloperidol 2 mg 11/25/18 11:27 Haldol Injection (Fast Acting) - IM Q4H PRN AGITATION Sodium Chloride 1,000 mls @ 70 mls/hr 12/01/18 16:26 12/07/18 02:15 Normal Saline - IV 70 mls/hr ASDIR SINDY Administration Lactulose 20 gm 11/29/18 08:08 11/29/18 16:58 Cephulac (Oral Use) PO 20 gm Q6H PRN Administration CONSTIPATION Lidocaine 1 patch 12/02/18 11:00 12/06/18 09:30 Lidoderm Patch - TP 1 patch DAILY SINDY Administration Miscellaneous 1 each 12/02/18 22:00 12/06/18 21:44 Lidoderm Patch Removal MC 1 each DAILY@2200 SINDY Administration Current Active Problems Problem Status Onset WOJCIECH (acute kidney injury) Acute Anemia Acute Bilateral hydronephrosis Acute Constipation by delayed colonic transit Acute HTN (hypertension) Acute Hydrocephalus Acute Hypercapnic acidosis Acute Prophylactic measure Acute Prostate cancer Acute Renal failure Acute Urinary obstruction Acute Plan Casadex, Lupron to allow possible shrinking of the tumor and another attempt for cystoscopy if patient agrees. Discussed with daughter Problem List - Problems (1) Bilateral hydronephrosis Code(s): N13.30 - UNSPECIFIED HYDRONEPHROSIS (2) Renal failure Code(s): N19 - UNSPECIFIED KIDNEY FAILURE Qualifiers: Renal failure chronicity: acute (3) HTN (hypertension) Code(s): I10 - ESSENTIAL (PRIMARY) HYPERTENSION Qualifiers: Hypertension type: essential hypertension Qualified Code(s): I10 - Essential (primary) hypertension (4) Hydrocephalus Code(s): G91.9 - HYDROCEPHALUS, UNSPECIFIED Qualifiers: Hydrocephalus type: unspecified Qualified Code(s): G91.9 - Hydrocephalus, unspecified (5) Prostate cancer Code(s): C61 - MALIGNANT NEOPLASM OF PROSTATE (6) Constipation by delayed colonic transit Code(s): K59.01 - SLOW TRANSIT CONSTIPATION
[2018-12-07] MEDS ORDERED: PT OWN MED DRAWER 7, Y5N ONE ×2 (09:18→11:01)
[2018-12-07] MEDS: LIDOCAINE 5% TOPICAL PATCH TP SCH (09:27)
[2018-12-07] MEDS: amLODIPine BESYLATE 10 MG TABLET (FP) PO SCH (09:27)
--- NOTE | 2018-12-07 10:50 | PN ---
Progress Note, Physician History of Present Illness: stable no new issues - Current Medication List Current Medications: Active Medications Acetaminophen (Tylenol Suppository -) 650 mg SD Q4H PRN PRN Reason: FEVER Acetaminophen (Tylenol -) 650 mg PO Q6H PRN PRN Reason: PAIN Last Admin: 12/06/18 21:43 Dose: 650 mg Amlodipine Besylate (Norvasc -) 10 mg PO DAILY [facility] Last Admin: 12/07/18 09:27 Dose: 10 mg Bicalutamide (Casodex -) 50 mg PO DAILY [facility] Last Admin: 12/06/18 09:30 Dose: 50 mg Bisacodyl (Dulcolax -) 5 mg PO DAILY PRN PRN Reason: CONSTIPATION Last Admin: 11/30/18 10:09 Dose: 5 mg Haloperidol (Haldol Injection (Fast Acting) -) 2 mg IM Q4H PRN PRN Reason: AGITATION Sodium Chloride (Normal Saline -) 1,000 mls @ 70 mls/hr IV ASDIR [facility] Last Admin: 12/07/18 02:15 Dose: 70 mls/hr Lactulose (Cephulac (Oral Use)) 20 gm PO Q6H PRN PRN Reason: CONSTIPATION Last Admin: 11/29/18 16:58 Dose: 20 gm Lidocaine (Lidoderm Patch -) 1 patch TP DAILY [facility] Last Admin: 12/07/18 09:27 Dose: 1 patch Miscellaneous (Lidoderm Patch Removal) 1 each MC DAILY@2200 [facility] Last Admin: 12/06/18 21:44 Dose: 1 each - Objective Vital Signs: Vital Signs Temperature 99.0 F 12/07/18 06:00 Pulse Rate 84 12/07/18 06:00 Respiratory Rate 17 12/07/18 06:00 Blood Pressure 126/74 12/07/18 06:00 O2 Sat by Pulse Oximetry (%) 99 12/06/18 21:00 Constitutional: Yes: No Distress, Calm Cardiovascular: Yes: S1, S2 Respiratory: Yes: Regular, CTA Bilaterally Gastrointestinal: Yes: Normal Bowel Sounds, Soft Genitourinary: Yes: Other (b/l nephrostomy tubes) Musculoskeletal: Yes: WNL Extremities: Yes: WNL Neurological: Yes: Alert Psychiatric: Yes: Alert Labs: CBC, BMP 12/05/18 09:30 12/05/18 09:30 INR, PTT INR 1.28 (0.83-1.09) H 12/04/18 10:42 Assessment/Plan Problem List - Problems (1) Bilateral hydronephrosis Code(s): N13.30 - UNSPECIFIED HYDRONEPHROSIS (2) Hyperkalemia Code(s): E87.5 - HYPERKALEMIA (3) Metabolic acidemia Code(s): E87.2 - ACIDOSIS (4) Renal failure Code(s): N19 - UNSPECIFIED KIDNEY FAILURE Qualifiers: Renal failure chronicity: acute (5) Sepsis Code(s): A41.9 - SEPSIS, UNSPECIFIED ORGANISM Qualifiers: Sepsis type: sepsis due to unspecified organism Qualified Code(s): A41.9 - Sepsis, unspecified organism (6) Systemic inflammatory response syndrome (SIRS) Code(s): R65.10 - SIRS OF NON-INFECTIOUS ORIGIN W/O ACUTE ORGAN DYSFUNCTION (7) HTN (hypertension) Code(s): I10 - ESSENTIAL (PRIMARY) HYPERTENSION Qualifiers: Hypertension type: essential hypertension Qualified Code(s): I10 - Essential (primary) hypertension r/o uti plan as per the team continue current mgmt
[2018-12-07] MEDS: BICALUTAMIDE 50 MG TABLET (FP) PO SCH (14:53)
--- NOTE | 2018-12-07 16:43 | PN ---
Progress Note, Physician History of Present Illness: Pt seen and examined at bedside. He is awake and appears comfortable. - Current Medication List Current Medications: Active Medications Acetaminophen (Tylenol Suppository -) 650 mg [place] Q4H PRN PRN Reason: FEVER Acetaminophen (Tylenol -) 650 mg PO Q6H PRN PRN Reason: PAIN Last Admin: 12/06/18 21:43 Dose: 650 mg Amlodipine Besylate (Norvasc -) 10 mg PO DAILY [facility] Last Admin: 12/07/18 09:27 Dose: 10 mg Bicalutamide (Casodex -) 50 mg PO DAILY [facility] Last Admin: 12/07/18 14:53 Dose: 50 mg Bisacodyl (Dulcolax -) 5 mg PO DAILY PRN PRN Reason: CONSTIPATION Last Admin: 11/30/18 10:09 Dose: 5 mg Haloperidol (Haldol Injection (Fast Acting) -) 2 mg IM Q4H PRN PRN Reason: AGITATION Sodium Chloride (Normal Saline -) 1,000 mls @ 70 mls/hr IV ASDIR [facility] Last Admin: 12/07/18 02:15 Dose: 70 mls/hr Lactulose (Cephulac (Oral Use)) 20 gm PO Q6H PRN PRN Reason: CONSTIPATION Last Admin: 11/29/18 16:58 Dose: 20 gm Lidocaine (Lidoderm Patch -) 1 patch TP DAILY [facility] Last Admin: 12/07/18 09:27 Dose: 1 patch Miscellaneous (Lidoderm Patch Removal) 1 each MC DAILY@2200 [facility] Last Admin: 12/06/18 21:44 Dose: 1 each - Objective Vital Signs: Vital Signs Temperature 98.8 F 12/07/18 14:02 Pulse Rate 92 H 12/07/18 14:02 Respiratory Rate 18 12/07/18 14:02 Blood Pressure 108/72 12/07/18 14:02 O2 Sat by Pulse Oximetry (%) 99 12/07/18 09:00 Constitutional: Yes: Calm Eyes: Yes: Conjunctiva Clear HENT: Yes: Atraumatic Neck: Yes: Supple Cardiovascular: Yes: S1, S2 Respiratory: Yes: CTA Bilaterally Gastrointestinal: Yes: Normal Bowel Sounds, Soft Genitourinary: Yes: Berrios Present, Other (bilateral nephrostomy tubes) Musculoskeletal: Yes: WNL Extremities: Yes: WNL Edema: No Integumentary: Yes: WNL Neurological: Yes: Oriented Psychiatric: Yes: Oriented Labs: CBC, BMP 12/05/18 09:30 12/05/18 09:30 INR, PTT INR 1.28 (0.83-1.09) H 12/04/18 10:42 Problem List - Problems (1) WOJCIECH (acute kidney injury) Code(s): N17.9 - ACUTE KIDNEY FAILURE, UNSPECIFIED (2) Urinary obstruction Code(s): N13.9 - OBSTRUCTIVE AND REFLUX UROPATHY, UNSPECIFIED (3) Bilateral hydronephrosis Code(s): N13.30 - UNSPECIFIED HYDRONEPHROSIS (4) HTN (hypertension) Code(s): I10 - ESSENTIAL (PRIMARY) HYPERTENSION Qualifiers: Hypertension type: essential hypertension Qualified Code(s): I10 - Essential (primary) hypertension (5) Hyperkalemia Code(s): E87.5 - HYPERKALEMIA (6) Renal failure Code(s): N19 - UNSPECIFIED KIDNEY FAILURE Qualifiers: Renal failure chronicity: acute Assessment/Plan Current Medications Generic Name Dose Route Start Last Admin Trade Name Freq PRN Reason Stop Dose Admin Acetaminophen 650 mg 11/25/18 11:27 Tylenol Suppository - [place] Q4H PRN FEVER Acetaminophen 650 mg 11/29/18 16:57 12/06/18 21:43 Tylenol - PO 650 mg Q6H PRN Administration PAIN Amlodipine Besylate 10 mg 11/26/18 10:00 12/07/18 09:27 Norvasc - PO 10 mg DAILY SINDY Administration Bicalutamide 50 mg 12/04/18 18:30 12/07/18 14:53 Casodex - PO 50 mg DAILY SINDY Administration Bisacodyl 5 mg 11/29/18 08:08 11/30/18 10:09 Dulcolax - PO 5 mg DAILY PRN Administration CONSTIPATION Haloperidol 2 mg 11/25/18 11:27 Haldol Injection (Fast Acting) - IM Q4H PRN AGITATION Sodium Chloride 1,000 mls @ 70 mls/hr 12/01/18 16:26 12/07/18 02:15 Normal Saline - IV 70 mls/hr ASDIR SINDY Administration Lactulose 20 gm 11/29/18 08:08 11/29/18 16:58 Cephulac (Oral Use) PO 20 gm Q6H PRN Administration CONSTIPATION Lidocaine 1 patch 12/02/18 11:00 12/07/18 09:27 Lidoderm Patch - TP 1 patch DAILY SINDY Administration Miscellaneous 1 each 12/02/18 22:00 12/06/18 21:44 Lidoderm Patch Removal MC 1 each DAILY@2200 SINDY Administration Impression 1. WOJCIECH 2. hyperkalemia 3. likely prostate cancer 4. dementia 5. htn 6. severe hydronephrosis 7. hematuria 8. likely bone mets Plan - check bmp - IR follow up - monitor urine output - avoid nsaids - avoid nephrotoxins
[2018-12-07] MEDS: LIDOCAINE PATCH REMOVAL MC SCH (21:51)
[2018-12-08 07:39] LABS: ALBUMIN 3.2 g/dl (3.4-5.0); BILIRUBIN,TOTAL 0.3 mg/dL (0.2-1); BLOOD UREA NITROGEN 50.5 mg/dL (7-18); CALCIUM 8.8 mg/dL (8.5-10.1); CREATININE 3.4 mg/dL (0.55-1.3); POTASSIUM 4.8 mmol/L (3.5-5.1); TOT PROT 7.7 g/dl (6.4-8.2)
--- NOTE | 2018-12-08 09:43 | PN ---
Progress Note, Physician - Current Medication List Current Medications: Active Medications Acetaminophen (Tylenol Suppository -) 650 mg [place] Q4H PRN PRN Reason: FEVER Acetaminophen (Tylenol -) 650 mg PO Q6H PRN PRN Reason: PAIN Last Admin: 12/06/18 21:43 Dose: 650 mg Amlodipine Besylate (Norvasc -) 10 mg PO DAILY [facility] Last Admin: 12/07/18 09:27 Dose: 10 mg Bicalutamide (Casodex -) 50 mg PO DAILY [facility] Last Admin: 12/07/18 14:53 Dose: 50 mg Bisacodyl (Dulcolax -) 5 mg PO DAILY PRN PRN Reason: CONSTIPATION Last Admin: 11/30/18 10:09 Dose: 5 mg Haloperidol (Haldol Injection (Fast Acting) -) 2 mg IM Q4H PRN PRN Reason: AGITATION Lactulose (Cephulac (Oral Use)) 20 gm PO Q6H PRN PRN Reason: CONSTIPATION Last Admin: 11/29/18 16:58 Dose: 20 gm Lidocaine (Lidoderm Patch -) 1 patch TP DAILY [facility] Last Admin: 12/07/18 09:27 Dose: 1 patch Miscellaneous (Lidoderm Patch Removal) 1 each MC DAILY@2200 [facility] Last Admin: 12/07/18 21:51 Dose: 1 each - Objective Vital Signs: Vital Signs Temperature 97.7 F 12/08/18 06:00 Pulse Rate 99 H 12/08/18 06:00 Respiratory Rate 18 12/08/18 06:00 Blood Pressure 129/80 12/08/18 06:00 O2 Sat by Pulse Oximetry (%) 99 12/07/18 21:00 Labs: CBC, BMP 12/05/18 09:30 12/08/18 06:50 INR, PTT INR 1.28 (0.83-1.09) H 12/04/18 10:42
--- NOTE | 2018-12-08 09:49 | PN ---
Progress Note (short form) - Note Progress Note: No new complaints. Tolerates PO well, no pain. Vital Signs - 24 hr 12/07/18 12/07/18 12/07/18 10:00 14:02 18:00 Temperature 98 F 98.8 F 99.3 F Pulse Rate 90 92 H 94 H Respiratory 18 18 18 Rate Blood Pressure 122/72 108/72 126/51 L O2 Sat by Pulse Oximetry (%) 12/07/18 12/07/18 12/08/18 21:00 22:00 02:00 Temperature 98.6 F 99.0 F Pulse Rate 91 H 88 Respiratory 18 18 18 Rate Blood Pressure 121/70 122/68 O2 Sat by Pulse 99 Oximetry (%) 12/08/18 06:00 Temperature 97.7 F Pulse Rate 99 H Respiratory 18 Rate Blood Pressure 129/80 O2 Sat by Pulse Oximetry (%) Awaiting Lupron injection prior to SNF. Cysto can be done as outpt if he agrees, the patient is not agreeing yet. Lungs clear Heart S1S2 regular abdomen soft, NT Ext-no CCE Laboratory Results - last 24 hr 12/08/18 06:50 Sodium 135 L Potassium 4.8 Chloride 105 Carbon Dioxide 19 L Anion Gap 11 BUN 50.5 H Creatinine 3.4 H Est GFR (CKD-EPI)AfAm 18.68 Est GFR (CKD-EPI)NonAf 16.12 Random Glucose 91 Calcium 8.8 Total Bilirubin 0.3 AST 13 L ALT 19 Alkaline Phosphatase 160 H Total Protein 7.7 Albumin 3.2 L Current Active Problems Problem Status Onset WOJCICEH (acute kidney injury) Acute Anemia Acute Bilateral hydronephrosis Acute Constipation by delayed colonic transit Acute HTN (hypertension) Acute Hydrocephalus Acute Hypercapnic acidosis Acute Prophylactic measure Acute Prostate cancer Acute Renal failure Acute Urinary obstruction Acute Plan SNF after Lupron, continue Casadex. Oncology f/u as outpt. Urology f/u as outpatient. Continue close f/u on BMP-Lytes and BUN/Creat. Readmition is likely due to severity and progressive nature of patient's disease Problem List - Problems (1) Bilateral hydronephrosis Code(s): N13.30 - UNSPECIFIED HYDRONEPHROSIS (2) Renal failure Code(s): N19 - UNSPECIFIED KIDNEY FAILURE Qualifiers: Renal failure chronicity: acute (3) HTN (hypertension) Code(s): I10 - ESSENTIAL (PRIMARY) HYPERTENSION Qualifiers: Hypertension type: essential hypertension Qualified Code(s): I10 - Essential (primary) hypertension (4) Hydrocephalus Code(s): G91.9 - HYDROCEPHALUS, UNSPECIFIED Qualifiers: Hydrocephalus type: unspecified Qualified Code(s): G91.9 - Hydrocephalus, unspecified (5) Prostate cancer Code(s): C61 - MALIGNANT NEOPLASM OF PROSTATE (6) Constipation by delayed colonic transit Code(s): K59.01 - SLOW TRANSIT CONSTIPATION
--- NOTE | 2018-12-08 15:20 | PN ---
Progress Note, Physician History of Present Illness: Pt seen and examined at bedside. He had stents placed. He denies shortness of breath. - Current Medication List Current Medications: Active Medications Acetaminophen (Tylenol Suppository -) 650 mg [place] Q4H PRN PRN Reason: FEVER Acetaminophen (Tylenol -) 650 mg PO Q6H PRN PRN Reason: PAIN Last Admin: 12/06/18 21:43 Dose: 650 mg Amlodipine Besylate (Norvasc -) 10 mg PO DAILY [facility] Last Admin: 12/07/18 09:27 Dose: 10 mg Bicalutamide (Casodex -) 50 mg PO DAILY [facility] Last Admin: 12/07/18 14:53 Dose: 50 mg Bisacodyl (Dulcolax -) 5 mg PO DAILY PRN PRN Reason: CONSTIPATION Last Admin: 11/30/18 10:09 Dose: 5 mg Haloperidol (Haldol Injection (Fast Acting) -) 2 mg IM Q4H PRN PRN Reason: AGITATION Lactulose (Cephulac (Oral Use)) 20 gm PO Q6H PRN PRN Reason: CONSTIPATION Last Admin: 11/29/18 16:58 Dose: 20 gm Lidocaine (Lidoderm Patch -) 1 patch TP DAILY [facility] Last Admin: 12/07/18 09:27 Dose: 1 patch Miscellaneous (Lidoderm Patch Removal) 1 each MC DAILY@2200 [facility] Last Admin: 12/07/18 21:51 Dose: 1 each - Objective Vital Signs: Vital Signs Temperature 97.6 F 12/08/18 14:00 Pulse Rate 74 12/08/18 14:00 Respiratory Rate 18 12/08/18 14:00 Blood Pressure 128/72 12/08/18 14:00 O2 Sat by Pulse Oximetry (%) 100 12/08/18 13:11 Constitutional: Yes: Calm Eyes: Yes: Conjunctiva Clear HENT: Yes: Atraumatic Neck: Yes: Supple Cardiovascular: Yes: S1, S2 Respiratory: Yes: CTA Bilaterally Gastrointestinal: Yes: Soft Genitourinary: Yes: Berrios Present, Other (bilateral nephrostomy tubes) Musculoskeletal: Yes: WNL Edema: No Integumentary: Yes: WNL Neurological: Yes: Oriented Labs: CBC, BMP 12/05/18 09:30 12/08/18 06:50 INR, PTT INR 1.28 (0.83-1.09) H 12/04/18 10:42 Problem List - Problems (1) WOJCIECH (acute kidney injury) Code(s): N17.9 - ACUTE KIDNEY FAILURE, UNSPECIFIED (2) Urinary obstruction Code(s): N13.9 - OBSTRUCTIVE AND REFLUX UROPATHY, UNSPECIFIED (3) Bilateral hydronephrosis Code(s): N13.30 - UNSPECIFIED HYDRONEPHROSIS (4) HTN (hypertension) Code(s): I10 - ESSENTIAL (PRIMARY) HYPERTENSION Qualifiers: Hypertension type: essential hypertension Qualified Code(s): I10 - Essential (primary) hypertension (5) Hyperkalemia Code(s): E87.5 - HYPERKALEMIA (6) Renal failure Code(s): N19 - UNSPECIFIED KIDNEY FAILURE Qualifiers: Renal failure chronicity: acute Assessment/Plan Current Medications Generic Name Dose Route Start Last Admin Trade Name Freq PRN Reason Stop Dose Admin Acetaminophen 650 mg 11/25/18 11:27 Tylenol Suppository - [place] Q4H PRN FEVER Acetaminophen 650 mg 11/29/18 16:57 12/06/18 21:43 Tylenol - PO 650 mg Q6H PRN Administration PAIN Amlodipine Besylate 10 mg 11/26/18 10:00 12/07/18 09:27 Norvasc - PO 10 mg DAILY SINDY Administration Bicalutamide 50 mg 12/04/18 18:30 12/07/18 14:53 Casodex - PO 50 mg DAILY SINDY Administration Bisacodyl 5 mg 11/29/18 08:08 11/30/18 10:09 Dulcolax - PO 5 mg DAILY PRN Administration CONSTIPATION Haloperidol 2 mg 11/25/18 11:27 Haldol Injection (Fast Acting) - IM Q4H PRN AGITATION Lactulose 20 gm 11/29/18 08:08 11/29/18 16:58 Cephulac (Oral Use) PO 20 gm Q6H PRN Administration CONSTIPATION Lidocaine 1 patch 12/02/18 11:00 12/07/18 09:27 Lidoderm Patch - TP 1 patch DAILY SINDY Administration Miscellaneous 1 each 12/02/18 22:00 12/07/18 21:51 Lidoderm Patch Removal MC 1 each DAILY@2200 SINDY Administration Impression 1. WOJCIECH 2. hyperkalemia 3. likely prostate cancer 4. dementia 5. htn 6. severe hydronephrosis 7. hematuria 8. likely bone mets Plan - renal function stabilizing - monitor urine ouput - follow up - avoid nsaids - avoid nephrotoxins - will follow PRN, thank you
[2018-12-08] MEDS ORDERED: PT OWN MED DRAWER 7, Y5N ONE (15:22)
[2018-12-08] MEDS: LIDOCAINE 5% TOPICAL PATCH TP SCH ×2 (15:39→20:46)
[2018-12-08] MEDS: BICALUTAMIDE 50 MG TABLET (FP) PO SCH (15:39)
[2018-12-08] MEDS: amLODIPine BESYLATE 10 MG TABLET (FP) PO SCH (15:39)
--- NOTE | 2018-12-08 19:14 | PN ---
Progress Note (short form) - Note Progress Note: Patient seen and examined Denies any complaints Last Vital Signs Temp Pulse Resp BP Pulse Ox 98.6 F 89 18 117/82 100 12/08/18 21:05 12/08/18 21:05 12/08/18 21:05 12/08/18 21:05 12/08/18 13:11 Cor: RSR, No murmurs, No gallops Lungs: Clear to P&A Abd: Soft, Normal bowel sounds, No organomegaly Ext:No significant edema Labs/Meds reviewed A/P 78 y/o patient with metastatic prostate cancer/ obstructive uropathy/b/l nephrostomies On casodex To consider lupron
[2018-12-08] MEDS: LIDOCAINE PATCH REMOVAL MC SCH (21:04)
[2018-12-09 09:13] LABS: BASO % 0.5 % (0-2.0); EOS % 1.6 % (0-4.5); HEMATOCRIT 23.6 % (35.4-49); HEMOGLOBIN 8.3 GM/dL (11.7-16.9); MCH 31.6 pg (25.7-33.7); MCHC 35.2 g/dl (32.0-35.9); MEAN CELL VOLUME 89.9 fl (80-96); MEAN PLT VOLUME 6.9 fl (7.5-11.1); MONO % 6.7 % (3.8-10.2); NEUT % 74.2 % (42.8-82.8); PLATELET COUNT 381 K/MM3 (134-434); RBC 2.62 M/mm3 (4.00-5.60); RDW 13.2 % (11.9-15.9); WHITE BLOOD COUNT 6.2 K/mm3 (4.0-10.0)
[2018-12-09] MEDS: BICALUTAMIDE 50 MG TABLET (FP) PO SCH (09:17)
[2018-12-09] MEDS: LIDOCAINE 5% TOPICAL PATCH TP SCH (09:17)
[2018-12-09] MEDS: amLODIPine BESYLATE 10 MG TABLET (FP) PO SCH (09:18)
[2018-12-09 09:21] LABS: ALBUMIN 3.1 g/dl (3.4-5.0); BILIRUBIN,TOTAL 0.4 mg/dL (0.2-1); BLOOD UREA NITROGEN 47.6 mg/dL (7-18); CREATININE 3.5 mg/dL (0.55-1.3); POTASSIUM 4.7 mmol/L (3.5-5.1); TOT PROT 7.4 g/dl (6.4-8.2)
[2018-12-09] MEDS: BISACODYL 5 MG TABLET.DR (FP) PO PRN (14:03)
[2018-12-09] MEDS ORDERED: ONDANSETRON 4 MG/2 ML VIAL IVPUSH ONE (15:00)
[2018-12-09] MEDS ORDERED: SODIUM CHLORIDE 1,000 ML IV SCH (15:15)
--- NOTE | 2018-12-09 15:22 | RAPID ---
Physical Examination Vital Signs: Vital Signs Temperature 97.7 F 12/09/18 14:40 Pulse Rate 92 H 12/09/18 14:40 Respiratory Rate 18 12/09/18 14:40 Blood Pressure 105/55 L 12/09/18 14:40 O2 Sat by Pulse Oximetry (%) 96 12/09/18 09:00 Labs: CBC, BMP 12/09/18 08:20 12/09/18 08:20 Rapid Response - Rapid Response Assessment: Rapid response was called. team responded immediately. The aid reported that pt was unresponsive to name and vomiting. On exam, pt was alert and oriented in no acute distress. Pt complained of dizziness and 3x non bilious vomiting. pt denies CP, SOB, headache, visual abnormalities, numbness or tingling. Pt did not fall, no LOC. Vitals: BP 142/73, HR 85, RR 18, O2 99%. PE: Gen: WDWN, NAD Cardio: +S1S2 no mrg Lungs: CTA B/L no wrr Abdomen: + BS, NTND. B/L nephrostomy bag w/ scant blood Extremities: no edema, capillary refill 4 sec Plan: -Stat CBC -1 L NS @ 125mls/hr -fall precautions -Dr. Cortez is notified and aware and states that bleeding is common 1/2 days post nephrostomy tube placement -will transfuse if necessary
[2018-12-09 16:19] LABS: BASO % 0.4 % (0-2.0); EOS % 1.5 % (0-4.5); HEMATOCRIT 24.9 % (35.4-49); HEMOGLOBIN 8.4 GM/dL (11.7-16.9); LYMPH % 21.3 % (8-40); MCH 30.7 pg (25.7-33.7); MCHC 33.8 g/dl (32.0-35.9); MEAN CELL VOLUME 90.6 fl (80-96); MONO % 6.8 % (3.8-10.2); PLATELET COUNT 457 K/MM3 (134-434); RBC 2.75 M/mm3 (4.00-5.60); RDW 13.4 % (11.9-15.9)
--- NOTE | 2018-12-09 16:26 | PN ---
Progress Note, Physician History of Present Illness: Pt seen and examined. Events noted. Rapid response called earlier after pt noted to have 3 episodes of vomiting/ and c/o dizziness. Currently patient states he feels better, denies nausea or further vomiting. Remains afebrile, without cough/SOB. Vitals currently stable. - Current Medication List Current Medications: Active Medications Acetaminophen (Tylenol Suppository -) 650 mg NV Q4H PRN PRN Reason: FEVER Acetaminophen (Tylenol -) 650 mg PO Q6H PRN PRN Reason: PAIN Last Admin: 12/06/18 21:43 Dose: 650 mg Amlodipine Besylate (Norvasc -) 10 mg PO DAILY [facility] Last Admin: 12/09/18 09:18 Dose: 10 mg Bicalutamide (Casodex -) 50 mg PO DAILY [facility] Last Admin: 12/09/18 09:17 Dose: 50 mg Bisacodyl (Dulcolax -) 5 mg PO DAILY PRN PRN Reason: CONSTIPATION Last Admin: 12/09/18 14:03 Dose: 5 mg Haloperidol (Haldol Injection (Fast Acting) -) 2 mg IM Q4H PRN PRN Reason: AGITATION Sodium Chloride (Normal Saline -) 1,000 mls @ 125 mls/hr IV ASDIR [facility] Stop: 12/09/18 23:14 Last Admin: 12/09/18 15:27 Dose: 125 mls/hr Lactulose (Cephulac (Oral Use)) 20 gm PO Q6H PRN PRN Reason: CONSTIPATION Last Admin: 11/29/18 16:58 Dose: 20 gm Lidocaine (Lidoderm Patch -) 1 patch TP DAILY [facility] Last Admin: 12/09/18 09:17 Dose: 1 patch Miscellaneous (Lidoderm Patch Removal) 1 each MC DAILY@2200 [facility] Last Admin: 12/08/18 21:04 Dose: Not Given - Objective Vital Signs: Vital Signs Temperature 97.7 F 12/09/18 14:40 Pulse Rate 92 H 12/09/18 14:40 Respiratory Rate 18 12/09/18 14:40 Blood Pressure 105/55 L 12/09/18 14:40 O2 Sat by Pulse Oximetry (%) 96 12/09/18 09:00 Constitutional: Yes: No Distress, Calm Cardiovascular: Yes: Regular Rate and Rhythm Respiratory: Yes: CTA Bilaterally Gastrointestinal: Yes: Normal Bowel Sounds, Soft Genitourinary: Yes: Other (b/l nephrostomy, bloody drainage) Extremities: Yes: WNL Integumentary: Yes: WNL Neurological: Yes: Alert Labs: CBC, BMP 12/09/18 14:10 12/09/18 08:20 INR, PTT INR 1.28 (0.83-1.09) H 12/04/18 10:42 Microbiology 11/22/18 19:00 Blood - Peripheral Venous Blood Culture - Final NO GROWTH AFTER 5 DAYS INCUBATION 11/22/18 16:30 Blood - Peripheral Venous Blood Culture - Final NO GROWTH AFTER 5 DAYS INCUBATION 11/24/18 11:55 Urine - Urine Nephrostomy Tube Right Urine Culture - Final NO GROWTH OBTAINED 11/24/18 11:45 Urine - Urine Nephrostomy Tube Left Urine Culture - Final NO GROWTH OBTAINED 11/22/18 22:35 Urine - Urine Clean Catch Urine Culture - Final NO GROWTH OBTAINED Problem List - Problems (1) WOJCIECH (acute kidney injury) Code(s): N17.9 - ACUTE KIDNEY FAILURE, UNSPECIFIED (2) Bilateral hydronephrosis Code(s): N13.30 - UNSPECIFIED HYDRONEPHROSIS (3) HTN (hypertension) Code(s): I10 - ESSENTIAL (PRIMARY) HYPERTENSION Qualifiers: Hypertension type: essential hypertension Qualified Code(s): I10 - Essential (primary) hypertension (4) Hydrocephalus Code(s): G91.9 - HYDROCEPHALUS, UNSPECIFIED Qualifiers: Hydrocephalus type: unspecified Qualified Code(s): G91.9 - Hydrocephalus, unspecified (5) Hyperkalemia Code(s): E87.5 - HYPERKALEMIA (6) Renal failure Code(s): N19 - UNSPECIFIED KIDNEY FAILURE Qualifiers: Renal failure chronicity: acute (7) Sepsis Code(s): A41.9 - SEPSIS, UNSPECIFIED ORGANISM Qualifiers: Sepsis type: sepsis due to unspecified organism Qualified Code(s): A41.9 - Sepsis, unspecified organism (8) Urinary obstruction Code(s): N13.9 - OBSTRUCTIVE AND REFLUX UROPATHY, UNSPECIFIED Assessment/Plan WOJCIECH Urinary obstruction b/l hydronephrosis s/p nephrostomy Metastatic Prostate CA -- s/p vomiting episodes, currently appears stable, evaluated by hospitalist -- continue monitor off of antibiotics -- Nephrology//Onc following
[2018-12-09] MEDS: LACTULOSE 20 GM/30 ML UDC (FOR ORAL USE ONLY) PO PRN (17:00)
[2018-12-09] MEDS: LIDOCAINE PATCH REMOVAL MC SCH (21:54)
--- NOTE | 2018-12-10 00:06 | PN ---
Physical Exam: SUBJECTIVE: Patient seen and examined. Pt laying in bed with no signs or symptoms of discomfort. Denies cp, shob, fever, chills, n/v/d OBJECTIVE: Vital Signs Period Temp Pulse Resp BP Sys/Reyez Pulse Ox Last 24 Hr 97.4 F-98.6 F 76-94 18-18 105-139/55-82 96 Constitutional: Yes: Calm Eyes: Yes: Conjunctiva Clear HENT: Yes: Atraumatic Neck: Yes: Supple Cardiovascular: Yes: S1, S2 Respiratory: Yes: CTA Bilaterally Gastrointestinal: Yes: Soft Genitourinary: Yes: Berrios Present, Other (bilateral nephrostomy tubes) apx 75ml Sanguinous fluid in right bag, darker sanguinous fluid in left bag Musculoskeletal: Yes: WNL Edema: No Integumentary: Yes: WNL Neurological: Yes: Oriented Laboratory Results - last 24 hr 12/09/18 12/09/18 12/09/18 08:20 08:20 14:10 WBC 6.2 8.0 RBC 2.62 L 2.75 L Hgb 8.3 L 8.4 L Hct 23.6 L 24.9 L MCV 89.9 90.6 MCH 31.6 30.7 MCHC 35.2 33.8 RDW 13.2 13.4 Plt Count 381 457 H MPV 6.9 L 7.0 L Absolute Neuts (auto) 4.6 5.6 Neutrophils % 74.2 70.0 Lymphocytes % 17.0 21.3 D Monocytes % 6.7 6.8 Eosinophils % 1.6 1.5 Basophils % 0.5 0.4 Nucleated RBC % 0 0 Sodium 132 L Potassium 4.7 Chloride 102 Carbon Dioxide 20 L Anion Gap 10 BUN 47.6 H Creatinine 3.5 H Est GFR (CKD-EPI)AfAm 18.04 Est GFR (CKD-EPI)NonAf 15.56 POC Glucometer Random Glucose 119 H Calcium 9.0 Magnesium 2.0 Total Bilirubin 0.4 AST 14 L ALT 20 Alkaline Phosphatase 161 H Total Protein 7.4 Albumin 3.1 L 12/09/18 15:02 WBC RBC Hgb Hct MCV MCH MCHC RDW Plt Count MPV Absolute Neuts (auto) Neutrophils % Lymphocytes % Monocytes % Eosinophils % Basophils % Nucleated RBC % Sodium Potassium Chloride Carbon Dioxide Anion Gap BUN Creatinine Est GFR (CKD-EPI)AfAm Est GFR (CKD-EPI)NonAf POC Glucometer 142 Random Glucose Calcium Magnesium Total Bilirubin AST ALT Alkaline Phosphatase Total Protein Albumin Active Medications Generic Name Dose Route Start Last Admin Trade Name Marciano PRN Reason Stop Dose Admin Acetaminophen 650 mg 11/25/18 11:27 Tylenol Suppository - [place] Q4H PRN FEVER Acetaminophen 650 mg 11/29/18 16:57 12/06/18 21:43 Tylenol - PO 650 mg Q6H PRN Administration PAIN Amlodipine Besylate 10 mg 11/26/18 10:00 12/09/18 09:18 Norvasc - PO 10 mg DAILY [facility]Y Administration Bicalutamide 50 mg 12/04/18 18:30 12/09/18 09:17 Casodex - PO 50 mg DAILY [facility]INDY Administration Bisacodyl 5 mg 11/29/18 08:08 12/09/18 14:03 Dulcolax - PO 5 mg DAILY PRN Administration CONSTIPATION Haloperidol 2 mg 11/25/18 11:27 Haldol Injection (Fast Acting) - IM Q4H PRN AGITATION Lactulose 20 gm 11/29/18 08:08 12/09/18 17:00 Cephulac (Oral Use) PO 20 gm Q6H PRN Administration CONSTIPATION Lidocaine 1 patch 12/02/18 11:00 12/09/18 09:17 Lidoderm Patch - TP 1 patch DAILY SINDY Administration Miscellaneous 1 each 12/02/18 22:00 12/09/18 21:54 Lidoderm Patch Removal MC Not Given DAILY@2200 [facility] ASSESSMENT/PLAN: Problem List Bilateral hydronephrosis Renal failure HTN (hypertension) Hydrocephalus Prostate cancer Constipation by delayed colonic transit Plan -avoid nsaids -Monitor U/O, Berrios in place -SNF after Lupron, continue Casadex. -Oncology f/u as outpt. -Urology f/u as outpatient. -Continue close f/u on BMP-Lytes and BUN/Creat. -Readmition is likely due to severity and progressive nature of patient's disease
--- NOTE | 2018-12-10 07:52 | PN ---
Physical Exam: SUBJECTIVE: Patient seen and examined. Patient getting sponge bath. States he feels better and denies any discomfort or distress. Complaints about the food. OBJECTIVE: Vital Signs Period Temp Pulse Resp BP Sys/Reyez Pulse Ox Last 24 Hr 97.4 F-98.6 F 76-94 18-18 105-139/55-82 96 Constitutional: Yes: No Distress, Calm Cardiovascular: Yes: Regular Rate and Rhythm Respiratory: Yes: Regular Gastrointestinal: Yes: Normal Bowel Sounds, Soft Genitourinary: Yes: Hematuria, Other (b/l nephrostomy, Lt bloody , Rt clear) Integumentary: Yes: WNL Neurological: Yes: Alert Labs: Laboratory Results - last 24 hr 12/09/18 12/09/18 12/09/18 08:20 08:20 14:10 WBC 6.2 8.0 RBC 2.62 L 2.75 L Hgb 8.3 L 8.4 L Hct 23.6 L 24.9 L MCV 89.9 90.6 MCH 31.6 30.7 MCHC 35.2 33.8 RDW 13.2 13.4 Plt Count 381 457 H MPV 6.9 L 7.0 L Absolute Neuts (auto) 4.6 5.6 Neutrophils % 74.2 70.0 Lymphocytes % 17.0 21.3 D Monocytes % 6.7 6.8 Eosinophils % 1.6 1.5 Basophils % 0.5 0.4 Nucleated RBC % 0 0 Sodium 132 L Potassium 4.7 Chloride 102 Carbon Dioxide 20 L Anion Gap 10 BUN 47.6 H Creatinine 3.5 H Est GFR (CKD-EPI)AfAm 18.04 Est GFR (CKD-EPI)NonAf 15.56 POC Glucometer Random Glucose 119 H Calcium 9.0 Magnesium 2.0 Total Bilirubin 0.4 AST 14 L ALT 20 Alkaline Phosphatase 161 H Total Protein 7.4 Albumin 3.1 L 12/09/18 15:02 WBC RBC Hgb Hct MCV MCH MCHC RDW Plt Count MPV Absolute Neuts (auto) Neutrophils % Lymphocytes % Monocytes % Eosinophils % Basophils % Nucleated RBC % Sodium Potassium Chloride Carbon Dioxide Anion Gap BUN Creatinine Est GFR (CKD-EPI)AfAm Est GFR (CKD-EPI)NonAf POC Glucometer 142 Random Glucose Calcium Magnesium Total Bilirubin AST ALT Alkaline Phosphatase Total Protein Albumin Active Medications Generic Name Dose Route Start Last Admin Trade Name Freq PRN Reason Stop Dose Admin Acetaminophen 650 mg 11/25/18 11:27 Tylenol Suppository - [place] Q4H PRN FEVER Acetaminophen 650 mg 11/29/18 16:57 12/06/18 21:43 Tylenol - PO 650 mg Q6H PRN Administration PAIN Amlodipine Besylate 10 mg 11/26/18 10:00 12/09/18 09:18 Norvasc - PO 10 mg DAILY [facility]Y Administration Bicalutamide 50 mg 12/04/18 18:30 12/09/18 09:17 Casodex - PO 50 mg DAILY [facility] Administration Bisacodyl 5 mg 11/29/18 08:08 12/09/18 14:03 Dulcolax - PO 5 mg DAILY PRN Administration CONSTIPATION Haloperidol 2 mg 11/25/18 11:27 Haldol Injection (Fast Acting) - IM Q4H PRN AGITATION Lactulose 20 gm 11/29/18 08:08 12/09/18 17:00 Cephulac (Oral Use) PO 20 gm Q6H PRN Administration CONSTIPATION Lidocaine 1 patch 12/02/18 11:00 12/09/18 09:17 Lidoderm Patch - TP 1 patch DAILY [facility]Y Administration Miscellaneous 1 each 12/02/18 22:00 12/09/18 21:54 Lidoderm Patch Removal MC Not Given DAILY@2200 [facility] ASSESSMENT/PLAN: Problem List Bilateral hydronephrosis Renal failure HTN (hypertension) Hydrocephalus Prostate cancer Constipation by delayed colonic transit Plan -avoid nsaids -Monitor U/O, Berrios in place -Sanguineous urine output -SNF after Lupron, continue Casadex. -Oncology f/u as outpt. -Urology f/u as outpatient. -Continue close f/u on BMP-Lytes and BUN/Creat. -Tap water enema -Nephrostomy Tubes in place Bilateral- dressings clean dry and intact. Left Bag 125ml sanguineous fluid, Right Bag 125ml Serous Fluid - Visit type - Emergency Visit Emergency Visit: Yes ED Registration Date: 11/22/18 Care time: The patient presented to the Emergency Department on the above date and was hospitalized for further evaluation of their emergent condition. - New Patient This patient is new to me today: Yes Date on this admission: 12/11/18 - Critical Care Critical Care patient: No
[2018-12-10 08:55] LABS: BASO % 0.5 % (0-2.0); EOS % 1.5 % (0-4.5); HEMATOCRIT 22.6 % (35.4-49); LYMPH % 20.9 % (8-40); MCHC 35.5 g/dl (32.0-35.9); MONO % 8.6 % (3.8-10.2); NEUT % 68.5 % (42.8-82.8); PLATELET COUNT 370 K/MM3 (134-434); RBC 2.51 M/mm3 (4.00-5.60); RDW 13.1 % (11.9-15.9); WHITE BLOOD COUNT 5.6 K/mm3 (4.0-10.0)
[2018-12-10 09:05] LABS: BILIRUBIN,TOTAL 0.4 mg/dL (0.2-1); BLOOD UREA NITROGEN 47.5 mg/dL (7-18); CALCIUM 8.7 mg/dL (8.5-10.1); CREATININE 3.4 mg/dL (0.55-1.3); MAGNESIUM 2.1 mg/dL (1.8-2.4); POTASSIUM 5.2 mmol/L (3.5-5.1); TOT PROT 7.2 g/dl (6.4-8.2)
[2018-12-10] MEDS: BISACODYL 5 MG TABLET.DR (FP) PO PRN (11:42)
[2018-12-10] MEDS: amLODIPine BESYLATE 10 MG TABLET (FP) PO SCH (11:43)
[2018-12-10] MEDS: LACTULOSE 20 GM/30 ML UDC (FOR ORAL USE ONLY) PO PRN (11:43)
[2018-12-10] MEDS ORDERED: PT OWN MED DRAWER 7, Y5N ONE (11:44)
[2018-12-10] MEDS: BICALUTAMIDE 50 MG TABLET (FP) PO SCH (11:45)
[2018-12-10] MEDS: LIDOCAINE 5% TOPICAL PATCH TP SCH (11:45)
--- NOTE | 2018-12-10 16:23 | PN ---
Progress Note, Physician History of Present Illness: Pt alert, afebrile. States he feels better. No recent vomiting episodes. No specific complaints. - Current Medication List Current Medications: Active Medications Acetaminophen (Tylenol Suppository -) 650 mg SC Q4H PRN PRN Reason: FEVER Acetaminophen (Tylenol -) 650 mg PO Q6H PRN PRN Reason: PAIN Last Admin: 12/06/18 21:43 Dose: 650 mg Amlodipine Besylate (Norvasc -) 10 mg PO DAILY [facility] Last Admin: 12/10/18 11:43 Dose: 10 mg Bicalutamide (Casodex -) 50 mg PO DAILY [facility] Last Admin: 12/10/18 11:45 Dose: 50 mg Bisacodyl (Dulcolax -) 5 mg PO DAILY PRN PRN Reason: CONSTIPATION Last Admin: 12/10/18 11:42 Dose: 5 mg Haloperidol (Haldol Injection (Fast Acting) -) 2 mg IM Q4H PRN PRN Reason: AGITATION Lactulose (Cephulac (Oral Use)) 20 gm PO Q6H PRN PRN Reason: CONSTIPATION Last Admin: 12/10/18 11:43 Dose: 20 gm Lidocaine (Lidoderm Patch -) 1 patch TP DAILY [facility] Last Admin: 12/10/18 11:45 Dose: Not Given Miscellaneous (Lidoderm Patch Removal) 1 each MC DAILY@2200 [facility] Last Admin: 12/09/18 21:54 Dose: Not Given - Objective Vital Signs: Vital Signs Temperature 98.2 F 12/10/18 15:01 Pulse Rate 89 12/10/18 15:01 Respiratory Rate 18 12/10/18 15:01 Blood Pressure 103/73 12/10/18 15:01 O2 Sat by Pulse Oximetry (%) 96 12/10/18 09:00 Constitutional: Yes: No Distress, Calm Cardiovascular: Yes: Regular Rate and Rhythm Respiratory: Yes: Regular Gastrointestinal: Yes: Normal Bowel Sounds, Soft Genitourinary: Yes: Hematuria, Other (b/l nephrostomy, Lt with bloody urine, Rt clear) Integumentary: Yes: WNL Neurological: Yes: Alert Labs: CBC, BMP 12/10/18 08:00 12/10/18 08:00 INR, PTT INR 1.28 (0.83-1.09) H 12/04/18 10:42 Laboratory Tests 11/22/18 11/22/18 11/22/18 08:30 08:30 19:00 WBC RBC Hgb Hct MCV MCH MCHC RDW Plt Count MPV Absolute Neuts (auto) Neutrophils % Lymphocytes % Monocytes % Eosinophils % Basophils % Nucleated RBC % PT with INR INR PTT (Actin FS) VBG pH POC VBG pCO2 POC VBG pO2 VBG HCO3 VBG O2 Sat (Esdras) VBG Base Excess Sodium Potassium Chloride Carbon Dioxide Anion Gap BUN Creatinine Est GFR (CKD-EPI)AfAm Est GFR (CKD-EPI)NonAf POC Glucometer Random Glucose Lactic Acid Calcium Phosphorus Magnesium Total Bilirubin AST ALT Alkaline Phosphatase Ammonia Creatine Kinase 162 Creatine Kinase Index 0.6 CK-MB (CK-2) < 1.0 Troponin I < 0.02 Total Protein Albumin Prostate Specific Ag 272.00 H Urine Color Urine Appearance Urine pH Ur Specific [place] Urine Protein Urine Glucose (UA) Urine Ketones Urine Blood Urine Nitrite Urine Bilirubin Urine Urobilinogen Ur Leukocyte Esterase Urine WBC (Auto) Urine RBC (Auto) Urine Casts (Auto) U Epithel Cells (Auto) Urine Bacteria (Auto) Blood Type A POSITIVE Antibody Screen Crossmatch 11/22/18 11/22/18 11/22/18 19:00 19:00 19:00 WBC 6.7 RBC 2.90 L Hgb 9.1 L Hct 26.6 L MCV 91.8 MCH 31.3 MCHC 34.1 RDW 13.3 Plt Count 206 MPV 8.6 Absolute Neuts (auto) 5.0 Neutrophils % 73.8 Lymphocytes % 14.7 Monocytes % 10.9 H Eosinophils % 0.3 Basophils % 0.3 Nucleated RBC % 0 PT with INR INR PTT (Actin FS) VBG pH POC VBG pCO2 POC VBG pO2 VBG HCO3 VBG O2 Sat (Esdras) VBG Base Excess Sodium 129 L Potassium 6.2 H* Chloride 97 L Carbon Dioxide 24 Anion Gap 8 BUN 95.4 H Creatinine 9.2 H* Est GFR (CKD-EPI)AfAm 5.61 Est GFR (CKD-EPI)NonAf 4.84 POC Glucometer Random Glucose 97 Lactic Acid 2.1 H Calcium 8.8 Phosphorus Magnesium 2.1 Total Bilirubin 0.6 AST 12 L ALT 13 Alkaline Phosphatase 125 H Ammonia Creatine Kinase Creatine Kinase Index CK-MB (CK-2) Troponin I Total Protein 8.3 H Albumin 3.8 Prostate Specific Ag Urine Color Urine Appearance Urine pH Ur Specific [place] Urine Protein Urine Glucose (UA) Urine Ketones Urine Blood Urine Nitrite Urine Bilirubin Urine Urobilinogen Ur Leukocyte Esterase Urine WBC (Auto) Urine RBC (Auto) Urine Casts (Auto) U Epithel Cells (Auto) Urine Bacteria (Auto) Blood Type Antibody Screen Crossmatch 11/22/18 11/22/18 11/22/18 19:00 19:00 19:00 WBC RBC Hgb Hct MCV MCH MCHC RDW Plt Count MPV Absolute Neuts (auto) Neutrophils % Lymphocytes % Monocytes % Eosinophils % Basophils % Nucleated RBC % PT with INR 15.00 H INR 1.27 H PTT (Actin FS) 33.9 VBG pH 7.11 L* POC VBG pCO2 63.7 H POC VBG pO2 40.7 H VBG HCO3 19.1 L VBG O2 Sat (Esdras) 56.4 L VBG Base Excess -10.1 L Sodium Potassium Chloride Carbon Dioxide Anion Gap BUN Creatinine Est GFR (CKD-EPI)AfAm Est GFR (CKD-EPI)NonAf POC Glucometer Random Glucose Lactic Acid Calcium Phosphorus Magnesium Total Bilirubin AST ALT Alkaline Phosphatase Ammonia Creatine Kinase Creatine Kinase Index CK-MB (CK-2) Troponin I Total Protein Albumin Prostate Specific Ag Urine Color Urine Appearance Urine pH Ur Specific [place] Urine Protein Urine Glucose (UA) Urine Ketones Urine Blood Urine Nitrite Urine Bilirubin Urine Urobilinogen Ur Leukocyte Esterase Urine WBC (Auto) Urine RBC (Auto) Urine Casts (Auto) U Epithel Cells (Auto) Urine Bacteria (Auto) Blood Type A POSITIVE Antibody Screen Negative Crossmatch 11/22/18 11/22/18 11/22/18 19:00 22:35 23:30 WBC RBC Hgb Hct MCV MCH MCHC RDW Plt Count MPV Absolute Neuts (auto) Neutrophils % Lymphocytes % Monocytes % Eosinophils % Basophils % Nucleated RBC % PT with INR INR PTT (Actin FS) VBG pH POC VBG pCO2 POC VBG pO2 VBG HCO3 VBG O2 Sat (Esdras) VBG Base Excess Sodium Potassium Chloride Carbon Dioxide Anion Gap BUN Creatinine Est GFR (CKD-EPI)AfAm Est GFR (CKD-EPI)NonAf POC Glucometer Random Glucose Lactic Acid 1.7 Calcium Phosphorus Magnesium Total Bilirubin AST ALT Alkaline Phosphatase Ammonia 26.00 Creatine Kinase Creatine Kinase Index CK-MB (CK-2) Troponin I Total Protein Albumin Prostate Specific Ag Urine Color Yellow Urine Appearance Clear Urine pH 8.0 Ur Specific [place] 1.010 Urine Protein 2+ H Urine Glucose (UA) Negative Urine Ketones Negative Urine Blood 2+ H Urine Nitrite Negative Urine Bilirubin Negative Urine Urobilinogen 0.2 Ur Leukocyte Esterase Negative Urine WBC (Auto) 4 Urine RBC (Auto) 43 Urine Casts (Auto) 1 U Epithel Cells (Auto) 2.9 Urine Bacteria (Auto) 2.7 Blood Type Antibody Screen Crossmatch 11/22/18 11/23/18 11/23/18 23:30 03:30 08:30 WBC 5.9 RBC 2.77 L Hgb 8.6 L Hct 25.2 L MCV 91.1 MCH 31.2 MCHC 34.2 RDW 13.4 Plt Count 178 MPV 8.4 Absolute Neuts (auto) 4.5 Neutrophils % 75.5 Lymphocytes % 13.8 Monocytes % 10.1 Eosinophils % 0.2 Basophils % 0.4 Nucleated RBC % 0 PT with INR INR PTT (Actin FS) VBG pH POC VBG pCO2 POC VBG pO2 VBG HCO3 VBG O2 Sat (Esdras) VBG Base Excess Sodium 133 L 134 L Potassium 5.0 5.1 Chloride 99 102 Carbon Dioxide 23 22 Anion Gap 11 10 BUN 89.4 H 92.0 H Creatinine 8.4 H* 8.7 H* Est GFR (CKD-EPI)AfAm 6.26 6.00 Est GFR (CKD-EPI)NonAf 5.40 5.18 POC Glucometer Random Glucose 240 H 121 H Lactic Acid Calcium 7.8 L 7.8 L Phosphorus Magnesium 1.7 L Total Bilirubin 0.6 AST 13 L ALT 11 L Alkaline Phosphatase 101 Ammonia Creatine Kinase Creatine Kinase Index CK-MB (CK-2) Troponin I Total Protein 6.4 Albumin 2.9 L Prostate Specific Ag Urine Color Urine Appearance Urine pH Ur Specific [place] Urine Protein Urine Glucose (UA) Urine Ketones Urine Blood Urine Nitrite Urine Bilirubin Urine Urobilinogen Ur Leukocyte Esterase Urine WBC (Auto) Urine RBC (Auto) Urine Casts (Auto) U Epithel Cells (Auto) Urine Bacteria (Auto) Blood Type Antibody Screen Crossmatch 11/23/18 11/23/18 11/23/18 08:30 12:45 12:45 WBC 6.1 RBC 2.71 L Hgb 8.5 L Hct 24.7 L MCV 91.2 MCH 31.2 MCHC 34.2 RDW 13.4 Plt Count 171 MPV 7.8 Absolute Neuts (auto) Neutrophils % Lymphocytes % Monocytes % Eosinophils % Basophils % Nucleated RBC % PT with INR INR PTT (Actin FS) VBG pH POC VBG pCO2 POC VBG pO2 VBG HCO3 VBG O2 Sat (Esdras) VBG Base Excess Sodium 134 L 134 L Potassium 5.6 H 5.6 H Chloride 101 102 Carbon Dioxide 26 26 Anion Gap 8 7 L BUN 85.5 H 84.2 H Creatinine 8.7 H* 9.0 H* Est GFR (CKD-EPI)AfAm 6.00 5.76 Est GFR (CKD-EPI)NonAf 5.18 4.97 POC Glucometer Random Glucose 99 101 Lactic Acid Calcium 8.1 L 8.3 L Phosphorus 4.9 Magnesium 1.9 Total Bilirubin 0.7 AST 17 ALT 13 Alkaline Phosphatase 103 Ammonia Creatine Kinase Creatine Kinase Index CK-MB (CK-2) Troponin I Total Protein 6.9 Albumin 3.2 L Prostate Specific Ag Urine Color Urine Appearance Urine pH Ur Specific [place] Urine Protein Urine Glucose (UA) Urine Ketones Urine Blood Urine Nitrite Urine Bilirubin Urine Urobilinogen Ur Leukocyte Esterase Urine WBC (Auto) Urine RBC (Auto) Urine Casts (Auto) U Epithel Cells (Auto) Urine Bacteria (Auto) Blood Type Antibody Screen Crossmatch 11/24/18 11/24/18 11/24/18 07:54 07:54 18:30 WBC 6.8 RBC 2.92 L Hgb 9.2 L Hct 26.6 L MCV 91.3 MCH 31.4 MCHC 34.4 RDW 13.2 Plt Count 199 MPV 7.9 Absolute Neuts (auto) Neutrophils % Lymphocytes % Monocytes % Eosinophils % Basophils % Nucleated RBC % PT with INR INR PTT (Actin FS) VBG pH POC VBG pCO2 POC VBG pO2 VBG HCO3 VBG O2 Sat (Esdras) VBG Base Excess Sodium 135 L 135 L Potassium 5.0 5.0 Chloride 102 102 Carbon Dioxide 23 20 L Anion Gap 10 12 BUN 89.2 H 87.8 H Creatinine 9.1 H* 8.7 H* Est GFR (CKD-EPI)AfAm 5.68 6.00 Est GFR (CKD-EPI)NonAf 4.90 5.18 POC Glucometer Random Glucose 96 95 Lactic Acid Calcium 8.7 8.4 L Phosphorus 4.6 Magnesium 1.8 Total Bilirubin 0.7 AST 26 ALT 25 Alkaline Phosphatase 111 Ammonia Creatine Kinase Creatine Kinase Index CK-MB (CK-2) Troponin I Total Protein 7.8 Albumin 3.4 Prostate Specific Ag Urine Color Urine Appearance Urine pH Ur Specific [place] Urine Protein Urine Glucose (UA) Urine Ketones Urine Blood Urine Nitrite Urine Bilirubin Urine Urobilinogen Ur Leukocyte Esterase Urine WBC (Auto) Urine RBC (Auto) Urine Casts (Auto) U Epithel Cells (Auto) Urine Bacteria (Auto) Blood Type Antibody Screen Crossmatch 11/25/18 11/25/18 11/25/18 16:10 16:10 19:45 WBC 6.3 RBC 2.87 L Hgb 8.9 L Hct 26.4 L MCV 91.9 MCH 31.1 MCHC 33.9 RDW 13.4 Plt Count 235 MPV 7.7 Absolute Neuts (auto) Neutrophils % Lymphocytes % Monocytes % Eosinophils % Basophils % Nucleated RBC % PT with INR INR PTT (Actin FS) VBG pH POC VBG pCO2 POC VBG pO2 VBG HCO3 VBG O2 Sat (Esdras) VBG Base Excess Sodium 133 L 132 L Potassium 4.5 4.5 Chloride 98 97 L Carbon Dioxide 22 23 Anion Gap 13 12 BUN 80.2 H 79.5 H Creatinine 8.2 H* 8.0 H* Est GFR (CKD-EPI)AfAm 6.44 6.64 Est GFR (CKD-EPI)NonAf 5.56 5.73 POC Glucometer Random Glucose 183 H 144 H Lactic Acid Calcium 8.1 L 8.2 L Phosphorus 5.2 H Magnesium 1.9 Total Bilirubin 0.4 AST 17 ALT 22 Alkaline Phosphatase 103 Ammonia Creatine Kinase Creatine Kinase Index CK-MB (CK-2) Troponin I Total Protein 7.7 Albumin 3.2 L Prostate Specific Ag Urine Color Urine Appearance Urine pH Ur Specific [place] Urine Protein Urine Glucose (UA) Urine Ketones Urine Blood Urine Nitrite Urine Bilirubin Urine Urobilinogen Ur Leukocyte Esterase Urine WBC (Auto) Urine RBC (Auto) Urine Casts (Auto) U Epithel Cells (Auto) Urine Bacteria (Auto) Blood Type Antibody Screen Crossmatch 11/27/18 11/27/18 11/28/18 05:25 05:25 06:23 WBC 8.1 RBC 3.01 L Hgb 9.5 L Hct 27.6 L MCV 91.5 MCH 31.7 MCHC 34.6 RDW 13.6 Plt Count 293 D MPV 8.1 Absolute Neuts (auto) 5.4 Neutrophils % 66.4 Lymphocytes % 23.6 D Monocytes % 8.7 Eosinophils % 1.0 D Basophils % 0.3 Nucleated RBC % 0 PT with INR INR PTT (Actin FS) VBG pH POC VBG pCO2 POC VBG pO2 VBG HCO3 VBG O2 Sat (Esdras) VBG Base Excess Sodium 133 L 134 L Potassium 4.4 3.8 Chloride 98 100 Carbon Dioxide 22 22 Anion Gap 13 12 BUN 78.4 H 76.8 H Creatinine 7.3 H 6.4 H Est GFR (CKD-EPI)AfAm 7.42 8.69 Est GFR (CKD-EPI)NonAf 6.40 7.50 POC Glucometer Random Glucose 115 H 138 H Lactic Acid Calcium 9.2 8.7 Phosphorus 4.9 Magnesium 2.2 Total Bilirubin AST ALT Alkaline Phosphatase Ammonia Creatine Kinase Creatine Kinase Index CK-MB (CK-2) Troponin I Total Protein Albumin Prostate Specific Ag Urine Color Urine Appearance Urine pH Ur Specific [place] Urine Protein Urine Glucose (UA) Urine Ketones Urine Blood Urine Nitrite Urine Bilirubin Urine Urobilinogen Ur Leukocyte Esterase Urine WBC (Auto) Urine RBC (Auto) Urine Casts (Auto) U Epithel Cells (Auto) Urine Bacteria (Auto) Blood Type Antibody Screen Crossmatch 11/29/18 11/29/18 11/30/18 07:26 07:26 06:56 WBC 6.1 6.7 RBC 2.65 L 2.54 L Hgb 8.4 L 8.0 L Hct 24.3 L 23.3 L MCV 91.8 91.8 MCH 31.7 31.5 MCHC 34.5 34.3 RDW 13.0 12.9 Plt Count 308 320 MPV 7.7 7.5 Absolute Neuts (auto) 4.3 5.0 Neutrophils % 70.7 75.0 Lymphocytes % 16.5 D 13.6 Monocytes % 9.9 9.2 Eosinophils % 2.1 D 1.5 Basophils % 0.8 0.7 Nucleated RBC % 0 0 PT with INR INR PTT (Actin FS) VBG pH POC VBG pCO2 POC VBG pO2 VBG HCO3 VBG O2 Sat (Esdras) VBG Base Excess Sodium 137 Potassium 3.8 Chloride 103 Carbon Dioxide 24 Anion Gap 10 BUN 66.8 H Creatinine 5.4 H Est GFR (CKD-EPI)AfAm 10.68 Est GFR (CKD-EPI)NonAf 9.21 POC Glucometer Random Glucose 95 Lactic Acid Calcium 8.4 L Phosphorus Magnesium Total Bilirubin 0.5 AST 16 ALT 21 Alkaline Phosphatase 92 Ammonia Creatine Kinase Creatine Kinase Index CK-MB (CK-2) Troponin I Total Protein 7.0 Albumin 2.8 L Prostate Specific Ag Urine Color Urine Appearance Urine pH Ur Specific [place] Urine Protein Urine Glucose (UA) Urine Ketones Urine Blood Urine Nitrite Urine Bilirubin Urine Urobilinogen Ur Leukocyte Esterase Urine WBC (Auto) Urine RBC (Auto) Urine Casts (Auto) U Epithel Cells (Auto) Urine Bacteria (Auto) Blood Type Antibody Screen Crossmatch 11/30/18 12/01/18 12/02/18 06:56 07:38 05:30 WBC 8.0 RBC 2.41 L Hgb 7.7 L Hct 22.1 L MCV 91.7 MCH 32.1 MCHC 35.0 RDW 12.9 Plt Count 327 MPV 7.2 L Absolute Neuts (auto) 5.9 Neutrophils % 73.7 Lymphocytes % 14.6 Monocytes % 9.8 Eosinophils % 1.4 Basophils % 0.5 Nucleated RBC % 0 PT with INR INR PTT (Actin FS) VBG pH POC VBG pCO2 POC VBG pO2 VBG HCO3 VBG O2 Sat (Esdras) VBG Base Excess Sodium 136 136 Potassium 3.8 4.1 Chloride 104 106 Carbon Dioxide 22 20 L Anion Gap 10 11 BUN 60.5 H 55.3 H Creatinine 4.9 H 4.2 H Est GFR (CKD-EPI)AfAm 12.01 14.47 Est GFR (CKD-EPI)NonAf 10.36 12.48 POC Glucometer Random Glucose 89 88 Lactic Acid Calcium 8.4 L 8.5 Phosphorus Magnesium Total Bilirubin 0.6 0.5 AST 18 16 ALT 20 19 Alkaline Phosphatase 97 99 Ammonia Creatine Kinase Creatine Kinase Index CK-MB (CK-2) Troponin I Total Protein 7.0 7.3 Albumin 2.7 L 2.9 L Prostate Specific Ag Urine Color Urine Appearance Urine pH Ur Specific [place] Urine Protein Urine Glucose (UA) Urine Ketones Urine Blood Urine Nitrite Urine Bilirubin Urine Urobilinogen Ur Leukocyte Esterase Urine WBC (Auto) Urine RBC (Auto) Urine Casts (Auto) U Epithel Cells (Auto) Urine Bacteria (Auto) Blood Type Antibody Screen Crossmatch 12/02/18 12/02/18 12/02/18 05:30 16:00 16:50 WBC 6.0 RBC 2.15 L Hgb 6.8 L* Hct 19.7 L MCV 91.7 MCH 31.6 MCHC 34.5 RDW 13.2 Plt Count 263 MPV 6.7 L Absolute Neuts (auto) 4.3 Neutrophils % 70.7 Lymphocytes % 16.1 Monocytes % 10.4 H Eosinophils % 2.1 Basophils % 0.7 Nucleated RBC % 0 PT with INR INR PTT (Actin FS) VBG pH POC VBG pCO2 POC VBG pO2 VBG HCO3 VBG O2 Sat (Esdras) VBG Base Excess Sodium 135 L Potassium 4.6 Chloride 106 Carbon Dioxide 22 Anion Gap 7 L BUN 53.9 H Creatinine 4.0 H Est GFR (CKD-EPI)AfAm 15.35 Est GFR (CKD-EPI)NonAf 13.24 POC Glucometer Random Glucose 90 Lactic Acid Calcium 8.4 L Phosphorus Magnesium Total Bilirubin 0.3 AST 24 ALT 22 Alkaline Phosphatase 96 Ammonia Creatine Kinase Creatine Kinase Index CK-MB (CK-2) Troponin I Total Protein 7.0 Albumin 2.8 L Prostate Specific Ag Urine Color Urine Appearance Urine pH Ur Specific [place] Urine Protein Urine Glucose (UA) Urine Ketones Urine Blood Urine Nitrite Urine Bilirubin Urine Urobilinogen Ur Leukocyte Esterase Urine WBC (Auto) Urine RBC (Auto) Urine Casts (Auto) U Epithel Cells (Auto) Urine Bacteria (Auto) Blood Type A POSITIVE Antibody Screen Negative Crossmatch See Detail 12/03/18 12/03/18 12/04/18 08:51 08:51 07:15 WBC 6.1 RBC 2.76 L Hgb 8.7 L Hct 25.0 L D MCV 90.4 MCH 31.4 MCHC 34.7 RDW 13.7 Plt Count 298 MPV 6.7 L Absolute Neuts (auto) 4.4 Neutrophils % 71.8 Lymphocytes % 16.0 Monocytes % 9.9 Eosinophils % 1.8 Basophils % 0.5 Nucleated RBC % 0 PT with INR INR PTT (Actin FS) VBG pH POC VBG pCO2 POC VBG pO2 VBG HCO3 VBG O2 Sat (Esdras) VBG Base Excess Sodium 134 L 139 Potassium 4.0 4.7 Chloride 104 108 H Carbon Dioxide 21 22 Anion Gap 9 9 BUN 46.8 H 49.6 H Creatinine 3.6 H 3.6 H Est GFR (CKD-EPI)AfAm 17.43 17.43 Est GFR (CKD-EPI)NonAf 15.04 15.04 POC Glucometer Random Glucose 93 86 Lactic Acid Calcium 8.4 L 8.9 Phosphorus Magnesium 1.8 Total Bilirubin 0.8 AST 17 ALT 19 Alkaline Phosphatase 97 Ammonia Creatine Kinase Creatine Kinase Index CK-MB (CK-2) Troponin I Total Protein 6.9 Albumin 2.8 L Prostate Specific Ag Urine Color Urine Appearance Urine pH Ur Specific [place] Urine Protein Urine Glucose (UA) Urine Ketones Urine Blood Urine Nitrite Urine Bilirubin Urine Urobilinogen Ur Leukocyte Esterase Urine WBC (Auto) Urine RBC (Auto) Urine Casts (Auto) U Epithel Cells (Auto) Urine Bacteria (Auto) Blood Type Antibody Screen Crossmatch 12/04/18 12/04/18 12/04/18 10:42 10:42 10:42 WBC 7.0 RBC 2.81 L Hgb 8.9 L Hct 25.4 L MCV 90.2 MCH 31.5 MCHC 34.9 RDW 13.6 Plt Count 386 D MPV 6.9 L Absolute Neuts (auto) 4.9 Neutrophils % 70.1 Lymphocytes % 18.7 Monocytes % 8.5 Eosinophils % 2.0 Basophils % 0.7 Nucleated RBC % 0 PT with INR 15.20 H INR 1.28 H PTT (Actin FS) VBG pH POC VBG pCO2 POC VBG pO2 VBG HCO3 VBG O2 Sat (Esdras) VBG Base Excess Sodium 136 Potassium 5.0 Chloride 106 Carbon Dioxide 21 Anion Gap 9 BUN 49.5 H Creatinine 3.6 H Est GFR (CKD-EPI)AfAm 17.43 Est GFR (CKD-EPI)NonAf 15.04 POC Glucometer Random Glucose 88 Lactic Acid Calcium 9.2 Phosphorus Magnesium 2.3 Total Bilirubin 0.5 AST 16 ALT 21 Alkaline Phosphatase 115 Ammonia Creatine Kinase Creatine Kinase Index CK-MB (CK-2) Troponin I Total Protein 7.7 Albumin 3.0 L Prostate Specific Ag Urine Color Urine Appearance Urine pH Ur Specific [place] Urine Protein Urine Glucose (UA) Urine Ketones Urine Blood Urine Nitrite Urine Bilirubin Urine Urobilinogen Ur Leukocyte Esterase Urine WBC (Auto) Urine RBC (Auto) Urine Casts (Auto) U Epithel Cells (Auto) Urine Bacteria (Auto) Blood Type Antibody Screen Crossmatch 12/05/18 12/05/18 12/08/18 09:30 09:30 06:50 WBC 6.1 RBC 2.83 L Hgb 8.8 L Hct 25.6 L MCV 90.4 MCH 31.0 MCHC 34.2 RDW 13.5 Plt Count 356 MPV 6.9 L Absolute Neuts (auto) 4.2 Neutrophils % 69.3 Lymphocytes % 20.6 Monocytes % 7.4 Eosinophils % 2.1 Basophils % 0.6 Nucleated RBC % 0 PT with INR INR PTT (Actin FS) VBG pH POC VBG pCO2 POC VBG pO2 VBG HCO3 VBG O2 Sat (Esdras) VBG Base Excess Sodium 134 L 135 L Potassium 4.8 4.8 Chloride 103 105 Carbon Dioxide 22 19 L Anion Gap 9 11 BUN 52.1 H 50.5 H Creatinine 3.7 H 3.4 H Est GFR (CKD-EPI)AfAm 16.86 18.68 Est GFR (CKD-EPI)NonAf 14.55 16.12 POC Glucometer Random Glucose 98 91 Lactic Acid Calcium 8.8 8.8 Phosphorus Magnesium 2.1 Total Bilirubin 0.4 0.3 AST 14 L 13 L ALT 21 19 Alkaline Phosphatase 120 H 160 H Ammonia Creatine Kinase Creatine Kinase Index CK-MB (CK-2) Troponin I Total Protein 7.4 7.7 Albumin 2.9 L 3.2 L Prostate Specific Ag Urine Color Urine Appearance Urine pH Ur Specific [place] Urine Protein Urine Glucose (UA) Urine Ketones Urine Blood Urine Nitrite Urine Bilirubin Urine Urobilinogen Ur Leukocyte Esterase Urine WBC (Auto) Urine RBC (Auto) Urine Casts (Auto) U Epithel Cells (Auto) Urine Bacteria (Auto) Blood Type Antibody Screen Crossmatch 12/09/18 12/09/18 12/09/18 08:20 08:20 14:10 WBC 6.2 8.0 RBC 2.62 L 2.75 L Hgb 8.3 L 8.4 L Hct 23.6 L 24.9 L MCV 89.9 90.6 MCH 31.6 30.7 MCHC 35.2 33.8 RDW 13.2 13.4 Plt Count 381 457 H MPV 6.9 L 7.0 L Absolute Neuts (auto) 4.6 5.6 Neutrophils % 74.2 70.0 Lymphocytes % 17.0 21.3 D Monocytes % 6.7 6.8 Eosinophils % 1.6 1.5 Basophils % 0.5 0.4 Nucleated RBC % 0 0 PT with INR INR PTT (Actin FS) VBG pH POC VBG pCO2 POC VBG pO2 VBG HCO3 VBG O2 Sat (Esdras) VBG Base Excess Sodium 132 L Potassium 4.7 Chloride 102 Carbon Dioxide 20 L Anion Gap 10 BUN 47.6 H Creatinine 3.5 H Est GFR (CKD-EPI)AfAm 18.04 Est GFR (CKD-EPI)NonAf 15.56 POC Glucometer Random Glucose 119 H Lactic Acid Calcium 9.0 Phosphorus Magnesium 2.0 Total Bilirubin 0.4 AST 14 L ALT 20 Alkaline Phosphatase 161 H Ammonia Creatine Kinase Creatine Kinase Index CK-MB (CK-2) Troponin I Total Protein 7.4 Albumin 3.1 L Prostate Specific Ag Urine Color Urine Appearance Urine pH Ur Specific [place] Urine Protein Urine Glucose (UA) Urine Ketones Urine Blood Urine Nitrite Urine Bilirubin Urine Urobilinogen Ur Leukocyte Esterase Urine WBC (Auto) Urine RBC (Auto) Urine Casts (Auto) U Epithel Cells (Auto) Urine Bacteria (Auto) Blood Type Antibody Screen Crossmatch 12/09/18 12/10/18 12/10/18 15:02 08:00 08:00 WBC 5.6 RBC 2.51 L Hgb 8.0 L Hct 22.6 L MCV 90.0 MCH 32.0 MCHC 35.5 RDW 13.1 Plt Count 370 MPV 7.0 L Absolute Neuts (auto) 3.8 Neutrophils % 68.5 Lymphocytes % 20.9 Monocytes % 8.6 Eosinophils % 1.5 Basophils % 0.5 Nucleated RBC % 0 PT with INR INR PTT (Actin FS) VBG pH POC VBG pCO2 POC VBG pO2 VBG HCO3 VBG O2 Sat (Esdras) VBG Base Excess Sodium 133 L Potassium 5.2 H Chloride 103 Carbon Dioxide 22 Anion Gap 8 BUN 47.5 H Creatinine 3.4 H Est GFR (CKD-EPI)AfAm 18.68 Est GFR (CKD-EPI)NonAf 16.12 POC Glucometer 142 Random Glucose 88 Lactic Acid Calcium 8.7 Phosphorus Magnesium 2.1 Total Bilirubin 0.4 AST 11 L ALT 20 Alkaline Phosphatase 164 H Ammonia Creatine Kinase Creatine Kinase Index CK-MB (CK-2) Troponin I Total Protein 7.2 Albumin 3.0 L Prostate Specific Ag Urine Color Urine Appearance Urine pH Ur Specific [place] Urine Protein Urine Glucose (UA) Urine Ketones Urine Blood Urine Nitrite Urine Bilirubin Urine Urobilinogen Ur Leukocyte Esterase Urine WBC (Auto) Urine RBC (Auto) Urine Casts (Auto) U Epithel Cells (Auto) Urine Bacteria (Auto) Blood Type Antibody Screen Crossmatch Problem List - Problems (1) WOJCIECH (acute kidney injury) Code(s): N17.9 - ACUTE KIDNEY FAILURE, UNSPECIFIED (2) Bilateral hydronephrosis Code(s): N13.30 - UNSPECIFIED HYDRONEPHROSIS (3) HTN (hypertension) Code(s): I10 - ESSENTIAL (PRIMARY) HYPERTENSION Qualifiers: Hypertension type: essential hypertension Qualified Code(s): I10 - Essential (primary) hypertension (4) Hydrocephalus Code(s): G91.9 - HYDROCEPHALUS, UNSPECIFIED Qualifiers: Hydrocephalus type: unspecified Qualified Code(s): G91.9 - Hydrocephalus, unspecified (5) Renal failure Code(s): N19 - UNSPECIFIED KIDNEY FAILURE Qualifiers: Renal failure chronicity: acute (6) Urinary obstruction Code(s): N13.9 - OBSTRUCTIVE AND REFLUX UROPATHY, UNSPECIFIED Assessment/Plan WOJCIECH Urinary obstruction b/l hydronephrosis s/p b/l nephrostomy Metastatic Prostate CA -- pt afebrile, without distress -- monitor off antibiotics
[2018-12-10] MEDS: LIDOCAINE PATCH REMOVAL MC SCH (21:43)
[2018-12-11] MEDS ORDERED: SODIUM POLYSTYRENE SULFONATE 15 GM/60 ML BOTTLE PO ONE (08:18)
--- NOTE | 2018-12-11 08:20 | PN ---
Progress Note (short form) - Note Progress Note: AWAKE, alert, tolerating PO, no vomiting Went to OR 12/08/18-cysto/stents. stents by Dr Cortez. RR 12/09 noted Constipation. Left nephrostomy -bloody urine, right nephrostomy clear Berrios drains urine. Vital Signs Temp 98.7 F 12/11/18 03:00 Pulse 96 H 12/11/18 03:00 Resp 18 12/11/18 03:00 BP 133/76 12/11/18 03:00 Pulse Ox 99 12/10/18 21:00 Intake & Output 12/10/18 12/10/18 12/11/18 11:59 23:59 11:59 Intake Total 0 380 Output Total 900 600 450 Balance -900 -600 -70 Intake: IVPB 0 Oral 280 Tube Feeding 100 Output: Urine 900 600 450 Berrios 150 50 200 Left Nephrostomy 150 400 200 Right Nephrostomy 600 150 50 Other: Voiding Method Indwelling Catheter Indwelling Catheter Bowel Movement No Body Mass Index (BMI) 24.1 PE awake, alert Lungs clear Heart S1S2 regular Abdomen soft Nephrostomies, Berrios No CCE Laboratory Results - last 24 hr 12/10/18 12/10/18 12/11/18 08:00 08:00 07:45 WBC 5.6 RBC 2.51 L Hgb 8.0 L Hct 22.6 L MCV 90.0 MCH 32.0 MCHC 35.5 RDW 13.1 Plt Count 370 MPV 7.0 L Absolute Neuts (auto) 3.8 Neutrophils % 68.5 Lymphocytes % 20.9 Monocytes % 8.6 Eosinophils % 1.5 Basophils % 0.5 Nucleated RBC % 0 Sodium 133 L 132 L Potassium 5.2 H 4.8 Chloride 103 103 Carbon Dioxide 22 22 Anion Gap 8 8 BUN 47.5 H 54.4 H Creatinine 3.4 H 3.5 H Est GFR (CKD-EPI)AfAm 18.68 18.04 Est GFR (CKD-EPI)NonAf 16.12 15.56 Random Glucose 88 80 Calcium 8.7 8.6 Magnesium 2.1 2.2 Total Bilirubin 0.4 0.2 AST 11 L 10 L ALT 20 18 Alkaline Phosphatase 164 H 174 H Total Protein 7.2 7.4 Albumin 3.0 L 3.0 L Current Active Problems Problem Status Onset WOJCIECH (acute kidney injury) Acute Anemia Acute Bilateral hydronephrosis Acute Constipation by delayed colonic transit Acute HTN (hypertension) Acute Hydrocephalus Acute Hypercapnic acidosis Acute Prophylactic measure Acute Prostate cancer Acute Renal failure Acute Urinary obstruction Acute Plan UROLOGY F/U re bleeding, nephrostomy tubes. Lupron prior to D/C Enema. Lactulose PRBC Problem List - Problems (1) Bilateral hydronephrosis Code(s): N13.30 - UNSPECIFIED HYDRONEPHROSIS (2) Renal failure Code(s): N19 - UNSPECIFIED KIDNEY FAILURE Qualifiers: Renal failure chronicity: acute (3) HTN (hypertension) Code(s): I10 - ESSENTIAL (PRIMARY) HYPERTENSION Qualifiers: Hypertension type: essential hypertension Qualified Code(s): I10 - Essential (primary) hypertension (4) Hydrocephalus Code(s): G91.9 - HYDROCEPHALUS, UNSPECIFIED Qualifiers: Hydrocephalus type: unspecified Qualified Code(s): G91.9 - Hydrocephalus, unspecified (5) Prostate cancer Code(s): C61 - MALIGNANT NEOPLASM OF PROSTATE (6) Constipation by delayed colonic transit Code(s): K59.01 - SLOW TRANSIT CONSTIPATION
[2018-12-11 08:27] LABS: BILIRUBIN,TOTAL 0.2 mg/dL (0.2-1); BLOOD UREA NITROGEN 54.4 mg/dL (7-18); CALCIUM 8.6 mg/dL (8.5-10.1); CREATININE 3.5 mg/dL (0.55-1.3); MAGNESIUM 2.2 mg/dL (1.8-2.4); POTASSIUM 4.8 mmol/L (3.5-5.1); TOT PROT 7.4 g/dl (6.4-8.2)
[2018-12-11 08:40] LABS: BASO % 0.5 % (0-2.0); EOS % 2.4 % (0-4.5); HEMATOCRIT 23.1 % (35.4-49); HEMOGLOBIN 8.1 GM/dL (11.7-16.9); LYMPH % 24.5 % (8-40); MCH 31.6 pg (25.7-33.7); MCHC 34.9 g/dl (32.0-35.9); MEAN CELL VOLUME 90.5 fl (80-96); MEAN PLT VOLUME 7.1 fl (7.5-11.1); MONO % 7.9 % (3.8-10.2); NEUT % 64.7 % (42.8-82.8); PLATELET COUNT 398 K/MM3 (134-434); RBC 2.55 M/mm3 (4.00-5.60); RDW 13.4 % (11.9-15.9); WHITE BLOOD COUNT 5.6 K/mm3 (4.0-10.0)
[2018-12-11] MEDS ORDERED: PT OWN MED DRAWER 7, Y5N ONE (10:48)
[2018-12-11] MEDS: LIDOCAINE 5% TOPICAL PATCH TP SCH ×2 (10:54→18:47)
[2018-12-11] MEDS: LACTULOSE 20 GM/30 ML UDC (FOR ORAL USE ONLY) PO SCH ×2 (10:54→18:09)
[2018-12-11] MEDS: amLODIPine BESYLATE 10 MG TABLET (FP) PO SCH (10:54)
[2018-12-11] MEDS: BICALUTAMIDE 50 MG TABLET (FP) PO SCH (10:55)
--- NOTE | 2018-12-11 12:05 | PN ---
Progress Note, Physician History of Present Illness: events noted from week end patient getting transfusion clinically stable - Current Medication List Current Medications: Active Medications Acetaminophen (Tylenol Suppository -) 650 mg [place] Q4H PRN PRN Reason: FEVER Acetaminophen (Tylenol -) 650 mg PO Q6H PRN PRN Reason: PAIN Last Admin: 12/06/18 21:43 Dose: 650 mg Amlodipine Besylate (Norvasc -) 10 mg PO DAILY [facility] Last Admin: 12/11/18 10:54 Dose: 10 mg Bicalutamide (Casodex -) 50 mg PO DAILY [facility] Last Admin: 12/11/18 10:55 Dose: 50 mg Bisacodyl (Dulcolax -) 5 mg PO DAILY PRN PRN Reason: CONSTIPATION Last Admin: 12/10/18 11:42 Dose: 5 mg Haloperidol (Haldol Injection (Fast Acting) -) 2 mg IM Q4H PRN PRN Reason: AGITATION Lactulose (Cephulac (Oral Use)) 20 gm PO Q6HPO [facility] Last Admin: 12/11/18 10:54 Dose: 20 gm Lidocaine (Lidoderm Patch -) 1 patch TP DAILY [facility] Last Admin: 12/11/18 10:54 Dose: 1 patch Miscellaneous (Lidoderm Patch Removal) 1 each MC DAILY@2200 [facility] Last Admin: 12/10/18 21:43 Dose: 1 each - Objective Vital Signs: Vital Signs Temperature 98 F 12/11/18 09:16 Pulse Rate 95 H 12/11/18 09:16 Respiratory Rate 18 12/11/18 09:16 Blood Pressure 124/76 12/11/18 09:16 O2 Sat by Pulse Oximetry (%) 98 12/11/18 09:00 Constitutional: Yes: No Distress Cardiovascular: Yes: Regular Rate and Rhythm Respiratory: Yes: Regular, CTA Bilaterally Gastrointestinal: Yes: Normal Bowel Sounds, Soft Musculoskeletal: Yes: WNL Extremities: Yes: WNL Neurological: Yes: Alert, Oriented Psychiatric: Yes: Alert, Oriented Labs: CBC, BMP 12/11/18 07:45 12/11/18 07:45 INR, PTT INR 1.28 (0.83-1.09) H 12/04/18 10:42 Assessment/Plan Problem List - Problems (1) Bilateral hydronephrosis Code(s): N13.30 - UNSPECIFIED HYDRONEPHROSIS (2) Hyperkalemia Code(s): E87.5 - HYPERKALEMIA (3) Metabolic acidemia Code(s): E87.2 - ACIDOSIS (4) Renal failure Code(s): N19 - UNSPECIFIED KIDNEY FAILURE Qualifiers: Renal failure chronicity: acute (5) Sepsis Code(s): A41.9 - SEPSIS, UNSPECIFIED ORGANISM Qualifiers: Sepsis type: sepsis due to unspecified organism Qualified Code(s): A41.9 - Sepsis, unspecified organism (6) Systemic inflammatory response syndrome (SIRS) Code(s): R65.10 - SIRS OF NON-INFECTIOUS ORIGIN W/O ACUTE ORGAN DYSFUNCTION (7) HTN (hypertension) Code(s): I10 - ESSENTIAL (PRIMARY) HYPERTENSION Qualifiers: Hypertension type: essential hypertension Qualified Code(s): I10 - Essential (primary) hypertension r/o uti plan as per the team continue current mgmt transfusion monitor h and h
[2018-12-11] MEDS: LIDOCAINE PATCH REMOVAL MC SCH (22:25)
[2018-12-12] MEDS: LACTULOSE 20 GM/30 ML UDC (FOR ORAL USE ONLY) PO SCH ×5 (01:00→23:03)
[2018-12-12 07:48] LABS: ALBUMIN 3.2 g/dl (3.4-5.0); CALCIUM 8.7 mg/dL (8.5-10.1); CREATININE 3.5 mg/dL (0.55-1.3); POTASSIUM 4.8 mmol/L (3.5-5.1); TOT PROT 7.5 g/dl (6.4-8.2)
[2018-12-12 07:51] LABS: BASO % 0.5 % (0-2.0); EOS % 2.4 % (0-4.5); HEMATOCRIT 29.5 % (35.4-49); HEMOGLOBIN 10.4 GM/dL (11.7-16.9); LYMPH % 17.7 % (8-40); MCH 30.6 pg (25.7-33.7); MCHC 35.3 g/dl (32.0-35.9); MEAN CELL VOLUME 86.6 fl (80-96); MEAN PLT VOLUME 7.1 fl (7.5-11.1); NEUT % 71.4 % (42.8-82.8); PLATELET COUNT 333 K/MM3 (134-434); RDW 15.7 % (11.9-15.9); WHITE BLOOD COUNT 6.2 K/mm3 (4.0-10.0)
[2018-12-12] MEDS ORDERED: PT OWN MED DRAWER 7, Y5N ONE (11:01)
[2018-12-12] MEDS: LIDOCAINE 5% TOPICAL PATCH TP SCH (11:03)
[2018-12-12] MEDS: amLODIPine BESYLATE 10 MG TABLET (FP) PO SCH (11:03)
[2018-12-12] MEDS: BICALUTAMIDE 50 MG TABLET (FP) PO SCH (11:04)
[2018-12-12] MEDS ORDERED: ONDANSETRON 4 MG/2 ML VIAL IVPUSH PRN (12:00)
--- NOTE | 2018-12-12 12:03 | PN ---
Progress Note, Physician History of Present Illness: stable no new issues - Current Medication List Current Medications: Active Medications Acetaminophen (Tylenol Suppository -) 650 mg [place] Q4H PRN PRN Reason: FEVER Acetaminophen (Tylenol -) 650 mg PO Q6H PRN PRN Reason: PAIN Last Admin: 12/06/18 21:43 Dose: 650 mg Amlodipine Besylate (Norvasc -) 10 mg PO DAILY [facility] Last Admin: 12/12/18 11:03 Dose: 10 mg Bicalutamide (Casodex -) 50 mg PO DAILY [facility] Last Admin: 12/12/18 11:04 Dose: 50 mg Bisacodyl (Dulcolax -) 5 mg PO DAILY PRN PRN Reason: CONSTIPATION Last Admin: 12/10/18 11:42 Dose: 5 mg Haloperidol (Haldol Injection (Fast Acting) -) 2 mg IM Q4H PRN PRN Reason: AGITATION Lactulose (Cephulac (Oral Use)) 20 gm PO Q6HPO [facility] Last Admin: 12/12/18 11:03 Dose: Not Given Leuprolide Acetate (Lupron Depot 7.5mg -) 7.5 mg IM ONCE ONE Stop: 12/12/18 12:00 Lidocaine (Lidoderm Patch -) 1 patch TP DAILY [facility] Last Admin: 12/12/18 11:03 Dose: Not Given Miscellaneous (Lidoderm Patch Removal) 1 each MC DAILY@2200 [facility] Last Admin: 12/11/18 22:25 Dose: 1 each Ondansetron HCl (Zofran Injection) 4 mg IVPUSH Q4H PRN PRN Reason: NAUSEA AND/OR VOMITING - Objective Vital Signs: Vital Signs Temperature 98 F 12/12/18 10:00 Pulse Rate 93 H 12/12/18 10:00 Respiratory Rate 18 12/12/18 10:00 Blood Pressure 114/93 12/12/18 10:00 O2 Sat by Pulse Oximetry (%) 99 12/12/18 09:00 Constitutional: Yes: No Distress, Calm Cardiovascular: Yes: S1, S2 Respiratory: Yes: Regular, CTA Bilaterally Gastrointestinal: Yes: Normal Bowel Sounds, Soft Musculoskeletal: Yes: WNL Extremities: Yes: Other Neurological: Yes: Alert, Oriented Labs: CBC, BMP 12/12/18 06:48 12/12/18 06:48 INR, PTT INR 1.28 (0.83-1.09) H 12/04/18 10:42 Assessment/Plan Problem List - Problems (1) Bilateral hydronephrosis Code(s): N13.30 - UNSPECIFIED HYDRONEPHROSIS (2) Hyperkalemia Code(s): E87.5 - HYPERKALEMIA (3) Metabolic acidemia Code(s): E87.2 - ACIDOSIS (4) Renal failure Code(s): N19 - UNSPECIFIED KIDNEY FAILURE Qualifiers: Renal failure chronicity: acute (5) Sepsis Code(s): A41.9 - SEPSIS, UNSPECIFIED ORGANISM Qualifiers: Sepsis type: sepsis due to unspecified organism Qualified Code(s): A41.9 - Sepsis, unspecified organism (6) Systemic inflammatory response syndrome (SIRS) Code(s): R65.10 - SIRS OF NON-INFECTIOUS ORIGIN W/O ACUTE ORGAN DYSFUNCTION (7) HTN (hypertension) Code(s): I10 - ESSENTIAL (PRIMARY) HYPERTENSION Qualifiers: Hypertension type: essential hypertension Qualified Code(s): I10 - Essential (primary) hypertension r/o uti plan as per the team continue current mgmt transfusion monitor h and h
--- NOTE | 2018-12-12 12:08 | PN ---
Progress Note, Physician Chief Complaint: Received PRBC yesterday, c/o occasional nausea History of Present Illness: Glaucoma HTN. History of elevated PSA 50 in 01/24 and 84 in 04/26. Seen by Dr Cortez and MRI prostate was done which showed suggestive for malignancy prostate mass growing through the capsule and multiple pelvic LN. The patient was scheduled for a biopsy of the prostate, preop eval was done, but the patient decided not to proceed with prostate biopsy, Cognitive impairment - Current Medication List Current Medications: Active Medications Acetaminophen (Tylenol Suppository -) 650 mg [place] Q4H PRN PRN Reason: FEVER Acetaminophen (Tylenol -) 650 mg PO Q6H PRN PRN Reason: PAIN Last Admin: 12/06/18 21:43 Dose: 650 mg Amlodipine Besylate (Norvasc -) 10 mg PO DAILY [facility] Last Admin: 12/12/18 11:03 Dose: 10 mg Bicalutamide (Casodex -) 50 mg PO DAILY [facility] Last Admin: 12/12/18 11:04 Dose: 50 mg Bisacodyl (Dulcolax -) 5 mg PO DAILY PRN PRN Reason: CONSTIPATION Last Admin: 12/10/18 11:42 Dose: 5 mg Haloperidol (Haldol Injection (Fast Acting) -) 2 mg IM Q4H PRN PRN Reason: AGITATION Lactulose (Cephulac (Oral Use)) 20 gm PO Q6HPO [facility] Last Admin: 12/12/18 11:03 Dose: Not Given Leuprolide Acetate (Lupron Depot 7.5mg -) 7.5 mg IM ONCE ONE Stop: 12/12/18 12:00 Lidocaine (Lidoderm Patch -) 1 patch TP DAILY [facility] Last Admin: 12/12/18 11:03 Dose: Not Given Miscellaneous (Lidoderm Patch Removal) 1 each MC DAILY@2200 [facility] Last Admin: 12/11/18 22:25 Dose: 1 each Ondansetron HCl (Zofran Injection) 4 mg IVPUSH Q4H PRN PRN Reason: NAUSEA AND/OR VOMITING - Objective Vital Signs: Vital Signs Temperature 98 F 12/12/18 10:00 Pulse Rate 93 H 12/12/18 10:00 Respiratory Rate 18 12/12/18 10:00 Blood Pressure 114/93 12/12/18 10:00 O2 Sat by Pulse Oximetry (%) 99 08/06/19 09:00 Constitutional: Yes: No Distress, Calm Eyes: Yes: Conjunctiva Clear, EOM Intact HENT: Yes: Atraumatic, Normocephalic. No: Drooling, Epistaxis Neck: Yes: Supple, Trachea Midline. No: Rigid Cardiovascular: Yes: Regular Rate and Rhythm, S1, S2 Respiratory: Yes: Regular, CTA Bilaterally Gastrointestinal: Yes: Normal Bowel Sounds, Soft. No: Abdomen, Obese, Palpable Mass ...Rectal Exam: Yes: Deferred Genitourinary: Yes: Berrios Present (drains urine), Other (Right nephrostomy-pink urine Left nephrostomy bloody urine) Breast(s): Yes: WNL Musculoskeletal: Yes: WNL Extremities: Yes: WNL Edema: No Peripheral Pulses WNL: Yes Neurological: Yes: Alert, Oriented ...Motor Strength: WNL Psychiatric: Yes: WNL Labs: CBC, BMP 12/12/18 06:48 12/12/18 06:48 INR, PTT INR 1.28 (0.83-1.09) H 12/04/18 10:42 Problem List - Problems (1) Bilateral hydronephrosis Assessment/Plan: Urology f/u on nephrostomies. Capping as per Maintain Berrios S/p uretheral stents B/L 12/08/18 Code(s): N13.30 - UNSPECIFIED HYDRONEPHROSIS (2) Renal failure Assessment/Plan: Improving creatinine- now 3.5 Follow BUN/Creat Code(s): N19 - UNSPECIFIED KIDNEY FAILURE (3) HTN (hypertension) Assessment/Plan: Amlodipine 10 mg Qd Code(s): I10 - ESSENTIAL (PRIMARY) HYPERTENSION Qualifiers: Qualified Code(s): I10 - Essential (primary) hypertension (4) Hydrocephalus Assessment/Plan: Neuro consult appreciated. Definitive management is postponed due to patient condition. Code(s): G91.9 - HYDROCEPHALUS, UNSPECIFIED Qualifiers: Qualified Code(s): G91.9 - Hydrocephalus, unspecified (5) Prostate cancer Assessment/Plan: Casodex, Lupron Code(s): C61 - MALIGNANT NEOPLASM OF PROSTATE (6) Constipation by delayed colonic transit Assessment/Plan: PO Lactulose, Fleets, Dulcolax-PRN Now had BM Code(s): K59.01 - SLOW TRANSIT CONSTIPATION
--- NOTE | 2018-12-12 16:18 | PN ---
Progress Note, Physician History of Present Illness: Pt seen and examined at bedside. He is awake and appears comfortable. - Current Medication List Current Medications: Active Medications Acetaminophen (Tylenol Suppository -) 650 mg [place] Q4H PRN PRN Reason: FEVER Acetaminophen (Tylenol -) 650 mg PO Q6H PRN PRN Reason: PAIN Last Admin: 12/06/18 21:43 Dose: 650 mg Amlodipine Besylate (Norvasc -) 10 mg PO DAILY [facility] Last Admin: 12/12/18 11:03 Dose: 10 mg Bicalutamide (Casodex -) 50 mg PO DAILY [facility] Last Admin: 12/12/18 11:04 Dose: 50 mg Bisacodyl (Dulcolax -) 5 mg PO DAILY PRN PRN Reason: CONSTIPATION Last Admin: 12/10/18 11:42 Dose: 5 mg Haloperidol (Haldol Injection (Fast Acting) -) 2 mg IM Q4H PRN PRN Reason: AGITATION Lactulose (Cephulac (Oral Use)) 20 gm PO Q6HPO [facility] Last Admin: 12/12/18 11:03 Dose: Not Given Leuprolide Acetate (Lupron Depot 7.5mg -) 7.5 mg IM ONCE ONE Stop: 12/12/18 12:00 Lidocaine (Lidoderm Patch -) 1 patch TP DAILY [facility] Last Admin: 12/12/18 11:03 Dose: Not Given Miscellaneous (Lidoderm Patch Removal) 1 each MC DAILY@2200 [facility] Last Admin: 12/11/18 22:25 Dose: 1 each Ondansetron HCl (Zofran Injection) 4 mg IVPUSH Q4H PRN PRN Reason: NAUSEA AND/OR VOMITING - Objective Vital Signs: Vital Signs Temperature 98 F 12/12/18 10:00 Pulse Rate 93 H 12/12/18 10:00 Respiratory Rate 18 12/12/18 10:00 Blood Pressure 114/93 12/12/18 10:00 O2 Sat by Pulse Oximetry (%) 99 12/12/18 09:00 Constitutional: Yes: Calm Eyes: Yes: Conjunctiva Clear HENT: Yes: Atraumatic Neck: Yes: Supple Cardiovascular: Yes: S1, S2 Respiratory: Yes: CTA Bilaterally Gastrointestinal: Yes: Soft Genitourinary: Yes: Berrios Present, Other (bilateral nephrostomy tubes) Musculoskeletal: Yes: WNL Edema: No Neurological: Yes: Oriented Psychiatric: Yes: Oriented Labs: CBC, BMP 12/12/18 06:48 12/12/18 06:48 INR, PTT INR 1.28 (0.83-1.09) H 12/04/18 10:42 Problem List - Problems (1) WOJCIECH (acute kidney injury) Code(s): N17.9 - ACUTE KIDNEY FAILURE, UNSPECIFIED (2) Urinary obstruction Code(s): N13.9 - OBSTRUCTIVE AND REFLUX UROPATHY, UNSPECIFIED (3) Bilateral hydronephrosis Code(s): N13.30 - UNSPECIFIED HYDRONEPHROSIS (4) HTN (hypertension) Code(s): I10 - ESSENTIAL (PRIMARY) HYPERTENSION Qualifiers: Hypertension type: essential hypertension Qualified Code(s): I10 - Essential (primary) hypertension (5) Hyperkalemia Code(s): E87.5 - HYPERKALEMIA (6) Renal failure Code(s): N19 - UNSPECIFIED KIDNEY FAILURE Qualifiers: Renal failure chronicity: acute Assessment/Plan Current Medications Generic Name Dose Route Start Last Admin Trade Name Freq PRN Reason Stop Dose Admin Acetaminophen 650 mg 11/25/18 11:27 Tylenol Suppository - [place] Q4H PRN FEVER Acetaminophen 650 mg 11/29/18 16:57 12/06/18 21:43 Tylenol - PO 650 mg Q6H PRN Administration PAIN Amlodipine Besylate 10 mg 11/26/18 10:00 12/12/18 11:03 Norvasc - PO 10 mg DAILY [facility]Y Administration Bicalutamide 50 mg 12/04/18 18:30 12/12/18 11:04 Casodex - PO 50 mg DAILY [facility] Administration Bisacodyl 5 mg 11/29/18 08:08 12/10/18 11:42 Dulcolax - PO 5 mg DAILY PRN Administration CONSTIPATION Haloperidol 2 mg 11/25/18 11:27 Haldol Injection (Fast Acting) - IM Q4H PRN AGITATION Lactulose 20 gm 12/11/18 10:00 12/12/18 11:03 Cephulac (Oral Use) PO Not Given Q6HPO SINDY Leuprolide Acetate 7.5 mg 12/12/18 11:59 Lupron Depot 7.5mg - IM 12/12/18 12:00 ONCE ONE Lidocaine 1 patch 12/02/18 11:00 12/12/18 11:03 Lidoderm Patch - TP Not Given DAILY [facility] Miscellaneous 1 each 12/02/18 22:00 12/11/18 22:25 Lidoderm Patch Removal MC 1 each DAILY@2200 [facility]Y Administration Ondansetron HCl 4 mg 12/12/18 12:00 Zofran Injection IVPUSH Q4H PRN NAUSEA AND/OR VOMITING Impression 1. WOJCIECH 2. hyperkalemia 3. likely prostate cancer 4. dementia 5. htn 6. severe hydronephrosis 7. hematuria 8. 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
--- NOTE | 2018-12-12 17:27 | PN ---
Progress Note (short form) - Note Progress Note: ureteral stents are in place with good urine output from his vilchis. I clamped the nephrostomy tubes. If his creatinine remains stable overnight, he can have the nephrostomies removed tomorrow as well as the vilchis catheter. Biopsy consistent with metastatic prostate cancer agree with medical oncology recommendations for casodex and Lupron with switching over to abiraterone. Problem List - Problems (1) Bilateral hydronephrosis Code(s): N13.30 - UNSPECIFIED HYDRONEPHROSIS
--- NOTE | 2018-12-12 18:46 | PN ---
Progress Note (short form) - Note Progress Note: Patient seen and examined Offers no specific complaints Last Vital Signs Temp Pulse Resp BP Pulse Ox 98 F 93 H 18 114/93 99 12/12/18 10:00 12/12/18 10:00 12/12/18 10:00 12/12/18 10:00 12/12/18 09:00 Lungs- clear Cor -RSR Abs- soft No significant edema Nephrostomy tubes noted CBC, BMP 12/12/18 06:48 12/12/18 06:48 Current Medications Generic Name Dose Route Start Last Admin Trade Name Freq PRN Reason Stop Dose Admin Acetaminophen 650 mg 11/25/18 11:27 Tylenol Suppository - [place] Q4H PRN FEVER Acetaminophen 650 mg 11/29/18 16:57 12/06/18 21:43 Tylenol - PO 650 mg Q6H PRN Administration PAIN Amlodipine Besylate 10 mg 11/26/18 10:00 12/12/18 11:03 Norvasc - PO 10 mg DAILY [facility] Administration Bicalutamide 50 mg 12/04/18 18:30 12/12/18 11:04 Casodex - PO 50 mg DAILY [facility] Administration Bisacodyl 5 mg 11/29/18 08:08 12/10/18 11:42 Dulcolax - PO 5 mg DAILY PRN Administration CONSTIPATION Haloperidol 2 mg 11/25/18 11:27 Haldol Injection (Fast Acting) - IM Q4H PRN AGITATION Lactulose 20 gm 12/11/18 10:00 12/12/18 17:35 Cephulac (Oral Use) PO Not Given Q6HPO [facility]Y Leuprolide Acetate 7.5 mg 12/12/18 11:59 Lupron Depot 7.5mg - IM 12/12/18 12:00 ONCE ONE Lidocaine 1 patch 12/02/18 11:00 12/12/18 11:03 Lidoderm Patch - TP Not Given DAILY [facility] Miscellaneous 1 each 12/02/18 22:00 12/11/18 22:25 Lidoderm Patch Removal MC 1 each DAILY@2200 [facility] Administration Ondansetron HCl 4 mg 12/12/18 12:00 Zofran Injection IVPUSH Q4H PRN NAUSEA AND/OR VOMITING Impression: Metastatic prostate ca CKD -- stable creatinine approximately 3.5 creatinine S/P obstructive uropathy S/P bilateral stents - now clamped Continue on casodex. hopefully lupron on discharge ? improve androgen blockade as outpatient with abiraterone.
[2018-12-12] MEDS: LIDOCAINE PATCH REMOVAL MC SCH (22:45)
[2018-12-13] MEDS: LACTULOSE 20 GM/30 ML UDC (FOR ORAL USE ONLY) PO SCH ×4 (06:17→23:10)
[2018-12-13 08:00] LABS: BLOOD UREA NITROGEN 60.6 mg/dL (7-18); CREATININE 3.2 mg/dL (0.55-1.3); POTASSIUM 4.9 mmol/L (3.5-5.1)
--- NOTE | 2018-12-13 08:55 | PN ---
Progress Note (short form) - Note Progress Note: Dr Cortez clamped nephrostomis yesterday. Creatinine today 3.2 If Creatinine remain stable, will d/c Nephrostomy tubes and d/c to SNF. BMP ordered for tomorrow. Laboratory Results - last 24 hr 12/13/18 06:38 Sodium 133 L Potassium 4.9 Chloride 102 Carbon Dioxide 18 L Anion Gap 13 BUN 60.6 H Creatinine 3.2 H Est GFR (CKD-EPI)AfAm 20.10 Est GFR (CKD-EPI)NonAf 17.34 Random Glucose 92 Calcium 9.0 Vital Signs (72 hours) 12/10/18 12/10/18 12/10/18 09:00 10:00 15:01 Temperature 98.6 F 98.2 F Pulse Rate 91 H 89 Respiratory 18 18 18 Rate Blood Pressure 104/58 L 103/73 O2 Sat by Pulse 96 Oximetry (%) 12/10/18 12/10/18 12/10/18 19:01 21:00 23:00 Temperature 98.5 F 99.3 F Pulse Rate 92 H 97 H Respiratory 18 19 19 Rate Blood Pressure 128/64 106/73 O2 Sat by Pulse 99 Oximetry (%) 12/11/18 12/11/18 12/11/18 03:00 09:00 09:16 Temperature 98.7 F 98 F Pulse Rate 96 H 95 H Respiratory 18 18 Rate Blood Pressure 133/76 124/76 O2 Sat by Pulse 98 Oximetry (%) 12/11/18 12/11/18 12/11/18 19:44 21:00 23:00 Temperature 98.1 F 98.3 F Pulse Rate 83 87 Respiratory 18 18 18 Rate Blood Pressure 118/73 120/73 O2 Sat by Pulse 99 Oximetry (%) 12/12/18 12/12/18 12/12/18 02:19 06:05 09:00 Temperature 98.3 F 97.4 F L Pulse Rate 92 H 86 Respiratory 18 18 18 Rate Blood Pressure 141/83 136/73 O2 Sat by Pulse 99 Oximetry (%) 12/12/18 12/12/18 12/12/18 10:00 20:10 21:00 Temperature 98 F 97.9 F Pulse Rate 93 H 98 H Respiratory 18 18 20 Rate Blood Pressure 114/93 114/78 O2 Sat by Pulse 96 Oximetry (%) 12/13/18 12/13/18 00:00 02:49 Temperature 98 F 98.3 F Pulse Rate 89 87 Respiratory 20 20 Rate Blood Pressure 104/55 L 108/63 O2 Sat by Pulse Oximetry (%) Awake, alert, NAD Lungs clear Heart S1S2 regular Abdomen soft +BS No CCE Berrios with urine, nephrostomiy tubes clamped. Current Active Problems Problem Status Onset WOJCIECH (acute kidney injury) Acute Anemia Acute Bilateral hydronephrosis Acute Constipation by delayed colonic transit Acute HTN (hypertension) Acute Hydrocephalus Acute Hypercapnic acidosis Acute Prophylactic measure Acute Prostate cancer Acute Renal failure Acute Urinary obstruction Acute Plan BMP in AM If Creat stable will send the patient for nephrostomy tubes removal Problem List - Problems (1) Bilateral hydronephrosis Code(s): N13.30 - UNSPECIFIED HYDRONEPHROSIS (2) Renal failure Code(s): N19 - UNSPECIFIED KIDNEY FAILURE Qualifiers: Renal failure chronicity: acute (3) HTN (hypertension) Code(s): I10 - ESSENTIAL (PRIMARY) HYPERTENSION Qualifiers: Hypertension type: essential hypertension Qualified Code(s): I10 - Essential (primary) hypertension (4) Hydrocephalus Code(s): G91.9 - HYDROCEPHALUS, UNSPECIFIED Qualifiers: Hydrocephalus type: unspecified Qualified Code(s): G91.9 - Hydrocephalus, unspecified (5) Prostate cancer Code(s): C61 - MALIGNANT NEOPLASM OF PROSTATE (6) Constipation by delayed colonic transit Code(s): K59.01 - SLOW TRANSIT CONSTIPATION
[2018-12-13] MEDS: LIDOCAINE 5% TOPICAL PATCH TP SCH (09:06)
[2018-12-13] MEDS: amLODIPine BESYLATE 10 MG TABLET (FP) PO SCH ×2 (09:06→09:10)
[2018-12-13] MEDS: BICALUTAMIDE 50 MG TABLET (FP) PO SCH ×2 (09:06→09:09)
--- NOTE | 2018-12-13 10:55 | PN ---
Progress Note (short form) - Note Progress Note: creatinine is stable recommend removal of PCN and vilchis Problem List - Problems (1) Bilateral hydronephrosis Code(s): N13.30 - UNSPECIFIED HYDRONEPHROSIS
--- NOTE | 2018-12-13 11:10 | PN ---
Progress Note, Physician History of Present Illness: events noted nephrostomy tube clamped awaiting removal of the tubes - Current Medication List Current Medications: Active Medications Acetaminophen (Tylenol Suppository -) 650 mg [place] Q4H PRN PRN Reason: FEVER Acetaminophen (Tylenol -) 650 mg PO Q6H PRN PRN Reason: PAIN Last Admin: 12/06/18 21:43 Dose: 650 mg Amlodipine Besylate (Norvasc -) 10 mg PO DAILY [facility] Last Admin: 12/13/18 09:10 Dose: Not Given Bicalutamide (Casodex -) 50 mg PO DAILY [facility] Last Admin: 12/13/18 09:09 Dose: Not Given Bisacodyl (Dulcolax -) 5 mg PO DAILY PRN PRN Reason: CONSTIPATION Last Admin: 12/10/18 11:42 Dose: 5 mg Haloperidol (Haldol Injection (Fast Acting) -) 2 mg IM Q4H PRN PRN Reason: AGITATION Lactulose (Cephulac (Oral Use)) 20 gm PO Q6HPO [facility] Last Admin: 12/13/18 06:17 Dose: 20 gm Leuprolide Acetate (Lupron Depot 7.5mg -) 7.5 mg IM ONCE ONE Stop: 12/12/18 12:00 Lidocaine (Lidoderm Patch -) 1 patch TP DAILY [facility] Last Admin: 12/13/18 09:06 Dose: Not Given Miscellaneous (Lidoderm Patch Removal) 1 each MC DAILY@2200 [facility] Last Admin: 12/12/18 22:45 Dose: 1 each Ondansetron HCl (Zofran Injection) 4 mg IVPUSH Q4H PRN PRN Reason: NAUSEA AND/OR VOMITING - Objective Vital Signs: Vital Signs Temperature 98.3 F 12/13/18 02:49 Pulse Rate 87 12/13/18 02:49 Respiratory Rate 20 12/13/18 02:49 Blood Pressure 108/63 12/13/18 02:49 O2 Sat by Pulse Oximetry (%) 95 12/13/18 09:00 Constitutional: Yes: No Distress, Calm Cardiovascular: Yes: S1, S2 Respiratory: Yes: Regular, CTA Bilaterally Gastrointestinal: Yes: Normal Bowel Sounds, Soft Genitourinary: Yes: Other (nephrostomy tubes) Neurological: Yes: Alert, Oriented Psychiatric: Yes: Alert, Oriented Labs: CBC, BMP 12/12/18 06:48 12/13/18 06:38 INR, PTT INR 1.28 (0.83-1.09) H 12/04/18 10:42 Assessment/Plan Problem List - Problems (1) Bilateral hydronephrosis Code(s): N13.30 - UNSPECIFIED HYDRONEPHROSIS (2) Hyperkalemia Code(s): E87.5 - HYPERKALEMIA (3) Metabolic acidemia Code(s): E87.2 - ACIDOSIS (4) Renal failure Code(s): N19 - UNSPECIFIED KIDNEY FAILURE Qualifiers: Renal failure chronicity: acute (5) Sepsis Code(s): A41.9 - SEPSIS, UNSPECIFIED ORGANISM Qualifiers: Sepsis type: sepsis due to unspecified organism Qualified Code(s): A41.9 - Sepsis, unspecified organism (6) Systemic inflammatory response syndrome (SIRS) Code(s): R65.10 - SIRS OF NON-INFECTIOUS ORIGIN W/O ACUTE ORGAN DYSFUNCTION (7) HTN (hypertension) Code(s): I10 - ESSENTIAL (PRIMARY) HYPERTENSION Qualifiers: Hypertension type: essential hypertension Qualified Code(s): I10 - Essential (primary) hypertension r/o uti plan as per the team continue current mgmt await for removal of nephrostomy tubes
--- NOTE | 2018-12-13 12:19 | PN ---
Progress Note, Physician History of Present Illness: Pt seen and examined at bedside. He is awake and alert. His nephrostomy tubes will be removed today. - Current Medication List Current Medications: Active Medications Acetaminophen (Tylenol Suppository -) 650 mg [place] Q4H PRN PRN Reason: FEVER Acetaminophen (Tylenol -) 650 mg PO Q6H PRN PRN Reason: PAIN Last Admin: 12/06/18 21:43 Dose: 650 mg Amlodipine Besylate (Norvasc -) 10 mg PO DAILY [facility] Last Admin: 12/13/18 09:10 Dose: Not Given Bicalutamide (Casodex -) 50 mg PO DAILY [facility] Last Admin: 12/13/18 09:09 Dose: Not Given Bisacodyl (Dulcolax -) 5 mg PO DAILY PRN PRN Reason: CONSTIPATION Last Admin: 12/10/18 11:42 Dose: 5 mg Haloperidol (Haldol Injection (Fast Acting) -) 2 mg IM Q4H PRN PRN Reason: AGITATION Lactulose (Cephulac (Oral Use)) 20 gm PO Q6HPO [facility] Last Admin: 12/13/18 06:17 Dose: 20 gm Leuprolide Acetate (Lupron Depot 7.5mg -) 7.5 mg IM ONCE ONE Stop: 12/12/18 12:00 Lidocaine (Lidoderm Patch -) 1 patch TP DAILY [facility] Last Admin: 12/13/18 09:06 Dose: Not Given Miscellaneous (Lidoderm Patch Removal) 1 each MC DAILY@2200 [facility] Last Admin: 12/12/18 22:45 Dose: 1 each Ondansetron HCl (Zofran Injection) 4 mg IVPUSH Q4H PRN PRN Reason: NAUSEA AND/OR VOMITING - Objective Vital Signs: Vital Signs Temperature 98.2 F 12/13/18 10:00 Pulse Rate 80 12/13/18 10:00 Respiratory Rate 20 12/13/18 10:00 Blood Pressure 109/58 L 12/13/18 10:00 O2 Sat by Pulse Oximetry (%) 95 12/13/18 09:00 Constitutional: Yes: Calm Eyes: Yes: Conjunctiva Clear HENT: Yes: Atraumatic Neck: Yes: Supple Cardiovascular: Yes: S1, S2 Respiratory: Yes: CTA Bilaterally Gastrointestinal: Yes: Soft Genitourinary: Yes: Berrios Present, Other (bilateral nephrostomy tubes) Musculoskeletal: Yes: WNL Edema: No Neurological: Yes: Oriented Psychiatric: Yes: Oriented Labs: CBC, BMP 12/12/18 06:48 12/13/18 06:38 INR, PTT INR 1.28 (0.83-1.09) H 12/04/18 10:42 Problem List - Problems (1) WOJCIECH (acute kidney injury) Code(s): N17.9 - ACUTE KIDNEY FAILURE, UNSPECIFIED (2) Urinary obstruction Code(s): N13.9 - OBSTRUCTIVE AND REFLUX UROPATHY, UNSPECIFIED (3) Bilateral hydronephrosis Code(s): N13.30 - UNSPECIFIED HYDRONEPHROSIS (4) HTN (hypertension) Code(s): I10 - ESSENTIAL (PRIMARY) HYPERTENSION Qualifiers: Hypertension type: essential hypertension Qualified Code(s): I10 - Essential (primary) hypertension (5) Hyperkalemia Code(s): E87.5 - HYPERKALEMIA (6) Renal failure Code(s): N19 - UNSPECIFIED KIDNEY FAILURE Qualifiers: Renal failure chronicity: acute Assessment/Plan Current Medications Generic Name Dose Route Start Last Admin Trade Name Freq PRN Reason Stop Dose Admin Acetaminophen 650 mg 11/25/18 11:27 Tylenol Suppository - [place] Q4H PRN FEVER Acetaminophen 650 mg 11/29/18 16:57 12/06/18 21:43 Tylenol - PO 650 mg Q6H PRN Administration PAIN Amlodipine Besylate 10 mg 11/26/18 10:00 12/13/18 09:10 Norvasc - PO Not Given DAILY [facility] Bicalutamide 50 mg 12/04/18 18:30 12/13/18 09:09 Casodex - PO Not Given DAILY [facility] Bisacodyl 5 mg 11/29/18 08:08 12/10/18 11:42 Dulcolax - PO 5 mg DAILY PRN Administration CONSTIPATION Haloperidol 2 mg 11/25/18 11:27 Haldol Injection (Fast Acting) - IM Q4H PRN AGITATION Lactulose 20 gm 12/11/18 10:00 12/13/18 06:17 Cephulac (Oral Use) PO 20 gm Q6HPO SIND[facility] Administration Leuprolide Acetate 7.5 mg 12/12/18 11:59 Lupron Depot 7.5mg - IM 12/12/18 12:00 ONCE ONE Lidocaine 1 patch 12/02/18 11:00 12/13/18 09:06 Lidoderm Patch - TP Not Given DAILY [facility] Miscellaneous 1 each 12/02/18 22:00 12/12/18 22:45 Lidoderm Patch Removal MC 1 each DAILY@2200 [facility] Administration Ondansetron HCl 4 mg 12/12/18 12:00 Zofran Injection IVPUSH Q4H PRN NAUSEA AND/OR VOMITING Impression 1. WOJCIECH 2. hyperkalemia 3. likely prostate cancer 4. dementia 5. htn 6. severe hydronephrosis 7. hematuria 8. likely bone mets Plan - consumer insights specialist is improved - monitor urine output - will need close urology follow up - will need oncology follow up - avoid nsaids - avoid nephrotoxins
[2018-12-13] MEDS: LIDOCAINE PATCH REMOVAL MC SCH (21:08)
[2018-12-14] MEDS: LACTULOSE 20 GM/30 ML UDC (FOR ORAL USE ONLY) PO SCH ×3 (06:01→17:09)
[2018-12-14 08:06] LABS: BLOOD UREA NITROGEN 63.6 mg/dL (7-18); CREATININE 3.1 mg/dL (0.55-1.3); POTASSIUM 4.9 mmol/L (3.5-5.1)
--- NOTE | 2018-12-14 08:34 | PN ---
Progress Note, Physician History of Present Illness: stable no new issues awaiting for tube removal - Current Medication List Current Medications: Active Medications Acetaminophen (Tylenol Suppository -) 650 mg [place] Q4H PRN PRN Reason: FEVER Acetaminophen (Tylenol -) 650 mg PO Q6H PRN PRN Reason: PAIN Last Admin: 12/06/18 21:43 Dose: 650 mg Amlodipine Besylate (Norvasc -) 10 mg PO DAILY [facility] Last Admin: 12/13/18 09:10 Dose: Not Given Bicalutamide (Casodex -) 50 mg PO DAILY [facility] Last Admin: 12/13/18 09:09 Dose: Not Given Bisacodyl (Dulcolax -) 5 mg PO DAILY PRN PRN Reason: CONSTIPATION Last Admin: 12/10/18 11:42 Dose: 5 mg Haloperidol (Haldol Injection (Fast Acting) -) 2 mg IM Q4H PRN PRN Reason: AGITATION Lactulose (Cephulac (Oral Use)) 20 gm PO Q6HPO [facility] Last Admin: 12/14/18 06:01 Dose: Not Given Leuprolide Acetate (Lupron Depot 7.5mg -) 7.5 mg IM ONCE ONE Stop: 12/12/18 12:00 Lidocaine (Lidoderm Patch -) 1 patch TP DAILY [facility] Last Admin: 12/13/18 09:06 Dose: Not Given Miscellaneous (Lidoderm Patch Removal) 1 each MC DAILY@2200 [facility] Last Admin: 12/13/18 21:08 Dose: 1 each Ondansetron HCl (Zofran Injection) 4 mg IVPUSH Q4H PRN PRN Reason: NAUSEA AND/OR VOMITING - Objective Vital Signs: Vital Signs Temperature 98.1 F 12/14/18 06:11 Pulse Rate 82 12/14/18 06:11 Respiratory Rate 18 12/14/18 06:11 Blood Pressure 113/64 12/14/18 06:11 O2 Sat by Pulse Oximetry (%) 95 12/13/18 21:00 Constitutional: Yes: No Distress, Calm Cardiovascular: Yes: S1, S2 Respiratory: Yes: Regular, CTA Bilaterally Gastrointestinal: Yes: Normal Bowel Sounds, Soft Musculoskeletal: Yes: WNL Extremities: Yes: WNL Neurological: Yes: Alert, Oriented Psychiatric: Yes: Alert, Oriented Labs: CBC, BMP 12/12/18 06:48 12/14/18 06:38 INR, PTT INR 1.28 (0.83-1.09) H 12/04/18 10:42 Assessment/Plan Problem List - Problems (1) Bilateral hydronephrosis Code(s): N13.30 - UNSPECIFIED HYDRONEPHROSIS (2) Hyperkalemia Code(s): E87.5 - HYPERKALEMIA (3) Metabolic acidemia Code(s): E87.2 - ACIDOSIS (4) Renal failure Code(s): N19 - UNSPECIFIED KIDNEY FAILURE Qualifiers: Renal failure chronicity: acute (5) Sepsis Code(s): A41.9 - SEPSIS, UNSPECIFIED ORGANISM Qualifiers: Sepsis type: sepsis due to unspecified organism Qualified Code(s): A41.9 - Sepsis, unspecified organism (6) Systemic inflammatory response syndrome (SIRS) Code(s): R65.10 - SIRS OF NON-INFECTIOUS ORIGIN W/O ACUTE ORGAN DYSFUNCTION (7) HTN (hypertension) Code(s): I10 - ESSENTIAL (PRIMARY) HYPERTENSION Qualifiers: Hypertension type: essential hypertension Qualified Code(s): I10 - Essential (primary) hypertension r/o uti plan as per the team continue current mgmt await for removal of nephrostomy tubes monitor urine output
[2018-12-14] MEDS: LIDOCAINE 5% TOPICAL PATCH TP SCH ×2 (09:09→09:12)
[2018-12-14] MEDS: BICALUTAMIDE 50 MG TABLET (FP) PO SCH (09:10)
[2018-12-14] MEDS: amLODIPine BESYLATE 10 MG TABLET (FP) PO SCH (09:10)
--- NOTE | 2018-12-14 14:52 | PN ---
Progress Note, Physician History of Present Illness: Pt seen and examined at bedside. He is awake and alert. The nephrostomy tubes were removed. - Current Medication List Current Medications: Active Medications Acetaminophen (Tylenol Suppository -) 650 mg [place] Q4H PRN PRN Reason: FEVER Acetaminophen (Tylenol -) 650 mg PO Q6H PRN PRN Reason: PAIN Last Admin: 12/06/18 21:43 Dose: 650 mg Amlodipine Besylate (Norvasc -) 10 mg PO DAILY [facility] Last Admin: 12/14/18 09:10 Dose: 10 mg Bicalutamide (Casodex -) 50 mg PO DAILY [facility] Last Admin: 12/14/18 09:10 Dose: 50 mg Bisacodyl (Dulcolax -) 5 mg PO DAILY PRN PRN Reason: CONSTIPATION Last Admin: 12/10/18 11:42 Dose: 5 mg Haloperidol (Haldol Injection (Fast Acting) -) 2 mg IM Q4H PRN PRN Reason: AGITATION Lactulose (Cephulac (Oral Use)) 20 gm PO Q6HPO [facility] Last Admin: 12/14/18 11:32 Dose: Not Given Leuprolide Acetate (Lupron Depot 7.5mg -) 7.5 mg IM ONCE ONE Stop: 12/12/18 12:00 Lidocaine (Lidoderm Patch -) 1 patch TP DAILY [facility] Last Admin: 12/14/18 09:12 Dose: Not Given Miscellaneous (Lidoderm Patch Removal) 1 each MC DAILY@2200 [facility] Last Admin: 12/13/18 21:08 Dose: 1 each Ondansetron HCl (Zofran Injection) 4 mg IVPUSH Q4H PRN PRN Reason: NAUSEA AND/OR VOMITING - Objective Vital Signs: Vital Signs Temperature 97.5 F L 12/14/18 10:00 Pulse Rate 83 12/14/18 10:00 Respiratory Rate 18 12/14/18 10:00 Blood Pressure 160/88 12/14/18 10:00 O2 Sat by Pulse Oximetry (%) 99 12/14/18 09:00 Constitutional: Yes: Calm Eyes: Yes: Conjunctiva Clear HENT: Yes: Atraumatic Cardiovascular: Yes: S1, S2 Respiratory: Yes: CTA Bilaterally Gastrointestinal: Yes: Soft Genitourinary: Yes: WNL Musculoskeletal: Yes: WNL Edema: No Neurological: Yes: Oriented Psychiatric: Yes: Oriented Labs: CBC, BMP 12/12/18 06:48 12/14/18 06:38 INR, PTT INR 1.28 (0.83-1.09) H 12/04/18 10:42 Problem List - Problems (1) WOJCIECH (acute kidney injury) Code(s): N17.9 - ACUTE KIDNEY FAILURE, UNSPECIFIED (2) Urinary obstruction Code(s): N13.9 - OBSTRUCTIVE AND REFLUX UROPATHY, UNSPECIFIED (3) Bilateral hydronephrosis Code(s): N13.30 - UNSPECIFIED HYDRONEPHROSIS (4) HTN (hypertension) Code(s): I10 - ESSENTIAL (PRIMARY) HYPERTENSION Qualifiers: Hypertension type: essential hypertension Qualified Code(s): I10 - Essential (primary) hypertension (5) Hyperkalemia Code(s): E87.5 - HYPERKALEMIA (6) Renal failure Code(s): N19 - UNSPECIFIED KIDNEY FAILURE Qualifiers: Renal failure chronicity: acute Assessment/Plan Current Medications Generic Name Dose Route Start Last Admin Trade Name Freq PRN Reason Stop Dose Admin Acetaminophen 650 mg 11/25/18 11:27 Tylenol Suppository - [place] Q4H PRN FEVER Acetaminophen 650 mg 11/29/18 16:57 12/06/18 21:43 Tylenol - PO 650 mg Q6H PRN Administration PAIN Amlodipine Besylate 10 mg 11/26/18 10:00 12/14/18 09:10 Norvasc - PO 10 mg DAILY [facility] Administration Bicalutamide 50 mg 12/04/18 18:30 12/14/18 09:10 Casodex - PO 50 mg DAILY [facility] Administration Bisacodyl 5 mg 11/29/18 08:08 12/10/18 11:42 Dulcolax - PO 5 mg DAILY PRN Administration CONSTIPATION Haloperidol 2 mg 11/25/18 11:27 Haldol Injection (Fast Acting) - IM Q4H PRN AGITATION Lactulose 20 gm 12/11/18 10:00 12/14/18 11:32 Cephulac (Oral Use) PO Not Given Q6HPO [facility] Leuprolide Acetate 7.5 mg 12/12/18 11:59 Lupron Depot 7.5mg - IM 12/12/18 12:00 ONCE ONE Lidocaine 1 patch 12/02/18 11:00 12/14/18 09:12 Lidoderm Patch - TP Not Given DAILY [facility] Miscellaneous 1 each 12/02/18 22:00 12/13/18 21:08 Lidoderm Patch Removal MC 1 each DAILY@2200 [facility] Administration Ondansetron HCl 4 mg 12/12/18 12:00 Zofran Injection IVPUSH Q4H PRN NAUSEA AND/OR VOMITING Impression 1. WOJCIECH 2. hyperkalemia 3. likely prostate cancer 4. dementia 5. htn 6. severe hydronephrosis 7. hematuria 8. likely bone mets Plan - nephrostomy tubes removed - oncology follow up for prostate ca, elevated psa - can see in office - renal function slowly improving - will need close urology follow up - avoid nsaids - avoid nephrotoxins
--- NOTE | 2018-12-14 15:37 | PN ---
Progress Note (short form) - Note Progress Note: Feels well, nephrostomy tubes were removed, Berrios is out Creat 3.1 Urinating well. Good PO Intake. Laboratory Results - last 24 hr 12/11/18 12/14/18 08:40 06:38 Sodium 132 L Potassium 4.9 Chloride 104 Carbon Dioxide 19 L Anion Gap 9 BUN 63.6 H Creatinine 3.1 H Est GFR (CKD-EPI)AfAm 20.89 Est GFR (CKD-EPI)NonAf 18.02 Random Glucose 89 Calcium 9.0 Blood Type A POSITIVE Antibody Screen Negative Crossmatch See Detail Vital Signs Temp 98.5 F 12/14/18 15:09 Pulse 81 12/14/18 15:09 Resp 18 12/14/18 15:09 BP 126/80 12/14/18 15:09 Pulse Ox 99 12/14/18 09:00 Intake & Output 12/13/18 12/14/18 12/14/18 23:59 11:59 23:59 Intake Total 200 430 300 Output Total 350 Balance -150 430 300 Intake: Oral 200 430 300 Output: Urine 350 Berrios 350 Other: Voiding Method Incontinent Toilet # Unmeasured Voids Void 1 3 Lungs are clear Heart S1S2 regular Abdomen soft, NT No CCE Current Active Problems Problem Status Onset WOJCIECH (acute kidney injury) Acute Anemia Acute Bilateral hydronephrosis Acute Constipation by delayed colonic transit Acute HTN (hypertension) Acute Hydrocephalus Acute Hypercapnic acidosis Acute Prophylactic measure Acute Prostate cancer Acute Renal failure Acute Urinary obstruction Acute Plan D/c to SNF Continue Casodex, Lupron. Problem List - Problems (1) Bilateral hydronephrosis Code(s): N13.30 - UNSPECIFIED HYDRONEPHROSIS (2) Renal failure Code(s): N19 - UNSPECIFIED KIDNEY FAILURE Qualifiers: Renal failure chronicity: acute (3) HTN (hypertension) Code(s): I10 - ESSENTIAL (PRIMARY) HYPERTENSION Qualifiers: Hypertension type: essential hypertension Qualified Code(s): I10 - Essential (primary) hypertension (4) Hydrocephalus Code(s): G91.9 - HYDROCEPHALUS, UNSPECIFIED Qualifiers: Hydrocephalus type: unspecified Qualified Code(s): G91.9 - Hydrocephalus, unspecified (5) Prostate cancer Code(s): C61 - MALIGNANT NEOPLASM OF PROSTATE (6) Constipation by delayed colonic transit Code(s): K59.01 - SLOW TRANSIT CONSTIPATION
[2018-12-14] MEDS ORDERED: PT OWN MED DRAWER 7, Y5N ONE (22:17)
[2018-12-14] MEDS: LIDOCAINE PATCH REMOVAL MC SCH (22:30)
[2018-12-15] MEDS: LACTULOSE 20 GM/30 ML UDC (FOR ORAL USE ONLY) PO SCH ×4 (05:03→18:20)
--- NOTE | 2018-12-15 08:59 | PN ---
Progress Note (short form) - Note Progress Note: PT re-evaluation is pending. Awake, alert. Vital Signs - 24 hr 12/14/18 12/14/18 12/14/18 09:00 10:00 15:09 Temperature 97.5 F L 98.5 F Pulse Rate 83 81 Respiratory 18 18 Rate Blood Pressure 160/88 126/80 O2 Sat by Pulse 99 Oximetry (%) 12/14/18 12/14/18 12/15/18 17:41 21:00 02:03 Temperature 98.9 F 98.5 F 98.1 F Pulse Rate 87 88 84 Respiratory 18 18 18 Rate Blood Pressure 125/77 123/75 112/67 O2 Sat by Pulse 95 Oximetry (%) 12/15/18 06:03 Temperature 99.0 F Pulse Rate 87 Respiratory 18 Rate Blood Pressure 121/63 O2 Sat by Pulse Oximetry (%) Laboratory Results - last 24 hr 12/11/18 08:40 Blood Type A POSITIVE Antibody Screen Negative Crossmatch See Detail Awake,alert, NAD Lungs are Clear Heart S1S2 regular Abdomen soft, NT Ext no CCE Current Active Problems Problem Status Onset WOJCIECH (acute kidney injury) Acute Anemia Acute Bilateral hydronephrosis Acute Constipation by delayed colonic transit Acute HTN (hypertension) Acute Hydrocephalus Acute Hypercapnic acidosis Acute Prophylactic measure Acute Prostate cancer Acute Renal failure Acute Urinary obstruction Acute Plan If qualifies-SNF Continue Norvasc for HTN Casadex/Lupron for prostate cancer. Oncology f/u Problem List - Problems (1) Bilateral hydronephrosis Code(s): N13.30 - UNSPECIFIED HYDRONEPHROSIS (2) Renal failure Code(s): N19 - UNSPECIFIED KIDNEY FAILURE Qualifiers: Renal failure chronicity: acute (3) HTN (hypertension) Code(s): I10 - ESSENTIAL (PRIMARY) HYPERTENSION Qualifiers: Hypertension type: essential hypertension Qualified Code(s): I10 - Essential (primary) hypertension (4) Hydrocephalus Code(s): G91.9 - HYDROCEPHALUS, UNSPECIFIED Qualifiers: Hydrocephalus type: unspecified Qualified Code(s): G91.9 - Hydrocephalus, unspecified (5) Prostate cancer Code(s): C61 - MALIGNANT NEOPLASM OF PROSTATE (6) Constipation by delayed colonic transit Code(s): K59.01 - SLOW TRANSIT CONSTIPATION
--- NOTE | 2018-12-15 09:08 | PN ---
Progress Note, Physician History of Present Illness: stable no new issues - Current Medication List Current Medications: Active Medications Acetaminophen (Tylenol Suppository -) 650 mg [place] Q4H PRN PRN Reason: FEVER Acetaminophen (Tylenol -) 650 mg PO Q6H PRN PRN Reason: PAIN Last Admin: 12/06/18 21:43 Dose: 650 mg Amlodipine Besylate (Norvasc -) 10 mg PO DAILY [facility] Last Admin: 12/14/18 09:10 Dose: 10 mg Bicalutamide (Casodex -) 50 mg PO DAILY [facility] Last Admin: 12/14/18 09:10 Dose: 50 mg Bisacodyl (Dulcolax -) 5 mg PO DAILY PRN PRN Reason: CONSTIPATION Last Admin: 12/10/18 11:42 Dose: 5 mg Haloperidol (Haldol Injection (Fast Acting) -) 2 mg IM Q4H PRN PRN Reason: AGITATION Lactulose (Cephulac (Oral Use)) 20 gm PO Q6HPO [facility] Last Admin: 12/15/18 05:03 Dose: 20 gm Leuprolide Acetate (Lupron Depot 7.5mg -) 7.5 mg IM ONCE ONE Stop: 12/12/18 12:00 Lidocaine (Lidoderm Patch -) 1 patch TP DAILY [facility] Last Admin: 12/14/18 09:12 Dose: Not Given Miscellaneous (Lidoderm Patch Removal) 1 each MC DAILY@2200 [facility] Last Admin: 12/14/18 22:30 Dose: Not Given Ondansetron HCl (Zofran Injection) 4 mg IVPUSH Q4H PRN PRN Reason: NAUSEA AND/OR VOMITING - Objective Vital Signs: Vital Signs Temperature 99.0 F 12/15/18 06:03 Pulse Rate 87 12/15/18 06:03 Respiratory Rate 18 12/15/18 06:03 Blood Pressure 121/63 12/15/18 06:03 O2 Sat by Pulse Oximetry (%) 95 12/14/18 21:00 Constitutional: Yes: No Distress, Calm Cardiovascular: Yes: S1, S2 Respiratory: Yes: Regular, CTA Bilaterally Gastrointestinal: Yes: Normal Bowel Sounds, Soft Musculoskeletal: Yes: WNL Extremities: Yes: WNL Neurological: Yes: Alert, Oriented Psychiatric: Yes: Alert, Oriented Labs: CBC, BMP 12/12/18 06:48 12/14/18 06:38 INR, PTT INR 1.28 (0.83-1.09) H 12/04/18 10:42 Assessment/Plan Problem List - Problems (1) Bilateral hydronephrosis Code(s): N13.30 - UNSPECIFIED HYDRONEPHROSIS (2) Hyperkalemia Code(s): E87.5 - HYPERKALEMIA (3) Metabolic acidemia Code(s): E87.2 - ACIDOSIS (4) Renal failure Code(s): N19 - UNSPECIFIED KIDNEY FAILURE Qualifiers: Renal failure chronicity: acute (5) Sepsis Code(s): A41.9 - SEPSIS, UNSPECIFIED ORGANISM Qualifiers: Sepsis type: sepsis due to unspecified organism Qualified Code(s): A41.9 - Sepsis, unspecified organism (6) Systemic inflammatory response syndrome (SIRS) Code(s): R65.10 - SIRS OF NON-INFECTIOUS ORIGIN W/O ACUTE ORGAN DYSFUNCTION (7) HTN (hypertension) Code(s): I10 - ESSENTIAL (PRIMARY) HYPERTENSION Qualifiers: Hypertension type: essential hypertension Qualified Code(s): I10 - Essential (primary) hypertension r/o uti plan as per the team continue current mgmt physio
[2018-12-15] MEDS: LIDOCAINE 5% TOPICAL PATCH TP SCH (11:25)
[2018-12-15] MEDS ORDERED: PT OWN MED DRAWER 7, Y5N ONE (11:27)
[2018-12-15] MEDS: amLODIPine BESYLATE 10 MG TABLET (FP) PO SCH (11:29)
[2018-12-15] MEDS: BICALUTAMIDE 50 MG TABLET (FP) PO SCH (11:29)
--- NOTE | 2018-12-15 13:40 | PN ---
Progress Note, Physician History of Present Illness: Pt seen and examined at bedside. He is awake and appears comfortable. - Current Medication List Current Medications: Active Medications Acetaminophen (Tylenol Suppository -) 650 mg PA Q4H PRN PRN Reason: FEVER Acetaminophen (Tylenol -) 650 mg PO Q6H PRN PRN Reason: PAIN Last Admin: 12/06/18 21:43 Dose: 650 mg Amlodipine Besylate (Norvasc -) 10 mg PO DAILY [facility] Last Admin: 12/15/18 11:29 Dose: 10 mg Bicalutamide (Casodex -) 50 mg PO DAILY [facility] Last Admin: 12/15/18 11:29 Dose: 50 mg Bisacodyl (Dulcolax -) 5 mg PO DAILY PRN PRN Reason: CONSTIPATION Last Admin: 12/10/18 11:42 Dose: 5 mg Haloperidol (Haldol Injection (Fast Acting) -) 2 mg IM Q4H PRN PRN Reason: AGITATION Lactulose (Cephulac (Oral Use)) 20 gm PO Q6HPO [facility] Last Admin: 12/15/18 11:29 Dose: 20 gm Leuprolide Acetate (Lupron Depot 7.5mg -) 7.5 mg IM ONCE ONE Stop: 12/12/18 12:00 Lidocaine (Lidoderm Patch -) 1 patch TP DAILY [facility] Last Admin: 12/15/18 11:25 Dose: Not Given Miscellaneous (Lidoderm Patch Removal) 1 each MC DAILY@2200 [facility] Last Admin: 12/14/18 22:30 Dose: Not Given Ondansetron HCl (Zofran Injection) 4 mg IVPUSH Q4H PRN PRN Reason: NAUSEA AND/OR VOMITING - Objective Vital Signs: Vital Signs Temperature 98 F 12/15/18 10:00 Pulse Rate 96 H 12/15/18 10:00 Respiratory Rate 18 12/15/18 10:00 Blood Pressure 114/76 12/15/18 10:00 O2 Sat by Pulse Oximetry (%) 95 12/15/18 09:00 Constitutional: Yes: Calm Eyes: Yes: Conjunctiva Clear HENT: Yes: Atraumatic Neck: Yes: Supple Cardiovascular: Yes: S1, S2 Respiratory: Yes: CTA Bilaterally Gastrointestinal: Yes: Soft Genitourinary: Yes: WNL Musculoskeletal: Yes: WNL Edema: No Integumentary: Yes: WNL Neurological: Yes: Oriented Labs: CBC, BMP 12/12/18 06:48 12/14/18 06:38 INR, PTT INR 1.28 (0.83-1.09) H 12/04/18 10:42 Problem List - Problems (1) WOJCIECH (acute kidney injury) Code(s): N17.9 - ACUTE KIDNEY FAILURE, UNSPECIFIED (2) Urinary obstruction Code(s): N13.9 - OBSTRUCTIVE AND REFLUX UROPATHY, UNSPECIFIED (3) Bilateral hydronephrosis Code(s): N13.30 - UNSPECIFIED HYDRONEPHROSIS (4) HTN (hypertension) Code(s): I10 - ESSENTIAL (PRIMARY) HYPERTENSION Qualifiers: Hypertension type: essential hypertension Qualified Code(s): I10 - Essential (primary) hypertension (5) Hyperkalemia Code(s): E87.5 - HYPERKALEMIA (6) Renal failure Code(s): N19 - UNSPECIFIED KIDNEY FAILURE Qualifiers: Renal failure chronicity: acute Assessment/Plan Current Medications Generic Name Dose Route Start Last Admin Trade Name Freq PRN Reason Stop Dose Admin Acetaminophen 650 mg 11/25/18 11:27 Tylenol Suppository - PA Q4H PRN FEVER Acetaminophen 650 mg 11/29/18 16:57 12/06/18 21:43 Tylenol - PO 650 mg Q6H PRN Administration PAIN Amlodipine Besylate 10 mg 11/26/18 10:00 12/15/18 11:29 Norvasc - PO 10 mg DAILY SINDY Administration Bicalutamide 50 mg 12/04/18 18:30 12/15/18 11:29 Casodex - PO 50 mg DAILY SINDY Administration Bisacodyl 5 mg 11/29/18 08:08 12/10/18 11:42 Dulcolax - PO 5 mg DAILY PRN Administration CONSTIPATION Haloperidol 2 mg 11/25/18 11:27 Haldol Injection (Fast Acting) - IM Q4H PRN AGITATION Lactulose 20 gm 12/11/18 10:00 12/15/18 11:29 Cephulac (Oral Use) PO 20 gm Q6HPO SINDY Administration Leuprolide Acetate 7.5 mg 12/12/18 11:59 Lupron Depot 7.5mg - IM 12/12/18 12:00 ONCE ONE Lidocaine 1 patch 12/02/18 11:00 12/15/18 11:25 Lidoderm Patch - TP Not Given DAILY SINDY Miscellaneous 1 each 12/02/18 22:00 12/14/18 22:30 Lidoderm Patch Removal MC Not Given DAILY@2200 SINDY Ondansetron HCl 4 mg 12/12/18 12:00 Zofran Injection IVPUSH Q4H PRN NAUSEA AND/OR VOMITING Impression 1. WOJCIECH 2. hyperkalemia 3. likely prostate cancer 4. dementia 5. htn 6. severe hydronephrosis 7. hematuria 8. likely bone mets Plan - renal function stabilizing - can see pt as outpt - cont to monitor renal function to see where he levels off - will need close urology follow up - avoid nsaids - avoid nephrotoxins
[2018-12-15 13:41] VITALS: BP 124/76; PULSE 85; TEMP 97.7
[2018-12-15] MEDS ORDERED: LEUPROLIDE ACETATE 7.5 MG KIT IM ONE (17:30)
[2018-12-15] MEDS: LIDOCAINE PATCH REMOVAL MC SCH (22:35)
== END 2018-12-15 22:00 | DRG 853 ==
LOC: JER 17:54 → JERBED 18:52 → JICU 11-23 00:15 → J4W 11-25 15:46 → J7W 11-27 18:48
PROVIDERS: ADMIT Internal Medicine; ATTEND Internal Medicine
PROC: 0T9030Z Drainage of Right Kidney with Drainage Device, Percutaneous Approach (ICD-10-PCS; 2018-11-24)
PROC: 0T9130Z Drainage of Left Kidney with Drainage Device, Percutaneous Approach (ICD-10-PCS; 2018-11-24)
PROC: 07BD3ZX Excision of Aortic Lymphatic, Percutaneous Approach, Diagnostic (ICD-10-PCS; principal; 2018-11-28)
PROC: 0T25X0Z Change Drainage Device in Kidney, External Approach (ICD-10-PCS; 2018-11-28)
PROC: 0T783DZ Dilation of Bilateral Ureters with Intraluminal Device, Percutaneous Approach (ICD-10-PCS; 2018-11-28)
PROC: 30233N1 Transfusion of Nonautologous Red Blood Cells into Peripheral Vein, Percutaneous Approach (ICD-10-PCS; 2018-12-11)
PROC: 0T25X0Z Change Drainage Device in Kidney, External Approach (ICD-10-PCS; 2018-12-14)
PROC: BT13YZZ Fluoroscopy of Bilateral Kidneys using Other Contrast (ICD-10-PCS; 2018-12-14)
PROC: 0TP5X0Z Removal of Drainage Device from Kidney, External Approach (ICD-10-PCS; 2018-12-14)
DX: A41.9 Sepsis, unspecified organism (principal); G93.41 Metabolic encephalopathy; E87.2 Acidosis; N13.30 Unspecified hydronephrosis; N17.9 Acute kidney failure, unspecified; N13.8 Other obstructive and reflux uropathy; G91.1 Obstructive hydrocephalus; C79.51 Secondary malignant neoplasm of bone; Z87.440 Personal history of urinary (tract) infections; E87.5 Hyperkalemia; R29.6 Repeated falls; H40.9 Unspecified glaucoma; F03.90 Unspecified dementia, unspecified severity, without behavioral disturbance, psychotic disturbance, mood disturbance, and anxiety; C61 Malignant neoplasm of prostate; R31.9 Hematuria, unspecified; R91.1 Solitary pulmonary nodule; D64.9 Anemia, unspecified; K59.01 Slow transit constipation; G93.89 Other specified disorders of brain; I12.9 Hypertensive chronic kidney disease with stage 1 through stage 4 chronic kidney disease, or unspecified chronic kidney disease; N18.9 Chronic kidney disease, unspecified
CPT/HCPCS: 36415; 36430; 36511; 49180; 50389; 50431; 50432; 50693; 70450-TC; 71045-TC-FY; 72100-TC-FY; 72125-TC; 72170-TC-FY; 74176-TC; 74425-TC-FY; 76000-TC-FY; 76098-TC-FY; 76775-TC; 76856-TC; 76998-TC; 77012-TC; 80048; 80053; 81003; 82140; 82550; 82553; 82803; 82962; 83605; 83735; 84100; 84153; 84484; 85025; 85027; 85610; 85730; 86850; 86900; 86901; 86922; 87040; 87086; 87899; 88307-TC; 88341-TC; 90670; 93005; 93010; 97116-GP; 97162-GP; 99285-25; A4358; C1729; C1769; J0131; J1644; J7030; P9038; P9058

== ENCOUNTER 2019-07-05 10:31 | Inpatient (IN) | payer OTHER ==
[2019-07-04 16:26] VITALS: BMI 26.6
[2019-07-05] MEDS ORDERED: VANCOMYCIN 500 MG VIAL (RESTRICTED TO ID ONLY) IVPB ONE (12:20)
[2019-07-05] MEDS ORDERED: VANCOMYCIN 1,000 MG VIAL (RESTRICTED TO ID ONLY) ONE (12:22)
[2019-07-05] MEDS ORDERED: oxyCODONE HCL 5 MG TABLET PO PRN (13:27)
--- NOTE | 2019-07-05 13:30 | OP ---
Operative Note - Note: Pre-Operative Diagnosis: rt hydronephrosis, incomplete bladder emptying Operation: rt stent exchange, left stent removal, bipolar TUVP Post-Operative Diagnosis: Same as Pre-op Anesthesia: General Operative Report Dictated: Yes
--- NOTE | 2019-07-05 13:57 | OP ---
DATE OF OPERATION: 07/05/2019 PREOPERATIVE DIAGNOSIS: Right hydronephrosis and incomplete bladder emptying. POSTOPERATIVE DIAGNOSIS: Right hydronephrosis and incomplete bladder emptying. PROCEDURE: Exchange of right ureteral stent, removal of left ureteral stent, and bipolar transurethral vaporization of the prostate. SURGEON: Josh De Oliveira MD INDICATIONS: Patient is an 79-year-old male with metastatic prostate cancer who was managed with bilateral stents for rising creatinine. Last stents were placed in February 2019. Repeat imaging shows right-sided hydronephrosis with an atrophic left kidney, so the plan was to remove the left ureteral stent since the kidney was atrophic and replace the right ureteral stent with a new ureteral stent and then also perform a bipolar transurethral vaporization of prostate in light of the patient's incomplete bladder emptying. DESCRIPTION OF PROCEDURE: Patient taken to OR. Placed supine on operating room table. Cardiac monitoring administered. General anesthesia established. She was prepped and draped in dorsal lithotomy position. The 22 sheath cystoscope was inserted into the urethra without difficulty. prostatic urethra was 3 cm and visually occlusive. The bladder was visualized. The trigone of bladder was abnormal indicating cancer progression. The left ureteral stent was grasped with a grasper and removed, and the right ureteral stent was grasped with a grasper and a guidewire advanced over the stent in the right renal pelvis and over the guidewire an 8-Setswana 24-cm double pigtail stent was then advanced in a monorail fashion. Fluoroscopy confirmed the stent to be in good position. With the stent portion of the procedure now completed, attention was turned to the bipolar transurethral vaporization of prostate. The bipolar resectoscope was then attached and placed into urethra with the visual obturator. Prostate tissue was vaporized circumferentially starting at the bladder neck and ending at the verumontanum until a wide-open channel was created. All bleeding sites were cauterized. The resectoscope was then removed, and a 22-Setswana Berrios was then placed to straight drainage with pink-tinged urine. Patient awoken from anesthesia and transferred to recovery in stable condition. There were no complications. Estimated blood loss was minimal. JOSH DE OLIVEIRA M.D. [id number]
[2019-07-05] MEDS ORDERED: ONDANSETRON 4 MG/2 ML VIAL IVPUSH PRN (14:26)
[2019-07-05] MEDS: DEXTROSE 5%-0.45% SALINE 1,000 ML IV SCH (14:38)
[2019-07-05] MEDS: LACTATED RINGERS SOLUTION 1,000 ML IV SCH (19:29)
[2019-07-05] MEDS ORDERED: PT OWN MED DRAWER 7, Y5N ONE ×2 (21:39→22:29)
[2019-07-05] MEDS: amLODIPine BESYLATE 10 MG TABLET (FP) PO SCH (22:06)
[2019-07-05] MEDS: CEFUROXIME AXETIL 500 MG TABLET PO SCH (22:39)
[2019-07-05] MEDS ORDERED: POLYETHYLENE GLYCOL 3350 119 GM BTL PO ONE (23:30)
[2019-07-06] MEDS: DEXTROSE 5%-0.45% SALINE 1,000 ML IV SCH ×2 (02:56→17:00)
[2019-07-06] MEDS ORDERED: LEUPROLIDE ACETATE 22.5 MG DIS IM SCH (09:30)
--- NOTE | 2019-07-06 09:35 | HP ---
Admitting History and Physical - Admission Chief Complaint: 79 y.o M with metastatic prostate cancer had yesterday left ureteral stent exchange, right ureteral stent removal and evaporation of the prostate. Admitted for further management. History of Present Illness: METASTATIC PROSTATE CANCER WITH PELVIC METS, EXTENSIVE PULMONARY NODULES, BONY AND VERTEBRAL METASTASIS. CKD, WORSENING RENAL FAILURE. ATROPHIC KIDNEY. PROSTATE CA DIAGNOSED IN FEBRUARY [address] BIOPSY BY IR. HTN WTH LVH ON EKG OBSTRUCTIVE HYDROCEPHALUS. GLAUCOMA CHRONIC CONSTIPATION DEMENTIA. 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, Other (HYDROCEPHALUS) Cardiovascular: Yes: HTN Pulmonary: Yes: Other (PULM NODULES) Gastrointestinal: Yes: Constipation Renal/: Yes: Renal Failure, BPH, Cancer (likely prostate CA), Other Psych: No: Addictions, Schizophrenia Musculoskeletal: No: Hemiparesis, Hemiplegia, Paraplegia - Past Surgical History Past Surgical History: Yes: None - Smoking History Smoking history: Never smoked - Alcohol/Substance Use Hx Alcohol Use: No - Social History History of Recent Travel: No Home Medications - Allergies Allergies/Adverse Reactions: Allergies Allergy/AdvReac Type Severity Reaction Status Date / Time No Known Allergies Allergy Verified 07/05/19 11:04 - Home Medications Home Medications: Ambulatory Orders Acetaminophen [Tylenol .Regular Strength -] 650 mg PO Q6H PRN tablet 12/05/18 Bisacodyl [Bisacodyl -] 5 mg PO DAILY PRN tablet. 12/05/18 Lactulose (Oral Use) [Cephulac -] 20 gm PO Q6H PRN udc 12/05/18 Leuprolide Acetate [Lupron Depot] 22.5 mg IM MONTHLY 07/04/19 Amlodipine Besylate [Norvasc -] 10 mg PO HS 07/05/19 Bicalutamide [Casodex -] 50 mg PO HS 07/05/19 Family Medical History Family History: Unremarkable Review of Systems Unable to obtain ROS, reason: CONFUSED Physical Examination Vital Signs: Vital Signs Temperature 99.1 F 07/06/19 06:00 Pulse Rate 87 07/06/19 06:00 Respiratory Rate 18 07/06/19 06:00 Blood Pressure 146/83 07/06/19 06:00 O2 Sat by Pulse Oximetry (%) 98 07/05/19 21:04 Constitutional: Yes: No Distress, Calm Eyes: Yes: Conjunctiva Clear, EOM Intact HENT: Yes: Atraumatic. No: Drooling Neck: Yes: Supple Cardiovascular: Yes: Regular Rate and Rhythm, S1, S2. No: Bradycardia, Tachycardia Respiratory: Yes: Regular, CTA Bilaterally Gastrointestinal: Yes: Normal Bowel Sounds, Soft. No: Ascites, Tenderness, Tenderness, Rebound, Vomiting Renal/: Yes: Anuria, Tyson Present Breast(s): Yes: WNL Musculoskeletal: Yes: Back Pain Extremities: No: Amputation, Calf Tenderness Edema: No Peripheral Pulses WNL: Yes Neurological: Yes: Alert, Confusion, Cran Nerves II-XII Intact, Unsteady Gait, Weakness (le). No: Oriented, Aphasia, Dysarthria, Lethargy, Seizure ...Motor Strength: WNL Psychiatric: Yes: Alert. No: Oriented, Agitated, Suicidal Ideation Problem List - Problems (1) Hydrocephalus Assessment/Plan: tHE PATIENT HAS CHRONIC OBSTUCTING HYDROCEPHALUS, NO PROCEDURE PLANNED AT THIS POINT WILL FOLLOW NEURO EXAM Code(s): G91.9 - HYDROCEPHALUS, UNSPECIFIED Qualifiers: Hydrocephalus type: unspecified Qualified Code(s): G91.9 - Hydrocephalus, unspecified (2) Renal failure Assessment/Plan: lEFT STENT REPLACED, PROSTATE EVAPORATED, Tyson IN PLACE. wILL FOLLOW BMP Code(s): N19 - UNSPECIFIED KIDNEY FAILURE Qualifiers: Renal failure chronicity: acute on chronic (3) Anemia Assessment/Plan: FOLLOW CBC Code(s): D64.9 - ANEMIA, UNSPECIFIED Qualifiers: Anemia type: unspecified type Qualified Code(s): D64.9 - Anemia, unspecified (4) Prostate cancer Assessment/Plan: cONTINUE lUPRON/cASADEX Code(s): C61 - MALIGNANT NEOPLASM OF PROSTATE (5) Discharge planning issues Assessment/Plan: cOGNITIVELY AND VISUALLY IMPAIRED m WITH le WEAKNESS, W/C BOUND WORSENING rf , NOW WITH TYSON CATH AND WORSEND CONDITION, LIVES ALONE NEEDS REHAB TO BE ABLE TO IMPROVE HIS PERFORMANCE AND ADL'S Code(s): Z02.9 - ENCOUNTER FOR ADMINISTRATIVE EXAMINATIONS, UNSPECIFIED
[2019-07-06] MEDS: HEPARIN NA (PORCINE) 5,000 UNITS/ML 1ML VIAL SQ SCH ×2 (10:46→22:11)
[2019-07-06] MEDS: POLYETHYLENE GLYCOL 3350 119 GM BTL PO SCH (10:46)
[2019-07-06] MEDS: CEFUROXIME AXETIL 500 MG TABLET PO SCH (10:46)
--- NOTE | 2019-07-06 11:19 | EKG ---
Test Reason : Blood Pressure : / mmHG Vent. Rate : 090 BPM Atrial Rate : 090 BPM P-R Int : 178 ms QRS Dur : 092 ms QT Int : 376 ms P-R-T Axes : 052 027 088 degrees QTc Int : 459 ms NORMAL SINUS RHYTHM NONSPECIFIC ST AND T WAVE ABNORMALITY ABNORMAL ECG WHEN COMPARED WITH ECG OF 22-NOV-2018 18:02, NONSPECIFIC T WAVE ABNORMALITY, WORSE IN LATERAL LEADS Confirmed by LAMBERT LAURA, BECKA ([id number]) on 07/06/2019 11:19:23 AM Referred By: RICKEY DAMICO Confirmed By:BECKA VERDIN MD
[2019-07-06] MEDS: TIMOLOL 0.5% OPHTHALMIC SOL 5 ML BOTTLE OU SCH ×2 (11:24→22:12)
[2019-07-06] MEDS ORDERED: oxyCODONE HCL 5 MG TABLET PO PRN (11:58)
[2019-07-06] MEDS ORDERED: PT OWN MED DRAWER 7, Y5N ONE ×2 (19:23→20:57)
[2019-07-06] MEDS: BICALUTAMIDE 50 MG TABLET (FP) PO SCH (22:11)
[2019-07-06] MEDS: amLODIPine BESYLATE 10 MG TABLET (FP) PO SCH (22:11)
[2019-07-06] MEDS: LACTATED RINGERS SOLUTION 1,000 ML IV SCH (22:11)
[2019-07-07 08:13] LABS: BASO % 0.4 % (0-2.0); HEMATOCRIT 33.3 % (35.4-49); HEMOGLOBIN 11.5 GM/dL (11.7-16.9); LYMPH % 23.1 % (8-40); MCH 31.8 pg (25.7-33.7); MCHC 34.4 g/dl (32.0-35.9); MEAN CELL VOLUME 92.3 fl (80-96); MEAN PLT VOLUME 7.7 fl (7.5-11.1); MONO % 8.7 % (3.8-10.2); NEUT % 65.8 % (42.8-82.8); PLATELET COUNT 234 K/MM3 (134-434); RBC 3.61 M/mm3 (4.00-5.60); RDW 13.9 % (11.9-15.9); WHITE BLOOD COUNT 8.2 K/mm3 (4.0-10.0)
[2019-07-07 09:05] LABS: ALBUMIN 3.7 g/dl (3.4-5.0); BILIRUBIN,TOTAL 0.8 mg/dL (0.2-1); BLOOD UREA NITROGEN 28.3 mg/dL (7-18); CALCIUM 9.3 mg/dL (8.5-10.1); CREATININE 2.3 mg/dL (0.55-1.3); POTASSIUM 4.7 mmol/L (3.5-5.1); TOT PROT 8.1 g/dl (6.4-8.2)
[2019-07-07] MEDS: HEPARIN NA (PORCINE) 5,000 UNITS/ML 1ML VIAL SQ SCH ×2 (09:22→21:51)
[2019-07-07] MEDS: TIMOLOL 0.5% OPHTHALMIC SOL 5 ML BOTTLE OU SCH ×2 (09:25→22:07)
[2019-07-07] MEDS: POLYETHYLENE GLYCOL 3350 119 GM BTL PO SCH (09:26)
--- NOTE | 2019-07-07 10:17 | PN ---
Progress Note, Physician Chief Complaint: Feels better after surgery, creatinine 2.3 now, while in the office it was up to 3-4 History of Present Illness: METASTATIC PROSTATE CANCER WITH PELVIC METS, EXTENSIVE PULMONARY NODULES, BONY AND VERTEBRAL METASTASIS. CKD, WORSENING RENAL FAILURE. ATROPHIC KIDNEY. PROSTATE CA DIAGNOSED IN FEBRUARY [address] BIOPSY BY IR. HTN WTH LVH ON EKG OBSTRUCTIVE HYDROCEPHALUS. GLAUCOMA CHRONIC CONSTIPATION DEMENTIA. URINARY, OCC BOWEL INCONTINENCE SPINAL STENOSIS, LE STENOSIS - Current Medication List Current Medications: Active Medications Acetaminophen (Tylenol -) 650 mg PO Q6H PRN PRN Reason: PAIN 1-5 Amlodipine Besylate (Norvasc -) 10 mg PO HS [facility] Last Admin: 07/06/19 22:11 Dose: 10 mg Bicalutamide (Casodex -) 50 mg PO HS [facility] Last Admin: 07/06/19 22:11 Dose: 50 mg Heparin Sodium (Porcine) (Heparin -) 5,000 unit SQ BID [facility] Last Admin: 07/07/19 09:22 Dose: 5,000 unit Dextrose/Sodium Chloride (D5-1/2ns -) 1,000 mls @ 75 mls/hr IV ASDIR [facility] Last Admin: 07/06/19 17:00 Dose: 75 mls/hr Lactated Ringer's (Lactated Ringers Solution) 1,000 mls @ 75 mls/hr IV ASDIR [facility] Last Admin: 07/06/19 22:11 Dose: 75 mls/hr Lactulose (Cephulac (Oral Use)) 20 gm PO Q6H PRN PRN Reason: CONSTIPATION Ondansetron HCl (Zofran Injection) 4 mg IVPUSH Q6H PRN PRN Reason: NAUSEA AND/OR VOMITING Oxycodone HCl (Roxicodone -) 5 mg PO Q4H PRN PRN Reason: PAIN LEVEL 6-10 Polyethylene Glycol (Miralax (For Daily Use) -) 17 gm PO DAILY [facility] Last Admin: 07/07/19 09:26 Dose: 17 gm Timolol Maleate (Timoptic 0.5%) 1 drop OU BID [facility] Last Admin: 07/07/19 09:25 Dose: 1 drop - Objective Vital Signs: Vital Signs Temperature 99.4 F 07/06/19 18:46 Pulse Rate 90 07/07/19 07:00 Respiratory Rate 20 07/07/19 07:00 Blood Pressure 142/70 02/29/20 07:00 O2 Sat by Pulse Oximetry (%) 98 07/06/19 21:00 Constitutional: Yes: No Distress, Anxious Eyes: Yes: Conjunctiva Clear, EOM Intact HENT: Yes: Atraumatic, Normocephalic Neck: Yes: Supple, Trachea Midline Cardiovascular: Yes: Regular Rate and Rhythm, S1, S2. No: Bradycardia, Tachycardia Respiratory: Yes: Regular, CTA Bilaterally Gastrointestinal: Yes: Normal Bowel Sounds, Soft. No: Abdomen, Obese ...Rectal Exam: Yes: Deferred Genitourinary: Yes: Tyson Present (drains bvloody urine) Breast(s): Yes: WNL Musculoskeletal: Yes: Muscle Weakness Extremities: No: Amputation, Calf Tenderness, Cold, Cool Edema: No Peripheral Pulses WNL: Yes Neurological: Yes: Alert, Oriented, Weakness. No: Aphasia, Asterixis, Dysarthria, Loss of Sensation, Seizure, Tremors, Unresponsive ...Motor Strength: WNL Psychiatric: Yes: Alert, Oriented. No: Agitated, Suicidal Ideation Labs: CBC, BMP 07/07/19 07:25 07/07/19 07:25 - ....Imaging Chest X-ray: Report Reviewed EKG: Report Reviewed Problem List - Problems (1) Hydrocephalus Assessment/Plan: tHE PATIENT HAS CHRONIC OBSTUCTING HYDROCEPHALUS, NO PROCEDURE PLANNED AT THIS POINT WILL FOLLOW NEURO EXAM Code(s): G91.9 - HYDROCEPHALUS, UNSPECIFIED Qualifiers: Hydrocephalus type: unspecified Qualified Code(s): G91.9 - Hydrocephalus, unspecified (2) Renal failure Assessment/Plan: lEFT STENT REPLACED, PROSTATE EVAPORATED, Tyson IN PLACE. wILL FOLLOW BMP Code(s): N19 - UNSPECIFIED KIDNEY FAILURE Qualifiers: Renal failure chronicity: acute on chronic (3) Anemia Assessment/Plan: FOLLOW CBC Code(s): D64.9 - ANEMIA, UNSPECIFIED Qualifiers: Anemia type: unspecified type Qualified Code(s): D64.9 - Anemia, unspecified (4) Prostate cancer Assessment/Plan: cONTINUE lUPRON/cASADEX Code(s): C61 - MALIGNANT NEOPLASM OF PROSTATE (5) Discharge planning issues Assessment/Plan: cOGNITIVELY AND VISUALLY IMPAIRED m WITH le WEAKNESS, W/C BOUND WORSENING rf , NOW WITH TYSON CATH AND WORSEND CONDITION, LIVES ALONE NEEDS REHAB TO BE ABLE TO IMPROVE HIS PERFORMANCE AND ADL'S Code(s): Z02.9 - ENCOUNTER FOR ADMINISTRATIVE EXAMINATIONS, UNSPECIFIED
[2019-07-07] MEDS: LACTATED RINGERS SOLUTION 1,000 ML IV SCH (16:36)
[2019-07-07] MEDS: DEXTROSE 5%-0.45% SALINE 1,000 ML IV SCH (16:36)
[2019-07-07] MEDS ORDERED: PT OWN MED DRAWER 7, Y5N ONE (21:11)
[2019-07-07] MEDS: amLODIPine BESYLATE 10 MG TABLET (FP) PO SCH (21:48)
[2019-07-07] MEDS: BICALUTAMIDE 50 MG TABLET (FP) PO SCH (21:48)
[2019-07-08 08:56] LABS: BLOOD UREA NITROGEN 30.3 mg/dL (7-18); CALCIUM 8.8 mg/dL (8.5-10.1); CREATININE 2.3 mg/dL (0.55-1.3); POTASSIUM 4.3 mmol/L (3.5-5.1)
--- NOTE | 2019-07-08 09:09 | PN ---
Progress Note, Physician Chief Complaint: awake, alert, NAD, feels well. History of Present Illness: METASTATIC PROSTATE CANCER WITH PELVIC METS, EXTENSIVE PULMONARY NODULES, BONY AND VERTEBRAL METASTASIS. CKD, WORSENING RENAL FAILURE. ATROPHIC KIDNEY. PROSTATE CA DIAGNOSED IN FEBRUARY [address] BIOPSY BY IR. HTN WTH LVH ON EKG OBSTRUCTIVE HYDROCEPHALUS. GLAUCOMA CHRONIC CONSTIPATION DEMENTIA. URINARY, OCC BOWEL INCONTINENCE SPINAL STENOSIS, LE STENOSIS - Current Medication List Current Medications: Active Medications Acetaminophen (Tylenol -) 650 mg PO Q6H PRN PRN Reason: PAIN 1-5 Amlodipine Besylate (Norvasc -) 10 mg PO HS [facility] Last Admin: 07/07/19 21:48 Dose: 10 mg Bicalutamide (Casodex -) 50 mg PO HS [facility] Last Admin: 07/07/19 21:48 Dose: 50 mg Heparin Sodium (Porcine) (Heparin -) 5,000 unit SQ BID [facility] Last Admin: 07/07/19 21:51 Dose: 5,000 unit Dextrose/Sodium Chloride (D5-1/2ns -) 1,000 mls @ 75 mls/hr IV ASDIR [facility] Last Admin: 07/07/19 16:36 Dose: Not Given Lactated Ringer's (Lactated Ringers Solution) 1,000 mls @ 75 mls/hr IV ASDIR [facility] Last Admin: 07/07/19 16:36 Dose: 75 mls/hr Lactulose (Cephulac (Oral Use)) 20 gm PO Q6H PRN PRN Reason: CONSTIPATION Ondansetron HCl (Zofran Injection) 4 mg IVPUSH Q6H PRN PRN Reason: NAUSEA AND/OR VOMITING Oxycodone HCl (Roxicodone -) 5 mg PO Q4H PRN PRN Reason: PAIN LEVEL 6-10 Polyethylene Glycol (Miralax (For Daily Use) -) 17 gm PO DAILY [facility] Last Admin: 07/07/19 09:26 Dose: 17 gm Timolol Maleate (Timoptic 0.5%) 1 drop OU BID [facility] Last Admin: 07/07/19 22:07 Dose: 1 drop - Objective Vital Signs: Vital Signs Temperature 98.0 F 07/08/19 04:00 Pulse Rate 66 07/08/19 04:00 Respiratory Rate 18 07/08/19 04:00 Blood Pressure 136/54 L 07/08/19 04:00 O2 Sat by Pulse Oximetry (%) 97 07/07/19 20:40 Constitutional: Yes: No Distress, Calm Eyes: Yes: Conjunctiva Clear HENT: Yes: Atraumatic, Normocephalic Neck: Yes: Supple, Trachea Midline Cardiovascular: Yes: Regular Rate and Rhythm, S1, S2. No: Bradycardia, Tachycardia Respiratory: Yes: Regular, CTA Bilaterally Gastrointestinal: Yes: Normal Bowel Sounds, Soft. No: Abdomen, Obese, Tenderness, Tenderness, Epigastrium, Tenderness, Rebound ...Rectal Exam: Yes: Deferred Genitourinary: Yes: Tyson Present (Blood tinged urine). No: Anuria, Bladder Distention, CVA Tenderness - Left, CVA Tenderness - Right Breast(s): Yes: WNL Musculoskeletal: Yes: WNL Extremities: No: Calf Tenderness, Cold, Cyanosis, Shortened Edema: No Integumentary: Yes: WNL Neurological: Yes: Alert, Oriented. No: Aphasia ...Motor Strength: WNL Psychiatric: Yes: Alert. No: Agitated, Suicidal Ideation Labs: CBC, BMP 07/07/19 07:25 07/08/19 07:30 Problem List - Problems (1) Hydrocephalus Assessment/Plan: tHE PATIENT HAS CHRONIC OBSTUCTING HYDROCEPHALUS, NO PROCEDURE PLANNED AT THIS POINT WILL FOLLOW NEURO EXAM Code(s): G91.9 - HYDROCEPHALUS, UNSPECIFIED Qualifiers: Hydrocephalus type: unspecified Qualified Code(s): G91.9 - Hydrocephalus, unspecified (2) Renal failure Assessment/Plan: lEFT STENT REPLACED, PROSTATE EVAPORATED, Tyson IN PLACE. BUN 30/ Creat 2.3 Code(s): N19 - UNSPECIFIED KIDNEY FAILURE Qualifiers: Renal failure chronicity: acute on chronic (3) Anemia Assessment/Plan: FOLLOW CBC Code(s): D64.9 - ANEMIA, UNSPECIFIED Qualifiers: Anemia type: unspecified type Qualified Code(s): D64.9 - Anemia, unspecified (4) Prostate cancer Assessment/Plan: cONTINUE lUPRON/cASADEX Code(s): C61 - MALIGNANT NEOPLASM OF PROSTATE (5) Discharge planning issues Assessment/Plan: cOGNITIVELY AND VISUALLY IMPAIRED m WITH le WEAKNESS, W/C BOUND WORSENING rf , NOW WITH TYSON CATH AND WORSEND CONDITION, LIVES ALONE NEEDS REHAB TO BE ABLE TO IMPROVE HIS PERFORMANCE AND ADL'S Code(s): Z02.9 - ENCOUNTER FOR ADMINISTRATIVE EXAMINATIONS, UNSPECIFIED
--- NOTE | 2019-07-08 09:13 | DS ---
Physical Examination Vital Signs: Vital Signs Temperature 98.0 F 07/08/19 04:00 Pulse Rate 66 07/08/19 04:00 Respiratory Rate 18 07/08/19 04:00 Blood Pressure 136/54 L 07/08/19 04:00 O2 Sat by Pulse Oximetry (%) 97 07/07/19 20:40 Constitutional: Yes: No Distress, Calm Eyes: Yes: Conjunctiva Clear, EOM Intact HENT: Yes: Atraumatic, Normocephalic Neck: Yes: Supple, Trachea Midline Cardiovascular: Yes: Regular Rate and Rhythm, S1, S2 Respiratory: Yes: Regular, CTA Bilaterally Gastrointestinal: Yes: Normal Bowel Sounds, Soft. No: Abdomen, Obese ...Rectal Exam: Yes: Deferred Renal/: Yes: Berrios Present Musculoskeletal: Yes: Back Pain Extremities: No: Amputation, Calf Tenderness, Cold, Cyanosis Edema: No Neurological: Yes: Alert, Oriented. No: Aphasia, Dysarthria, Lethargy, Seizure, Unresponsive ...Motor Strength: WNL Psychiatric: Yes: Alert. No: Agitated, Suicidal Ideation Labs: CBC, BMP 07/07/19 07:25 07/08/19 07:30 Discharge Summary Problems reviewed: Yes Reason For Visit: Prostate CA/mets,HYDRONEPLEROSIS,URINARY RETENTION Current Active Problems Discharge planning issues (Acute) Procedures: Principal: left ureteral stent replacement, removal right stent, oprostate evaporation. Condition: Stable - Instructions [facility] - Home Medications Comprehensive Discharge Medication List: Ambulatory Orders Acetaminophen [Tylenol .Regular Strength -] 650 mg PO Q6H PRN tablet 12/05/18 Bisacodyl [Bisacodyl -] 5 mg PO DAILY PRN tablet. 12/05/18 Lactulose (Oral Use) [Cephulac -] 20 gm PO Q6H PRN udc 12/05/18 Leuprolide Acetate [Lupron Depot] 22.5 mg IM MONTHLY 07/04/19 Amlodipine Besylate [Norvasc -] 10 mg PO HS 07/05/19 Bicalutamide [Casodex -] 50 mg PO HS 07/05/19
[2019-07-08] MEDS: POLYETHYLENE GLYCOL 3350 119 GM BTL PO SCH (09:41)
[2019-07-08] MEDS: TIMOLOL 0.5% OPHTHALMIC SOL 5 ML BOTTLE OU SCH ×2 (09:41→21:41)
[2019-07-08] MEDS: LACTATED RINGERS SOLUTION 1,000 ML IV SCH ×3 (09:44→17:41)
[2019-07-08] MEDS: HEPARIN NA (PORCINE) 5,000 UNITS/ML 1ML VIAL SQ SCH ×2 (09:44→21:36)
[2019-07-08] MEDS: DEXTROSE 5%-0.45% SALINE 1,000 ML IV SCH (15:52)
[2019-07-08] MEDS: ACETAMINOPHEN 325 MG TABLET (FP) PO PRN (19:20)
[2019-07-08] MEDS ORDERED: PT OWN MED DRAWER 7, Y5N ONE (21:05)
[2019-07-08] MEDS: amLODIPine BESYLATE 10 MG TABLET (FP) PO SCH (21:36)
[2019-07-08] MEDS: BICALUTAMIDE 50 MG TABLET (FP) PO SCH (21:36)
--- NOTE | 2019-07-09 08:00 | PN ---
Progress Note, Physician Chief Complaint: Awake, alert, NAD. History of Present Illness: METASTATIC PROSTATE CANCER WITH PELVIC METS, EXTENSIVE PULMONARY NODULES, BONY AND VERTEBRAL METASTASIS. CKD, WORSENING RENAL FAILURE. ATROPHIC KIDNEY. PROSTATE CA DIAGNOSED IN FEBRUARY [address] BIOPSY BY IR. HTN WTH LVH ON EKG OBSTRUCTIVE HYDROCEPHALUS. GLAUCOMA CHRONIC CONSTIPATION DEMENTIA. URINARY, OCC BOWEL INCONTINENCE SPINAL STENOSIS, LE STENOSIS - Current Medication List Current Medications: Active Medications Acetaminophen (Tylenol -) 650 mg PO Q6H PRN PRN Reason: PAIN 1-5 Last Admin: 07/08/19 19:20 Dose: 650 mg Amlodipine Besylate (Norvasc -) 10 mg PO HS [facility] Last Admin: 07/08/19 21:36 Dose: 10 mg Bicalutamide (Casodex -) 50 mg PO [facility] Last Admin: 07/08/19 21:36 Dose: 50 mg Heparin Sodium (Porcine) (Heparin -) 5,000 unit SQ BID [facility] Last Admin: 07/08/19 21:36 Dose: 5,000 unit Lactulose (Cephulac (Oral Use)) 20 gm PO Q6H PRN PRN Reason: CONSTIPATION Ondansetron HCl (Zofran Injection) 4 mg IVPUSH Q6H PRN PRN Reason: NAUSEA AND/OR VOMITING Oxycodone HCl (Roxicodone -) 5 mg PO Q4H PRN PRN Reason: PAIN LEVEL 6-10 Polyethylene Glycol (Miralax (For Daily Use) -) 17 gm PO DAILY [facility] Last Admin: 07/08/19 09:41 Dose: 17 gm Timolol Maleate (Timoptic 0.5%) 1 drop OU BID [facility] Last Admin: 07/08/19 21:41 Dose: 1 drop - Objective Vital Signs: Vital Signs Temperature 98.5 F 07/09/19 06:00 Pulse Rate 74 07/09/19 06:00 Respiratory Rate 18 07/09/19 06:00 Blood Pressure 110/64 07/09/19 06:00 O2 Sat by Pulse Oximetry (%) 96 07/08/19 19:25 Constitutional: Yes: No Distress, Calm Eyes: Yes: Conjunctiva Clear, EOM Intact HENT: Yes: Atraumatic, Normocephalic Neck: Yes: Supple, Trachea Midline Cardiovascular: Yes: Regular Rate and Rhythm, S1, S2. No: Bradycardia, Tachycardia Respiratory: Yes: Regular, CTA Bilaterally Gastrointestinal: Yes: Normal Bowel Sounds, Soft. No: Abdomen, Obese ...Rectal Exam: Yes: Deferred Genitourinary: Yes: Tyson Present Breast(s): Yes: WNL Musculoskeletal: Yes: WNL Extremities: Yes: Other (Hand X-ray no fracture, no blastic lesion.) Edema: No Peripheral Pulses WNL: No Neurological: Yes: Alert, Oriented (X2) ...Motor Strength: WNL Psychiatric: Yes: WNL Labs: CBC, BMP 07/07/19 07:25 07/08/19 07:30 Problem List - Problems (1) Hydrocephalus Assessment/Plan: tHE PATIENT HAS CHRONIC OBSTUCTING HYDROCEPHALUS, NO PROCEDURE PLANNED AT THIS POINT WILL FOLLOW NEURO EXAM Code(s): G91.9 - HYDROCEPHALUS, UNSPECIFIED Qualifiers: Hydrocephalus type: unspecified Qualified Code(s): G91.9 - Hydrocephalus, unspecified (2) Renal failure Assessment/Plan: lEFT STENT REPLACED, PROSTATE EVAPORATED, Tyson IN PLACE. BUN 30/ Creat 2.3 Code(s): N19 - UNSPECIFIED KIDNEY FAILURE Qualifiers: Renal failure chronicity: acute on chronic (3) Anemia Assessment/Plan: FOLLOW CBC Code(s): D64.9 - ANEMIA, UNSPECIFIED Qualifiers: Anemia type: unspecified type Qualified Code(s): D64.9 - Anemia, unspecified (4) Prostate cancer Assessment/Plan: cONTINUE lUPRON/cASADEX Code(s): C61 - MALIGNANT NEOPLASM OF PROSTATE (5) Discharge planning issues Assessment/Plan: cOGNITIVELY AND VISUALLY IMPAIRED m WITH le WEAKNESS, W/C BOUND WORSENING rf , NOW WITH TYSON CATH AND WORSEND CONDITION, LIVES ALONE NEEDS REHAB TO BE ABLE TO IMPROVE HIS PERFORMANCE AND ADL'S Code(s): Z02.9 - ENCOUNTER FOR ADMINISTRATIVE EXAMINATIONS, UNSPECIFIED
[2019-07-09] MEDS ORDERED: PT OWN MED DRAWER 7, Y5N ONE ×3 (09:46→20:20)
[2019-07-09] MEDS: HEPARIN NA (PORCINE) 5,000 UNITS/ML 1ML VIAL SQ SCH ×2 (09:51→21:01)
[2019-07-09] MEDS: POLYETHYLENE GLYCOL 3350 119 GM BTL PO SCH (09:52)
[2019-07-09] MEDS: TIMOLOL 0.5% OPHTHALMIC SOL 5 ML BOTTLE OU SCH ×2 (09:54→21:01)
[2019-07-09] MEDS: ACETAMINOPHEN 325 MG TABLET (FP) PO PRN ×2 (14:41→20:43)
--- NOTE | 2019-07-09 16:47 | PATH ---
Surgical Pathology Report Patient Name: DANIEL WRIGHT Med. Rec. #: [id number] /Age/Gender: 1940 (Age: 79) / M Account: [id number] Location: [facility] MED/SURG Taken: 07/05/2019 Received: 07/06/2019 Reported: 07/09/2019 Physicians: Contreras Bocanegra M.D. Specimen(s) Received A: LEFT URETERAL STENT B: RIGHT URETERAL STENT Clinical History Hydronephrosis, urinary retention, prostate cancer Final Diagnosis A. URETERAL STENT, LEFT, REMOVAL: URETERAL STENT. MACROSCOPIC DIAGNOSIS. B. URETERAL STENT, RIGHT, REMOVAL: URETERAL STENT. MACROSCOPIC DIAGNOSIS. Electronically Signed Praveena Sierra M.D. Gross Description A. Received fresh labeled "left ureteral stent," is a 37 cm in length white, coiled portion of tubing, consistent with a ureteral stent. No soft tissue is present. No sections are submitted, gross only. B. Received fresh labeled "right ureteral stent," is a 37 cm in length white, coiled portion of tubing, consistent with a ureteral stent. No soft tissue is present. No sections are submitted, gross only. 07/06/2019 [facility]07/06/2019
[2019-07-09] MEDS: amLODIPine BESYLATE 10 MG TABLET (FP) PO SCH (21:01)
[2019-07-09] MEDS: BICALUTAMIDE 50 MG TABLET (FP) PO SCH (21:01)
[2019-07-10] MEDS ORDERED: PT OWN MED DRAWER 7, Y5N ONE (09:10)
[2019-07-10] MEDS: HEPARIN NA (PORCINE) 5,000 UNITS/ML 1ML VIAL SQ SCH ×2 (09:12→21:37)
[2019-07-10] MEDS: TIMOLOL 0.5% OPHTHALMIC SOL 5 ML BOTTLE OU SCH ×2 (09:13→21:37)
[2019-07-10] MEDS: POLYETHYLENE GLYCOL 3350 119 GM BTL PO SCH (10:43)
--- NOTE | 2019-07-10 13:00 | PN ---
Progress Note (short form) - Note Progress Note: awake,alert, NAD Berrios drains clear urine Last Vital Signs Temp Pulse Resp BP Pulse Ox 98.1 F 70 20 135/56 L 97 07/10/19 09:00 07/10/19 09:00 07/10/19 09:00 07/10/19 09:00 07/10/19 09:00 Neck supple , no JVD Lungs are clear Heart S1S2 Abdomen soft, NT , Berrios in place Ext no CCE Plan Continue Lupron, Casadex. Continue PT for ambulation rehab REHAB application submitted. Problem List - Problems (1) Hydrocephalus Code(s): G91.9 - HYDROCEPHALUS, UNSPECIFIED Qualifiers: Hydrocephalus type: unspecified Qualified Code(s): G91.9 - Hydrocephalus, unspecified (2) Renal failure Code(s): N19 - UNSPECIFIED KIDNEY FAILURE Qualifiers: Renal failure chronicity: acute on chronic (3) Anemia Code(s): D64.9 - ANEMIA, UNSPECIFIED Qualifiers: Anemia type: unspecified type Qualified Code(s): D64.9 - Anemia, unspecified (4) Prostate cancer Code(s): C61 - MALIGNANT NEOPLASM OF PROSTATE (5) Discharge planning issues Code(s): Z02.9 - ENCOUNTER FOR ADMINISTRATIVE EXAMINATIONS, UNSPECIFIED
[2019-07-10] MEDS: amLODIPine BESYLATE 10 MG TABLET (FP) PO SCH (21:35)
[2019-07-10] MEDS: BICALUTAMIDE 50 MG TABLET (FP) PO SCH (21:35)
--- NOTE | 2019-07-11 08:23 | PN ---
Progress Note, Physician Chief Complaint: Comfortable in a/c History of Present Illness: METASTATIC PROSTATE CANCER WITH PELVIC METS, EXTENSIVE PULMONARY NODULES, BONY AND VERTEBRAL METASTASIS. CKD, WORSENING RENAL FAILURE. ATROPHIC KIDNEY. PROSTATE CA DIAGNOSED IN FEBRUARY [address] BIOPSY BY IR. HTN WTH LVH ON EKG OBSTRUCTIVE HYDROCEPHALUS. GLAUCOMA CHRONIC CONSTIPATION DEMENTIA. URINARY, OCC BOWEL INCONTINENCE SPINAL STENOSIS, LE STENOSIS - Current Medication List Current Medications: Active Medications Acetaminophen (Tylenol -) 650 mg PO Q6H PRN PRN Reason: PAIN 1-5 Last Admin: 07/09/19 20:43 Dose: 650 mg Amlodipine Besylate (Norvasc -) 10 mg PO HS [facility] Last Admin: 07/10/19 21:35 Dose: 10 mg Bicalutamide (Casodex -) 50 mg PO HS [facility] Last Admin: 07/10/19 21:35 Dose: 50 mg Heparin Sodium (Porcine) (Heparin -) 5,000 unit SQ BID [facility] Last Admin: 07/10/19 21:37 Dose: 5,000 unit Lactulose (Cephulac (Oral Use)) 20 gm PO Q6H PRN PRN Reason: CONSTIPATION Ondansetron HCl (Zofran Injection) 4 mg IVPUSH Q6H PRN PRN Reason: NAUSEA AND/OR VOMITING Polyethylene Glycol (Miralax (For Daily Use) -) 17 gm PO DAILY [facility] Last Admin: 07/10/19 10:43 Dose: 17 gm Timolol Maleate (Timoptic 0.5%) 1 drop OU BID [facility] Last Admin: 07/10/19 21:37 Dose: 1 drop - Objective Vital Signs: Vital Signs Temperature 98.7 F 07/11/19 06:00 Pulse Rate 67 07/11/19 06:00 Respiratory Rate 20 07/11/19 06:00 Blood Pressure 110/62 07/11/19 06:00 O2 Sat by Pulse Oximetry (%) 97 07/10/19 21:00 Constitutional: Yes: No Distress Eyes: Yes: Conjunctiva Clear HENT: Yes: Atraumatic, Normocephalic Neck: Yes: Supple, Trachea Midline Cardiovascular: Yes: Regular Rate and Rhythm Respiratory: Yes: Regular, CTA Bilaterally Gastrointestinal: Yes: Normal Bowel Sounds, Soft ...Rectal Exam: Yes: Deferred Genitourinary: Yes: Tyson Present Musculoskeletal: Yes: Muscle Weakness Extremities: No: Amputation, Calf Tenderness Edema: No Neurological: Yes: Alert, Oriented. No: Aphasia ...Motor Strength: WNL Psychiatric: Yes: WNL Labs: CBC, BMP 07/07/19 07:25 07/08/19 07:30 Problem List - Problems (1) Hydrocephalus Assessment/Plan: THE PATIENT HAS CHRONIC OBSTUCTING HYDROCEPHALUS, NO PROCEDURE PLANNED AT THIS POINT. Code(s): G91.9 - HYDROCEPHALUS, UNSPECIFIED Qualifiers: Hydrocephalus type: unspecified Qualified Code(s): G91.9 - Hydrocephalus, unspecified (2) Renal failure Assessment/Plan: lEFT STENT REPLACED, PROSTATE EVAPORATED, Tyson IN PLACE. Follow BUN/Creat as outpatient Code(s): N19 - UNSPECIFIED KIDNEY FAILURE Qualifiers: Renal failure chronicity: acute on chronic (3) Anemia Assessment/Plan: FOLLOW CBC Code(s): D64.9 - ANEMIA, UNSPECIFIED Qualifiers: Anemia type: unspecified type Qualified Code(s): D64.9 - Anemia, unspecified (4) Prostate cancer Assessment/Plan: cONTINUE lUPRON/cASADEX Code(s): C61 - MALIGNANT NEOPLASM OF PROSTATE
[2019-07-11] MEDS: POLYETHYLENE GLYCOL 3350 119 GM BTL PO SCH (09:55)
[2019-07-11] MEDS: HEPARIN NA (PORCINE) 5,000 UNITS/ML 1ML VIAL SQ SCH ×2 (09:55→21:03)
[2019-07-11] MEDS: LACTULOSE 20 GM/30 ML UDC (FOR ORAL USE ONLY) PO PRN ×2 (09:55→18:12)
[2019-07-11] MEDS: TIMOLOL 0.5% OPHTHALMIC SOL 5 ML BOTTLE OU SCH ×2 (09:56→21:02)
[2019-07-11] MEDS: ACETAMINOPHEN 325 MG TABLET (FP) PO PRN (18:13)
[2019-07-11] MEDS ORDERED: PT OWN MED DRAWER 7, Y5N ONE (20:28)
[2019-07-11] MEDS: BICALUTAMIDE 50 MG TABLET (FP) PO SCH (21:02)
[2019-07-11] MEDS: amLODIPine BESYLATE 10 MG TABLET (FP) PO SCH (21:02)
[2019-07-12 07:35] VITALS: BP 132/62; PULSE 62; TEMP 98.3
[2019-07-12] MEDS: HEPARIN NA (PORCINE) 5,000 UNITS/ML 1ML VIAL SQ SCH (10:10)
[2019-07-12] MEDS: TIMOLOL 0.5% OPHTHALMIC SOL 5 ML BOTTLE OU SCH (10:10)
[2019-07-12] MEDS: POLYETHYLENE GLYCOL 3350 119 GM BTL PO SCH (10:11)
== END 2019-07-12 11:51 | DRG 713 ==
LOC: JASU-SURG 10:31 → JASUSAT 10:31 → SUATTDRO 10:31 → J7W 14:52 → J8W 14:53 → JASUSAT 07-06 18:05 → J8W 07-07 10:15
PROVIDERS: ADMIT Internal Medicine; ATTEND Internal Medicine
PROC: 0TP98DZ Removal of Intraluminal Device from Ureter, Via Natural or Artificial Opening Endoscopic (ICD-10-PCS; principal; 2019-07-05 11:30)
PROC: 0V508ZZ Destruction of Prostate, Via Natural or Artificial Opening Endoscopic (ICD-10-PCS; 2019-07-05 11:30)
PROC: 0T768DZ Dilation of Right Ureter with Intraluminal Device, Via Natural or Artificial Opening Endoscopic (ICD-10-PCS; 2019-07-05 11:30)
DX: C61 Malignant neoplasm of prostate (principal); C79.51 Secondary malignant neoplasm of bone; C79.89 Secondary malignant neoplasm of other specified sites; G91.1 Obstructive hydrocephalus; N13.30 Unspecified hydronephrosis; R91.8 Other nonspecific abnormal finding of lung field; N26.1 Atrophy of kidney (terminal); H40.9 Unspecified glaucoma; K59.09 Other constipation; F03.90 Unspecified dementia, unspecified severity, without behavioral disturbance, psychotic disturbance, mood disturbance, and anxiety; R32 Unspecified urinary incontinence; R33.8 Other retention of urine; E66.9 Obesity, unspecified; D64.9 Anemia, unspecified; I12.9 Hypertensive chronic kidney disease with stage 1 through stage 4 chronic kidney disease, or unspecified chronic kidney disease; N18.9 Chronic kidney disease, unspecified; M48.061 Spinal stenosis, lumbar region without neurogenic claudication; N40.0 Benign prostatic hyperplasia without lower urinary tract symptoms; Z02.9 Encounter for administrative examinations, unspecified; Z68.26 Body mass index [BMI] 26.0-26.9, adult
CPT/HCPCS: 36415; 71045-TC-FY; 73130-TC-RT-FY; 80048; 80053; 85025; 88300-TC; 93005; 93010; 94760; 97116-GP; 97161-GP; J1644

== ENCOUNTER 2020-04-29 00:10 | Inpatient (IN) | payer OTHER ==
[2020-04-29] MEDS ORDERED: SODIUM CHLORIDE 2,381 ML IV ONE (00:55)
[2020-04-29] MEDS ORDERED: ACETAMINOPHEN 1000 MG/100 ML BAG IVPB ONE (01:34)
[2020-04-29 01:41] LABS: HEMATOCRIT 25.2 % (35.4-49); HEMOGLOBIN 8.4 GM/dL (11.7-16.9); LYMPH % 31.5 % (8-40); MCH 31.8 pg (25.7-33.7); MCHC 33.4 g/dl (32.0-35.9); MEAN CELL VOLUME 95.1 fl (80-96); MEAN PLT VOLUME 7.3 fl (7.5-11.1); MONO % 9.5 % (3.8-10.2); PLATELET COUNT 400 K/MM3 (134-434); RBC 2.65 M/mm3 (4.00-5.60); RDW 14.3 % (11.9-15.9); WHITE BLOOD COUNT 7.9 K/mm3 (4.0-10.0)
[2020-04-29 01:52] LABS: INR 1.35 (0.83-1.09); PROTHROMBIN TIME (PATIENT) 16.5 SEC (9.7-13.0)
[2020-04-29 01:55] LABS: ACTIVATED PTT 30.1 SECONDS (25.2-36.5)
[2020-04-29 01:59] LABS: EPI CELLS >36 /uL (0-25.1); HYALINE CASTS 10 /uL (0-3.1); URINE APPEARANCE CLOUDY; URINE BACTERIA 68 /uL (0-1359); URINE BILIRUBIN NEGATIVE (NEGATIVE); URINE COLOR YELLOW; URINE GLUCOSE (UA) NEGATIVE (NEGATIVE); URINE KETONE NEGATIVE (NEGATIVE); URINE LEUK ESTERASE 3+ (NEGATIVE); URINE NITRITE NEGATIVE (NEGATIVE); URINE PROTEIN 1+ (NEGATIVE); URINE WBC 400 /uL (0-25.8)
[2020-04-29 02:08] LABS: CALCIUM 8.4 mg/dL (8.5-10.1)
[2020-04-29 02:09] LABS: ALBUMIN 2.1 g/dl (3.4-5.0); BLOOD UREA NITROGEN 32.3 mg/dL (7-18)
[2020-04-29 02:12] LABS: CREATININE 1.7 mg/dL (0.55-1.3)
[2020-04-29 02:14] LABS: BILIRUBIN,TOTAL 0.4 mg/dL (0.2-1); TOT PROT 6.9 g/dl (6.4-8.2)
[2020-04-29] MEDS ORDERED: PIPERACILLIN/TAZOB 2.25 GM 2.25 GM in DEXTROSE 5%-WATER - 50 ML IVPB ONE (02:45)
[2020-04-29] MEDS ORDERED: PIPERACILLIN/TAZOB 2.25 GM 2.25 GM/50 ML BAG IVPB ONE ×2 (03:15→10:31)
[2020-04-29 04:44] LABS: URINE RBC 140 /uL (0-23.9)
[2020-04-29] MEDS: PIPERACILLIN/TAZOB 2.25 GM 2.25 GM in DEXTROSE 5%-WATER - 50 ML IVPB SCH ×2 (11:40→18:18)
[2020-04-29] MEDS: SODIUM CHLORIDE 0.45% 1,000 ML IV SCH (11:41)
[2020-04-29] MEDS: TIMOLOL 0.5% OPHTHALMIC SOL 5 ML BOTTLE OU SCH ×2 (11:42→21:42)
[2020-04-29 11:50] LABS: BASO % 0.7 % (0-2.0); EOS % 0.8 % (0-4.5); HEMATOCRIT 25.8 % (35.4-49); HEMOGLOBIN 8.5 GM/dL (11.7-16.9); LYMPH % 25.1 % (8-40); MCH 31.5 pg (25.7-33.7); MCHC 32.9 g/dl (32.0-35.9); MEAN CELL VOLUME 95.6 fl (80-96); MEAN PLT VOLUME 7.5 fl (7.5-11.1); MONO % 7.5 % (3.8-10.2); NEUT % 65.9 % (42.8-82.8); PLATELET COUNT 433 K/MM3 (134-434); RBC 2.69 M/mm3 (4.00-5.60); RDW 14.7 % (11.9-15.9); WHITE BLOOD COUNT 8.2 K/mm3 (4.0-10.0)
[2020-04-29 12:00] LABS: RETICULOCYTES 1.42 % (0.5-1.5)
[2020-04-29 12:10] LABS: ALBUMIN 2.2 g/dl (3.4-5.0); CALCIUM 8.9 mg/dL (8.5-10.1)
[2020-04-29 12:13] LABS: CREATININE 1.6 mg/dL (0.55-1.3)
[2020-04-29 12:15] LABS: BILIRUBIN,TOTAL 0.4 mg/dL (0.2-1); TOT PROT 7.2 g/dl (6.4-8.2)
[2020-04-29] MEDS ORDERED: HEPARIN NA (PORCINE) 5,000 UNITS/ML 1ML VIAL ONE (14:40)
[2020-04-29] MEDS ORDERED: ACETAMINOPHEN 325 MG TABLET (FP) PO ONE (14:40)
[2020-04-29] MEDS ORDERED: ACETAMINOPHEN 325 MG TABLET (FP) ONE (14:40)
[2020-04-29] MEDS: HEPARIN NA (PORCINE) 5,000 UNITS/ML 1ML VIAL SQ SCH ×2 (14:49→21:41)
[2020-04-29] MEDS ORDERED: PIPERACILLIN/TAZOBACTAM 2.25 GM VIAL IVPB ONE ×2 (17:38→22:49)
[2020-04-29] MEDS ORDERED: DEXTROSE 5%-WATER - 50 ML IVPB ONE ×2 (17:39→22:49)
[2020-04-29] MEDS: BICALUTAMIDE 50 MG TABLET (FP) PO SCH (21:40)
[2020-04-29] MEDS: LATANOPROST 0.005% OPHTH SOLN 2.5ML BOTTLE OU SCH (21:41)
[2020-04-30] MEDS: PIPERACILLIN/TAZOB 2.25 GM 2.25 GM in DEXTROSE 5%-WATER - 50 ML IVPB SCH (02:08)
[2020-04-30] MEDS: HEPARIN NA (PORCINE) 5,000 UNITS/ML 1ML VIAL SQ SCH ×3 (05:31→23:53)
[2020-04-30] MEDS ORDERED: PIPERACILLIN/TAZOB 2.25 GM 2.25 GM in DEXTROSE 5%-WATER - 50 ML IVPB SCH (10:00)
[2020-04-30] MEDS: SODIUM CHLORIDE 0.45% 1,000 ML IV SCH ×2 (10:09→14:45)
[2020-04-30] MEDS: TIMOLOL 0.5% OPHTHALMIC SOL 5 ML BOTTLE OU SCH ×2 (10:09→23:54)
[2020-04-30] MEDS ORDERED: PT OWN MED DRAWER 7, Y5N ONE (23:32)
[2020-04-30] MEDS: BICALUTAMIDE 50 MG TABLET (FP) PO SCH (23:53)
[2020-04-30] MEDS: LATANOPROST 0.005% OPHTH SOLN 2.5ML BOTTLE OU SCH (23:54)
[2020-05-01] MEDS: HEPARIN NA (PORCINE) 5,000 UNITS/ML 1ML VIAL SQ SCH ×3 (05:56→21:48)
[2020-05-01] MEDS: SODIUM CHLORIDE 0.45% 1,000 ML IV SCH ×2 (06:02→15:36)
[2020-05-01] MEDS ORDERED: PT OWN MED DRAWER 7, Y5N ONE (10:03)
[2020-05-01] MEDS ORDERED: DEXTROSE 5%-WATER - 50 ML IVPB ONE ×2 (10:18→17:14)
[2020-05-01] MEDS ORDERED: PIPERACILLIN/TAZOBACTAM 3.375 GM VIAL IVPB ONE ×2 (10:18→17:14)
[2020-05-01] MEDS: PIPERACILLIN/TAZOB 3.375 GM 3.375 GM in DEXTROSE 5%-WATER - 50 ML IVPB SCH ×2 (10:20→17:19)
[2020-05-01] MEDS: TIMOLOL 0.5% OPHTHALMIC SOL 5 ML BOTTLE OU SCH ×2 (10:21→21:55)
[2020-05-01 11:17] LABS: CALCIUM 8.5 mg/dL (8.5-10.1)
[2020-05-01 11:18] LABS: ALBUMIN 2.1 g/dl (3.4-5.0); BLOOD UREA NITROGEN 21.8 mg/dL (7-18)
[2020-05-01 11:21] LABS: CREATININE 1.7 mg/dL (0.55-1.3)
[2020-05-01 11:23] LABS: BILIRUBIN,TOTAL 0.3 mg/dL (0.2-1); TOT PROT 6.9 g/dl (6.4-8.2)
[2020-05-01] MEDS ORDERED: POTASSIUM CHLORIDE ORAL LIQUID 20 MEQ/15 ML PO ONE (13:12)
[2020-05-01] MEDS ORDERED: POTASSIUM CHLORIDE TABS 20 MEQ TABLET.ER (FP) PO ONE (15:52)
[2020-05-01] MEDS: BICALUTAMIDE 50 MG TABLET (FP) PO SCH (21:49)
[2020-05-01] MEDS: LATANOPROST 0.005% OPHTH SOLN 2.5ML BOTTLE OU SCH (21:55)
[2020-05-02] MEDS ORDERED: PIPERACILLIN/TAZOBACTAM 3.375 GM VIAL IVPB ONE ×3 (00:53→17:15)
[2020-05-02] MEDS ORDERED: DEXTROSE 5%-WATER - 50 ML IVPB ONE ×3 (00:53→17:15)
[2020-05-02] MEDS: PIPERACILLIN/TAZOB 3.375 GM 3.375 GM in DEXTROSE 5%-WATER - 50 ML IVPB SCH ×3 (01:11→17:48)
[2020-05-02] MEDS: HEPARIN NA (PORCINE) 5,000 UNITS/ML 1ML VIAL SQ SCH ×3 (05:53→21:37)
[2020-05-02] MEDS: TIMOLOL 0.5% OPHTHALMIC SOL 5 ML BOTTLE OU SCH ×2 (09:20→21:38)
[2020-05-02 12:16] LABS: MCH 31.5 pg (25.7-33.7); MCHC 33.2 g/dl (32.0-35.9); MEAN CELL VOLUME 94.7 fl (80-96); MEAN PLT VOLUME 7.1 fl (7.5-11.1); PLATELET COUNT 394 K/MM3 (134-434); RBC 2.86 M/mm3 (4.00-5.60); RDW 14.3 % (11.9-15.9); WHITE BLOOD COUNT 5.9 K/mm3 (4.0-10.0)
[2020-05-02 12:39] LABS: BLOOD UREA NITROGEN 19.3 mg/dL (7-18); CALCIUM 8.4 mg/dL (8.5-10.1)
[2020-05-02 12:43] LABS: CREATININE 1.5 mg/dL (0.55-1.3)
[2020-05-02 12:44] LABS: BILIRUBIN,TOTAL 0.4 mg/dL (0.2-1); TOT PROT 6.8 g/dl (6.4-8.2)
[2020-05-02] MEDS ORDERED: PT OWN MED DRAWER 7, Y5N ONE (21:32)
[2020-05-02] MEDS: BICALUTAMIDE 50 MG TABLET (FP) PO SCH (21:37)
[2020-05-02] MEDS: LATANOPROST 0.005% OPHTH SOLN 2.5ML BOTTLE OU SCH (21:38)
[2020-05-03] MEDS ORDERED: PIPERACILLIN/TAZOBACTAM 3.375 GM VIAL IVPB ONE ×3 (01:57→16:24)
[2020-05-03] MEDS ORDERED: DEXTROSE 5%-WATER - 50 ML IVPB ONE ×3 (01:57→16:25)
[2020-05-03] MEDS: PIPERACILLIN/TAZOB 3.375 GM 3.375 GM in DEXTROSE 5%-WATER - 50 ML IVPB SCH ×3 (01:59→17:44)
[2020-05-03] MEDS: HEPARIN NA (PORCINE) 5,000 UNITS/ML 1ML VIAL SQ SCH ×3 (05:38→21:05)
[2020-05-03 07:05] LABS: CALCIUM 7.9 mg/dL (8.5-10.1)
[2020-05-03 07:06] LABS: BLOOD UREA NITROGEN 15.5 mg/dL (7-18)
[2020-05-03 07:09] LABS: CREATININE 1.4 mg/dL (0.55-1.3)
[2020-05-03] MEDS ORDERED: ACETAMINOPHEN 325 MG TABLET (FP) PO PRN (09:36)
[2020-05-03] MEDS ORDERED: POTASSIUM CHLORIDE TABS 10 MEQ TABLET.ER (FP) PO ONE (09:39)
[2020-05-03] MEDS ORDERED: POTASSIUM CHLORIDE TABS 20 MEQ TABLET.ER (FP) PO ONE (09:39)
[2020-05-03] MEDS: IRON POLYSACCHARIDES 150 MG CAPSULE PO SCH (11:22)
[2020-05-03] MEDS: TIMOLOL 0.5% OPHTHALMIC SOL 5 ML BOTTLE OU SCH ×2 (11:23→21:06)
[2020-05-03] MEDS: AMINO ACIDS/PROTEIN HYDROLYS 30 ML LIQUID.PKT PO SCH (17:45)
[2020-05-03] MEDS ORDERED: PT OWN MED DRAWER 7, Y5N ONE (21:03)
[2020-05-03] MEDS: BICALUTAMIDE 50 MG TABLET (FP) PO SCH (21:05)
[2020-05-03] MEDS: LATANOPROST 0.005% OPHTH SOLN 2.5ML BOTTLE OU SCH (21:07)
[2020-05-04] MEDS ORDERED: DEXTROSE 5%-WATER - 50 ML IVPB ONE ×3 (01:49→17:22)
[2020-05-04] MEDS ORDERED: PIPERACILLIN/TAZOBACTAM 3.375 GM VIAL IVPB ONE ×3 (01:49→17:22)
[2020-05-04] MEDS: PIPERACILLIN/TAZOB 3.375 GM 3.375 GM in DEXTROSE 5%-WATER - 50 ML IVPB SCH ×3 (01:53→17:46)
[2020-05-04] MEDS: HEPARIN NA (PORCINE) 5,000 UNITS/ML 1ML VIAL SQ SCH ×3 (06:06→23:20)
[2020-05-04 08:03] LABS: CALCIUM 8.4 mg/dL (8.5-10.1)
[2020-05-04 08:06] LABS: CREATININE 1.6 mg/dL (0.55-1.3)
[2020-05-04 08:08] LABS: BILIRUBIN,TOTAL 0.2 mg/dL (0.2-1); TOT PROT 6.5 g/dl (6.4-8.2)
[2020-05-04 08:23] LABS: BASO % 0.5 % (0-2.0); EOS % 1.3 % (0-4.5); HEMATOCRIT 25.6 % (35.4-49); HEMOGLOBIN 8.6 GM/dL (11.7-16.9); LYMPH % 37.1 % (8-40); MCH 32.3 pg (25.7-33.7); MCHC 33.4 g/dl (32.0-35.9); MEAN CELL VOLUME 96.5 fl (80-96); NEUT % 53.1 % (42.8-82.8); PLATELET COUNT 371 K/MM3 (134-434); RBC 2.66 M/mm3 (4.00-5.60); RDW 14.4 % (11.9-15.9); WHITE BLOOD COUNT 7.1 K/mm3 (4.0-10.0)
[2020-05-04] MEDS: amLODIPine BESYLATE 5 MG TABLET (FP) PO SCH (10:48)
[2020-05-04] MEDS: IRON POLYSACCHARIDES 150 MG CAPSULE PO SCH (10:49)
[2020-05-04] MEDS: AMINO ACIDS/PROTEIN HYDROLYS 30 ML LIQUID.PKT PO SCH ×3 (10:49→17:53)
[2020-05-04] MEDS: TIMOLOL 0.5% OPHTHALMIC SOL 5 ML BOTTLE OU SCH ×2 (10:50→23:23)
[2020-05-04] MEDS ORDERED: PT OWN MED DRAWER 7, Y5N ONE (21:24)
[2020-05-04] MEDS: BICALUTAMIDE 50 MG TABLET (FP) PO SCH (23:21)
[2020-05-04] MEDS: LATANOPROST 0.005% OPHTH SOLN 2.5ML BOTTLE OU SCH (23:24)
[2020-05-05] MEDS ORDERED: PIPERACILLIN/TAZOBACTAM 3.375 GM VIAL IVPB ONE ×3 (02:08→17:04)
[2020-05-05] MEDS ORDERED: DEXTROSE 5%-WATER - 50 ML IVPB ONE ×3 (02:09→17:04)
[2020-05-05] MEDS: PIPERACILLIN/TAZOB 3.375 GM 3.375 GM in DEXTROSE 5%-WATER - 50 ML IVPB SCH ×3 (02:27→17:13)
[2020-05-05] MEDS: HEPARIN NA (PORCINE) 5,000 UNITS/ML 1ML VIAL SQ SCH ×3 (05:18→22:40)
[2020-05-05 07:25] LABS: BASO % 0.4 % (0-2.0); EOS % 1.2 % (0-4.5); HEMATOCRIT 23.4 % (35.4-49); HEMOGLOBIN 8.1 GM/dL (11.7-16.9); LYMPH % 31.7 % (8-40); MCH 32.1 pg (25.7-33.7); MCHC 34.6 g/dl (32.0-35.9); MEAN CELL VOLUME 92.6 fl (80-96); MEAN PLT VOLUME 6.8 fl (7.5-11.1); NEUT % 59.7 % (42.8-82.8); PLATELET COUNT 414 K/MM3 (134-434); RBC 2.52 M/mm3 (4.00-5.60); RDW 14.1 % (11.9-15.9)
[2020-05-05 09:01] LABS: ALBUMIN 2.1 g/dl (3.4-5.0); BILIRUBIN,TOTAL 0.3 mg/dL (0.2-1); BLOOD UREA NITROGEN 25.3 mg/dL (7-18); CALCIUM 8.4 mg/dL (8.5-10.1); CREATININE 1.6 mg/dL (0.55-1.3); TOT PROT 6.7 g/dl (6.4-8.2)
[2020-05-05] MEDS: amLODIPine BESYLATE 5 MG TABLET (FP) PO SCH (09:30)
[2020-05-05] MEDS: AMINO ACIDS/PROTEIN HYDROLYS 30 ML LIQUID.PKT PO SCH ×2 (09:30→17:13)
[2020-05-05] MEDS: TIMOLOL 0.5% OPHTHALMIC SOL 5 ML BOTTLE OU SCH ×2 (09:31→23:30)
[2020-05-05] MEDS: IRON POLYSACCHARIDES 150 MG CAPSULE PO SCH (09:31)
[2020-05-05] MEDS ORDERED: PT OWN MED DRAWER 7, Y5N ONE (22:36)
[2020-05-05] MEDS: BICALUTAMIDE 50 MG TABLET (FP) PO SCH (22:39)
[2020-05-05] MEDS: LATANOPROST 0.005% OPHTH SOLN 2.5ML BOTTLE OU SCH (23:30)
[2020-05-06] MEDS ORDERED: DEXTROSE 5%-WATER - 50 ML IVPB ONE ×2 (03:03→08:59)
[2020-05-06] MEDS ORDERED: PIPERACILLIN/TAZOBACTAM 3.375 GM VIAL IVPB ONE ×2 (03:03→08:59)
[2020-05-06] MEDS: PIPERACILLIN/TAZOB 3.375 GM 3.375 GM in DEXTROSE 5%-WATER - 50 ML IVPB SCH ×3 (03:12→20:07)
[2020-05-06] MEDS: HEPARIN NA (PORCINE) 5,000 UNITS/ML 1ML VIAL SQ SCH (05:09)
[2020-05-06 07:36] LABS: BASO % 0.4 % (0-2.0); EOS % 1.8 % (0-4.5); HEMATOCRIT 22.7 % (35.4-49); HEMOGLOBIN 7.8 GM/dL (11.7-16.9); LYMPH % 33.5 % (8-40); MCH 32.2 pg (25.7-33.7); MCHC 34.6 g/dl (32.0-35.9); MEAN CELL VOLUME 93.1 fl (80-96); MEAN PLT VOLUME 6.8 fl (7.5-11.1); MONO % 8.2 % (3.8-10.2); NEUT % 56.1 % (42.8-82.8); PLATELET COUNT 333 K/MM3 (134-434); RBC 2.43 M/mm3 (4.00-5.60); RDW 14.7 % (11.9-15.9); WHITE BLOOD COUNT 7.2 K/mm3 (4.0-10.0)
[2020-05-06 08:10] LABS: CALCIUM 8.6 mg/dL (8.5-10.1)
[2020-05-06 08:11] LABS: BLOOD UREA NITROGEN 27.4 mg/dL (7-18)
[2020-05-06 08:14] LABS: CREATININE 1.7 mg/dL (0.55-1.3)
[2020-05-06 08:15] LABS: BILIRUBIN,TOTAL 0.3 mg/dL (0.2-1); TOT PROT 6.4 g/dl (6.4-8.2)
[2020-05-06] MEDS: TIMOLOL 0.5% OPHTHALMIC SOL 5 ML BOTTLE OU SCH (10:16)
[2020-05-06] MEDS: AMINO ACIDS/PROTEIN HYDROLYS 30 ML LIQUID.PKT PO SCH ×2 (10:17→18:18)
[2020-05-06] MEDS: amLODIPine BESYLATE 5 MG TABLET (FP) PO SCH (10:17)
[2020-05-06] MEDS: IRON POLYSACCHARIDES 150 MG CAPSULE PO SCH (10:17)
[2020-05-06 13:31] VITALS: BMI 24.1
[2020-05-06 20:05] VITALS: BP 139/74; PULSE 81; TEMP 98.2
== END 2020-05-06 20:02 | DRG 872 ==
LOC: JER 00:10 → JERBED 04:40 → J7W 15:19
PROVIDERS: ADMIT Internal Medicine; ATTEND Family Medicine
DX: A41.89 Other specified sepsis (principal); C79.51 Secondary malignant neoplasm of bone; G91.1 Obstructive hydrocephalus; N13.6 Pyonephrosis; N17.9 Acute kidney failure, unspecified; C61 Malignant neoplasm of prostate; E87.6 Hypokalemia; L89.612 Pressure ulcer of right heel, stage 2; L89.622 Pressure ulcer of left heel, stage 2; D63.1 Anemia in chronic kidney disease; E88.09 Other disorders of plasma-protein metabolism, not elsewhere classified; I12.9 Hypertensive chronic kidney disease with stage 1 through stage 4 chronic kidney disease, or unspecified chronic kidney disease; N18.9 Chronic kidney disease, unspecified; H40.9 Unspecified glaucoma; F03.90 Unspecified dementia, unspecified severity, without behavioral disturbance, psychotic disturbance, mood disturbance, and anxiety; M48.00 Spinal stenosis, site unspecified; R91.8 Other nonspecific abnormal finding of lung field; N40.0 Benign prostatic hyperplasia without lower urinary tract symptoms; N32.89 Other specified disorders of bladder; R14.0 Abdominal distension (gaseous)
CPT/HCPCS: 36415; 36430; 71045-TC-FY; 74176-TC; 80048; 80053; 81003; 82272; 82607; 82728; 82747; 83540; 83550; 83605; 83735; 84100; 84466; 84484; 85014; 85025; 85027; 85045; 85610; 85730; 86850; 86900; 86901; 86922; 87040; 87086; 87186; 87324; 87449; 93005; 93010; 97116-GP; 97161-GP; 99285-25; C9803; J1644; P9058; U0003

== ENCOUNTER 2020-08-17 21:37 | Inpatient (IN) | payer OTHER ==
[2020-08-17 22:24] LABS: BASO % 0.6 % (0-2.0); EOS % 0.5 % (0-4.5); LYMPH % 24.5 % (8-40); MCH 29.9 pg (25.7-33.7); MCHC 33.2 g/dl (32.0-35.9); MEAN CELL VOLUME 90.3 fl (80-96); MEAN PLT VOLUME 6.9 fl (7.5-11.1); MONO % 7.3 % (3.8-10.2); NEUT % 67.1 % (42.8-82.8); PLATELET COUNT 465 K/MM3 (134-434); RBC 2.66 M/mm3 (4.00-5.60); RDW 16.3 % (11.9-15.9); WHITE BLOOD COUNT 11.2 K/mm3 (4.0-10.0)
[2020-08-17 22:32] LABS: INR 1.67 (0.83-1.09); PROTHROMBIN TIME (PATIENT) 19.9 SEC (9.7-13.0)
[2020-08-17 22:34] LABS: ACTIVATED PTT 31.4 SECONDS (25.2-36.5)
[2020-08-17 22:44] LABS: CHLORIDE 108 mmol/L (98-107); SODIUM 136 mmol/L (136-145)
[2020-08-17 22:47] LABS: ALBUMIN 2.1 g/dl (3.4-5.0); ANION GAP 7 MMOL/L (8-16); BLOOD UREA NITROGEN 48.2 mg/dL (7-18); CALCIUM 8.6 mg/dL (8.5-10.1); CO2 22 mmol/L (21-32); GLUCOSE,RANDOM 130 mg/dL (74-106)
[2020-08-17 22:49] LABS: CREATININE 1.7 mg/dL (0.55-1.3); SGOT/AST 26 U/L (15-37); SGPT/ALT 12 U/L (13-61)
[2020-08-17 22:51] LABS: BILIRUBIN,TOTAL 0.4 mg/dL (0.2-1); TOT PROT 7.4 g/dl (6.4-8.2)
[2020-08-17 22:52] LABS: ALK PHOS 455 U/L (45-117)
[2020-08-17] MEDS ORDERED: SODIUM CHLORIDE 0.9% 1000 ML INFUS.BAG IV ONE (23:00)
[2020-08-17] MEDS ORDERED: SODIUM CHLORIDE 0.9% 1000 ML INFUS.BAG IV SCH (23:00)
[2020-08-17 23:55] LABS: EPI CELLS >36 /uL (0-25.1); HYALINE CASTS 42 /uL (0-3.1); URINE APPEARANCE TURBID; URINE BACTERIA 42 /uL (0-1359); URINE BILIRUBIN NEGATIVE (NEGATIVE); URINE COLOR YELLOW; URINE GLUCOSE (UA) NEGATIVE (NEGATIVE); URINE KETONE NEGATIVE (NEGATIVE); URINE LEUK ESTERASE 3+ (NEGATIVE); URINE NITRITE NEGATIVE (NEGATIVE); URINE PROTEIN 2+ (NEGATIVE); URINE RBC 86 /uL (0-23.9); URINE UROBILINOGEN 0.2 mg/dL (0.2-1.0); URINE WBC 407 /uL (0-25.8)
[2020-08-18] MEDS ORDERED: ACETAMINOPHEN 1000 MG/100 ML VIAL (NON FORMULARY) IVPB PRN (00:41)
[2020-08-18] MEDS: SODIUM CHLORIDE 1,000 ML IV SCH (04:05)
[2020-08-18 08:29] LABS: BASO % 0.3 % (0-2.0); EOS % 0.7 % (0-4.5); HEMATOCRIT 21.9 % (35.4-49); HEMOGLOBIN 7.6 GM/dL (11.7-16.9); LYMPH % 25.8 % (8-40); MCH 31.2 pg (25.7-33.7); MCHC 34.6 g/dl (32.0-35.9); MEAN CELL VOLUME 90.1 fl (80-96); MEAN PLT VOLUME 6.8 fl (7.5-11.1); NEUT % 65.2 % (42.8-82.8); PLATELET COUNT 422 K/MM3 (134-434); RBC 2.43 M/mm3 (4.00-5.60); RDW 16.2 % (11.9-15.9); WHITE BLOOD COUNT 8.8 K/mm3 (4.0-10.0)
[2020-08-18 09:11] LABS: ALBUMIN 1.9 g/dl (3.4-5.0); BILIRUBIN,TOTAL 0.7 mg/dL (0.2-1); BLOOD UREA NITROGEN 42.9 mg/dL (7-18); CALCIUM 8.4 mg/dL (8.5-10.1); CREATININE 1.4 mg/dL (0.55-1.3); TOT PROT 6.9 g/dl (6.4-8.2)
[2020-08-18] MEDS: amLODIPine BESYLATE 5 MG TABLET (FP) PO SCH (10:00)
[2020-08-18] MEDS ORDERED: LIDOCAINE 5% TOPICAL PATCH ONE (11:36)
[2020-08-18] MEDS ORDERED: amLODIPine BESYLATE 5 MG TABLET (FP) ONE (11:36)
[2020-08-18] MEDS ORDERED: CEFTRIAXONE 1 GM/50 ML BAG ONE (11:37)
[2020-08-18] MEDS: LIDOCAINE 5% TOPICAL PATCH TP SCH (12:02)
[2020-08-18] MEDS: CEFTRIAXONE 1 GM in DEXTROSE 5%-WATER - 50 ML IVPB SCH (12:02)
[2020-08-18] MEDS: TIMOLOL 0.5% OPHTHALMIC SOL 5 ML BOTTLE OU SCH ×2 (12:03→22:56)
[2020-08-18] MEDS: COLLAGENASE CLOSTRIDIUM HIST. 30 GRAMS TUBE TP SCH ×2 (12:03→22:56)
[2020-08-18 12:06] LABS: RETICULOCYTES 1.74 % (0.5-1.5)
[2020-08-18] MEDS ORDERED: POTASSIUM CHLORIDE TABS 10 MEQ TABLET.ER (FP) PO ONE (14:54)
[2020-08-18] MEDS ORDERED: FERRIC CARBOXYMALTOSE 750 MG in SODIUM CHLORIDE 250 ML IVPB ONE (15:30)
[2020-08-18] MEDS: KCL 10 MEQ IVPB 10 MEQ/100 ML INFUS.BAG IVPB SCH (22:20)
[2020-08-18] MEDS ORDERED: PT OWN MED DRAWER 7, Y5N ONE (22:44)
[2020-08-18] MEDS: LATANOPROST 0.005% OPHTH SOLN 2.5ML BOTTLE OU SCH (22:56)
[2020-08-18] MEDS: LIDOCAINE PATCH REMOVAL MC SCH (22:57)
[2020-08-18] MEDS: BICALUTAMIDE 50 MG TABLET (FP) PO SCH (22:57)
[2020-08-19] MEDS: KCL 10 MEQ IVPB 10 MEQ/100 ML INFUS.BAG IVPB SCH (00:07)
[2020-08-19] MEDS: SODIUM CHLORIDE 1,000 ML IV SCH (03:56)
[2020-08-19 08:55] LABS: EPITHELIAL CELLS 20.1 /hpf
[2020-08-19 09:49] LABS: HEMOGLOBIN 8.9 GM/dL (11.7-16.9); MCH 30.3 pg (25.7-33.7); MCHC 34.2 g/dl (32.0-35.9); MEAN CELL VOLUME 88.6 fl (80-96); MEAN PLT VOLUME 6.8 fl (7.5-11.1); PLATELET COUNT 491 K/MM3 (134-434); RBC 2.94 M/mm3 (4.00-5.60); RDW 16.9 % (11.9-15.9); WHITE BLOOD COUNT 7.6 K/mm3 (4.0-10.0)
[2020-08-19] MEDS ORDERED: cefTRIAXone SODIUM 1 GM VIAL ONE (09:52)
[2020-08-19] MEDS ORDERED: DEXTROSE 5%-WATER - 50 ML IVPB ONE (09:52)
[2020-08-19] MEDS: COLLAGENASE CLOSTRIDIUM HIST. 30 GRAMS TUBE TP SCH ×2 (09:54→21:56)
[2020-08-19] MEDS: CEFTRIAXONE 1 GM in DEXTROSE 5%-WATER - 50 ML IVPB SCH (09:54)
[2020-08-19] MEDS: amLODIPine BESYLATE 5 MG TABLET (FP) PO SCH (09:54)
[2020-08-19] MEDS: LIDOCAINE 5% TOPICAL PATCH TP SCH (09:54)
[2020-08-19] MEDS: TIMOLOL 0.5% OPHTHALMIC SOL 5 ML BOTTLE OU SCH ×2 (09:55→21:51)
[2020-08-19 10:14] LABS: CALCIUM 8.8 mg/dL (8.5-10.1)
[2020-08-19 10:15] LABS: BILIRUBIN,TOTAL 0.6 mg/dL (0.2-1); BLOOD UREA NITROGEN 41.6 mg/dL (7-18); TOT PROT 7.1 g/dl (6.4-8.2)
[2020-08-19 10:17] LABS: CREATININE 1.3 mg/dL (0.55-1.3)
[2020-08-19] MEDS: IRON POLYSACCHARIDES 150 MG CAPSULE PO SCH (13:42)
[2020-08-19] MEDS: LATANOPROST 0.005% OPHTH SOLN 2.5ML BOTTLE OU SCH (21:49)
[2020-08-19] MEDS: LIDOCAINE PATCH REMOVAL MC SCH (21:57)
[2020-08-19] MEDS: BICALUTAMIDE 50 MG TABLET (FP) PO SCH (22:51)
[2020-08-20] MEDS: SODIUM CHLORIDE 1,000 ML IV SCH (04:26)
[2020-08-20] MEDS ORDERED: DEXTROSE 5%-WATER - 50 ML IVPB ONE (09:53)
[2020-08-20] MEDS ORDERED: cefTRIAXone SODIUM 1 GM VIAL ONE (09:53)
[2020-08-20] MEDS: CEFTRIAXONE 1 GM in DEXTROSE 5%-WATER - 50 ML IVPB SCH (09:59)
[2020-08-20] MEDS: IRON POLYSACCHARIDES 150 MG CAPSULE PO SCH (10:00)
[2020-08-20] MEDS: amLODIPine BESYLATE 10 MG TABLET (FP) PO SCH (10:00)
[2020-08-20] MEDS: LIDOCAINE 5% TOPICAL PATCH TP SCH (10:00)
[2020-08-20] MEDS: TIMOLOL 0.5% OPHTHALMIC SOL 5 ML BOTTLE OU SCH ×2 (10:01→21:07)
[2020-08-20] MEDS: COLLAGENASE CLOSTRIDIUM HIST. 30 GRAMS TUBE TP SCH ×2 (10:01→23:52)
[2020-08-20] MEDS ORDERED: PT OWN MED DRAWER 7, Y5N ONE (21:03)
[2020-08-20] MEDS: LATANOPROST 0.005% OPHTH SOLN 2.5ML BOTTLE OU SCH (21:07)
[2020-08-20] MEDS: BICALUTAMIDE 50 MG TABLET (FP) PO SCH (21:51)
[2020-08-20] MEDS: LIDOCAINE PATCH REMOVAL MC SCH (23:51)
[2020-08-21] MEDS: SODIUM CHLORIDE 1,000 ML IV SCH (04:07)
[2020-08-21] MEDS ORDERED: PT OWN MED DRAWER 7, Y5N ONE ×2 (10:30→20:49)
[2020-08-21] MEDS ORDERED: DEXTROSE 5%-WATER - 50 ML IVPB ONE (10:31)
[2020-08-21] MEDS ORDERED: cefTRIAXone SODIUM 1 GM VIAL ONE (10:31)
[2020-08-21] MEDS: COLLAGENASE CLOSTRIDIUM HIST. 30 GRAMS TUBE TP SCH ×2 (11:00→22:24)
[2020-08-21] MEDS: amLODIPine BESYLATE 10 MG TABLET (FP) PO SCH (11:02)
[2020-08-21] MEDS: IRON POLYSACCHARIDES 150 MG CAPSULE PO SCH (11:02)
[2020-08-21] MEDS: TIMOLOL 0.5% OPHTHALMIC SOL 5 ML BOTTLE OU SCH ×2 (11:03→21:18)
[2020-08-21] MEDS: LIDOCAINE 5% TOPICAL PATCH TP SCH (11:03)
[2020-08-21 11:59] LABS: BASO % 0.5 % (0-2.0); EOS % 1.1 % (0-4.5); HEMATOCRIT 28.2 % (35.4-49); HEMOGLOBIN 9.5 GM/dL (11.7-16.9); LYMPH % 27.6 % (8-40); MCH 30.1 pg (25.7-33.7); MCHC 33.6 g/dl (32.0-35.9); MEAN CELL VOLUME 89.6 fl (80-96); MEAN PLT VOLUME 7.3 fl (7.5-11.1); MONO % 6.8 % (3.8-10.2); PLATELET COUNT 458 K/MM3 (134-434); RBC 3.15 M/mm3 (4.00-5.60); RDW 16.2 % (11.9-15.9); WHITE BLOOD COUNT 6.7 K/mm3 (4.0-10.0)
[2020-08-21 12:25] LABS: ALBUMIN 1.8 g/dl (3.4-5.0); BLOOD UREA NITROGEN 21.7 mg/dL (7-18); CALCIUM 8.7 mg/dL (8.5-10.1)
[2020-08-21 12:29] LABS: CREATININE 1.1 mg/dL (0.55-1.3)
[2020-08-21 12:30] LABS: BILIRUBIN,TOTAL 0.3 mg/dL (0.2-1); TOT PROT 6.8 g/dl (6.4-8.2)
[2020-08-21] MEDS: CEFTRIAXONE 1 GM in DEXTROSE 5%-WATER - 50 ML IVPB SCH (14:03)
[2020-08-21 14:29] VITALS: BMI 21.9
[2020-08-21] MEDS: AMINO ACIDS/PROTEIN HYDROLYS 30 ML LIQUID.PKT PO SCH (18:27)
[2020-08-21] MEDS: BICALUTAMIDE 50 MG TABLET (FP) PO SCH (21:18)
[2020-08-21] MEDS: LATANOPROST 0.005% OPHTH SOLN 2.5ML BOTTLE OU SCH (21:18)
[2020-08-22] MEDS: SODIUM CHLORIDE 1,000 ML IV SCH (03:35)
[2020-08-22] MEDS ORDERED: cefTRIAXone SODIUM 1 GM VIAL ONE (09:32)
[2020-08-22] MEDS ORDERED: DEXTROSE 5%-WATER - 50 ML IVPB ONE (09:33)
[2020-08-22] MEDS: AMINO ACIDS/PROTEIN HYDROLYS 30 ML LIQUID.PKT PO SCH ×2 (09:51→16:40)
[2020-08-22] MEDS: CEFTRIAXONE 1 GM in DEXTROSE 5%-WATER - 50 ML IVPB SCH (09:51)
[2020-08-22] MEDS: amLODIPine BESYLATE 10 MG TABLET (FP) PO SCH (09:52)
[2020-08-22] MEDS: IRON POLYSACCHARIDES 150 MG CAPSULE PO SCH (09:52)
[2020-08-22] MEDS: COLLAGENASE CLOSTRIDIUM HIST. 30 GRAMS TUBE TP SCH ×2 (09:53→21:49)
[2020-08-22] MEDS: LIDOCAINE 5% TOPICAL PATCH TP SCH (09:53)
[2020-08-22] MEDS: TIMOLOL 0.5% OPHTHALMIC SOL 5 ML BOTTLE OU SCH ×2 (09:55→21:50)
[2020-08-22] MEDS ORDERED: PT OWN MED DRAWER 7, Y5N ONE (21:07)
[2020-08-22] MEDS: LIDOCAINE PATCH REMOVAL MC SCH (21:49)
[2020-08-22] MEDS: LATANOPROST 0.005% OPHTH SOLN 2.5ML BOTTLE OU SCH (21:50)
[2020-08-22] MEDS: BICALUTAMIDE 50 MG TABLET (FP) PO SCH (21:51)
[2020-08-23] MEDS: SODIUM CHLORIDE 1,000 ML IV SCH (02:30)
[2020-08-23] MEDS ORDERED: cefTRIAXone SODIUM 1 GM VIAL ONE (09:45)
[2020-08-23] MEDS ORDERED: DEXTROSE 5%-WATER - 50 ML IVPB ONE (09:46)
[2020-08-23] MEDS: CEFTRIAXONE 1 GM in DEXTROSE 5%-WATER - 50 ML IVPB SCH (09:48)
[2020-08-23] MEDS: IRON POLYSACCHARIDES 150 MG CAPSULE PO SCH (09:49)
[2020-08-23] MEDS: AMINO ACIDS/PROTEIN HYDROLYS 30 ML LIQUID.PKT PO SCH ×2 (09:49→17:32)
[2020-08-23] MEDS: amLODIPine BESYLATE 10 MG TABLET (FP) PO SCH (09:49)
[2020-08-23] MEDS: LIDOCAINE 5% TOPICAL PATCH TP SCH (09:49)
[2020-08-23] MEDS: TIMOLOL 0.5% OPHTHALMIC SOL 5 ML BOTTLE OU SCH ×2 (09:50→21:18)
[2020-08-23] MEDS: COLLAGENASE CLOSTRIDIUM HIST. 30 GRAMS TUBE TP SCH ×2 (09:50→21:18)
[2020-08-23 10:16] LABS: BASO % 0.3 % (0-2.0); HEMOGLOBIN 9.8 GM/dL (11.7-16.9); LYMPH % 27.4 % (8-40); MCH 30.2 pg (25.7-33.7); MCHC 33.8 g/dl (32.0-35.9); MEAN CELL VOLUME 89.5 fl (80-96); MEAN PLT VOLUME 6.9 fl (7.5-11.1); MONO % 6.4 % (3.8-10.2); NEUT % 64.9 % (42.8-82.8); PLATELET COUNT 456 K/MM3 (134-434); RBC 3.24 M/mm3 (4.00-5.60); RDW 16.2 % (11.9-15.9); WHITE BLOOD COUNT 8.4 K/mm3 (4.0-10.0)
[2020-08-23 11:06] LABS: ALBUMIN 1.9 g/dl (3.4-5.0); BLOOD UREA NITROGEN 25.4 mg/dL (7-18); CALCIUM 8.8 mg/dL (8.5-10.1)
[2020-08-23 11:11] LABS: BILIRUBIN,TOTAL 0.4 mg/dL (0.2-1)
[2020-08-23 11:13] LABS: TOT PROT 6.9 g/dl (6.4-8.2)
[2020-08-23] MEDS ORDERED: PT OWN MED DRAWER 7, Y5N ONE (21:03)
[2020-08-23] MEDS: BICALUTAMIDE 50 MG TABLET (FP) PO SCH (21:17)
[2020-08-23] MEDS: LATANOPROST 0.005% OPHTH SOLN 2.5ML BOTTLE OU SCH (21:18)
[2020-08-23] MEDS: LIDOCAINE PATCH REMOVAL MC SCH (21:18)
[2020-08-24] MEDS: SODIUM CHLORIDE 1,000 ML IV SCH (02:46)
[2020-08-24] MEDS ORDERED: cefTRIAXone SODIUM 1 GM VIAL ONE (09:17)
[2020-08-24] MEDS ORDERED: DEXTROSE 5%-WATER - 50 ML IVPB ONE (09:17)
[2020-08-24 09:21] LABS: BASO % 0.3 % (0-2.0); EOS % 1.3 % (0-4.5); HEMOGLOBIN 9.3 GM/dL (11.7-16.9); LYMPH % 30.1 % (8-40); MCH 30.2 pg (25.7-33.7); MCHC 34.3 g/dl (32.0-35.9); MEAN CELL VOLUME 87.9 fl (80-96); MEAN PLT VOLUME 6.9 fl (7.5-11.1); MONO % 7.2 % (3.8-10.2); NEUT % 61.1 % (42.8-82.8); PLATELET COUNT 442 K/MM3 (134-434); RBC 3.07 M/mm3 (4.00-5.60); RDW 16.1 % (11.9-15.9); WHITE BLOOD COUNT 8.8 K/mm3 (4.0-10.0)
[2020-08-24 09:48] LABS: ALBUMIN 1.8 g/dl (3.4-5.0); BLOOD UREA NITROGEN 31.3 mg/dL (7-18); CALCIUM 8.2 mg/dL (8.5-10.1)
[2020-08-24 09:53] LABS: BILIRUBIN,TOTAL 0.3 mg/dL (0.2-1); TOT PROT 6.5 g/dl (6.4-8.2)
[2020-08-24] MEDS: COLLAGENASE CLOSTRIDIUM HIST. 30 GRAMS TUBE TP SCH ×2 (10:10→21:38)
[2020-08-24] MEDS: amLODIPine BESYLATE 10 MG TABLET (FP) PO SCH (10:10)
[2020-08-24] MEDS: CEFTRIAXONE 1 GM in DEXTROSE 5%-WATER - 50 ML IVPB SCH (10:10)
[2020-08-24] MEDS: IRON POLYSACCHARIDES 150 MG CAPSULE PO SCH (10:10)
[2020-08-24] MEDS: LIDOCAINE 5% TOPICAL PATCH TP SCH (10:10)
[2020-08-24] MEDS: AMINO ACIDS/PROTEIN HYDROLYS 30 ML LIQUID.PKT PO SCH ×2 (10:10→18:36)
[2020-08-24] MEDS: TIMOLOL 0.5% OPHTHALMIC SOL 5 ML BOTTLE OU SCH ×2 (10:11→21:38)
[2020-08-24] MEDS: LIDOCAINE PATCH REMOVAL MC SCH ×2 (10:51→21:38)
[2020-08-24] MEDS: BICALUTAMIDE 50 MG TABLET (FP) PO SCH (21:38)
[2020-08-24] MEDS: LATANOPROST 0.005% OPHTH SOLN 2.5ML BOTTLE OU SCH (21:38)
[2020-08-25] MEDS: SODIUM CHLORIDE 1,000 ML IV SCH (04:01)
[2020-08-25 09:26] LABS: BASO % 0.4 % (0-2.0); EOS % 0.8 % (0-4.5); HEMATOCRIT 26.2 % (35.4-49); HEMOGLOBIN 8.8 GM/dL (11.7-16.9); LYMPH % 28.1 % (8-40); MCH 30.2 pg (25.7-33.7); MCHC 33.8 g/dl (32.0-35.9); MEAN CELL VOLUME 89.2 fl (80-96); MEAN PLT VOLUME 7.2 fl (7.5-11.1); MONO % 7.8 % (3.8-10.2); NEUT % 62.9 % (42.8-82.8); PLATELET COUNT 458 K/MM3 (134-434); RBC 2.93 M/mm3 (4.00-5.60); RDW 16.5 % (11.9-15.9); WHITE BLOOD COUNT 9.7 K/mm3 (4.0-10.0)
[2020-08-25 09:57] LABS: ALBUMIN 1.8 g/dl (3.4-5.0); BLOOD UREA NITROGEN 36.5 mg/dL (7-18); CALCIUM 8.1 mg/dL (8.5-10.1)
[2020-08-25 09:58] LABS: CREATININE 1.4 mg/dL (0.55-1.3)
[2020-08-25 10:00] LABS: BILIRUBIN,TOTAL 0.3 mg/dL (0.2-1); TOT PROT 6.7 g/dl (6.4-8.2)
[2020-08-25 10:26] LABS: ANISOCYTOSIS 1+; PLATELET ESTIMATE NORMAL
[2020-08-25] MEDS: IRON POLYSACCHARIDES 150 MG CAPSULE PO SCH (10:58)
[2020-08-25] MEDS: amLODIPine BESYLATE 10 MG TABLET (FP) PO SCH (10:58)
[2020-08-25] MEDS: AMINO ACIDS/PROTEIN HYDROLYS 30 ML LIQUID.PKT PO SCH ×2 (10:59→19:01)
[2020-08-25] MEDS: COLLAGENASE CLOSTRIDIUM HIST. 30 GRAMS TUBE TP SCH ×2 (10:59→22:47)
[2020-08-25] MEDS: TIMOLOL 0.5% OPHTHALMIC SOL 5 ML BOTTLE OU SCH ×2 (10:59→22:47)
[2020-08-25] MEDS: LIDOCAINE 5% TOPICAL PATCH TP SCH (10:59)
[2020-08-25 15:09] LABS: INR 1.45 (0.83-1.09); PROTHROMBIN TIME (PATIENT) 17.3 SEC (9.7-13.0)
[2020-08-25] MEDS ORDERED: PT OWN MED DRAWER 7, Y5N ONE (22:23)
[2020-08-25] MEDS: BICALUTAMIDE 50 MG TABLET (FP) PO SCH (22:47)
[2020-08-25] MEDS: LIDOCAINE PATCH REMOVAL MC SCH (22:47)
[2020-08-25] MEDS: LATANOPROST 0.005% OPHTH SOLN 2.5ML BOTTLE OU SCH (22:48)
[2020-08-26] MEDS ORDERED: ACETAMINOPHEN 1000 MG/100 ML VIAL (NON FORMULARY) IVPB ONE (06:05)
[2020-08-26] MEDS: MULTIVIT-MINERALS ORAL LIQUID PO SCH (11:37)
[2020-08-26] MEDS: IRON POLYSACCHARIDES 150 MG CAPSULE PO SCH (11:37)
[2020-08-26] MEDS: AMINO ACIDS/PROTEIN HYDROLYS 30 ML LIQUID.PKT PO SCH ×2 (11:37→19:06)
[2020-08-26] MEDS: amLODIPine BESYLATE 10 MG TABLET (FP) PO SCH ×2 (11:41→19:05)
[2020-08-26] MEDS: LIDOCAINE 5% TOPICAL PATCH TP SCH (12:25)
[2020-08-26] MEDS: TIMOLOL 0.5% OPHTHALMIC SOL 5 ML BOTTLE OU SCH ×2 (12:25→22:39)
[2020-08-26] MEDS: COLLAGENASE CLOSTRIDIUM HIST. 30 GRAMS TUBE TP SCH ×2 (12:25→22:39)
[2020-08-26 14:14] LABS: BASO % 0.5 % (0-2.0); EOS % 0.7 % (0-4.5); HEMOGLOBIN 9.3 GM/dL (11.7-16.9); LYMPH % 23.7 % (8-40); MCH 30.2 pg (25.7-33.7); MCHC 33.3 g/dl (32.0-35.9); MEAN CELL VOLUME 90.7 fl (80-96); MEAN PLT VOLUME 7.2 fl (7.5-11.1); NEUT % 66.1 % (42.8-82.8); PLATELET COUNT 461 K/MM3 (134-434); RBC 3.09 M/mm3 (4.00-5.60); RDW 16.9 % (11.9-15.9); WHITE BLOOD COUNT 8.7 K/mm3 (4.0-10.0)
[2020-08-26 14:39] LABS: CALCIUM 8.5 mg/dL (8.5-10.1)
[2020-08-26 14:40] LABS: ALBUMIN 1.9 g/dl (3.4-5.0); BLOOD UREA NITROGEN 32.8 mg/dL (7-18)
[2020-08-26 14:43] LABS: CREATININE 1.3 mg/dL (0.55-1.3)
[2020-08-26 14:45] LABS: BILIRUBIN,TOTAL 0.3 mg/dL (0.2-1)
[2020-08-26] MEDS ORDERED: ACETAMINOPHEN 325 MG TABLET (FP) PO PRN (14:45)
[2020-08-26 19:39] LABS: EPI CELLS >36 /uL (0-25.1); HYALINE CASTS 4 /uL (0-3.1); PH,URINE 5.5 (5.0-8.0); URINE APPEARANCE CLOUDY; URINE BACTERIA 91 /uL (0-1359); URINE BILIRUBIN NEGATIVE (NEGATIVE); URINE COLOR YELLOW; URINE GLUCOSE (UA) NEGATIVE (NEGATIVE); URINE KETONE NEGATIVE (NEGATIVE); URINE LEUK ESTERASE 2+ (NEGATIVE); URINE NITRITE NEGATIVE (NEGATIVE); URINE PROTEIN 2+ (NEGATIVE); URINE RBC 1955 /uL (0-23.9); URINE UROBILINOGEN 0.2 mg/dL (0.2-1.0); URINE WBC 195 /uL (0-25.8)
[2020-08-26] MEDS ORDERED: PT OWN MED DRAWER 7, Y5N ONE (21:55)
[2020-08-26] MEDS: LIDOCAINE PATCH REMOVAL MC SCH (22:38)
[2020-08-26] MEDS: BICALUTAMIDE 50 MG TABLET (FP) PO SCH (22:38)
[2020-08-26] MEDS: LATANOPROST 0.005% OPHTH SOLN 2.5ML BOTTLE OU SCH (22:39)
[2020-08-27 09:45] LABS: BASO % 0.3 % (0-2.0); HEMATOCRIT 29.8 % (35.4-49); HEMOGLOBIN 9.9 GM/dL (11.7-16.9); MCH 30.1 pg (25.7-33.7); MCHC 33.2 g/dl (32.0-35.9); MEAN CELL VOLUME 90.6 fl (80-96); MEAN PLT VOLUME 6.7 fl (7.5-11.1); MONO % 8.9 % (3.8-10.2); NEUT % 62.8 % (42.8-82.8); PLATELET COUNT 437 K/MM3 (134-434); RBC 3.29 M/mm3 (4.00-5.60); RDW 16.9 % (11.9-15.9); WHITE BLOOD COUNT 11.3 K/mm3 (4.0-10.0)
[2020-08-27 10:26] LABS: CALCIUM 9.2 mg/dL (8.5-10.1)
[2020-08-27 10:27] LABS: BLOOD UREA NITROGEN 30.3 mg/dL (7-18)
[2020-08-27 10:30] LABS: CREATININE 1.2 mg/dL (0.55-1.3)
[2020-08-27 10:31] LABS: BILIRUBIN,TOTAL 0.4 mg/dL (0.2-1); TOT PROT 7.3 g/dl (6.4-8.2)
[2020-08-27] MEDS: LIDOCAINE 5% TOPICAL PATCH TP SCH (11:03)
[2020-08-27] MEDS: AMINO ACIDS/PROTEIN HYDROLYS 30 ML LIQUID.PKT PO SCH ×2 (11:04→17:38)
[2020-08-27] MEDS: amLODIPine BESYLATE 10 MG TABLET (FP) PO SCH (11:04)
[2020-08-27] MEDS: IRON POLYSACCHARIDES 150 MG CAPSULE PO SCH (11:04)
[2020-08-27] MEDS: MULTIVIT-MINERALS ORAL LIQUID PO SCH (11:05)
[2020-08-27] MEDS: TIMOLOL 0.5% OPHTHALMIC SOL 5 ML BOTTLE OU SCH ×2 (11:05→23:45)
[2020-08-27] MEDS: COLLAGENASE CLOSTRIDIUM HIST. 30 GRAMS TUBE TP SCH ×2 (11:05→23:45)
[2020-08-27] MEDS ORDERED: PIPERACILLIN/TAZOBACTAM 3.375 GM VIAL IVPB ONE (17:12)
[2020-08-27] MEDS ORDERED: DEXTROSE 5%-WATER - 50 ML IVPB ONE (17:12)
[2020-08-27] MEDS: PIPERACILLIN/TAZOB 3.375 GM 3.375 GM in DEXTROSE 5%-WATER - 50 ML IVPB SCH ×2 (17:37→17:42)
[2020-08-27] MEDS: LIDOCAINE PATCH REMOVAL MC SCH (23:44)
[2020-08-27] MEDS: LATANOPROST 0.005% OPHTH SOLN 2.5ML BOTTLE OU SCH (23:45)
[2020-08-27] MEDS ORDERED: PT OWN MED DRAWER 7, Y5N ONE (23:47)
[2020-08-27] MEDS: BICALUTAMIDE 50 MG TABLET (FP) PO SCH (23:53)
[2020-08-28] MEDS ORDERED: PIPERACILLIN/TAZOBACTAM 3.375 GM VIAL IVPB ONE ×2 (02:56→09:01)
[2020-08-28] MEDS ORDERED: DEXTROSE 5%-WATER - 50 ML IVPB ONE ×2 (02:56→09:02)
[2020-08-28] MEDS: PIPERACILLIN/TAZOB 3.375 GM 3.375 GM in DEXTROSE 5%-WATER - 50 ML IVPB SCH ×2 (02:57→09:05)
[2020-08-28] MEDS: amLODIPine BESYLATE 10 MG TABLET (FP) PO SCH (09:04)
[2020-08-28] MEDS: IRON POLYSACCHARIDES 150 MG CAPSULE PO SCH (09:05)
[2020-08-28] MEDS: LIDOCAINE 5% TOPICAL PATCH TP SCH (09:05)
[2020-08-28] MEDS: AMINO ACIDS/PROTEIN HYDROLYS 30 ML LIQUID.PKT PO SCH ×2 (09:06→18:02)
[2020-08-28] MEDS: COLLAGENASE CLOSTRIDIUM HIST. 30 GRAMS TUBE TP SCH ×2 (09:06→22:14)
[2020-08-28] MEDS: TIMOLOL 0.5% OPHTHALMIC SOL 5 ML BOTTLE OU SCH ×2 (09:06→22:14)
[2020-08-28] MEDS: MULTIVIT-MINERALS ORAL LIQUID PO SCH (09:07)
[2020-08-28] MEDS: AMOX TR/POT CLAV 500MG/125MG TABLETS (FP) PO SCH (17:57)
[2020-08-28] MEDS: BICALUTAMIDE 50 MG TABLET (FP) PO SCH (22:09)
[2020-08-28] MEDS: LIDOCAINE PATCH REMOVAL MC SCH (22:14)
[2020-08-28] MEDS: LATANOPROST 0.005% OPHTH SOLN 2.5ML BOTTLE OU SCH (22:14)
[2020-08-29] MEDS: AMOX TR/POT CLAV 500MG/125MG TABLETS (FP) PO SCH (08:50)
[2020-08-29] MEDS: AMINO ACIDS/PROTEIN HYDROLYS 30 ML LIQUID.PKT PO SCH (08:50)
[2020-08-29] MEDS: LIDOCAINE 5% TOPICAL PATCH TP SCH (08:59)
[2020-08-29] MEDS: IRON POLYSACCHARIDES 150 MG CAPSULE PO SCH (08:59)
[2020-08-29] MEDS: COLLAGENASE CLOSTRIDIUM HIST. 30 GRAMS TUBE TP SCH (09:00)
[2020-08-29] MEDS: amLODIPine BESYLATE 10 MG TABLET (FP) PO SCH (09:00)
[2020-08-29] MEDS: TIMOLOL 0.5% OPHTHALMIC SOL 5 ML BOTTLE OU SCH (09:00)
[2020-08-29] MEDS: MULTIVIT-MINERALS ORAL LIQUID PO SCH (09:16)
[2020-08-29 11:58] VITALS: BP 120/80; PULSE 80; TEMP 99.9
== END 2020-08-29 14:12 | DRG 722 ==
LOC: JER 21:37 → JERBED 08-18 00:37 → J5S 08-18 18:40
PROVIDERS: ADMIT Hospitalist; ATTEND Family Medicine
PROC: BT01ZZZ Plain Radiography of Right Kidney (ICD-10-PCS; principal; 2020-08-26)
PROC: 0T9030Z Drainage of Right Kidney with Drainage Device, Percutaneous Approach (ICD-10-PCS; 2020-08-26)
DX: C61 Malignant neoplasm of prostate (principal); R53.2 Functional quadriplegia; N13.6 Pyonephrosis; C79.51 Secondary malignant neoplasm of bone; G91.9 Hydrocephalus, unspecified; C78.00 Secondary malignant neoplasm of unspecified lung; F03.90 Unspecified dementia, unspecified severity, without behavioral disturbance, psychotic disturbance, mood disturbance, and anxiety; R74.8 Abnormal levels of other serum enzymes; L89.150 Pressure ulcer of sacral region, unstageable; R00.0 Tachycardia, unspecified; N40.0 Benign prostatic hyperplasia without lower urinary tract symptoms; R91.1 Solitary pulmonary nodule; K59.09 Other constipation; D64.9 Anemia, unspecified; N32.89 Other specified disorders of bladder; E87.6 Hypokalemia; I12.9 Hypertensive chronic kidney disease with stage 1 through stage 4 chronic kidney disease, or unspecified chronic kidney disease; N18.9 Chronic kidney disease, unspecified
CPT/HCPCS: 36415; 36430; 50432; 71045-TC-FY; 74230-TC-FY; 76098-TC-FY; 76705-TC; 76775-TC; 76856-TC; 76942-TC; 80048; 80053; 81003; 81015; 82728; 82746; 82977; 83540; 83550; 83605; 83735; 84153; 84439; 84443; 84484; 85025; 85027; 85045; 85610; 85730; 86850; 86900; 86901; 86922; 87040; 87070; 87075; 87086; 87102; 87116; 87205; 87206; 87210; 87899; 92611-GN; 93005; 93010; 97116-GP; 97161-GP; 99285-25; C1729; C1769; C9803; J0131; J1439; P9058; U0003; U0005